=== PATIENT | female | born 1950 | race Caucasian/White ===

== ENCOUNTER → 2017-10-26 08:43 | Outpatient (CLI) | payer MEDICARE, SELFPAY ==
--- NOTE | 2017-10-26 08:55 | XR_ITS ---
XR DEXA axial skeleton HISTORY: ITS.REASON: OSTEOPOROSIS ORDERING PHYSICIAN: Greyson Plata PATIENT AGE: 67 years COMPARISON: None FINDINGS: The BMD measured at the AP Spine L1-L4 is 0.746 g/cm squared with a T score of -3.6 . This is considered Osteoporotic according to the World Health Organization criteria. Fracture risk is high. The density lumbar spine has increased by 8% compared to 10/16/2016. The T score of the hips is -2.5 consistent with osteoporosis. This density of the hips is increased by 9% compared to the previous exam.. IMPRESSION: Osteoporosis with high fracture risk. Consider follow-up exam October 2018
== END ==
PROVIDERS: Family Provider Family Medicine; PCP Family Medicine; Visit Provider Internal Medicine Endocrinology, Diabetes & Metabolism
DX: M81.0 Age-related osteoporosis without current pathological fracture (principal)
CPT/HCPCS: 77080

== ENCOUNTER → 2017-11-22 09:08 | Outpatient (CLI) | payer MEDICARE, SELFPAY ==
[2017-11-22 09:34] LABS: Albumin Level 3.6 gm/dL (3.4-5.0); Anion Gap 2.7 mEq/L (5-15); Blood Urea Nitrogen 7 mg/dL (7-18); Calcium 9.2 mg/dL (8.5-10.1); Carbon Dioxide 31 mmol/L (21.0-32.0); Chloride 96 mmol/L (98-107); Estimated Glomerular Filt Rate 100 ml/min (>60); GFR (African American) 121 ML/MIN (>60); Glucose 71 mg/dL (74-106); Phosphorous 4.7 mg/dL (2.4-4.9); Potassium 3.7 mmoL/L (3.5-5.1); Sodium 126 mmol/L (136-145)
[2017-11-26 19:13] LABS: Tandem-R Ostase 10.3 ug/L (.); Vitamin D 25 Hydroxy 55.3 ng/mL (30.0-100.0)
== END ==
PROVIDERS: Visit Provider Internal Medicine Endocrinology, Diabetes & Metabolism
DX: M81.0 Age-related osteoporosis without current pathological fracture (principal)
CPT/HCPCS: 36415; 80069; 82652; 83937; 84080

== ENCOUNTER → 2017-12-20 08:53 | Outpatient (CLI) | payer MEDICARE, SELFPAY ==
[2017-12-20 11:28] LABS: Albumin Level 3.9 gm/dL (3.4-5.0); Anion Gap 11.5 mEq/L (5-15); Blood Urea Nitrogen 7 mg/dL (7-18); Calcium 9.4 mg/dL (8.5-10.1); Carbon Dioxide 28 mmol/L (21.0-32.0); Chloride 97 mmol/L (98-107); Creatinine,Serum 0.46 mg/dL (0.55-1.02); Estimated Glomerular Filt Rate 136 ml/min (>60); GFR (African American) 164 ML/MIN (>60); Glucose 72 mg/dL (74-106); Phosphorous 4.7 mg/dL (2.4-4.9); Potassium 4.5 mmoL/L (3.5-5.1); Sodium 132 mmol/L (136-145)
== END ==
PROVIDERS: Visit Provider Internal Medicine Endocrinology, Diabetes & Metabolism
DX: M81.0 Age-related osteoporosis without current pathological fracture (principal); E78.5 Hyperlipidemia, unspecified; D50.9 Iron deficiency anemia, unspecified
CPT/HCPCS: 36415; 80069; 85025

== ENCOUNTER → 2018-04-26 07:09 | Outpatient (CLI) | payer MEDICARE, SELFPAY ==
[2018-04-26 07:48] LABS: Basophils % 0.9 % (0.1-2.0); Eosinophils # 0.1 K/mm3 (0.0-0.4); Eosinophils % 2.5 % (0.1-12.0); Hematocrit 36.9 % (37.0-47.0); Hemoglobin 12.3 g/dL (12.2-16.2); Lymphocytes # 2.3 K/mm3 (0.7-4.5); Lymphocytes % 53.5 K/mm3 (10-50); Mean Corpuscular HGB Conc 33.4 g/dL (31.8-35.4); Mean Corpuscular Hemoglobin 30.4 pg (27.0-31.2); Mean Corpuscular Volume 90.9 fl (81-99); Mean Platelet Volume 6.9 fl (7.4-10.4); Monocytes # 0.2 K/mm3 (0.1-1.0); Monocytes % 5.2 % (1.7-9.3); Neutrophils # 1.6 K/mm3 (1.8-7.8); Neutrophils % 37.9 % (37.0-80.0); Platelet Count 388 K/mm3 (142-424); Red Blood Count 4.06 M/mm3 (4.20-5.40); Red Cell Distribution Width 13.1 % (11.5-17.5); White Blood Count 4.2 K/mm3 (4.8-10.8)
[2018-04-26 07:50] LABS: MANUAL DIFFERENTIAL MANUAL DIFFERENTIAL (MANUAL DIFF)
[2018-04-26 08:54] LABS: Alanine Aminotransferase 23 U/L (12-78); Albumin Level 3.6 gm/dL (3.4-5.0); Albumin/Globulin Ratio 1.2 (1.1-1.8); Alkaline Phosphatase 58 U/L (46-116); Anion Gap 8.2 mEq/L (5-15); Aspartate Amino Transferase 18 U/L (15-37); Bilirubin,Total 0.4 mg/dL (0.2-1.0); Blood Urea Nitrogen 5 mg/dL (7-18); Calcium 8.4 mg/dL (8.5-10.1); Carbon Dioxide 28 mmol/L (21.0-32.0); Chloride 105 mmol/L (98-107); Chol/HDL Ratio 2.5 (1-3.5); Cholesterol 221 mg/dL (140-200); Creatinine,Serum 0.54 mg/dL (0.55-1.02); Estimated Glomerular Filt Rate 113 ml/min (>60); GFR (African American) 137 ML/MIN (>60); Globulin 2.9 gm/dl (1.3-3.2); Glucose 86 mg/dL (74-106); HDL Cholesterol 89 mg/dL (29-89); Iron 75 ug/dl (28-170); LDL Cholesterol 122 mg/dL (0-130); Potassium 4.2 mmoL/L (3.5-5.1); Sodium 137 mmol/L (136-145); Total Protein,Serum 6.5 gm/dL (6.4-8.2); Triglycerides 48 mg/dL (30-200); VLDL Cholesterol 10 mg/dL (0-40)
[2018-04-26 11:13] LABS: Eosinophils % 2 % (0-3); Lymphocytes % 55 % (10-50); Monocytes % 5 % (2-9); Neutrophils % 37 % (42-76); Platelet Estimate Normal; RBC Morphology Normal; Total Cells Counted 100
[2018-04-28 06:50] LABS: Folate 10.8 ng/mL (>3.0); Vitamin B12 829 pg/mL (232-1245); Vitamin D 25 Hydroxy 64.5 ng/mL (30.0-100.0)
== END ==
PROVIDERS: Visit Provider Family Medicine
DX: R53.83 Other fatigue (principal); E78.5 Hyperlipidemia, unspecified; E55.9 Vitamin D deficiency, unspecified; E53.8 Deficiency of other specified B group vitamins; R79.89 Other specified abnormal findings of blood chemistry
CPT/HCPCS: 36415; 80053; 80061; 82607; 82652; 82746; 83540; 85007; 85025

== ENCOUNTER → 2018-05-26 09:31 | Outpatient (CLI) | payer MEDICARE, SELFPAY ==
[2018-05-27 19:05] LABS: Vitamin D 25 Hydroxy 70.3 ng/mL (30.0-100.0)
[2018-05-31 08:28] LABS: Tandem-R Ostase 5.5 ug/L (.)
[2018-06-01 12:49] LABS: N-Telopeptide Cross-linked 5.3 nmol BCE/L (6.2-19.0)
== END ==
PROVIDERS: PCP Family Medicine; Visit Provider Internal Medicine Endocrinology, Diabetes & Metabolism
DX: M81.0 Age-related osteoporosis without current pathological fracture (principal)
CPT/HCPCS: 36415; 82523; 82652; 84080

== ENCOUNTER → 2018-11-11 08:19 | Outpatient (CLI) | payer MEDICARE, SELFPAY ==
--- NOTE | 2018-11-11 08:24 | XR_ITS ---
XR DEXA axial skeleton HISTORY: ITS.REASON: OSTEOPOROSIS ORDERING PHYSICIAN: Greyson Plata PATIENT AGE: 68 years COMPARISON: 10/26/2017 FINDINGS: The BMD measured at the AP Spine L1-L4 is 0.728 g/cm squared with a T score of -3.8. This is considered Osteoporotic according to the World Health Organization criteria. Fracture risk is High. The mean density of the hips has a T score of -2.2 with the lowest density in the right total hip at -2.5. The hip density has increased by 2.6%. The L-spine density has decreased by 2.4%. IMPRESSION: Osteoporosis with high fracture risk. Treatment is advised. Suggest follow-up exam October 2019
== END ==
PROVIDERS: PCP Family Medicine; Visit Provider Internal Medicine Endocrinology, Diabetes & Metabolism
DX: M81.0 Age-related osteoporosis without current pathological fracture (principal)
CPT/HCPCS: 77080

== ENCOUNTER → 2019-01-05 14:01 | Outpatient (CLI) | payer MEDICARE, SELFPAY ==
[2019-01-05 16:29] LABS: Albumin Level 3.9 gm/dL (3.4-5.0); Anion Gap 11.5 mEq/L (5-15); Blood Urea Nitrogen 7 mg/dL (7-18); Calcium 9.2 mg/dL (8.5-10.1); Carbon Dioxide 27 mmol/L (21.0-32.0); Chloride 95 mmol/L (98-107); Creatinine,Serum 0.58 mg/dL (0.55-1.02); Estimated Glomerular Filt Rate 104 ml/min (>60); GFR (African American) 125 ML/MIN (>60); Glucose 64 mg/dL (74-106); Phosphorous 4.4 mg/dL (2.4-4.9); Potassium 4.5 mmoL/L (3.5-5.1); Sodium 129 mmol/L (136-145)
[2019-01-07 19:08] LABS: Vitamin D 25 Hydroxy 66.3 ng/mL (30.0-100.0)
[2019-01-10 07:07] LABS: Tandem-R Ostase 12.9 ug/L (.)
[2019-01-11 08:11] LABS: N-Telopeptide Cross-linked 11.7 nmol BCE/L (6.2-19.0)
== END ==
PROVIDERS: Visit Provider Internal Medicine Endocrinology, Diabetes & Metabolism
DX: M81.0 Age-related osteoporosis without current pathological fracture (principal)
CPT/HCPCS: 36415; 80069; 82523; 82652; 84080

== ENCOUNTER → 2019-02-07 14:40 | Outpatient (CLI) | payer MEDICARE, SELFPAY ==
--- NOTE | 2019-02-07 14:52 | XR_ITS ---
XR foot RT min 3V HISTORY: ITS.REASON: RT FOOT PAIN 3-4 METATARSAL ORDERING PHYSICIAN: Felix Le MD PATIENT AGE: 68 years COMPARISON: None FINDINGS: No fracture or dislocation. No lytic or blastic change. There is normal mineralization.. The joint spaces are well-preserved. No significant degenerative/arthritic changes. No erosive changes evident. IMPRESSION: Negative, no acute finding
== END ==
PROVIDERS: PCP Family Medicine; Visit Provider Family Medicine
DX: M79.671 Pain in right foot (principal)
CPT/HCPCS: 73630

== ENCOUNTER → 2019-02-23 08:28 | Outpatient (CLI) | payer MEDICARE, SELFPAY ==
[2019-02-23 10:52] LABS: Albumin Level 3.7 gm/dL (3.4-5.0); Anion Gap 11.2 mEq/L (5-15); Blood Urea Nitrogen 9 mg/dL (7-18); Calcium 9.1 mg/dL (8.5-10.1); Carbon Dioxide 28 mmol/L (21.0-32.0); Chloride 95 mmol/L (98-107); Creatinine,Serum 0.51 mg/dL (0.55-1.02); Estimated Glomerular Filt Rate 120 ml/min (>60); GFR (African American) 146 ML/MIN (>60); Glucose 67 mg/dL (74-106); Phosphorous 4.3 mg/dL (2.4-4.9); Potassium 4.2 mmoL/L (3.5-5.1); Sodium 130 mmol/L (136-145)
== END ==
PROVIDERS: Visit Provider Internal Medicine Endocrinology, Diabetes & Metabolism
DX: M81.0 Age-related osteoporosis without current pathological fracture (principal)
CPT/HCPCS: 36415; 80069

== ENCOUNTER → 2019-04-18 14:01 | Outpatient (POV) | payer MEDICARE, SELFPAY | PROVIDERS: Visit Provider Dermatology | DX: Z00.00 Encounter for general adult medical examination without abnormal findings (principal) ==

== ENCOUNTER → 2019-07-11 07:18 | Outpatient (CLI) | payer MEDICARE, SELFPAY ==
[2019-07-11 07:56] LABS: Basophils # 0.1 K/mm3 (0-0.2); Basophils % 1.5 % (0.1-2.0); Eosinophils # 0.1 K/mm3 (0.0-0.4); Eosinophils % 2.1 % (0.1-12.0); Hematocrit 37.9 % (37.0-47.0); Hemoglobin 12.9 g/dL (12.2-16.2); Lymphocytes # 1.5 K/mm3 (0.7-4.5); Lymphocytes % 37.3 % (10-50); Mean Corpuscular HGB Conc 33.9 g/dL (31.8-35.4); Mean Corpuscular Hemoglobin 31.3 pg (27.0-31.2); Mean Corpuscular Volume 92.4 fl (81-99); Mean Platelet Volume 7.8 fl (7.4-10.4); Monocytes # 0.2 K/mm3 (0.1-1.0); Neutrophils # 2.1 K/mm3 (1.8-7.8); Neutrophils % 53.1 % (37.0-80.0); Platelet Count 392 K/mm3 (142-424); Red Cell Distribution Width 13.1 % (11.5-17.5)
[2019-07-11 10:30] LABS: Alanine Aminotransferase 18 U/L (12-78); Albumin Level 3.9 gm/dL (3.4-5.0); Albumin/Globulin Ratio 1.3 (1.1-1.8); Alkaline Phosphatase 62 U/L (46-116); Aspartate Amino Transferase 15 U/L (15-37); Bilirubin,Total 0.4 mg/dL (0.2-1.0); Blood Urea Nitrogen 5 mg/dL (7-18); Calcium 8.7 mg/dL (8.5-10.1); Chloride 101 mmol/L (98-107); Chol/HDL Ratio 2.2 (1-3.5); Cholesterol 215 mg/dL (140-200); Creatinine,Serum 0.57 mg/dL (0.55-1.02); Estimated Glomerular Filt Rate 106 ml/min (>60); GFR (African American) 128 ML/MIN (>60); Globulin 2.9 gm/dl (1.3-3.2); Glucose 77 mg/dL (74-106); HDL Cholesterol 97 mg/dL (29-89); Iron 67 ug/dl (28-170); LDL Cholesterol 110 mg/dL (0-130); Potassium 4.4 mmoL/L (3.5-5.1); Sodium 138 mmol/L (136-145); Total Protein,Serum 6.8 gm/dL (6.4-8.2); Triglycerides 38 mg/dL (30-200); VLDL Cholesterol 8 mg/dL (0-40)
[2019-07-11 10:34] LABS: Anion Gap 16.4 mEq/L (5-15); Carbon Dioxide 25 mmol/L (21.0-32.0)
[2019-07-12 08:25] LABS: Folate 13.1 ng/mL (>3.0); Vitamin B12 757 pg/mL (232-1245); Vitamin D 25 Hydroxy 62.8 ng/mL (30.0-100.0)
== END ==
PROVIDERS: Visit Provider Family Medicine
DX: D72.819 Decreased white blood cell count, unspecified (principal); D64.9 Anemia, unspecified; R53.83 Other fatigue; E78.5 Hyperlipidemia, unspecified; E55.9 Vitamin D deficiency, unspecified
CPT/HCPCS: 36415; 80053; 80061; 82607; 82652; 82746; 83540; 85025

== ENCOUNTER → 2019-07-27 14:34 | Outpatient (CLI) | payer MEDICARE, SELFPAY ==
[2019-07-27 18:15] LABS: Albumin Level 3.9 gm/dL (3.4-5.0); Anion Gap 11.1 mEq/L (5-15); Blood Urea Nitrogen 7 mg/dL (7-18); Calcium 8.6 mg/dL (8.5-10.1); Carbon Dioxide 27 mmol/L (21.0-32.0); Chloride 96 mmol/L (98-107); Creatinine,Serum 0.67 mg/dL (0.55-1.02); Estimated Glomerular Filt Rate 88 ml/min (>60); GFR (African American) 106 ML/MIN (>60); Glucose 70 mg/dL (74-106); Phosphorous 3.4 mg/dL (2.4-4.9); Potassium 4.1 mmoL/L (3.5-5.1); Sodium 130 mmol/L (136-145)
[2019-07-29 18:15] LABS: Vitamin D 25 Hydroxy 58.3 ng/mL (30.0-100.0)
[2019-08-01 19:10] LABS: N-Telopeptide Cross-linked <3.2 nmol BCE/L (6.2-19.0)
[2019-08-02 12:19] LABS: Tandem-R Ostase 5.8 ug/L (.)
== END ==
PROVIDERS: Visit Provider Internal Medicine Endocrinology, Diabetes & Metabolism
DX: M81.0 Age-related osteoporosis without current pathological fracture (principal)
CPT/HCPCS: 36415; 80069; 82523; 82652; 84080

== ENCOUNTER → 2020-01-19 10:08 | Outpatient (CLI) | payer MEDICARE, SELFPAY ==
--- NOTE | 2020-01-19 10:12 | XR_ITS ---
PROCEDURE: XR DEXA AXIAL SKELETON CLINICAL HISTORY: OSTEOPOROSIS COMPARISON: No exams were available for comparison FINDINGS: Right proximal femur density is 0.635 grams/centimeters sq with a T-score -2.5 consistent with osteoporosis. Left proximal femur density is 0.621 grams/centimeters sq with a T-score of -2.6 consistent with osteoporosis. L1-L4 density is 0.674 grams/centimeters sq with T-score of -3.4 consistent with osteoporosis. IMPRESSION: Osteoporosis with high fracture risk. Treatment advised. Suggest follow-up exam in 1 year Dictated by: Nicko Motley MD 01/19/2020 11:36 Electronically signed by Nicko Motley MD in [place] 01/19/2020 11:36
== END ==
PROVIDERS: PCP Family Medicine; Visit Provider Internal Medicine Endocrinology, Diabetes & Metabolism
DX: M81.0 Age-related osteoporosis without current pathological fracture (principal)
CPT/HCPCS: 77080

== ENCOUNTER → 2020-01-26 09:59 | Outpatient (CLI) | payer MEDICARE, SELFPAY ==
[2020-01-26 12:28] LABS: Albumin Level 4.1 g/dl (3.5-5.0); Anion Gap 8.6 mEq/L (5-15); Blood Urea Nitrogen 7 mg/dl (7-17); Calcium 9.8 mg/dl (8.4-10.2); Carbon Dioxide 26 mmol/L (22.0-30.0); Chloride 97 mmol/L (98-107); Estimated Glomerular Filt Rate 159 ml/min (>60); GFR (African American) 192 ML/MIN (>60); Glucose 84 mg/dl (74-100); Phosphorous 4.3 mg/dl (2.5-4.5); Potassium 4.6 mmoL/L (3.5-5.1); Sodium 127 mmol/L (136-145)
[2020-01-27 08:15] LABS: Vitamin D 25 Hydroxy 74.8 ng/mL (30.0-100.0)
[2020-01-30 21:04] LABS: N-Telopeptide Cross-linked 11.1 nmol BCE/L (6.2-19.0)
== END ==
PROVIDERS: Visit Provider Internal Medicine Endocrinology, Diabetes & Metabolism
DX: M81.0 Age-related osteoporosis without current pathological fracture (principal)
CPT/HCPCS: 36415; 80069; 82523; 82652

== ENCOUNTER → 2020-06-20 09:25 | Outpatient (CLI) | payer MEDICARE, SELFPAY ==
[2020-06-20 11:08] LABS: Chloride 94 mmol/L (98-107); Sodium 129 mmol/L (136-145)
[2020-06-20 11:09] LABS: Albumin Level 3.9 g/dl (3.5-5.0); Potassium 4.8 mmoL/L (3.5-5.1)
[2020-06-20 11:11] LABS: Blood Urea Nitrogen 8 mg/dl (7-17); Estimated Glomerular Filt Rate 123 ml/min (>60); GFR (African American) 148 ML/MIN (>60)
[2020-06-20 11:12] LABS: Anion Gap 10.8 mEq/L (5-15); Calcium 9.5 mg/dl (8.4-10.2); Carbon Dioxide 29 mmol/L (22.0-30.0); Glucose 70 mg/dl (74-100); Phosphorous 4.6 mg/dl (2.5-4.5)
== END ==
PROVIDERS: Visit Provider Internal Medicine Endocrinology, Diabetes & Metabolism
DX: M81.0 Age-related osteoporosis without current pathological fracture (principal)
CPT/HCPCS: 36415; 80069

== ENCOUNTER 2020-07-05 13:48 | Outpatient (CLI) | payer MEDICARE, SELFPAY ==
[2020-07-05 14:05] VITALS: BP 117/72; PULSE 70; RESP 18; O2SAT 94
== END 2020-07-05 14:05 | disposition home or self-care (01) ==
LOC: INF 13:50
PROVIDERS: Visit Provider Internal Medicine Endocrinology, Diabetes & Metabolism
DX: M81.0 Age-related osteoporosis without current pathological fracture (principal)
CPT/HCPCS: 96372; J0897

== ENCOUNTER → 2020-07-11 07:13 | Outpatient (CLI) | payer MEDICARE, SELFPAY ==
[2020-07-11 07:49] LABS: Basophils # 0.1 K/mm3 (0-0.2); Basophils % 1.5 % (0.1-2.0); Eosinophils # 0.1 K/mm3 (0.0-0.4); Eosinophils % 3.2 % (0.1-12.0); Hematocrit 39.9 % (37.0-47.0); Hemoglobin 13.2 g/dL (12.2-16.2); Lymphocytes # 1.5 K/mm3 (0.7-4.5); Lymphocytes % 42.5 % (10-50); Mean Corpuscular Hemoglobin 30.4 pg (27.0-31.2); Mean Corpuscular Volume 92.3 fl (81-99); Mean Platelet Volume 7.4 fl (7.4-10.4); Monocytes # 0.3 K/mm3 (0.1-1.0); Monocytes % 7.3 % (1.7-9.3); Neutrophils # 1.6 K/mm3 (1.8-7.8); Neutrophils % 45.6 % (37.0-80.0); Platelet Count 328 K/mm3 (142-424); Red Blood Count 4.32 M/mm3 (4.20-5.40); Red Cell Distribution Width 13.8 % (11.5-17.5); White Blood Count 3.6 K/mm3 (4.8-10.8)
[2020-07-11 09:40] LABS: Alanine Aminotransferase 12 U/L (12-78); Albumin Level 4.2 g/dl (3.5-5.0); Albumin/Globulin Ratio 1.6 (1.1-1.8); Alkaline Phosphatase 118 U/L (38-126); Anion Gap 12.9 mEq/L (5-15); Aspartate Amino Transferase 30 U/L (14-36); Bilirubin,Total 0.5 mg/dl (0.2-1.3); Blood Urea Nitrogen 6 mg/dl (7-17); Calcium 8.8 mg/dl (8.4-10.2); Carbon Dioxide 25 mmol/L (22.0-30.0); Chloride 101 mmol/L (98-107); Chol/HDL Ratio 2.4 (1-3.5); Cholesterol 201 mg/dl (140-200); Estimated Glomerular Filt Rate 123 ml/min (>60); GFR (African American) 148 ML/MIN (>60); Globulin 2.7 g/dL (1.3-3.2); Glucose 84 mg/dl (74-100); HDL Cholesterol 83 mg/dl (40-60); Potassium 4.9 mmoL/L (3.5-5.1); Sodium 134 mmol/L (136-145); Total Protein,Serum 6.9 g/dl (6.3-8.2); Triglycerides 83 mg/dl (30-150); VLDL Cholesterol 17 mg/dL (0-40)
[2020-07-11 09:51] LABS: Direct LDL Cholesterol 98.75 mg/dL (100-129)
[2020-07-11 10:31] LABS: 25-OH Vitamin D, Total 87.5 ng/mL (30-100)
[2020-07-11 10:46] LABS: Vitamin B12 898 pg/mL (239-931)
[2020-07-11 16:21] LABS: Iron 71 ug/dL (37-170)
== END ==
PROVIDERS: Visit Provider Family Medicine
DX: D64.89 Other specified anemias (principal); E53.8 Deficiency of other specified B group vitamins; E78.5 Hyperlipidemia, unspecified; E55.9 Vitamin D deficiency, unspecified; D72.819 Decreased white blood cell count, unspecified
CPT/HCPCS: 36415; 80053; 80061; 82306; 82607; 82746; 83540; 85025

== ENCOUNTER → 2020-07-19 14:33 | Outpatient (CLI) | payer MEDICARE, SELFPAY ==
[2020-07-19 15:29] LABS: Albumin Level 4.7 g/dl (3.5-5.0); Anion Gap 11.6 mEq/L (5-15); Blood Urea Nitrogen 9 mg/dl (7-17); Calcium 10.2 mg/dl (8.4-10.2); Carbon Dioxide 27 mmol/L (22.0-30.0); Chloride 96 mmol/L (98-107); Estimated Glomerular Filt Rate 123 ml/min (>60); GFR (African American) 148 ML/MIN (>60); Glucose 83 mg/dl (74-100); Phosphorous 4.3 mg/dl (2.5-4.5); Potassium 4.6 mmoL/L (3.5-5.1); Sodium 130 mmol/L (136-145)
== END ==
PROVIDERS: Visit Provider Internal Medicine Endocrinology, Diabetes & Metabolism
DX: M81.0 Age-related osteoporosis without current pathological fracture (principal)
CPT/HCPCS: 36415; 80069

== ENCOUNTER → 2020-08-21 10:38 | Outpatient (CLI) | payer MEDICARE, SELFPAY ==
[2020-08-21 12:08] LABS: Albumin Level 4.8 g/dl (3.5-5.0); Chloride 94 mmol/L (98-107); Potassium 4.7 mmoL/L (3.5-5.1); Sodium 129 mmol/L (136-145)
[2020-08-21 12:11] LABS: Anion Gap 10.7 mEq/L (5-15); Blood Urea Nitrogen 7 mg/dl (7-17); Carbon Dioxide 29 mmol/L (22.0-30.0); Estimated Glomerular Filt Rate 123 ml/min (>60); GFR (African American) 148 ML/MIN (>60)
[2020-08-21 12:12] LABS: Calcium 10.6 mg/dl (8.4-10.2); Glucose 85 mg/dl (74-100); Phosphorous 4.3 mg/dl (2.5-4.5)
[2020-08-24 07:35] LABS: Tandem-R Ostase 20.8 ug/L (.)
[2020-08-27 17:59] LABS: N-Telopeptide Cross-linked 4.1 nmol BCE/L (6.2-19.0)
[2020-08-31 00:58] LABS: 1,25 Dihydroxy Vitamin D 84 pg/mL (.); 1,25-Dihydroxy, Vitamin D-2 <10 pg/mL (.); 1,25-Dihydroxy, Vitamin D-3 84 pg/mL (.)
[2020-08-31 06:16] LABS: Serial Monitoring PDF SEE LABCORP REPORT
== END ==
PROVIDERS: Visit Provider Internal Medicine Endocrinology, Diabetes & Metabolism
DX: M81.0 Age-related osteoporosis without current pathological fracture (principal)
CPT/HCPCS: 36415; 80069; 82523; 82652; 84080

== ENCOUNTER → 2020-09-23 09:42 | Outpatient (CLI) | payer MEDICARE, SELFPAY ==
[2020-09-23 11:39] LABS: Albumin Level 4.7 g/dl (3.5-5.0); Anion Gap 11.9 mEq/L (5-15); Blood Urea Nitrogen 4 mg/dl (7-17); Calcium 10.4 mg/dl (8.4-10.2); Carbon Dioxide 30 mmol/L (22.0-30.0); Chloride 91 mmol/L (98-107); Estimated Glomerular Filt Rate 122 ml/min (>60); GFR (African American) 148 ML/MIN (>60); Glucose 80 mg/dl (74-100); Phosphorous 4.1 mg/dl (2.5-4.5); Potassium 4.9 mmoL/L (3.5-5.1); Sodium 128 mmol/L (136-145)
== END ==
PROVIDERS: Visit Provider Internal Medicine Endocrinology, Diabetes & Metabolism
DX: M81.0 Age-related osteoporosis without current pathological fracture (principal)
CPT/HCPCS: 36415; 80069

== ENCOUNTER → 2020-10-28 09:07 | Outpatient (CLI) | payer MEDICARE, SELFPAY ==
[2020-10-28 09:56] LABS: Albumin Level 4.4 g/dl (3.5-5.0); Anion Gap 9.3 mEq/L (5-15); Blood Urea Nitrogen 5 mg/dl (7-17); Calcium 9.6 mg/dl (8.4-10.2); Carbon Dioxide 28 mmol/L (22.0-30.0); Chloride 96 mmol/L (98-107); Estimated Glomerular Filt Rate 99 ml/min (>60); GFR (African American) 120 ML/MIN (>60); Glucose 77 mg/dl (74-100); Phosphorous 4.7 mg/dl (2.5-4.5); Potassium 4.3 mmoL/L (3.5-5.1); Sodium 129 mmol/L (136-145)
[2020-10-28 10:10] LABS: 25-OH Vitamin D, Total 72.2 ng/mL (30-100)
== END ==
PROVIDERS: Visit Provider Internal Medicine Endocrinology, Diabetes & Metabolism
DX: M81.0 Age-related osteoporosis without current pathological fracture (principal)
CPT/HCPCS: 36415; 80069; 82306; 83970

== ENCOUNTER → 2021-02-19 09:15 | Outpatient (CLI) | payer MEDICARE, SELFPAY ==
[2021-02-19 11:21] LABS: Albumin Level 4.1 g/dl (3.5-5.0); Anion Gap 10.4 mEq/L (5-15); Blood Urea Nitrogen 7 mg/dl (7-17); Carbon Dioxide 26 mmol/L (22.0-30.0); Chloride 97 mmol/L (98-107); Estimated Glomerular Filt Rate 122 ml/min (>60); GFR (African American) 148 ML/MIN (>60); Phosphorous 3.9 mg/dl (2.5-4.5); Potassium 4.4 mmoL/L (3.5-5.1); Sodium 129 mmol/L (136-145)
[2021-02-19 11:39] LABS: Intact Parathyroid Hormone 16.2 pg/mL (7.5-53.5)
[2021-02-19 11:42] LABS: 25-OH Vitamin D, Total 59.4 ng/mL (30-100)
[2021-02-19 11:44] LABS: Glucose 46 mg/dl (74-100)
[2021-02-22 01:12] LABS: Tandem-R Ostase 6.8 ug/L (.)
[2021-02-25 17:56] LABS: N-Telopeptide Cross-linked 3.6 nmol BCE/L (6.2-19.0)
== END ==
PROVIDERS: Visit Provider Internal Medicine Endocrinology, Diabetes & Metabolism
DX: M81.0 Age-related osteoporosis without current pathological fracture (principal)
CPT/HCPCS: 36415; 80069; 82306; 82523; 83970; 84080

== ENCOUNTER → 2021-06-25 08:46 | Outpatient (CLI) | payer MEDICARE, SELFPAY ==
--- NOTE | 2021-06-25 08:50 | XR_ITS ---
PROCEDURE: XR DEXA AXIAL SKELETON CLINICAL HISTORY: OSTEOPOROSIS Postmenopausal COMPARISON: CR DEXAAX XR DEXA axial skeleton from 11/11/2018 FINDINGS: The right hip BMD is 0.644 with a T-score of -2.4. The left hip BMD is 0.639 with a T-score of -2.5. The lumbar spine BMD is 0.644 g per cm squared with a T-score of -3.7. IMPRESSION: Osteopenia right hip Osteoporosis left hip Osteoporosis lumbar spine Based on these results a follow-up exam is recommended in 1-2 years year. Dictated by: Dr. Arjun Lala MD 06/26/2021 15:57 Dr. Arjun Lala MD in [place] 06/26/2021 15:57
[2021-06-25 11:04] LABS: Anion Gap 9.5 mEq/L (5-15); Blood Urea Nitrogen 6 mg/dl (7-17); Calcium 9.2 mg/dl (8.4-10.2); Carbon Dioxide 27 mmol/L (22.0-30.0); Chloride 98 mmol/L (98-107); Estimated Glomerular Filt Rate 158 ml/min (>60); GFR (African American) 191 ML/MIN (>60); Glucose 64 mg/dl (74-100); Potassium 4.5 mmoL/L (3.5-5.1); Sodium 130 mmol/L (136-145)
[2021-06-25 11:18] LABS: 25-OH Vitamin D, Total 63.2 ng/mL (30-100)
[2021-06-28 02:08] LABS: Tandem-R Ostase 8.9 ug/L (.)
[2021-07-01 15:38] LABS: N-Telopeptide Cross-linked 6.9 nmol BCE/L (6.2-19.0)
== END ==
PROVIDERS: PCP Family Medicine; Visit Provider Internal Medicine Endocrinology, Diabetes & Metabolism
DX: M81.0 Age-related osteoporosis without current pathological fracture (principal); M81.8 Other osteoporosis without current pathological fracture
CPT/HCPCS: 36415; 77080; 80069; 82306; 82523; 84080

== ENCOUNTER 2021-07-23 15:02 | Outpatient (CLI) | payer MEDICARE, SELFPAY ==
[2021-07-23 15:15] VITALS: BP 105/77; PULSE 64; RESP 18; O2SAT 99
== END 2021-07-23 15:15 | disposition home or self-care (01) ==
LOC: INF 15:04
PROVIDERS: PCP Family Medicine; Visit Provider Internal Medicine Endocrinology, Diabetes & Metabolism
DX: M81.0 Age-related osteoporosis without current pathological fracture (principal)
CPT/HCPCS: 96372

== ENCOUNTER → 2021-08-07 09:16 | Outpatient (CLI) | payer MEDICARE, SELFPAY ==
[2021-08-07 10:31] LABS: Anion Gap 10.2 mEq/L (5-15); Blood Urea Nitrogen 8 mg/dl (7-17); Calcium 9.2 mg/dl (8.4-10.2); Carbon Dioxide 28 mmol/L (22.0-30.0); Chloride 97 mmol/L (98-107); Estimated Glomerular Filt Rate 122 ml/min (>60); GFR (African American) 148 ML/MIN (>60); Glucose 75 mg/dl (74-100); Potassium 5.2 mmoL/L (3.5-5.1); Sodium 130 mmol/L (136-145)
== END ==
PROVIDERS: Visit Provider Internal Medicine Endocrinology, Diabetes & Metabolism
DX: M81.0 Age-related osteoporosis without current pathological fracture (principal)
CPT/HCPCS: 36415; 80048

== ENCOUNTER 2021-09-15 09:01 | Emergency (ER) | payer MEDICARE, SELFPAY ==
[2021-09-15 09:20] VITALS: BP 133/79; PULSE 76; RESP 19; TEMP 37.8; O2SAT 97; BMI 18.1
[2021-09-15 09:36] LABS: UTC Influenza A Antigen Positive (Negative); UTC Influenza B Antigen Negative (Negative)
--- NOTE | 2021-09-15 10:07 | HMH.EDUTC ---
[facility] [place] Disposition Clinical Impression: Influenza Disposition: Home, Self-Care Condition on Discharge: Good Instructions: How to Avoid a Cold or Flu, Influenza, DI for Influenza -- Adult Additional Instructions: ? Start Tamiflu today if you are going to take it. Discussed risk and possible benefits. ? Lots of rest ? Increase Fluids water, Gatorade, powerade, pedialyte,if infant/toddler/child ? Alternate Tylenol and / or ibuprofen as discussed for fever, aches, chills Follow up IMMEDIATELY with your family doctor for new or worsening Symptoms OR no noticeable improvement over the next 48-72 hours, 911 for difficulty or breathing ? You or your child area contagious until no fever, aches, chills for 24 hours with medication for symptoms ? Help Prevent the spread of influenza: ? Wash your hands often. Use soap and water. Wash your hands after you use the bathroom, change a child's diapers, or sneeze. Wash your hands before you prepare or eat food. Use gel hand cleanser that has 60% alcohol, when soap and water are not available. Do not touch your eyes, nose, or mouth unless you have washed your hands first. ? Cover your mouth when you sneeze or cough. Cough into a tissue or the bend of your arm. If you use a tissue, throw it away immediately and wash your hands. ? Clean shared items with a germ-killing overhead cleaner. Clean table surfaces, doorknobs, and light switches. Do not share towels, silverware, and dishes with people who are sick. Wash bed sheets, towels, silverware, and dishes with soap and water. ? Wear a mask over your mouth and nose if you are sick. The face mask may help protect others from becoming infected with the flu. Wear the mask when in common areas of your home or if you seek care with a healthcare provider. ? Stay away from others if you are sick. Stay at home until 24 hours after your fever and symptoms are gone. Prescriptions: Oseltamivir Phosphate [Tamiflu 75mg Capsule] 75 mg PO DAILY #10 cap Prescription Printed Referrals: Felix Le MD [Primary Care Provider] - Time of Disposition: 10:09 Medical Decision Making - Sivakumar Inquiry Pt receiving controlled substance: No Sivakumar was queried for this patient: No Vital Signs: 09/15/21 09:20 09/15/21 10:09 Temperature 100.0 F H 100.0 F H Temperature Source Oral Pulse Rate 76 Pulse Rate [Right Brachial] 76 Respiratory Rate 19 19 Blood Pressure 133/79 Blood Pressure [Right Arm] 133/79 Blood Pressure Mean [Right Arm] 97 Blood Pressure Source [Right Arm] Automatic Cuff Blood Pressure Position [Right Arm] Sitting 02 Sat by Pulse Oximetry 97 Oxygen Delivery Method Room Air - Lab Data Lab results reviewed: Yes: I reviewed the patient's lab results. Lab Results 09/15/21 09:16: Influenza Type A Ag Positive A, Influenza Type B Ag Negative Medical Decision Narrative: Patient declined Tamiflu will print prescription and give to patient to start denita if she changes mind [facility] [place] HPI - General Stated complaint: fever/chills, cough, sore throat, h/a, congestion Time Seen by Provider: 09/15/21 09:35 Mode of Arrival: Ambulatory Source of Information: Patient Limitations: No Limitations Description of Symptoms (Recalled from Triage Doc. by RN): PATIENT C/O COUGH, BODY ACHES, AND SCRATCHY THROAT THAT STARTED THIS MORNING HEENT Symptoms (Recalled from RN notes): Yes Resp Symptoms (Recalled from RN notes): Yes Skin Symptoms (Recalled from RN notes): No MS Symptoms (Recalled from RN notes): Yes Functional Status (Recalled from RN notes): WNL - History of Present Illness Provider Complaint: Patient states that she feels like she may have the flu States that she has been having body aches, chills and scratchy throat that started earlier this morning States that she took some cough medication and it helped a little but she was worried that she may have flu - Related Data Previous Rx's Medication Instructions Recorded Oseltamivir Phosphate [T
[2021-09-15 10:09] VITALS: BP 133/79; PULSE 76; RESP 19; TEMP 37.8; O2SAT 97
== END 2021-09-15 10:17 | disposition home or self-care (01) ==
PROVIDERS: Emergency Provider Nurse Practitioner; PCP Family Medicine
DX: J10.1 Influenza due to other identified influenza virus with other respiratory manifestations (principal); Z88.1 Allergy status to other antibiotic agents
CPT/HCPCS: G0463; 87804; 99202; C9803; U0003; U0005

== ENCOUNTER 2021-09-24 15:45 | Emergency (ER) | payer MEDICARE, SELFPAY ==
[2021-09-24 15:48] VITALS: BP 157/97; PULSE 67; RESP 18; TEMP 36.8; O2SAT 99; BMI 18.8
--- NOTE | 2021-09-24 15:58 | XR_ITS ---
FINAL REPORT CLINICAL HISTORY: cough for a week and a half, non-smoker, no chest surgeries. FINDINGS: The heart size is normal. The mediastinum is normal. There is right infrahilar and left lung base scarring. There are no pleural effusions. There is no pneumothorax. There is no osseous abnormality. IMPRESSION: No acute cardiopulmonary process Reviewed, Interpreted and Dictated by Ba Veras MD Transcribed by Elias Ramirez Authenticated by Ba Veras MD on 09/24/2021 04:51:[address] [facility]
--- NOTE | 2021-09-24 16:09 | PC.NURSE ---
rad notified of xray order
[2021-09-24 16:53] LABS: Basophils # 0.1 K/mm3 (0-0.2); Eosinophils % 0.3 % (0.1-12.0); Hematocrit 37.2 % (37.0-47.0); Hemoglobin 12.4 g/dL (12.2-16.2); Lymphocytes # 1.9 K/mm3 (0.7-4.5); Lymphocytes % 20.2 % (10-50); Mean Corpuscular HGB Conc 33.4 g/dL (31.8-35.4); Mean Corpuscular Hemoglobin 30.9 pg (27.0-31.2); Mean Corpuscular Volume 92.6 fl (81-99); Mean Platelet Volume 7.9 fl (7.4-10.4); Monocytes # 0.5 K/mm3 (0.1-1.0); Neutrophils # 6.8 K/mm3 (1.8-7.8); Neutrophils % 73.4 % (37.0-80.0); Platelet Count 501 K/mm3 (142-424); Red Blood Count 4.01 M/mm3 (4.20-5.40); Red Cell Distribution Width 13.3 % (11.5-17.5); White Blood Count 9.2 K/mm3 (4.8-10.8)
[2021-09-24 16:56] LABS: Chloride 91 mmol/L (98-107); Potassium 3.9 mmoL/L (3.5-5.1); Sodium 123 mmol/L (136-145)
[2021-09-24 16:59] LABS: Alanine Aminotransferase 25 U/L (12-78); Albumin Level 4.3 g/dl (3.5-5.0); Albumin/Globulin Ratio 1.4 (1.1-1.8); Alkaline Phosphatase 88 U/L (38-126); Anion Gap 12.9 mEq/L (5-15); Aspartate Amino Transferase 41 U/L (14-36); Bilirubin,Total 0.4 mg/dl (0.2-1.3); Blood Urea Nitrogen 5 mg/dl (7-17); Carbon Dioxide 23 mmol/L (22.0-30.0); Creatinine Clearance Estimated 45 mL/min (50-200); Estimated Glomerular Filt Rate 122 ml/min (>60); GFR (African American) 148 ML/MIN (>60); Globulin 3.1 g/dL (1.3-3.2); Glucose 99 mg/dl (74-100); Total Protein,Serum 7.4 g/dl (6.3-8.2)
[2021-09-24 17:13] LABS: Troponin I < 0.01 ng/ml (0.00-0.034)
--- NOTE | 2021-09-24 17:33 | HMH.EDGENADL ---
ED Disposition Clinical Impression: Influenza Acute bronchitis Qualifiers: Bronchitis organism: other organism Qualified Code(s): J20.8 - Acute bronchitis due to other specified organisms Disposition: Home, Self-Care Condition on Discharge: Good Instructions: DI for Acute Bronchitis Prescriptions: Codeine Phosphate/Guaifenesin [Guaifen-Codeine 100-10 mg/5 ml] 5 ml PO BID #100 ml Transmission Status: Sent to [facility] Hydrocodone/Chlorphen P-Stirex [Tussionex Pennkinetic Susp] 5 ml PO BID #100 ml Referrals: Felix Le MD [Primary Care Provider] - - Critical Care Critical Care Time: No Attestation: On 09/24/21, the high probability of a clinically significant, sudden or life threatening deterioration of the following system(s) required my full and direct attention, intervention and personal management. The time I documented below is in addition to time spent performing reported procedures but includes the following listed in this critical care notation. Medical Decision Making - Medical Records Medical records reviewed: Yes: I reviewed the patient's medical records. - Sivakumar Inquiry Pt receiving controlled substance: No Vital Signs: 09/24/21 15:48 Temperature 98.3 F Temperature Source Oral Pulse Rate [Right Radial] 67 Respiratory Rate 18 Blood Pressure [Right Arm] 157/97 H Blood Pressure Mean [Right Arm] 117 Blood Pressure Source [Right Arm] Automatic Cuff Blood Pressure Position [Right Arm] Sitting 02 Sat by Pulse Oximetry 99 Oxygen Delivery Method Room Air - Lab Data Lab Results 09/24/21 16:17: WBC 9.2, RBC 4.01 L, Hgb 12.4, Hct 37.2, MCV 92.6, MCH 30.9, MCHC 33.4, RDW 13.3, Plt Count 501 H, MPV 7.9, Neut % (Auto) 73.4, Lymph % (Auto) 20.2, [place] % (Auto) 5.0, Eos % (Auto) 0.3, Baso % (Auto) 1.0, Neut # (Auto) 6.8, Lymph # (Auto) 1.9, [place] # (Auto) 0.5, Eos # (Auto) 0.0, Baso # (Auto) 0.1 09/24/21 16:17: Sodium 123 L, Potassium 3.9, Chloride 91 L, Carbon Dioxide 23, Anion Gap 12.9, BUN 5 L, Creatinine 0.50 L, Estimated Creat Clear 45, Estimated GFR 122, Est GFR ( Amer) 148, Glucose 99, Calcium 9.0, Total Bilirubin 0.4, AST 41 H, ALT 25, Alkaline Phosphatase 88, Troponin I < 0.01, Total Protein 7.4, Albumin 4.3, Globulin 3.1, Albumin/Globulin Ratio 1.4 Result diagrams: 09/24/21 16:17 09/24/21 16:17 Orders (Tests/Meds): ED MEDICATIONS Discontinued Medications Generic Name Dose Route Start Last Admin Trade Name Freq PRN Reason Stop Dose Admin Dexamethasone Sodium Phosphate 10 mg 09/24/21 15:58 09/24/21 16:23 Dexamethasone 4mg/Ml 5ml Mdv IV 09/24/21 15:59 10 mg ONCE ONE Administration Diphenhydramine HCl 25 mg 09/24/21 15:58 09/24/21 16:23 Diphenhydramine 50mg/Ml Vial IV 09/24/21 15:59 25 mg ONCE ONE Administration Sodium Chloride 1,000 mls @ 999 mls/hr 09/24/21 16:00 09/24/21 16:22 Sod Chlor 0.9% 1000ml Bag IV 09/24/21 17:00 999 mls/hr .Q1H1M DEANDRA Administration ORDERS Category Date Time Status Troponin I Q3H Lab 09/24/21 19:00 Ordered Troponin I Q3H Lab 09/24/21 22:00 Ordered - Radiology Data #1 Image(s): Chest Image Reviewed: Yes I reviewed the patient's radiology results, Yes I reviewed the patient's radiology image, Yes I have reviewed radiologist's interpretation Preliminary Findings: Normal/NAD - Reevaluation(s) Time: 17:36 Reevaluation #1: On reevaluation, patient is feeling better. She is tolerating oral intake. No respiratory distress. No desaturations. Patient will continue her antibiotics while steroid therapy. I will place her on a short course of cough syrup. She does have an allergy to codeine, however she states that she has taken it before. She does get a little nauseous when she takes it so she will take it with food. Patient is to follow-up with PCP in 48 hours. Given strict return precautions. Verbalized understanding. Medical Decision Narrative: Is a 71-year-old
[2021-09-24 18:20] VITALS: BP 136/89; PULSE 74; RESP 16; TEMP 36.7; O2SAT 96
== END 2021-09-24 18:23 | disposition home or self-care (01) ==
PROVIDERS: Emergency Provider Emergency Medicine; PCP Family Medicine
DX: J10.1 Influenza due to other identified influenza virus with other respiratory manifestations (principal); J20.8 Acute bronchitis due to other specified organisms
CPT/HCPCS: 71045; 80053; 84484; 85025; 96365; 96375; 99283

== ENCOUNTER → 2021-12-29 09:27 | Outpatient (CLI) | payer MEDICARE, SELFPAY ==
[2021-12-29 10:22] LABS: Albumin Level 3.9 g/dl (3.5-5.0); Anion Gap 7.2 mEq/L (5-15); Blood Urea Nitrogen 9 mg/dl (7-17); Calcium 8.9 mg/dl (8.4-10.2); Carbon Dioxide 27 mmol/L (22.0-30.0); Chloride 101 mmol/L (98-107); Estimated Glomerular Filt Rate 122 ml/min (>60); GFR (African American) 148 ML/MIN (>60); Glucose 71 mg/dl (74-100); Phosphorous 4.1 mg/dl (2.5-4.5); Potassium 4.2 mmoL/L (3.5-5.1); Sodium 131 mmol/L (136-145)
[2022-01-01 02:08] LABS: Tandem-R Ostase 6.8 ug/L (.)
[2022-01-01 13:20] LABS: N-Telopeptide Cross-linked 4.8 nmol BCE/L (6.2-19.0)
== END ==
PROVIDERS: Visit Provider Internal Medicine Endocrinology, Diabetes & Metabolism
DX: M81.0 Age-related osteoporosis without current pathological fracture (principal)
CPT/HCPCS: 36415; 80048; 82040; 82306; 82523; 84080; 84100

== ENCOUNTER → 2022-06-22 07:14 | Outpatient (CLI) | payer MEDICARE, SELFPAY ==
[2022-06-22 08:18] LABS: Basophils # 0.1 K/mm3 (0-0.2); Basophils % 1.7 % (0.1-2.0); Eosinophils # 0.1 K/mm3 (0.0-0.4); Eosinophils % 2.8 % (0.1-12.0); Hematocrit 38.9 % (37.0-47.0); Hemoglobin 13.1 g/dL (12.2-16.2); Lymphocytes # 1.5 K/mm3 (0.7-4.5); Lymphocytes % 41.4 % (10-50); Mean Corpuscular HGB Conc 33.5 g/dL (31.8-35.4); Mean Corpuscular Hemoglobin 31.8 pg (27.0-31.2); Mean Corpuscular Volume 94.8 fl (81-99); Mean Platelet Volume 8.2 fl (7.4-10.4); Monocytes # 0.3 K/mm3 (0.1-1.0); Monocytes % 7.3 % (1.7-9.3); Neutrophils # 1.7 K/mm3 (1.8-7.8); Neutrophils % 46.8 % (37.0-80.0); Platelet Count 357 K/mm3 (142-424); Red Blood Count 4.11 M/mm3 (4.20-5.40); Red Cell Distribution Width 13.3 % (11.5-17.5); White Blood Count 3.6 K/mm3 (4.8-10.8)
[2022-06-22 08:48] LABS: Chloride 97 mmol/L (98-107)
[2022-06-22 08:49] LABS: Potassium 4.9 mmoL/L (3.5-5.1); Sodium 134 mmol/L (136-145)
[2022-06-22 08:51] LABS: Alanine Aminotransferase 17 U/L (12-78); Albumin Level 4.4 g/dl (3.5-5.0); Albumin/Globulin Ratio 1.7 (1.1-1.8); Alkaline Phosphatase 80 U/L (38-126); Anion Gap 13.9 mEq/L (5-15); Aspartate Amino Transferase 39 U/L (14-36); Bilirubin,Total 0.4 mg/dl (0.2-1.3); Blood Urea Nitrogen 8 mg/dl (7-17); Carbon Dioxide 28 mmol/L (22.0-30.0); Estimated Glomerular Filt Rate 122 ml/min (>60); GFR (African American) 148 ML/MIN (>60); Globulin 2.6 g/dL (1.3-3.2)
[2022-06-22 08:52] LABS: Chol/HDL Ratio 2.7 (1-3.5); Cholesterol 217 mg/dl (140-200); Glucose 78 mg/dl (74-100); HDL Cholesterol 81 mg/dl (40-60); Triglycerides 59 mg/dl (30-150); VLDL Cholesterol 12 mg/dL (0-40)
[2022-06-22 09:03] LABS: Direct LDL Cholesterol 106.95 mg/dL (100-129)
== END ==
PROVIDERS: PCP Family Medicine; Visit Provider Family Medicine
DX: Z00.00 Encounter for general adult medical examination without abnormal findings (principal); E78.5 Hyperlipidemia, unspecified; E53.8 Deficiency of other specified B group vitamins; E55.9 Vitamin D deficiency, unspecified; M81.0 Age-related osteoporosis without current pathological fracture
CPT/HCPCS: 36415; 80053; 80061; 85025

== ENCOUNTER → 2022-06-25 11:13 | Outpatient (CLI) | payer MEDICARE, SELFPAY ==
[2022-06-25 12:13] LABS: Albumin Level 4.5 g/dl (3.5-5.0); Chloride 92 mmol/L (98-107); Potassium 4.9 mmoL/L (3.5-5.1); Sodium 128 mmol/L (136-145)
[2022-06-25 12:15] LABS: Blood Urea Nitrogen 9 mg/dl (7-17); Estimated Glomerular Filt Rate 122 ml/min (>60); GFR (African American) 148 ML/MIN (>60)
[2022-06-25 12:16] LABS: Anion Gap 12.9 mEq/L (5-15); Calcium 9.3 mg/dl (8.4-10.2); Carbon Dioxide 28 mmol/L (22.0-30.0); Glucose 86 mg/dl (74-100); Phosphorous 4.5 mg/dl (2.5-4.5)
[2022-06-25 12:35] LABS: 25-OH Vitamin D, Total 51.6 ng/mL (30-100)
[2022-06-30 06:10] LABS: Tandem-R Ostase 10.3 ug/L (.)
[2022-06-30 14:32] LABS: N-Telopeptide Cross-linked 8.4 nmol BCE/L (6.2-19.0)
== END ==
PROVIDERS: PCP Family Medicine; Visit Provider Internal Medicine Endocrinology, Diabetes & Metabolism
DX: M81.8 Other osteoporosis without current pathological fracture (principal)
CPT/HCPCS: 36415; 80069; 82306; 82523; 84080

== ENCOUNTER → 2022-07-01 09:20 | Outpatient (CLI) | payer MEDICARE, SELFPAY ==
--- NOTE | 2022-07-01 09:25 | XR_ITS ---
FINAL REPORT CLINICAL HISTORY: osteoporosis COMPARISON: June 25, 2021 FINDINGS: DEXA BONE DENSITY AXIAL SKELETON Using L1-4, the bone mineral density of the spine is 0.644 g/cm2, corresponding to T-score of -3.5. Previously measured 0.644 g/cm2, corresponding to T-score of -3.7. Using the left hip, the bone mineral density of the femoral neck is 0.606 g/cm2, corresponding to a T-score of -2.8. Previously measured -0.639 the g/cm2, corresponding to T-score of -2.5. NOTE: T-score: Standard deviation compared with peak bone mass of young adult mean. *Following the recommendations of the International Society of Bone densitometry, classification of hip BMD is based on the lower of two T-scores; total hip or femoral neck. IMPRESSION: Osteoporosis: Lowest T-score is at or below -2.5. This patient's T-score meets the World Health Organization criteria for osteoporosis. Reviewed, Interpreted and Dictated by Davon Mckeon III, MD Transcribed by Jaci Paulino Authenticated and [facility]
== END ==
PROVIDERS: PCP Family Medicine; Visit Provider Internal Medicine Endocrinology, Diabetes & Metabolism
DX: M81.8 Other osteoporosis without current pathological fracture (principal)
CPT/HCPCS: 77080

== ENCOUNTER 2022-07-29 07:59 | Emergency (ER) | payer MEDICARE, SELFPAY ==
--- NOTE | 2022-07-29 08:28 | EXP.UTC ---
Discharge Plan Disposition Patient Disposition: Home, Self-Care Condition: Good Prescriptions Prescriptions: New benzonatate [benzonatate] 100 mg capsule 100 mg PO TIDP PRN (Reason: Cough) Qty: 30 0RF ondansetron 4 mg Tablet,Disintegrating 4 mg PO Q8H PRN (Reason: Nausea) Qty: 12 0RF No Action doxycycline hyclate 100 MG capsule 100 mg PO Q12H methylprednisolone 4 MG tablet 4 mg PO DIRECTED diazepam 5 MG tablet 5 mg PO DAILY hydrocodone-chlorpheniramine 115 ML suspension,extended rel 12 hr 5 ml PO BID Qty: 100 0RF codeine-guaifenesin 5 ML liquid 5 ml PO BID Qty: 100 0RF Referrals Follow up/Referrals: Felix Le MD [Primary Care Provider] - See instructions Activity Restrictions/Add. Instructions Additional Instructions/Restrictions: Drink plenty of fluids. Take tylenol or ibuprofen for pain or fever. Take the medications as directed. Follow up with your regular doctor. GO TO THE ER FOR ANY WORSENING SYMPTOMS Clinical Impressions Clinical Impression: COVID-19, Acute viral syndrome Instructions Patient Instructions: Coronavirus Disease 2019, Preventing the Spread of Coronavirus Discharge Instructions Discharge ED Provider: Orestes Koenig [facility] General Stated complaint: Covid/Flu test, Covid+ 07/28 Time Seen by Provider: 07/29/22 08:25 History of Present Illness Provider Complaint: She states that she has had a fever, nonproductive cough and she has felt bad for the past 2 days. She took home covid-19 test yesterday that was positive. She came in to have the covid-19 confirmed and to make sure she doesn't have influenza too. She denies any shortness of breath. Related Data Home Medications Medication Instructions Recorded Confirmed diazepam 5 mg tablet 5 mg PO DAILY . 09/24/21 09/24/21 doxycycline hyclate 100 mg capsule 100 mg PO Q12H Infection 09/24/21 09/24/21 methylprednisolone 4 mg tablet 4 mg PO DIRECTED . 09/24/21 09/24/21 Previous Rx's Medication Instructions Recorded codeine 10 mg-guaifenesin 100 mg/5 5 ml PO BID #100 mL 09/24/21 mL oral liquid hydrocodone 10 mg-chlorpheniramine 5 ml PO BID #100 mL 09/24/21 8 mg/5 mL oral susp extend.rel 12hr benzonatate 100 mg capsule 100 mg PO TIDP PRN Cough #30 caps 07/29/22 ondansetron 4 mg disintegrating 4 mg PO Q8H PRN Nausea #12 tabs 07/29/22 tablet Allergies Allergy/AdvReac Type Severity Reaction Status Date / Time cefuroxime [From CEFTIN] Allergy Intermediate NA-DIARRHEA Verified 07/29/22 08:44 erythromycin base Allergy Intermediate NA-NAUSEA Verified 07/29/22 08:44 [ERYTHROMYCIN BASE] AND DIARRHEA codeine [CODEINE] Allergy Unknown Verified 07/29/22 08:44 PFSH PFSH Social History Smoking Status: Never smoker alcohol intake: never current occupational status: retired Travel in the last 8 weeks: None household members: spouse housing: house ROS Obtained: Yes All systems reviewed & no additional complaints except as documented Constitutional Constitutional: Reports chills and Reports fever(s) Eyes Eyes: Denies eye discharge ENT Ears, Nose, Mouth, and Throat: Reports as per HPI Cardiovascular Cardiovascular: Denies chest pain Respiratory Respiratory: Denies chest congestion and Reports cough Gastrointestinal Gastrointestingal: Reports nausea; Denies abdominal pain, constipation, cramping, diarrhea or vomiting Musculoskeletal Musculoskeletal: Denies arthralgias Integumentary/Breasts Skin/Breast: Denies rash Neurologic Neurologic: Denies paresthesias Physical Exam General General appearance: alert and in no apparent distress Head Head exam: atraumatic, normocephalic and normal inspection Eye Eye exam: Present normal appearance, PERRL and EOMI ENT ENT exam: Present mucous membranes moist and normal external ear exam Expanded ENT Exam TM/Canal exam: Bilateral TM: erythema an
[2022-07-29 08:38] LABS: UTC Influenza A Antigen Negative (Negative)
[2022-07-29 08:39] LABS: UTC Influenza B Antigen Negative (Negative)
[2022-07-29 08:41] VITALS: BP 125/75; PULSE 71; RESP 18; TEMP 37; O2SAT 100; BMI 18.7
[2022-07-29 09:12] VITALS: BP 125/75; PULSE 71; RESP 18; TEMP 37
== END 2022-07-29 09:14 | disposition home or self-care (01) ==
PROVIDERS: Emergency Provider Nurse Practitioner Family; PCP Family Medicine
DX: U07.1 COVID-19 (principal)
CPT/HCPCS: 87804; 99212; C9803; G0463; U0003; U0005

== ENCOUNTER 2022-09-15 13:51 | Outpatient (CLI) | payer MEDICARE, SELFPAY ==
[2022-09-15 14:00] VITALS: BP 136/71; PULSE 68; RESP 18; O2SAT 99
== END 2022-09-15 14:12 | disposition home or self-care (01) ==
LOC: INF 13:53
PROVIDERS: PCP Family Medicine; Visit Provider Internal Medicine Endocrinology, Diabetes & Metabolism
DX: M81.0 Age-related osteoporosis without current pathological fracture (principal)
CPT/HCPCS: 96372; J0897

== ENCOUNTER → 2022-09-29 14:12 | Outpatient (CLI) | payer MEDICARE, SELFPAY ==
[2022-09-29 16:25] LABS: Chloride 94 mmol/L (98-107); Sodium 127 mmol/L (136-145)
[2022-09-29 16:26] LABS: Potassium 4.4 mmoL/L (3.5-5.1)
[2022-09-29 16:28] LABS: Blood Urea Nitrogen 6 mg/dl (7-17); Estimated Glomerular Filt Rate 122 ml/min (>60); GFR (African American) 147 ML/MIN (>60)
[2022-09-29 16:29] LABS: Anion Gap 11.4 mEq/L (5-15); Calcium 8.5 mg/dl (8.4-10.2); Carbon Dioxide 26 mmol/L (22.0-30.0); Glucose 77 mg/dl (74-100)
== END ==
PROVIDERS: PCP Family Medicine; Visit Provider Internal Medicine Endocrinology, Diabetes & Metabolism
DX: M81.0 Age-related osteoporosis without current pathological fracture (principal)
CPT/HCPCS: 36415; 80048

== ENCOUNTER → 2023-01-07 14:09 | Outpatient (CLI) | payer MEDICARE, SELFPAY ==
[2023-01-07 16:01] LABS: Albumin Level 3.9 g/dl (3.5-5.0); Anion Gap 9.2 mEq/L (5-15); Blood Urea Nitrogen 7 mg/dl (7-17); Calcium 8.5 mg/dl (8.4-10.2); Carbon Dioxide 28 mmol/L (22.0-30.0); Chloride 95 mmol/L (98-107); Estimated Glomerular Filt Rate 122 ml/min (>60); GFR (African American) 147 ML/MIN (>60); Glucose 60 mg/dl (74-100); Phosphorous 4.3 mg/dl (2.5-4.5); Potassium 4.2 mmoL/L (3.5-5.1); Sodium 128 mmol/L (136-145)
[2023-01-07 16:17] LABS: 25-OH Vitamin D, Total 52.3 ng/mL (30-100)
[2023-01-12 21:11] LABS: C-Telopeptide Serum 56 pg/mL (.)
== END ==
PROVIDERS: Internal Medicine Nephrology; PCP Family Medicine; Visit Provider Internal Medicine Endocrinology, Diabetes & Metabolism
DX: M81.0 Age-related osteoporosis without current pathological fracture (principal); E55.9 Vitamin D deficiency, unspecified
CPT/HCPCS: 36415; 80069; 82306; 82523; 84080

== ENCOUNTER → 2023-07-19 10:25 | Outpatient (CLI) | payer MEDICARE, SELFPAY ==
[2023-07-19 11:30] LABS: Albumin Level 4.2 g/dl (3.5-5.0); Anion Gap 11.9 mEq/L (5-15); Blood Urea Nitrogen 8 mg/dl (7-17); Calcium 9.5 mg/dl (8.4-10.2); Carbon Dioxide 26 mmol/L (22.0-30.0); Chloride 95 mmol/L (98-107); Estimated Glomerular Filt Rate 122 ml/min (>60); GFR (African American) 147 ML/MIN (>60); Glucose 92 mg/dl (74-100); Phosphorous 4.7 mg/dl (2.5-4.5); Potassium 4.9 mmoL/L (3.5-5.1); Sodium 128 mmol/L (136-145)
[2023-07-19 11:49] LABS: 25-OH Vitamin D, Total 64.9 ng/mL (30-100)
[2023-07-22 20:09] LABS: C-Telopeptide Serum 103 pg/mL (.)
[2023-07-23 03:27] LABS: Tandem-R Ostase 7.6 ug/L (.)
== END ==
PROVIDERS: PCP Family Medicine; Visit Provider Internal Medicine Nephrology
DX: M81.0 Age-related osteoporosis without current pathological fracture (principal)
CPT/HCPCS: 36415; 80069; 82306; 82523; 84080

== ENCOUNTER → 2023-07-26 09:21 | Outpatient (CLI) | payer MEDICARE, SELFPAY ==
--- NOTE | 2023-07-26 09:26 | XR_ITS ---
FINAL REPORT TECHNIQUE: Bone densitometry calculations of the lumbar spine and left hip were obtained. CLINICAL HISTORY: Osteoporosis screening COMPARISON: 07/01/2022 FINDINGS: Using L1-4, the bone mineral density of the spine is 0.701 g/cm2, corresponding to T-score of -3.1 and a Z score of -0.9. This is within the range of osteoporosis. Previously was 0.664 g/cm? with T score of -3.5 and Z score of -1.3. Using the left hip, the bone mineral density of the femoral neck is 0.611 g/cm2, corresponding to a T-score of -2.7 and a Z-score of -1.1. This is within the range of osteoporosis. Previously was 0.606 g/cm? with T score of -2.8 and Z score of -1.2. FRAX not reported because patient being treated for osteoporosis. NOTE: T-score: Standard deviation compared with peak bone mass of young adult mean. *Following the recommendations of the International Society of Bone densitometry, classification of hip BMD is based on the lower of two T-scores; total hip or femoral neck. IMPRESSION: 1. Bone mineral density of the lumbar spine within the range of osteoporosis. 2. Bone mineral density of the left femoral neck within the range of osteoporosis. Reviewed, Interpreted and Dictated by Tangela Wilkinson MD Transcribed by Lorena Murphy Authenticated and [facility]
== END ==
PROVIDERS: PCP Family Medicine; Visit Provider Internal Medicine Nephrology
DX: M81.0 Age-related osteoporosis without current pathological fracture (principal)
CPT/HCPCS: 77080

== ENCOUNTER 2023-09-17 13:55 | Outpatient (CLI) | payer MEDICARE, SELFPAY ==
[2023-09-17 14:10] VITALS: BP 113/73; PULSE 63; RESP 16; O2SAT 99
[2023-09-17] MEDS: DENOSUMAB 60 MG/ML SYRINGE SQ (14:10)
== END 2023-09-17 14:30 | disposition home or self-care (01) ==
LOC: INF 13:57
PROVIDERS: PCP Family Medicine; Visit Provider Internal Medicine Nephrology
DX: M81.0 Age-related osteoporosis without current pathological fracture (principal)
CPT/HCPCS: 96372; J0897

== ENCOUNTER 2023-10-04 09:20 | Outpatient (CLI) | payer MEDICARE, SELFPAY ==
[2023-10-04 10:21] LABS: Anion Gap 9.5 mEq/L (5-15); Blood Urea Nitrogen 6 mg/dl (7-17); Calcium 8.6 mg/dl (8.4-10.2); Carbon Dioxide 27 mmol/L (22.0-30.0); Chloride 97 mmol/L (98-107); Estimated Glomerular Filt Rate 121 ml/min (>60); GFR (African American) 147 ML/MIN (>60); Glucose 81 mg/dl (74-100); Potassium 4.5 mmoL/L (3.5-5.1); Sodium 129 mmol/L (136-145)
== END 2023-10-04 23:59 ==
LOC: LAB 09:22
PROVIDERS: PCP Family Medicine; Visit Provider Internal Medicine Nephrology
DX: M81.0 Age-related osteoporosis without current pathological fracture (principal)
CPT/HCPCS: 36415; 80048

== ENCOUNTER 2024-06-05 06:17 | Outpatient (CLI) | payer MEDICARE, SELFPAY ==
[2024-06-05 08:09] LABS: Basophils % 0.4 % (0.1-2.0); Eosinophils % 0.3 % (0.1-12.0); Hematocrit 42.6 % (37.0-47.0); Hemoglobin 13.4 g/dL (12.2-16.2); Lymphocytes # 1.4 K/mm3 (0.7-4.5); Lymphocytes % 28.1 % (10-50); Mean Corpuscular HGB Conc 31.4 g/dL (31.8-35.4); Mean Corpuscular Hemoglobin 30.9 pg (27.0-31.2); Mean Corpuscular Volume 98.7 fl (81-99); Mean Platelet Volume 8.5 fl (7.4-10.4); Monocytes # 0.4 K/mm3 (0.1-1.0); Monocytes % 7.3 % (1.7-9.3); Neutrophils # 3.2 K/mm3 (1.8-7.8); Neutrophils % 63.9 % (37.0-80.0); Platelet Count 364 K/mm3 (142-424); Red Blood Count 4.32 M/mm3 (4.20-5.40); Red Cell Distribution Width 13.9 % (11.5-17.5)
[2024-06-05 08:29] LABS: Alanine Aminotransferase 20 U/L (12-78); Albumin Level 4.5 g/dl (3.5-5.0); Albumin/Globulin Ratio 1.6 (1.1-1.8); Alkaline Phosphatase 61 U/L (38-126); Anion Gap 7.8 mEq/L (5-15); Aspartate Amino Transferase 38 U/L (14-36); Bilirubin,Total 0.6 mg/dl (0.2-1.3); Blood Urea Nitrogen 8 mg/dl (7-17); Calcium 10.1 mg/dl (8.4-10.2); Carbon Dioxide 28 mmol/L (22.0-30.0); Chloride 103 mmol/L (98-107); Chol/HDL Ratio 2.7 (1-3.5); Cholesterol 248 mg/dl (140-200); Estimated Glomerular Filt Rate 98 ml/min (>60); GFR (African American) 119 ML/MIN (>60); Globulin 2.9 g/dL (1.3-3.2); Glucose 101 mg/dl (74-100); HDL Cholesterol 93 mg/dl (40-60); Potassium 4.8 mmoL/L (3.5-5.1); Sodium 134 mmol/L (136-145); Total Protein,Serum 7.4 g/dl (6.3-8.2); Triglycerides 85 mg/dl (30-150); VLDL Cholesterol 17 mg/dL (0-40)
[2024-06-05 08:40] LABS: Direct LDL Cholesterol 116.87 mg/dL (100-129)
[2024-06-05 08:46] LABS: 25-OH Vitamin D, Total 54.5 ng/mL (30-100)
[2024-06-05 09:19] LABS: Vitamin B12 571 pg/mL (239-931)
== END 2024-06-05 23:59 | disposition home or self-care (01) ==
LOC: LAB 06:18
PROVIDERS: PCP Family Medicine; Visit Provider Family Medicine
DX: E78.5 Hyperlipidemia, unspecified (principal); E55.9 Vitamin D deficiency, unspecified; G62.9 Polyneuropathy, unspecified; E53.8 Deficiency of other specified B group vitamins
CPT/HCPCS: 36415; 80053; 80061; 82306; 82607; 85025

== ENCOUNTER 2024-08-09 08:46 | Outpatient (CLI) | payer MEDICARE, SELFPAY ==
--- OUTSIDE RECORDS SUMMARY | 2024-08-09 08:49 | XMS_ITS | Clinical Summary ---
Author Organization [facility] , [facility] Address [address] [place] [address] Phone Care Team Providers Care Pressure Tester Name Role Phone TUNG MCALLISTER TARAS Montez Unavailable [phone] RL STEWART, EL Unavailable [phone] Reason for Visit and Chief Complaint The Chief Complaint is: lumbar pain Problems Includes: Problems addressed during this encounter and other active Problems Current Visit Onset Date Resolved Date Provider Conditio n Status Lower Back Pain 01/03/2015 Rafa Saez MD A ctive Last Documented On 5 10:43AM ; [facility] Past Visits Onset Date Resolved Date Provider Condition Status Bone Pain in the Right Foot 02/10/2019 Fausto Martinez MD Active Last Documented On 9 9:03AM ; [facility] Plan of Treatment - Patient screened for future fall risk: documentation of any fall with injury in past year - Last Documented On 05/23/2024 4:59PM ; [facility] Fall Risk Assessment: This patient has been identified as a fall risk. Balance/gait along with postural blood pressure, vision and home fall hazards have been assessed. Medications have been reviewed, and recommendations made with regard to contributing factors for future falls. Plan of care: Consideration of vitamin D supplementation along with balance and strength training with consideration for formal physical therapy has been discussed with the patient. - Last Documented On 05/23/2024 4:59PM ; [facility] I will set her up for repeat SI joint injections. As long as this is affective we will just continue this. She will continue with her exercise program. Hopefully she will get a similar response to the last injections that she had several years ago. - Last Documented On 05/23/2024 4:59PM ; [facility], [facility] Future Appointments Date Time Location Provi jerel Physician Specified 08/22/2024 1:45PM [facility] Joel Montez DPM Last Documented On 4 2:30PM ; [facility] Follow Up 09/04/2024 1:30PM [facility] RYAN RUBY PA-C Last Documented On 4 2:43PM ; [facility], [facility] Instructions to patient Instructions for patient to see pcp for bp Last Documented On 4 1:51PM ; [facility], [facility] Assessments Includes: Assessments from this encounter Findings Patient appears to have developed recurrent sacroiliitis. She would like to repeat some injections as her exercises are not providing the relief it had in the past. - Last Documented On 05/23/2024 4:59PM ; [facility], [facility] Instructions Includes: Instructions from this encounter Instructions to patient Instructions for patient to see pcp for bp Last Documented On 4 1:51PM ; [facility], [facility] Medical Equipment - Implanted Devices Includes: Current Devices No Medical Equipment Recorded Medications Includes: Medications discussed during this encounter and other current Medications Current Medications (continue as prescribed) [facility] Magnesium 250 MG Oral Tablet 06/19/2019 Provider : Diagnosis: Last Documented On 9 2:04PM By Ирина Payne ; [facility], [facility] B Complex-B12 Oral Tablet 06/19/2019 Provider: Diagnosis: Last Documented On 9 2:00PM By Ирина Payne ; [facility] MiraLax Oral Packet 06/19/2019 Provider: Diagnosis: Last Documented On 9 2:00PM By Ирина Payne ; [facility] Calcium Citrate 333 MG Oral Tablet 06/19/2019 Provid er: Diagnosis: Last Documented On 9 2:01PM By Ирина Payne ; [facility] Lactaid 3000 UNIT Oral Tablet 06/19/2019 Provider: Diagnosis: Last Documented On 9 2:03PM By Ирина Payne ; [facility] Advil 200 MG Oral Capsule 06/19/2019 Provider: Diagnosis: Last Documented On 9 2:03PM By Ирина Payne ; [facility] Pregabalin 50 MG Oral Capsule 06/08/2019 Provider: EL SHINE MD Diagnosis: Last Documented On 9 1:59PM By Ирина Payne ; [facility] Zelnorm 6 MG Oral Tablet 05/29/2019 Provider: LEE SHINE MD Diagnosis: Last Documented On 9 1:59PM By Ирина Payne ; [facility] diazePAM 5 MG Oral Tablet 05/16/2019 Provider: BROCK ESQUIVEL Diagnosis: Last Documented On 9 1:59PM By Ирина Payne ; [facility] Dexamethasone 0.5 MG Oral Tablet 04/27/2019 Provider : Diagnosis: Last Documented On 9 1:59PM By Ирина Payne ; [facility] Lyrica 50MG Oral Capsule 02/08/2019 Provider: LEE SHINE MD Diagnosis: Last Documented On 9 10:19AM By Danyell Kennedy ; [facility] Prolia 60MG/ML Subcutaneous Solution Prefilled Syringe 02/06/2019 Provider: Diagnosis: Last Documented On 9 10:19AM By Dnayell Kennedy ; [facility] Medications Administered Includes: Administered Medications from this encounter No Administered Medications Recorded Vital Signs Includes: Vital Signs from this encounter Vital Name 05/23/2024 01:51P Height (in) 56 Weight (lb) 120 Body Mass Index 26.9 Body Surface Area 1.4 Note: PW Last Documented: On 05/23/2024 1:51PM ; [facility], [facility] Results Includes: Results discussed during this encounter No Results Recorded For Specified Dates History of Present Illness Includes: History of Present Illness from this encounter NAT Barry is a 73 year old female. - Symptoms catching popping locking better with stretching swimming massage therapy sometimes heat or ice and advil worse with lots of standing/long periods of sitting/ lots of bending. - Allergy list reviewed - Problem list reviewed - Medication reconciliation performed - Medication list reviewed - Medication list reviewed with patient - Previous history of new onset pain Injury is not work related or an automotive accident - Patient pain level from 1-10: 7 - History of Physical Therapy in touch - History of Home Exercise 03/13/2022 - History of Injections 01/10/2020 MAYUR SI 95% FOR 3 YRS - - Review of medications documented Medications used for this condition: naveed Patient returns having increasing pain across the lower back again. It has been several years since we have seen her. She had been dealing with some lower back pain. In she had some injections including epidural and SI joint injections which really control her symptoms. In fact she had 90% pain relief since the last injection was which was 3 or 4 years ago. She has just now started having increasing symptoms again. She had been very dedicated to her health. She had been doing a lot of exercises. She does home exercises. She goes to the gym she does water aerobics. She does massage therapy. Despite all these activities she started having increasing pain and symptoms in the lumbosacral area. Patient has returned hopeful to reestablish some injections as they worked extremely well for several years ago. Social History Description Last Updated No recent change in diet 05/19/2024 Last Documented On 4 1:51PM ; [facility] Not a current smoker. 05/19/2024 Last Documented On 4 1:51PM ; [facility], [facility] Caffeine use 01/03/2015 Last Documented On 4 1:51PM ; [facility], [facility] Exercising regularly 01/03/2015 Last Documented On 4 1:51PM ; [facility], [facility] No recent change in diet 01/03/2015 Last Documented On 4 1:51PM ; [facility], [facility] Not a current smoker 01/03/2015 Last Documented On 4 1:51PM ; [facility] Not using alcohol 01/03/2015 Last Documented On 4 1:51PM ; [facility] Not using drugs 01/03/2015 Last Documented On 4 1:51PM ; [facility] No tobacco use 01/03/2015 Last Documented On 4 1:51PM ; [facility], [facility] Smoking status : Never smoker 01/03/2015 Last Documented On 4 1:51PM ; [facility] Procedures and Surgical History Includes: Procedures from this encounter Procedures Code Diagnosis Performing Provider Service Location Service Date X-RAY EXAM OF LOWER SPINE 4-5 VIEWS 81394 Other intervertebral disc degeneration, lumbar region, Sacroiliitis, not elsewhere classified TARAS RUBY PA-C [facility] 05/23/2024 Last Documented On 4 4:29PM ; [facility] history of orthopedic options: physical therapy Last Documented On 4 1:51PM ; [facility] Clinical summary provided to patient Last Documented On 4 1:51PM ; [facility] an X-ray was performed 05/23/2024 [id number] Last Documented On 4 1:51PM ; [facility] an MRI was performed [id number] Last Documented On 4 1:51PM ; [facility] Medical History Includes: Medical History addressed during this encounter Description Last Updated A recent injection Dr.Philli gaby Medrano ~inj in 2016 ~[facility] SI joint inj. 06/28/19 07/10/2019 Last Documented On 4 1:51PM ; [facility] Arthritic joint problems 02/21/2019 Last Documented On 4 1:51PM ; [facility] hemorroidectomy ~IBS 01/03/2015 Last Documented On 4 1:51PM ; [facility] History of osteoporosis 01/03/2015 Last Documented On 4 1:51PM ; [facility] Family History Includes: Family History addressed during this encounter Description Last Updated Family history of cancer mother 01/04/20 15 Last Documented On 4 1:51PM ; [facility] Family history of osteoporosis mother Last Documented On 4 1:51PM ; [facility] Review of Systems Includes: Review of Systems from this encounter Systemic: Not feeling tired, no recent weight loss, and no recent weight gain. No edema. Head: No headache and no sinus pain. Eyes: No vision problems and no glaucomatous visual field defect. Cataracts. No Glasses/Contacts and no Glaucoma. Otolaryngeal: No hearing loss and no tinnitus. No nasal symptoms. Cardiovascular: No chest pain or discomfort, no palpitations, no Hypertension, and no High Cholesterol. Pulmonary: No daytime asthma symptoms, no cough, and no chronic cough. No wheezing. Gastrointestinal: No heartburn and no abdominal pain. No Indigestion, no Peptic Ulcer, no GI Stomach Bleed, no Ulcers, and no Acid Reflux. Endocrine: No hot flashes, no muscle weakness, no Diabetes, no Hypothyroid, and no Hyperthyroid. Hematologic: No easy bleeding. A tendency for easy bruising. No Anemia. Musculoskeletal: Arthritis and lower back pain. No soft tissue swelling. Pain localized to one or more joints. Neurological: No dizziness and no convulsions. Numbness. Psychological: No anxiety, no emotional lability, no depression, and no insomnia. Not crying for no reason. Skin: No dry skin. No Ulcers, no Scars, no rash, and no ulcers. Allergic and Immunologic: Complaint of seasonal allergic reaction. reviewed 05/23/2024 Mental Status Includes: Mental Status from this encounter Description No anxiety Functional Status Includes: Functional Status from this encounter No Functional Status Recorded Physical Exam Includes: Physical Exam from this encounter Allergies Includes: Active Allergies Substance Type Reaction Onset Date Resolved Date Statu s Erythromycin Allergy 01/03/2015 Active Last Documented On 4 2:29PM ; [facility], [facility] Codeine and Related Allergy 01/03/2015 Active Last Documented On 4 2:29PM ; [facility] Ceftin Allergy 01/03/2015 Active Last Documented On 4 2:29PM ; [facility], [facility] Encounters Encounter Provider Location Date Check-In Time Check-Out Time Diagnosis Physician Specified TARAS RUBY PA-C [facility] 05/23/20 24 1:50PM 2:45PM Insurance Includes: Active Insurance Policies Plan Name Member ID Group # Subscriber Relationship Effect marquez Dates 1 - Medicare Part B [facility] [id number] Kristie Monique 08/20/2016 - Unknown 2 - [facility] [place] [employer] [id number] PLAN N Kristie Monique 09/20/2015 - Unknown Clinical Notes Includes: Clinical Notes from this encounter * Progress note Date Encounter Last Documented by 05/23/2024 Physician Specified Last travis paz on 05/23/2024; 4:59 PM, TARAS RUBY PA-C; [facility], [facility] Active Problems & Conditions - Bone Pain in the Right Foot - Lower Back Pain Chief Complaint The Chief Complaint is: Lumbar pain. Referred Here Referred by pcp. History of Present Illness Kristie Barry is a 73 year old female. - Symptoms catching popping locking better with stretching swimming massage therapy sometimes heat or ice and advil worse with lots of standing/long periods of sitting/ lots of bending. - Allergy list reviewed - Problem list reviewed - Medication reconciliation performed - Medication list reviewed - Medication list reviewed with patient - Previous history of new onset pain Injury is not work related or an automotive accident - Patient pain level from 1-10: 7 - History of Physical Therapy in touch - History of Home Exercise 03/13/2022 - History of Injections 01/10/2020 [facility] SI 95% FOR 3 YRS - - Review of medications documented Medications used for this condition: advil Patient returns having increasing pain across the lower back again. It has been several years since we have seen her. She had been dealing with some lower back pain. In she had some injections including epidural and SI joint injections which really control her symptoms. In fact she had 90% pain relief since the last injection was which was 3 or 4 years ago. She has just now started having increasing symptoms again. She had been very dedicated to her health. She had been doing a lot of exercises. She does home exercises. She goes to the gym she does water aerobics. She does massage therapy. Despite all these activities she started having increasing pain and symptoms in the lumbosacral area. Patient has returned hopeful to reestablish some injections as they worked extremely well for several years ago. Current Medication - Advil 200 MG Oral Capsule use as directed 0 days, 0 refills - B Complex-B12 Oral Tablet use as directed 0 days, 0 refills - Calcium Citrate 333 MG Oral Tablet use as directed 0 days, 0 refills - [facility] Magnesium 250 MG Oral Tablet take as directed 0 days, 0 refills - Dexamethasone 0.5 MG Oral Tablet 10 days, 0 refills - diazePAM 5 MG Oral Tablet 30 days, 0 refills - Lactaid 3000 UNIT Oral Tablet use as directed 0 days, 0 refills - Lyrica 50MG Oral Capsule 50 MG use as directed 30 days, 0 refills - MiraLax Oral Packet 17 GM use as directed 0 days, 0 refills - Pregabalin 50 MG Oral Capsule 30 days, 0 refills - Prolia 60MG/ML Subcutaneous Solution Prefilled Syringe 60 MG/ML use as directed 30 days, 0 refills - Zelnorm 6 MG Oral Tablet 30 days, 0 refills Past Medical/Surgical History Reported: Medical: Arthritic joint problems. Medications: A recent injection Dr.Phillip Medrano inj in 2016 MAYUR SI joint inj. 06/28/19. Diagnoses: Osteoporosis Hemorroidectomy IBS. Previous Therapy - History of orthopedic options: physical therapy Social History Not a current smoker. Current diet: No recent change in diet. No recent change in diet. Caffeine use: Caffeine use. Tobacco use: No tobacco use, not a current smoker, and smoking status: Never smoker. Alcohol: Not using alcohol. Drug Use: Not using drugs. Habits: Exercising regularly. Allergies - Ceftin - Codeine and Related - Erythromycin Family History Cancer mother Osteoporosis mother Review Of Systems Systemic: Not feeling tired, no recent weight loss, and no recent weight gain. No edema. Head: No headache and no sinus pain. Eyes: No vision problems and no glaucomatous visual field defect. Cataracts. No Glasses/Contacts and no Glaucoma. Otolaryngeal: No hearing loss and no tinnitus. No nasal symptoms. Cardiovascular: No chest pain or discomfort, no palpitations, no Hypertension, and no High Cholesterol. Pulmonary: No daytime asthma symptoms, no cough, and no chronic cough. No wheezing. Gastrointestinal: No heartburn and no abdominal pain. No Indigestion, no Peptic Ulcer, no GI Stomach Bleed, no Ulcers, and no Acid Reflux. Endocrine: No hot flashes, no muscle weakness, no Diabetes, no Hypothyroid, and no Hyperthyroid. Hematologic: No easy bleeding. A tendency for easy bruising. No Anemia. Musculoskeletal: Arthritis and lower back pain. No soft tissue swelling. Pain localized to one or more joints. Neurological: No dizziness and no convulsions. Numbness. Psychological: No anxiety, no emotional lability, no depression, and no insomnia. Not crying for no reason. Skin: No dry skin. No Ulcers, no Scars, no rash, and no ulcers. Allergic and Immunologic: Complaint of seasonal allergic reaction. reviewed 05/23/2024 Physical Findings - Vitals taken 05/23/2024 01:51 pm PW Height 56 in 59 - 78 Weight 120 lbs 95 - 175 Body Mass Index 26.9 kg/m2 Body Surface Area 1.4 m2 Patient has pain directly over Jag's point on the right side. He has a discomfort with range of motion especially with flexion. His knee and ankle motion are normal.straight leg raising does not reproduce symptoms. He has a normal gait. Favors thigh thrust and Gaenslen's testing will reproduce pain on the right side. Normal neurovascular findings otherwise. Patient has pain over [place] point. Discomfort with forward flexion of the lumbar spine reproducing pain in the left SI region.. Fabers, thigh thrust and Gaenslen's testing will reproduce pain in the left lower back and buttock area.hip knee and ankle motion do not reproduce pain in these areas. Straight leg raising is negative for nerve root compression. He has normal neurovascular findings. Tests Four views lumbar spine demonstrating advanced disc degeneration at the L4-5 level. With degenerative changes surround this. There is arthritic changes of the sacroiliac joints. There was no evidence of fracture or instability. Assessment Patient appears to have developed recurrent sacroiliitis. She would like to repeat some injections as her exercises are not providing the relief it had in the past. Previous Tests Imaging: X-Ray: An X-ray was performed 05/23/2024. MRI Scan: An MRI was performed. Therapy - Clinical summary provided to patient. Counseling/Education - Tobacco non-user - Use of tobacco assessment performed - Instructions for patient to see pcp for bp Plan - Patient screened for future fall risk: documentation of any fall with injury in past year Fall Risk Assessment: This patient has been identified as a fall risk. Balance/gait along with postural blood pressure, vision and home fall hazards have been assessed. Medications have been reviewed, and recommendations made with regard to contributing factors for future falls. Plan of care: Consideration of vitamin D supplementation along with balance and strength training with consideration for formal physical therapy has been discussed with the patient. I will set her up for repeat SI joint injections. As long as this is affective we will just continue this. She will continue with her exercise program. Hopefully she will get a similar response to the last injections that she had several years ago. Notes This dictation was done with voice recognition software and may contain errors and omissions. Care Team - EL SHINE MD Health Reminders - Assess BMI satisfied 05/23/2024. - Assess Tobacco Use satisfied 01/03/2015.
--- OUTSIDE RECORDS SUMMARY | 2024-08-09 08:49 | XMS_ITS | Clinical Summary ---
Author Organization [facility] , [facility] Address [address] [place] [address] Phone Care Team Providers Care Nike Athlete Name Role Phone TUNG MCALLISTER TARAS Montez Unavailable [phone] RL STEWART, EL Unavailable [phone] Reason for Visit and Chief Complaint SI joint injection Problems Includes: Problems addressed during this encounter and other active Problems All Visits Onset Date Resolved Date Provider Condition S tatus Bone Pain in the Right Foot 02/10/2019 Fausto Martinez MD Active Last Documented On 9 9:03AM ; [facility] Lower Back Pain 01/03/2015 Rafa Saez MD A ctive Last Documented On 5 10:43AM ; [facility] Plan of Treatment Procedure: Patient presents today for bilateral SI joint injections under fluoroscopy DX: SACROILIITIS Procedure note: Skin was prepped with ChloraPrep and skin anesthetize with 1 cc of lidocaine into the skin on each side. Under fluoroscopic guidance a 22-gauge needle was guided into the sacroiliac joint on the right and left sides. Once in appropriate position, 1cc OMNIPAQUE contrast was injected to confirm placement. Once confirmed an injection of 2cc of bupivacaine and 1cc of 40 mg of kenalog was injected into each joint. The needle was then withdrawn and sterile bandage applied. Patient left the office in stable condition with instructions to document pain response over the next couple of days. Patient was reevaluated 10 minutes post procedure. Patient reports 80% improvement in terms of bilateral hip pain. - Last Documented On 06/02/2024 11:09AM ; [facility] Future Appointments Date Time Location Provi jerel Physician Specified 08/22/2024 1:45PM [facility] Joel Montez DPM Last Documented On 4 2:30PM ; [facility], [facility] Follow Up 09/04/2024 1:30PM [facility] RYAN RUBY PA-C Last Documented On 4 2:43PM ; [facility], [facility] Assessments Includes: Assessments from this encounter No Assessments Recorded Medical Equipment - Implanted Devices Includes: Current Devices No Medical Equipment Recorded Medications Includes: Medications discussed during this encounter and other current Medications Current Medications (continue as prescribed) [facility] Magnesium 250 MG Oral Tablet 06/19/2019 Provider : Diagnosis: Last Documented On 9 2:04PM By Ирина Payne ; [facility], [facility] B Complex-B12 Oral Tablet 06/19/2019 Provider: Diagnosis: Last Documented On 9 2:00PM By Ирина Payne ; [facility], [facility] MiraLax Oral Packet 06/19/2019 Provider: Diagnosis: Last Documented On 9 2:00PM By Ирина Payne ; [facility], [facility] Calcium Citrate 333 MG Oral Tablet 06/19/2019 Provid er: Diagnosis: Last Documented On 9 2:01PM By Ирина Payne ; [facility], [facility] Lactaid 3000 UNIT Oral Tablet 06/19/2019 Provider: Diagnosis: Last Documented On 9 2:03PM By Ирина Payne ; [facility], [facility] Advil 200 MG Oral Capsule 06/19/2019 Provider: Diagnosis: Last Documented On 9 2:03PM By Ирина Payne ; [facility], [facility] Pregabalin 50 MG Oral Capsule 06/08/2019 Provider: EL SHINE MD Diagnosis: Last Documented On 9 1:59PM By Ирина Payne ; [facility], [facility] Zelnorm 6 MG Oral Tablet 05/29/2019 Provider: LEE SHINE MD Diagnosis: Last Documented On 9 1:59PM By Ирина Payne ; [facility], [facility] diazePAM 5 MG Oral Tablet 05/16/2019 Provider: BR VALERIE MULBERRY Diagnosis: Last Documented On 9 1:59PM By Ирина Payne ; [facility] Dexamethasone 0.5 MG Oral Tablet 04/27/2019 Provider : Diagnosis: Last Documented On 9 1:59PM By Ирина Payne ; [facility], [facility] Lyrica 50MG Oral Capsule 02/08/2019 Provider: LEE SHINE MD Diagnosis: Last Documented On 9 10:19AM By Danyell Kennedy ; [facility] Prolia 60MG/ML Subcutaneous Solution Prefilled Syringe 02/06/2019 Provider: Diagnosis: Last Documented On 9 10:19AM By Danyell Kennedy ; [facility] Medications Administered Includes: Administered Medications from this encounter No Administered Medications Recorded Results Includes: Results discussed during this encounter No Results Recorded For Specified Dates History of Present Illness Includes: History of Present Illness from this encounter No History of Present Illness Recorded Social History No Social History Recorded - Smoking Status Unknown Procedures and Surgical History Includes: Procedures from this encounter Procedures Code Diagnosis Performing Provider Service Location Service Date INJECT SACROILIAC JOINT (Bilateral Procedure) 24708 Sacroiliitis, not elsewhere classified Karel Guzman MD [facility] 06/02/2024 Last Documented On 4 9:28AM ; [facility] Triamcinolone/Kenalog, 10mg per cc [id number] Sacroiliitis, not elsewhere classified Karel Guzman MD [facility] 06/02/2024 Last Documented On 4 9:28AM ; [facility] Medical History Includes: Medical History addressed during this encounter No Medical History Recorded Family History Includes: Family History addressed during this encounter No Family History Recorded Review of Systems Includes: Review of Systems from this encounter No Review of Systems Recorded Mental Status Includes: Mental Status from this encounter No Mental Status Recorded Functional Status Includes: Functional Status from this encounter No Functional Status Recorded Physical Exam Includes: Physical Exam from this encounter No Physical Exam Recorded Allergies Includes: Active Allergies Substance Type Reaction Onset Date Resolved Date Statu s Erythromycin Allergy 01/03/2015 Active Last Documented On 4 2:29PM ; [facility] Codeine and Related Allergy 01/03/2015 Active Last Documented On 4 2:29PM ; [facility] Ceftin Allergy 01/03/2015 Active Last Documented On 4 2:29PM ; [facility], [facility] Encounters Encounter Provider Location Date Check-In Time Check-Out Time Diagnosis SI joint injection TARAS RUYB PA-C [facility] 06/02/20 24 10:59AM 11:07AM Insurance Includes: Active Insurance Policies Plan Name Member ID Group # Subscriber Relationship Effect marquez Dates 1 - Medicare Part B [facility] [id number] Kristie Barry Self 08/20/2016 - Unknown 2 - [facility] [employer] [id number] PLAN N Kristie Barry Self 09/20/2015 - Unknown Clinical Notes Includes: Clinical Notes from this encounter * Progress note Date Encounter Last Documented by 06/02/2024 SI joint injection Last document ed on 06/02/2024; 11:09 AM, TARAS RUBY PA-C; [facility] Plan Procedure: Patient presents today for bilateral SI joint injections under fluoroscopy DX: SACROILIITIS Procedure note: Skin was prepped with ChloraPrep and skin anesthetize with 1 cc of lidocaine into the skin on each side. Under fluoroscopic guidance a 22-gauge needle was guided into the sacroiliac joint on the right and left sides. Once in appropriate position, 1cc OMNIPAQUE contrast was injected to confirm placement. Once confirmed an injection of 2cc of bupivacaine and 1cc of 40 mg of kenalog was injected into each joint. The needle was then withdrawn and sterile bandage applied. Patient left the office in stable condition with instructions to document pain response over the next couple of days. Patient was reevaluated 10 minutes post procedure. Patient reports 80% improvement in terms of bilateral hip pain. Notes This dictation was done with voice recognition software and may contain errors and omissions.
--- OUTSIDE RECORDS SUMMARY | 2024-08-09 08:49 | XMS_ITS ---
Care Plan - [facility], [facility] Created on: August 09, 2024 Kristie Barry : 1950 Sex: Female Author Organization [facility] , [facility] Address [address] [place] [address] Phone Care Team Providers Care Chief Engineer Name Role Phone TUNG MCALLISTER, TARAS Herrmann Unavailable [phone] RL STEWART, EL Unavailable [phone]
--- OUTSIDE RECORDS SUMMARY | 2024-08-09 08:49 | XMS_ITS | Clinical Summary ---
Author Organization [facility] , [facility] Address [address] [place] [address] Phone Care Team Providers Care Sign Fabricator Name Role Phone TUNG MCALLISTER TARAS Montez Unavailable [phone] RL STEWART, EL Unavailable [phone] Reason for Visit and Chief Complaint The Chief Complaint is: lumbar pain Problems Includes: Problems addressed during this encounter and other active Problems Current Visit Onset Date Resolved Date Provider Conditio n Status Lower Back Pain 01/03/2015 Rafa Saez MD A ctive Last Documented On 5 10:43AM ; [facility], [facility] Past Visits Onset Date Resolved Date Provider Condition Status Bone Pain in the Right Foot 02/10/2019 Fausto Martinez MD Active Last Documented On 9 9:03AM ; [facility], [facility] Plan of Treatment - Patient screened for future fall risk: documentation of any fall with injury in past year - Last Documented On 05/19/2024 2:36PM ; [facility], [facility] Fall Risk Assessment: This patient has been [...] with the patient. - Last Documented On 05/19/2024 2:36PM ; [facility], [facility] Future Appointments Date Time Location Provi jerel Physician Specified 08/22/2024 1:45PM [facility] Joel Montez DPNiles Last Documented On 4 2:30PM ; [facility], [facility] Follow Up 09/04/2024 1:30PM [facility] RYAN RUBY PA-C Last Documented On 4 2:43PM ; [facility], [facility] Instructions to patient Instructions for patient to see pcp for bp Last Documented On 4 2:30PM ; [facility], [facility] Assessments Includes: Assessments from this encounter No Assessments Recorded Instructions Includes: Instructions from this encounter Instructions to patient Instructions for patient to see pcp for bp Last Documented On 4 2:30PM ; [facility], [facility] Medical Equipment - Implanted Devices Includes: Current Devices No Medical Equipment Recorded Medications Includes: Medications discussed during this encounter and other current Medications Current Medications (continue as prescribed) [facility] Magnesium 250 MG Oral Tablet 06/19/2019 Provider : Diagnosis: Last Documented On 9 2:04PM By Ирина Payne ; [facility], [facility] B Complex-B12 Oral Tablet 06/19/2019 Provider: Diagnosis: Last Documented On 9 2:00PM By Ирина Payne ; [facility], [facility] MiraLax Oral Packet 06/19/2019 Provider: Diagnosis: Last Documented On 9 2:00PM By Ирина Payne ; [facility], [facility] Calcium Citrate 333 MG Oral Tablet 06/19/2019 Provid er: Diagnosis: Last Documented On 9 2:01PM By Ирина Payne ; [facility], [facility] Lactaid 3000 UNIT Oral Tablet 06/19/2019 Provider: Diagnosis: Last Documented On 9 2:03PM By Ирина Payne ; [facility], [facility] Advil 200 MG Oral Capsule 06/19/2019 Provider: Diagnosis: Last Documented On 9 2:03PM By Ирина Payne ; [facility], [facility] Pregabalin 50 MG Oral Capsule 06/08/2019 Provider: EL SHINE MD Diagnosis: Last Documented On 9 1:59PM By Ирина Payne ; [facility], [facility] Zelnorm 6 MG Oral Tablet 05/29/2019 Provider: LEE SHINE MD Diagnosis: Last Documented On 9 1:59PM By Ирина Payne ; [facility], [facility] diazePAM 5 MG Oral Tablet 05/16/2019 Provider: BROCK ESQUIVEL Diagnosis: Last Documented On 9 1:59PM By Ирина Payne ; [facility] Dexamethasone 0.5 MG Oral Tablet 04/27/2019 Provider : Diagnosis: Last Documented On 9 1:59PM By Ирина Payne ; [facility] Lyrica 50MG Oral Capsule 02/08/2019 Provider: LEE SHINE MD Diagnosis: Last Documented On 9 10:19AM By Danyell Kennedy ; [facility] Prolia 60MG/ML Subcutaneous Solution Prefilled Syringe 02/06/2019 Provider: Diagnosis: Last Documented On 9 10:19AM By Danyell Kennedy ; [facility] Medications Administered Includes: Administered Medications from this encounter No Administered Medications Recorded Vital Signs Includes: Vital Signs from this encounter Vital Name 05/19/2024 02:30P Height (in) 56 Weight (lb) 120 Body Mass Index 26.9 Body Surface Area 1.4 Pain Level 7 Note: pw Last Documented: On 05/19/2024 2:31PM ; [facility] Results Includes: Results discussed during this encounter No Results Recorded For Specified Dates History of Present Illness Includes: History of Present Illness from this encounter NAT aBrry is a 73 year old female. - [...] in touch - History of Home Exercise - History of Injections - - Review of medications documented Medications used for this condition: advil Social History Description Last Updated No recent change in diet 05/19/2024 Last Documented On 4 2:36PM ; [facility] Not a current smoker. 05/19/2024 Last Documented On 4 2:36PM ; [facility] Caffeine use 01/03/2015 Last Documented On 4 2:30PM ; [facility] Exercising regularly 01/03/2015 Last Documented On 4 2:30PM ; [facility] No recent change in diet 01/03/2015 Last Documented On 4 2:30PM ; [facility], [facility] Not a current smoker 01/03/2015 Last Documented On 4 2:30PM ; [facility], [facility] Not using alcohol 01/03/2015 Last Documented On 4 2:30PM ; [facility], [facility] Not using drugs 01/03/2015 Last Documented On 4 2:30PM ; [facility] Smoking Status Unknown Procedures and Surgical History Includes: Procedures from this encounter Procedures Code Diagnosis Performing Provider Service L ocation Service Date history of orthopedic options: physical therapy Last Documented On 4 2:30PM ; [facility] Clinical summary provided to patient Last Documented On 4 2:30PM ; [facility] an X-ray was performed [id number] Last Documented On 4 2:33PM ; [facility] an MRI was performed [id number] Last Documented On 4 2:33PM ; [facility] Medical History Includes: Medical History addressed during this encounter Description Last Updated A recent injection Dr.Philli gaby Medrano ~inj in 2016 ~[facility] SI joint inj. 06/28/19 07/10/2019 Last Documented On 4 2:30PM ; [facility] Arthritic joint problems 02/21/2019 Last Documented On 4 2:30PM ; [facility] hemorroidectomy ~IBS 01/03/2015 Last Documented On 4 2:30PM ; [facility] History of osteoporosis 01/03/2015 Last Documented On 4 2:30PM ; [facility] Family History Includes: Family History addressed during this encounter Description Last Updated Family history of cancer mother 01/04/20 Last Documented On 4 2:30PM ; [facility] Family history of osteoporosis mother Last Documented On 4 2:30PM ; [facility] Review of Systems Includes: Review of [...] Active Last Documented On 4 2:29PM ; [facility] Codeine and Related Allergy 01/03/2015 Active Last Documented On 4 2:29PM ; [facility] Ceftin Allergy 01/03/2015 Active Last Documented On 4 2:29PM ; [facility], [facility] Encounters Encounter Provider Location Date Check-In Time Check- Out Time Diagnosis Intake TARAS RUBY PA-C [facility] 4 2:29PM 11:59PM Insurance Includes: Active Insurance Policies Plan Name Member ID Group # Subscriber Relationship Effect marquez Dates 1 - Medicare Part B [facility] [id number] Kristie Barry Self 08/20/2016 - Unknown 2 - [facility] [employer]S [employer] [id number] PLAN N Kristie Barry Self 09/20/2015 - Unknown Clinical Notes Includes: Clinical Notes from this encounter * Progress note Date Encounter Last Documented by 05/19/2024 Intake Last documented on 05/19/2024; 2:36 PM, TARAS RUBY PA-C; [facility], [facility] Active Problems & Conditions - Bone Pain [...] in touch - History of Home Exercise - History of Injections - - Review of medications documented Medications used for this condition: advil Current Medication - Advil 200 MG Oral [...] diet. Caffeine use: Caffeine use. Tobacco use: Not a current smoker. Alcohol: Not using alcohol. Drug Use: [...] reviewed 05/23/2024 Physical Findings - Vitals taken 05/19/2024 02:30 pm pw Height 56 in 59 - 78 Weight 120 lbs 95 - 175 Body Mass Index 26.9 kg/m2 Body Surface Area 1.4 m2 Pain Level 7 Previous Tests Imaging: X-Ray: An X-ray was performed. MRI Scan: An MRI was performed. Therapy [...] therapy has been discussed with the patient. Notes This dictation was done with voice recognition software and may contain errors and omissions. Care Team - EL SHINE MD Health Reminders - Assess BMI satisfied 05/19/2024. - Assess Tobacco Use satisfied 01/03/2015.
--- OUTSIDE RECORDS SUMMARY | 2024-08-09 08:49 | XMS_ITS ---
Author Organization [facility] Address [address] [place] [address] Phone Care Team Providers Care Voip Network Engineer Name Role Phone TARAS RUBY PA-C Unavailable [phone] RL STEWART, EL Unavailable [phone] Problems Includes: Active, inactive, and resolved Problems All Visits Onset Date Resolved Date Provider Condition S tatus Bone Pain in the Right Foot 02/10/2019 Fausto Martinez MD Active Last Documented On 9 9:03AM ; [facility], [facility] Lower Back Pain 01/03/2015 Rafa Saez MD A ctive Last Documented On 5 10:43AM ; [facility] Plan of Treatment Findings Encounter Date Patient screened for future fall risk: documentation of any fall with injury in past year Physician Specified with TARAS RUBY PA-C 05/23/2024 Last Documented On 4 4:59PM ; [facility], [facility] Patient screened for future fall risk: documentation of any fall with injury in past year Intake with TARAS RUBY PA-C 05/19/2024 Last Documented On 4 2:36PM ; [facility], [facility] Future Appointments Date Time Location Provi jerel Physician Specified 08/22/2024 1:45PM [facility] Joel Montez DPNiles Last Documented On 4 2:30PM ; [facility] Follow Up 09/04/2024 1:30PM [facility] RYAN RUBY PA-C Last Documented On 4 2:43PM ; [facility] Instructions to patient Instructions for patient to see pcp for bp Last Documented On 4 1:51PM ; [facility] Instructions for patient to see pcp for bp Last Documented On 4 2:30PM ; [facility] Instructions for patient to see pcp for bp Last Documented On 0 1:55PM ; [facility] Instructions for patient to see pcp for bp Last Documented On 9 10:47AM ; [facility] Instructions for patient to see pcp for bp Last Documented On 9 2:10PM ; [facility] Instructions for patient see pcp for BP Last Documented On 6 1:54PM ; [facility] Instructions for patient see pcp for BP Last Documented On 6 1:48PM ; [facility] Instructions for patient see pcp for BP Last Documented On 6 10:19AM ; [facility] Instructions for patient see pcp for BP Last Documented On 5 3:50PM ; [facility] Assessments Includes: Assessments for all patient encounters No Assessments Recorded Instructions Includes: Instructions for all patient encounters Instructions to patient Instructions for patient to see pcp for bp Last Documented On 4 1:51PM ; [facility] Instructions for patient to see pcp for bp Last Documented On 4 2:30PM ; [facility] Instructions for patient to see pcp for bp Last Documented On 0 1:55PM ; [facility] Instructions for patient to see pcp for bp Last Documented On 9 10:47AM ; [facility] Instructions for patient to see pcp for bp Last Documented On 9 2:10PM ; [facility] Instructions for patient see pcp for BP Last Documented On 6 1:54PM ; [facility] Instructions for patient see pcp for BP Last Documented On 6 1:48PM ; [facility] Instructions for patient see pcp for BP Last Documented On 6 10:19AM ; [facility] Instructions for patient see pcp for BP Last Documented On 5 3:50PM ; [facility] Medical Equipment - Implanted Devices Includes: Current and historical Devices No Medical Equipment Recorded Medications Includes: Current and historical Medications Current Medications (continue as prescribed) [facility] Magnesium 250 MG Oral Tablet 06/19/2019 Provider : Diagnosis: Last Documented On 9 2:04PM By Ирина Payne ; [facility], [facility] B Complex-B12 Oral Tablet 06/19/2019 Provider: Diagnosis: Last Documented On 9 2:00PM By Ирина Payne ; [facility] MiraLax Oral Packet 06/19/2019 Provider: Diagnosis: Last Documented On 9 2:00PM By Ирина Payne ; [facility] Calcium Citrate 333 MG Oral Tablet 06/19/2019 Provid er: Diagnosis: Last Documented On 9 2:01PM By Ирина Payne ; [facility] Lactaid 3000 UNIT Oral Tablet 06/19/2019 Provider: Diagnosis: Last Documented On 9 2:03PM By Ирина Payne ; [facility] Advil 200 MG Oral Capsule 06/19/2019 Provider: Diagnosis: Last Documented On 9 2:03PM By Ирина Payne ; [facility] Pregabalin 50 MG Oral Capsule 06/08/2019 Provider: EL SHINE MD Diagnosis: Last Documented On 9 1:59PM By Ирина Payne ; [facility] Zelnorm 6 MG Oral Tablet 05/29/2019 Provider: LEE SHINE MD Diagnosis: Last Documented On 9 1:59PM By Ирина Payne ; [facility] diazePAM 5 MG Oral Tablet 05/16/2019 Provider: BROCK ESQUIVEL Diagnosis: Last Documented On 9 1:59PM By Ирина Payne ; [facility] Dexamethasone 0.5 MG Oral Tablet 04/27/2019 Provider : Diagnosis: Last Documented On 9 1:59PM By Ирина Payne ; [facility] Lyrica 50MG Oral Capsule 02/08/2019 Provider: LEE SHINE MD Diagnosis: Last Documented On 9 10:19AM By Danyell Kennedy ; [facility] Prolia 60MG/ML Subcutaneous Solution Prefilled Syringe 02/06/2019 Provider: Diagnosis: Last Documented On 9 10:19AM By Danyell Kennedy ; [facility] Past Medications on file Dexamethasone 0.5MG/5ML Oral Elixir 01/19/2019 - 06/19 Provider: Diagnosis: Last Documented On 9 1:59PM By Ирина Payne ; [facility] diazePAM 5MG Oral Tablet 01/16/2019 - 06/19/2019 Provi jerel: EL SHINE MD Diagnosis: Last Documented On 9 1:59PM By Ирина Payne ; [facility] Lyrica 50 MG Capsule, conventional 01/03/2015 - 2018 Provider: Diagnosis: Last Documented On 9 10:18AM By Danyell Kennedy ; [facility] Prolia 60 MG/ML Solution 01/03/2015 - 02/10/2019 Provi jerel: Diagnosis: Last Documented On 9 10:18AM By Danyell Kennedy ; [facility] Diazepam 5 MG Tablet 01/03/2015 - 02/10/2019 Provider: Diagnosis: Last Documented On 9 10:18AM By Danyell Kennedy ; [facility] Medications Administered Includes: Administered Medications in patient's chart No Administered Medications Recorded Vital Signs Includes: Vital Signs from 08/09/2023 through 08/09/2024 Vital Name 05/23/2024 01:51P 05/19/2024 02: 30P Height (in) 56 56 Weight (lb) 120 120 Body Mass Index 26.9 26.9 Body Surface Area 1.4 1.4 Pain Level 7 Note: PW pw Last Documented: On 05/23/2024 1:51PM ; [facility] On 05/19/2024 2:31PM ; [facility] Results Includes: Results from 08/09/2023 through 08/09/2024 No Results Recorded For Specified Dates History of Present Illness History of Present Illness not supported for this document type No History of Present Illness Recorded Social History Description Last Updated No recent change in diet 05/19/2024 Last Documented On 4 2:36PM ; [facility] Not a current smoker. 05/19/2024 Last Documented On 4 2:36PM ; [facility] Caffeine use 01/03/2015 Last Documented On 5 12:07PM ; [facility] Exercising regularly 01/03/2015 Last Documented On 5 12:07PM ; [facility] No recent change in diet 01/03/2015 Last Documented On 5 12:07PM ; [facility] Not a current smoker 01/03/2015 Last Documented On 5 12:07PM ; [facility] Not using alcohol 01/03/2015 Last Documented On 5 12:07PM ; [facility] Not using drugs 01/03/2015 Last Documented On 5 12:07PM ; [facility] No tobacco use 01/03/2015 Last Documented On 5 12:07PM ; [facility] Smoking status : Never smoker 01/03/2015 Last Documented On 5 12:07PM ; [facility] Procedures and Surgical History Includes: Procedures from 08/09/2023 through 08/09/2024 Procedures Code Diagnosis Performing Provider Service Location Service Date Triamcinolone/Ke nalog, 10mg per cc J3301 Sacroiliitis, not elsewhere classified Karel Guzman MD [facility] 06/02/2024 Last Documented On 4 9:28AM ; [facility] INJECT SACROILIAC JOINT (Bilateral Procedure) 56135 Sacroiliitis, not elsewhere classified Karel Guzman MD [facility] 06/02/2024 Last Documented On 4 9:28AM ; [facility] X-RAY EXAM OF LOWER SPINE 4-5 VIEWS 08261 Other intervertebral disc degeneration, lumbar region, Sacroiliitis, not elsewhere classified TARAS RUBY PA-C [facility] 05/23/2024 Last Documented On 4 4:29PM ; [facility] Medical History Includes: Medical History in patient's chart Description Last Updated A recent injection Dr.Philli gaby Medrano ~inj in 2016 ~MAYUR SI joint inj. 06/28/19 07/10/2019 Last Documented On 9 11:24AM ; [facility] Arthritic joint problems 02/21/2019 Last Documented On 0 8:59AM ; [facility] hemorroidectomy ~IBS 01/03/2015 Last Documented On 5 12:07PM ; [facility] History of osteoporosis 01/03/2015 Last Documented On 5 12:07PM ; [facility] Family History Includes: Family History in patient's chart Description Last Updated Family history of cancer mother 01/04/20 15 Last Documented On 5 12:07PM ; [facility] Family history of osteoporosis mother Last Documented On 5 12:07PM ; [facility] Review of Systems Review of Systems not supported for this document type No Review of Systems Recorded Mental Status No Mental Status Recorded Functional Status No Functional Status Recorded Physical Exam Physical Exam not supported for this document type No Physical Exam Recorded Allergies Includes: Active, inactive, and resolved Allergies Substance Type Reaction Onset Date Resolved Date Statu s Erythromycin Allergy 01/03/2015 Active Last Documented On 4 2:29PM ; [facility] Codeine and Related Allergy 01/03/2015 Active Last Documented On 4 2:29PM ; [facility] Ceftin Allergy 01/03/2015 Active Last Documented On 4 2:29PM ; [facility] Encounters Includes: Encounters from 08/09/2023 through 08/09/2024 Encounter Provider Location Date Check-In Time Check-Out Time Diagnosis SI joint injection TARAS RUBY PA-C [facility] 06/02/20 24 10:59AM 11:07AM Physician Specified TARAS RUBY PA-C [facility] 05/23/20 24 1:50PM 2:45PM Intake TARAS RUBY PA-C [facility] 0801/10/2020 2:29PM 01/10/2020 11:59PM Insurance Includes: Active Insurance Policies Plan Name Member ID Group # Subscriber Relationship Effect marquez Dates 1 - Medicare Part B [facility] [id number] Kristie Barry Self 08/20/2016 - Unknown 2 - [facility] [employer] [id number] PLAN N Kristie Barry Self 09/20/2015 - Unknown Clinical Notes Includes: Signed Clinical Notes starting from 09/03/2022 * Progress note Date Encounter Last Documented by 06/02/2024 SI joint injection Last document ed on 06/02/2024; 11:09 AM, TARAS RUBY PA-C; [facility] Plan Procedure: Patient presents today [...] software and may contain errors and omissions. * Progress note Date Encounter Last Documented by 05/23/2024 Physician Specified Ellis paz on 05/23/2024; 4:59 PM, TARAS RUBY PA-C; [facility] Active Problems & Conditions - [...] 05/23/2024. - Assess Tobacco Use satisfied 01/03/2015. * Progress note Date Encounter Last Documented by 05/19/2024 Intake Last documented on 05/19/2024; 2:36 PM, TARAS RUBY PA-C; [facility] Active Problems & Conditions - [...]
--- OUTSIDE RECORDS SUMMARY | 2024-08-09 08:50 | XMS_ITS | Encounter Summary ---
Author Organization [facility] Address [address] [place] [address] Care Team Providers Care Canal Boat Operator Name Role Phone Felix Le MD Primary Care Provider Encounter Details Date Type Department Care Team (Late st Contact Info) Description 04/12/2008 Historical Mammograp hy Encounter [facility] [address] [place] [address] Interface, See Report Social History Tobacco Use Types Packs/Day Years Used Date Smoking Tobacco: Never Assessed Comments Unknown Sex and Gender Information Value Date Recorded Sex Assigned at Not on file Legal Sex Female 12:07 PM EDT Gender Identity Not on file Sexual Orientation Not on file documented as of this encounter Plan of Treatment Not on file documented as of this encounter Procedures Procedure Name Priority Date/Time Associated Diagnosis Comments MAMMO HISTORICAL RESULT Routine 04/12/2008 2:34 PM EDT documented in this encounter Results * MAMMO HISTORICAL RESULT (04/12/2008 2:34 PM EDT) Anatomical Region Laterality Modality Breast Mammography 04/12/2008 2:34 PM EDT Narrative 04/12/2008 5:59 PM EDT ?[facility] ? [address] ??[place], [place] [address] ? NAME: YOU HAAS ? : ??[birth year] ??MR#: [id number] ? LOC: ?? CO ? AGE: 57Y ?? Pt type: CO ?Exam Date: 04/12/08 1436 ? SEX: F ?? AN#:[id number] ?Ck-in#: [id number] ? KATHYA,ALEX D ? [address] ? [address] ? [place] ?[place] ?[address] ? Chk-in # ?? Order ?Exam ?[id number] ?? 0001 ? [id number] ??AB MAMM SCREEN BILAT DIG PNL ? Ord Diag: REPEAT MMG ? HISTORY: ??The patient is a 57-year-old female with no personal or family history of breast cancer. routine screening exam. ?? BILATERAL DIGITAL SCREENING MAMMOGRAM: ?? FILM COMPARISON: ??The exam is compared to prior exams, most recently dated 01/24. ?? FINDINGS: The breast parenchymal pattern is heterogeneously dense. Intramammary lymph node is again noted on the left. ??Numerous calcifications are seen throughout both breasts, stable. ??There is no dominant mass, cluster of micro-calcifications or architectural distortion to suggest malignancy. ?? IMPRESSION: ??Stable mammogram. ??No findings suspicious for malignancy. ?? Bi-Rads II, benign. ?? RECOMMENDATION: ??Yearly mammography, yearly physical examination and monthly self breast exam. ?? The density and complexity of the parenchymal pattern in this patient may decrease the sensitivity of mammography. ??The standard false negative rate of mammography is between 10% and 25%. ??Complex patterns or increased breast density will markedly elevate the false negative rate of mammography. Physical exam is of utmost importance for cancer detection in this patient. ?? iCAD was utilized. ? FINAL ?CONTINUED ?Page ??1 ? RADIOLOGY REPORT ?[facility] ? [address] ??[place], [place] [address] ? [facility] ? : ??[birth year] ??MR#: [id number] ? LOC: ?? CO ? AGE: 57Y ?? Pt type: CO ?Exam Date: 04/12/08 1436 ? SEX: F ?? AN#:[id number] ?Ck-in#: [id number] ? KATHYA,ALEX D ? [address] ? [address] ? [place] ?[place] ?[address] ? Checkin-Exam Code Summary ? [id number] ?? A copy of this report in lay terminology has been sent to the patient. ?/READ BY/ LOIDA RIVERS ?/Released By/ LOIDA RIVERS ?Released By Date/Time: ??07/24/08 1732 ?Senior Bi Developer: ??LS ? FINAL ? Page ??2 ? RADIOLOGY REPORT us See Report Interface IMG MAMMOGRAPHY ORDERABLES Final Result documented in this encounter Visit Diagnoses Not on filedocumented in this encounter Care Teams Canal Boat Operator Relationship Specialty Start Date End Date Felix Le MD [facility] [address] [facility] [address] [place] [address] PCP - General 06/04/15 documented as of this encounter
--- OUTSIDE RECORDS SUMMARY | 2024-08-09 08:50 | XMS_ITS | Encounter Summary ---
Author Organization [facility] Address [address] [place] [address] Care Team Providers Care Avionics Systems Technician Name Role Phone Felix Le MD Primary Care Provider Encounter Details Date Type Department Care Team (Late st Contact Info) Description 04/12/2012 Historical Mammograp hy Encounter [facility] HISTORICAL CONV [address] [place] [address] Interface, See Report Social History [...] Associated Diagnosis Comments MAMMO HISTORICAL RESULT Routine 04/12/2012 11:03 AM EDT documented in this encounter Results * MAMMO HISTORICAL RESULT (04/12/2012 11:03 AM EDT) Anatomical Region Laterality Modality Breast Mammography 04/12/2012 11:0 3 AM EDT Narrative 04/14/2012 9:38 AM EDT ?[facility] ? [address] ??[place], [place] [address] ? NAME: YOU HAAS ? : ??[birth year] ??MR#: [id number] ? LOC: ?? DIS ? AGE: 61Y ?? Pt type: CO ?Exam Date: 04/12/12 1107 ? SEX: F ?? AN#:[id number] ?Ck-in#: [id number] ? KATHYA,ALEX D ? [address] ? [address] ? [place] ?[place] ?[address] ? Chk-in # ?? Order ?Exam ?[id number] ?? 0001 ? [id number] ??GB MAMM SCREEN BILAT DIG PNL ? Ord Diag: RTN SCREENING MMG ? BILATERAL SCREENING DIGITAL MAMMOGRAM: ? HISTORY: Routine screening. ? IMAGE COMPARISON: ??04/09/2011, 04/07/2010 and 04/04/2009. ? TECHNIQUE: Routine bilateral CC and MLO digital mammographic images were obtained and supplemented with bilateral laterally exaggerated CC views. ? FINDINGS: ??The breast tissue is heterogeneously dense. ??This may lower the sensitivity of mammography. The fibroglandular pattern is stable in appearance bilaterally including a stable left upper-outer quadrant intramammary lymph node. Scattered calcifications in the medial right breast are stable in appearance. There is no mass, worrisome microcalcifications, or architectural distortion to suggest development of malignancy. ?? IMPRESSION: No findings suspicious for malignancy. ? BI-RADS CATEGORY: ??II, BENIGN ?? RECOMMENDATION: Yearly mammogram, yearly physical exam, and monthly self breast exam. ?? iCAD was used. ?? The standard false negative rate of mammography is between 10 and 25%. ? FINAL ?CONTINUED ?Page ??1 ? RADIOLOGY REPORT ?[facility] ? [address] ??[place], [place] [address] ? NAME: YOU HAAS ? : ??52 ??MR#: [id number] ? LOC: ?? DIS ? AGE: 61Y ?? Pt type: CO ?Exam Date: 04/12/121106 ? SEX: F ?? AN#:[id number] ?Ck-in#: [id number] ? KATHYA,ALEX D ? [address] ? [address] ? [place] ?[place] ?[address] ? Checkin-Exam Code Summary ? [id number] Complex patterns or increased breast density will markedly elevate the false negative rate of mammography. ?? A letter, in lay terminology, with the results of this exam will be mailed to the patient. ? If there is a palpable area of concern, biopsy should be considered regardless of imaging findings. ?/READ BY/ SANDIE MASTERS ?/Released By/ SANDIE MASTERS ?Released By Date/Time: ??04/14/12835 ?Media Production Support Manager: ??DME ? FINAL ? Page ??2 ? RADIOLOGY REPORT us See Report Interface IMG MAMMOGRAPHY ORDERABLES Final Result documented in this encounter Visit Diagnoses Not on filedocumented in this encounter Care Teams Avionics Systems Technician Relationship Specialty Start Date End Date Felix Le MD [address] [facility] [address] [place] [address] PCP - General 06/04/15 documented as of this encounter
--- OUTSIDE RECORDS SUMMARY | 2024-08-09 08:50 | XMS_ITS | Encounter Summary ---
Author Organization [facility] Address [address] [place] [id number] Care Team Providers Care Cisco Unified Communications Engineer Name Role Phone Felix Le MD Primary Care Provider Encounter Details Date Type Department Care Team (Latest Contact Info) Description 06/04/2015 10:53 AM EDT - 06/04/2015 11:59 PM EDT Hospital Encounter [facility] DEPARTMENT [address] [place] [address] Shameka Soni MD [address] [address] Discharge Disposition: Home or Self Care Social History Tobacco Use Types Packs/Day Years [...] Name Priority Date/Time Associated Diagnosis Comments MAMMO SCREENING BILATERAL W CAD Routine 06/04/2015 10:53 AM EDT documented in this encounter Results * MAMMOGRAPHY SCREENING BILATERAL (06/04/2015 10:53 AM EDT) Anatomical Region Laterality Modality Breast Bilateral Mammography 06/04/2015 10:5 3 AM EDT Narrative 06/04/2015 12:56 PM EDT Exam Room: [facility] RM 1 Exam Start: Exam Stop: [id number] HISTORY- Screening Mammography. Low Dose full field Digital Breast Tomosynthesis examination was performed with 2D and 3D acquisitions. ??Examination is compared to prior examination dating back to 04/04/2009. Examination is read in conjunction with computer aided detection. FINDINGS- ?? The breasts are extremely dense, which lowers the sensitivity of mammography. No suspicious masses, microcalcifications or areas of architectural distortion are present. IMPRESSION- ??Negative bilateral mammogram. RECOMMENDATION- ??Continue annual screening mammography. BI-RADS CATEGORY I, NEGATIVE. CAD was utilized. The standard false-negative rate of mammography is between 10% and 25%. Complex patterns or increased breast density will markedly elevate the false-negative rate of mammography. ?? A letter, in lay terminology, with the results of this exam will be mailed to the patient. ? Reading Radiologist- ALEJANDRINA SINGH ? Releasing RadiologistJayjay SINGH ? Released Date Time- 06/04/15 1300 ? Child Care Development Specialist- S.S. Read By: ALEJANDRINA SINGH Released By: ALEJANDRINA SINGH Procedure Note Alejandrina Bryan MD - 07/14/2015 Exam Room: [place] [address] Exam Start: [id number] Exam Stop: [id number] HISTORY- Screening Mammography. Low Dose full field Digital Breast Tomosynthesis examination was performed with 2D and 3D acquisitions. Examination is compared to prior examination dating back to 04/04/2009. Examination is read in conjunction with computer aided detection. FINDINGS- The breasts are extremely dense, which lowers the sensitivity of mammography. No suspicious masses, microcalcifications or areas of architectural distortion are present. IMPRESSION- Negative bilateral mammogram. RECOMMENDATION- Continue annual screening mammography. BI-RADS CATEGORY I, NEGATIVE. CAD was utilized. The standard false-negative rate of mammography is between 10% and 25%. Complex patterns or increased breast density will markedly elevate the false-negative rate of mammography. A letter, in lay terminology, with the results of this exam will be mailed to the patient. Reading Radiologist- ALEJANDRINA SINGH Releasing Radiologist- ALEJANDRINA SINGH Released Date Time- 06/04/15 1300 Child Care Development Specialist- S.S. Read By: ALEJANDRINA SINGH Released By: ALEJANDRINA SINGH us Shameka Monse Soni MD IMG MAMMOGRAPHY ORDERABLES Final Result documented in this encounter Visit Diagnoses Not on filedocumented in this encounter Care Teams Cisco Unified Communications Engineer Relationship Specialty Start Date End Date Felix Le MD [address] [facility] [address] [facility] [address] [place] [address] PCP - General 06/04/15 documented as of this encounter
--- OUTSIDE RECORDS SUMMARY | 2024-08-09 08:50 | XMS_ITS | Encounter Summary ---
Author Organization [facility] ystem Address [address] [place] [address] Care Team Providers Care Electroplating Laborer Name Role Phone Felix Le MD Primary Care Provider Encounter Details Date Type Department Care Team (Late st Contact Info) Description 04/04/2009 Historical Mammograp hy Encounter [facility] [address] [place] [address] Interface, See Report Social History [...] Associated Diagnosis Comments MAMMO HISTORICAL RESULT Routine 04/04/2009 10:17 AM EDT documented in this encounter Results * MAMMO HISTORICAL RESULT (04/04/2009 10:17 AM EDT) Anatomical Region Laterality Modality Breast Mammography 04/04/2009 10:1 7 AM EDT Narrative 04/04/2009 3:13 PM EDT ?[facility] ? [address] ??[place], [place] [address] ? NAME: YOU HAAS ? : ??51 ??MR#: [id number] ? LOC: ?? CO ? AGE: 58Y ?? Pt type: CO ?Exam Date: 04/04/09 1016 ? SEX: F ?? AN#:[id number] ?Ck-in#: [id number] ? KATHYA,ALEX D ? [address] ? [address] ? [place] ?[place] ?[address] ? Chk-in # ?? Order ?Exam ?[id number] ?? 0001 ? [id number] ??AB MAMM SCREEN BILAT DIG PNL ? Ord Diag: RTN MMG ? HISTORY: ?? 58-year-old female for screening mammography. ??The patient reports no current breast complaints. ??She has had a previous stereotactic biopsy by report. ?? BILATERAL SCREENING DIGITAL MAMMOGRAM: ?? COMPARISON USED: 04/12/08, 02/03/07. ?? TECHNIQUE: ??CC and MLO views of both breasts as well as exaggerated lateral CC views were performed. ??(Total of 6 films.) ?? FINDINGS: The breasts are heterogeneously dense. ??There are calcifications seen bilaterally. ??They vary in size but are predominantly round in shape. ??No linear or branching forms are identified. ?? IMPRESSION: Bi-Rads Category II, Benign. ??The parenchymal pattern is stable from the previous exams. ??There are no new areas of density or masses, nor any developing changes suspicious for malignancy. ?? RECOMMENDATIONS: Yearly mammography, yearly physical exam and monthly self-breast exam. ?? The standard false-negative rate of mammography is between 10 and 25%. Complex patterns or increased breast density will markedly elevate the false-negative rate of mammography. ?? ICAD was utilized. ? FINAL ?CONTINUED ?Page ??1 ? RADIOLOGY REPORT ?[facility] ? [address] ??[place], [place] [address] ? NAME: [place], [place] ? : ??51 ??MR#: [id number] ? LOC: ?? CO ? AGE: 58Y ?? Pt type: CO ?Exam Date: 04/04/09 1016 ? SEX: F ?? AN#:[id number] ?Ck-in#: [id number] ? KATHYA,ALEX D ? [address] ? [address] ? [place] ?[place] ?[address] ? Checkin-Exam Code Summary ? [id number] A letter, in lay terminology, with the results of this exam will be mailed to the patient. ?/READ BY/ NADIA WARD ?/Released By/ NADIA WARD ?Released By Date/Time: ??07/16/09 1504 ?It Infrastructure Project Manager: ??DME ? FINAL ? Page ??2 ? RADIOLOGY REPORT us See Report Interface IMG MAMMOGRAPHY ORDERABLES Final Result documented in this encounter Visit Diagnoses Not on filedocumented in this encounter Care Teams Electroplating Laborer Relationship Specialty Start Date End Date Felix Le MD [address] [facility] [address] [place] [address] PCP - General 06/04/15 documented as of this encounter
--- OUTSIDE RECORDS SUMMARY | 2024-08-09 08:50 | XMS_ITS | Clinical Summary ---
Author Organization [facility] Address [address] [place] [address] Phone Care Team Providers Care Trimmer Tailer Name Role Phone TUNG MCALLISTER TARAS Montez Unavailable [phone] RL STEWART, EL Unavailable [phone] Reason for Visit and Chief Complaint SI joint injection Problems Includes: Problems addressed during this encounter and other active Problems All Visits Onset Date Resolved Date Provider Condition S tatus Bone Pain in the Right Foot 02/10/2019 Fausto Martinez MD Active Last Documented On 9 9:03AM ; [facility] Lower Back Pain 01/03/2015 Rafa Saez MD A ctive Last Documented On 5 10:43AM ; [facility] Plan of Treatment Patient presents today for bilateral SI joint injections under fluoroscopy Procedure note: Skin was prepped with ChloraPrep and skin anesthetize with 1 cc of lidocaine into the skin on each side. Under fluoroscopic guidance a 22-gauge needle was guided into the sacroiliac joint on the right and left sides. Once in appropriate position and a small amount of contrast was injected to confirm placement. Once confirmed an injection of 1 cc of bupivacaine and 1 cc of 40 mg of Depo-Medrol was injected into each joint. The needle was then withdrawn and sterile bandage applied. Patient left the office in stable condition with instructions to document pain response over the next couple of days. Patient was reevaluated 10 minutes postprocedure. Patient reports 90% improvement in terms of bilateral hip pain. - Last Documented On 01/11/2020 8:00AM ; [facility] Future Appointments Date Time Location Provi jerel Physician Specified 08/22/2024 1:45PM [facility] Joel Montez DPM Last Documented On 4 2:30PM ; [facility] Follow Up 09/04/2024 1:30PM [facility] RYAN RUBY PA-C Last Documented On 4 2:43PM ; [facility] Assessments Includes: Assessments from this encounter No Assessments Recorded Medical Equipment - Implanted Devices Includes: Current Devices No Medical Equipment Recorded Medications Includes: Medications discussed during this encounter and other current Medications Current Medications (continue as prescribed) [facility] Magnesium 250 MG Oral Tablet 06/19/2019 Provider : Diagnosis: Last Documented On 9 2:04PM By Ирина Payne ; [facility] B Complex-B12 Oral Tablet 06/19/2019 Provider: Diagnosis: Last Documented On 9 2:00PM By Ирина Payne ; [facility] MiraLax Oral Packet 06/19/2019 Provider: Diagnosis: Last Documented On 9 2:00PM By Ирина Payne ; [facility] Calcium Citrate 333 MG Oral Tablet 06/19/2019 Provid er: Diagnosis: Last Documented On 9 2:01PM By Ирина Payne ; [facility] Lactaid 3000 UNIT Oral Tablet 06/19/2019 Provider: Diagnosis: Last Documented On 9 2:03PM By Ирина Payne ; [facility] Advil 200 MG Oral Capsule 06/19/2019 Provider: Diagnosis: Last Documented On 9 2:03PM By Ирина Payne ; [facility] Pregabalin 50 MG Oral Capsule 06/08/2019 Provider: EL SHINE MD Diagnosis: Last Documented On 9 1:59PM By Ирина Payne ; [facility] Zelnorm 6 MG Oral Tablet 05/29/2019 Provider: LEE SHINE MD Diagnosis: Last Documented On 9 1:59PM By Ирина Payne ; [facility] diazePAM 5 MG Oral Tablet 05/16/2019 Provider: BROCK ESQUIVEL Diagnosis: Last Documented On 9 1:59PM By Ирина Payne ; [facility] Dexamethasone 0.5 MG Oral Tablet 04/27/2019 Provider : Diagnosis: Last Documented On 9 1:59PM By Ирина Payne ; [facility] Lyrica 50MG Oral Capsule 02/08/2019 Provider: LEE SHINE MD Diagnosis: Last Documented On 9 10:19AM By Danyell Kennedy ; [facility] Prolia 60MG/ML Subcutaneous Solution Prefilled Syringe 02/06/2019 Provider: Diagnosis: Last Documented On 9 10:19AM By Danyell Kennedy ; [facility] Medications Administered Includes: Administered Medications from this encounter No Administered Medications Recorded Results Includes: Results discussed during this encounter No Results Recorded For Specified Dates History of Present Illness Includes: History of Present Illness from this encounter No History of Present Illness Recorded Social History No Social History Recorded - Smoking Status Unknown Medical History Includes: Medical History addressed during [...] Active Last Documented On 4 2:29PM ; [facility] Codeine and Related Allergy 01/03/2015 Active Last Documented On 4 2:29PM ; [facility] Ceftin Allergy 01/03/2015 Active Last Documented On 4 2:29PM ; [facility] Encounters Encounter Provider Location Date Check-In Time Check-Out Time Diagnosis SI joint injection Rafa Saez MD [facility] 01/10/20 20 10:09AM 10:39AM Insurance Includes: Active Insurance Policies Plan Name Member ID Group # Subscriber Relationship Effect marquez Dates 1 - Medicare Part B [facility] [id number] Kristie Monique 08/20/2016 - Unknown 2 - [facility] [employer] [id number] PLAN N Kristie Monique 09/20/2015 - Unknown Clinical Notes Includes: Clinical Notes from this encounter No Clinical Notes Recorded
--- OUTSIDE RECORDS SUMMARY | 2024-08-09 08:50 | XMS_ITS | Encounter Summary ---
Author Organization [facility] ystem Address [address] [place] [address] Care Team Providers Care Sight Mounter Name Role Phone Felix Le MD Primary Care Provider Encounter Details Date Type Department Care Team (Late st Contact Info) Description 04/07/2010 Historical Mammograp hy Encounter [facility] [address] [place] [address] Interface, See Report Social History [...] Associated Diagnosis Comments MAMMO HISTORICAL RESULT Routine 04/07/2010 2:24 PM EDT documented in this encounter Results * MAMMO HISTORICAL RESULT (04/07/2010 2:24 PM EDT) Anatomical Region Laterality Modality Breast Mammography 04/07/2010 2:24 PM EDT Narrative 04/07/2010 4:21 PM EDT ?[facility] ? [address] ??[place], [place] [address] ? NAME: YOU HAAS ? : ??52 ??MR#: [id number] ? LOC: ?? CO ? AGE: 59Y ?? Pt type: CO ?Exam Date: 04/07/101422 ? SEX: F ?? AN#:[id number] ?Ck-in#: [id number] ? KATHYA,ALEX D ? [address] ? [address] ? [place] ?[place] ?[address] ? Chk-in # ?? Order ?Exam ?[id number] ?? 0001 ? [id number] ??AB MAMM SCREEN BILAT DIG PNL ? Ord Diag: RTN MMG ? BILATERAL SCREENING DIGITAL MAMMOGRAM: ? HISTORY: Routine screening. ??The patient has no reported breast complaints. ??She has no personal or family history of breast cancer. ?? IMAGE COMPARISON: ??04/04/2009 and 04/12/2008. ?? TECHNIQUE: Routine bilateral CC and MLO digital mammographic images were obtained and supplemented with bilateral laterally exaggerated CC views. ?? FINDINGS: ??The breast tissue is heterogeneously dense. ??This may lower the sensitivity of mammography. The fibroglandular pattern is stable bilaterally. There are stable bilateral scattered punctate calcifications, right greater than left. There is no mass, worrisome microcalcifications, or architectural distortion to suggest development of malignancy. ?? IMPRESSION: No findings suspicious for malignancy. ?? Stable bilateral benign appearing calcifications. ?? ACR BI-RADS CATEGORY: ??II, BENIGN ?? RECOMMENDATION: Yearly mammogram, yearly physical exam, and monthly self breast exam. ?? iCAD was used. ?? The standard false negative rate of mammography is between 10 and 25%. ? FINAL ?CONTINUED ?Page ??1 ? RADIOLOGY REPORT ?[facility] ? [address] ??[place], [place] [address] ? NAME: YOU HAAS ? : ??51 ??MR#: [id number] ? LOC: ?? CO ? AGE: 59Y ?? Pt type: CO ?Exam Date: 04/07/10 1423 ? SEX: F ?? AN#:[id number] ?Ck-in#: [id number] ? KATHYA,ALEX D ? [address] ? [address] ? [place] ?[place] ?[address] ? Checkin-Exam Code Summary ? [id number] Complex patterns or increased breast density will markedly elevate the false negative rate of mammography. ?? A letter, in lay terminology, with the results of this exam will be mailed to the patient. ? If there is a palpable area of concern, biopsy should be considered regardless of imaging findings. ?/READ BY/ ERICA HOPKINS ?/Released By/ ERICA HOPKINS ?Released By Date/Time: ??04/07/101 ?Occupational Health Rn: ??DME ? FINAL ? Page ??2 ? RADIOLOGY REPORT us See Report Interface IMG MAMMOGRAPHY ORDERABLES Final Result documented in this encounter Visit Diagnoses Not on filedocumented in this encounter Care Teams Sight Mounter Relationship Specialty Start Date End Date Felix Le MD [address] [place] [facility] [address] [place] [address] PCP - General 06/04/15 documented as of this encounter
--- OUTSIDE RECORDS SUMMARY | 2024-08-09 08:50 | XMS_ITS | Clinical Summary ---
Author Organization [facility] Address [address] [place] [address] Care Team Providers Care Byproducts Operator Name Role Phone Felix Le MD Primary Care Provider Family History Medical History Relation Name Comments Breast cancer Neg Hx Ovarian cancer Neg Hx Social History Tobacco Use Types Packs/Day Years Used Date Smoking Tobacco: Never Assessed Abuse Screen Answer Date Recorded Unsafe at Home or Work/School Not on file Feels Threatened by Someone? Not on file 05/2023 Does Anyone Keep You from Co ntacting Others or Doint Things Outside the Home? Not on file 06/28/2023 Physical Sign of Abuse Present Not on file 1 Housing Stability Answer Date Recorded Current Living Arrangements Not on file 05/2023 Potentially Unsafe Housing Conditions Not on griselda e 06/28/2023 Family and Community Support Answer Vinicio e Recorded Help with Day-to-Day Activities Not on file 06/28/2023 Lonely or Isolated Not on file 06/28/2023 Employment Answer Date Recorded Do you want help finding or keeping work or a vidhi b? Not on file 06/28/2023 Disabilities Answer Date Recorded Concentrating, Remembering, or Making Decisions Difficulty Not on file 06/28/2023 Doing Errands Independently Difficulty Not on fi le 06/28/2023 Education Answer Date Recorded Help with school or training? Not on file Preferred Language Not on file 06/28/2023 Comments No Sex and Gender Information Value Date Recorded Sex Assigned at Not on file Legal Sex Female 12:07 PM EDT Gender Identity Not on file Sexual Orientation Not on file Plan of Treatment Health Maintenance Due Date Last Done Comments ANNUAL WELLNESS VISIT 1950 COLOGUARD 1950 COLON CANCER SCREENING 5 YEA R SIGMOIDOSCOPY 1950 COLONOSCOPY [address] CANCER SCREENING 1951 CT COLONOGRAPHY 1951 DXA SCAN 1950 FECAL OCCULT BLOOD TEST 1950 FIT Testing (1 year) 1951 HEPATITIS C SCREENING 1950 ZOSTER VACCINE (1 of 2) 2001 Pneumococcal Vaccine 65+ (1 of 1 - PCV) 2016 INFLUENZA VACCINE 04/20/2024 06/12/2021, , 06/22/2019, Additional history exists COVID-19 Vaccine (5 - 2023-2 5 season) 2024 06/03/2022, 05/30/2021, 10/28/2020, Additional history exists MAMMOGRAM 02/10/2026 02/11/2024, 05/0 04/2023, 01/25/2023, Additional history exists TDAP/TD VACCINES (3 - Td or Tdap) 01/05/2028 018, 02/24/1996 Procedures Procedure Name Priority Date/Time Associated Diagnosis Comments MAMMO SCREENING DIGITAL TOMOSYNTHESIS BILATERAL W CAD Routine 02/11/2024 1:50 PM EDT Screening mammogram for breast cancer from Last 3 Months or Most Recently Relevant to Health Maintenance Results * Mammo Screening Digital Tomosynthesis Bilateral With CAD (02/11/2024 1:50 PM EDT) Anatomical Region Laterality Modality Breast N/A Mammography 02/15/2024 1:15 PM EDT Impressions 02/15/2024 1:17 PM EDT No suspicious abnormality identified. OVERALL ASSESSMENT: ACR BI-RADS CATEGORY: 1, NEGATIVE: ??Recommend continued routine annual screening mammogram. The standard false-negative rate of mammography is between 10% and 25%. Complex patterns or increased breast density will markedly elevate the false-negative rate of mammography. ?? A letter, in lay terminology, with the results of this exam will be mailed to the patient. ?? This report was finalized on 02/15/2024 1:17 PM by Angélica Wilkins MD.0 Narrative 02/15/2024 1:17 PM EDT BILATERAL DIGITAL SCREENING MAMMOGRAM WITH TOMOSYNTHESIS CLINICAL INDICATION: Screening mammogram. TECHNIQUE: Bilateral low dose full field digital breast tomosynthesis imaging was performed. CAD was utilized. COMPARISON: Prior studies dating back to 05/23/2014. FINDINGS: The breast tissue is heterogeneously dense. RIGHT BREAST: No suspicious masses, calcifications, or areas of distortion are seen. LEFT BREAST: No suspicious masses, calcifications, or areas of distortion are seen. Shameka Soni MD IMG MAMMOGRAPHY ORDERABLES Final Result from Last 3 Months or Most Recently Relevant to Health Maintenance Insurance MEDICARE A & B Member Subscriber Plan / Payer (Ef fective 2016-Present) Name:Kristie Barry Member ID:[id number] Relation to Subscriber:Self Name:Kristie Barry Subscriber ID:[id number] Payer ID:[id number] Group ID:Not on file Type:Not on file Address: [address] [place] [id number] [facility] [employer] Care Teams Byproducts Operator Relationship Specialty Start Date End Date Felix Le MD [address] [place] [facility] [address] [place] [address] PCP - General 06/04/15
--- OUTSIDE RECORDS SUMMARY | 2024-08-09 08:50 | XMS_ITS | Encounter Summary ---
Author Organization [facility] Address [address] [place] [address] Care Team Providers Care System Dispatcher Name Role Phone Felix Le MD Primary Care Provider Reason for Referral * Diagnostic Imaging (Routine) - Closed Specialty Diagnoses / Procedures Referred By Zuleyma padilla Referred To Contact Radiology Diagnoses Visit for screening mammogram Procedures Mammo Screening Digital Tomosynthesis Bilateral With CAD Shameka Soni MD [address] [place] [address] Phone: tel: fax: Referral ID Status Reason Start Date Expiration Date Visits Re quested Visits Authorized [id number] Closed 07/15/2020 07/15/2021 1 1 Reason for Visit * Diagnostic Imaging (Routine) - Closed Specialty Diagnoses / Procedures Referred By Zuleyma padilla Referred To Contact Radiology Diagnoses Visit for screening mammogram Procedures Mammo Screening Digital Tomosynthesis Bilateral With CAD Shameka Soni MD [address] [place] [address] Phone: tel: fax: Referral ID Status Reason Start Date Expiration Date Visits Re quested Visits Authorized [id number] Closed 07/15/2020 07/15/2021 1 1 Encounter Details Date Type Department Care Team (Latest Contact Info) Description 10/01/2020 9:10 AM EST - 10/01/2020 11:59 PM EST Hospital Encounter [facility] [address] [facility] [address] Shameka Soni MD [address] [facility] [address] [place] [address] Visit for screening mammogram Discharge Disposition: Home or Self Care Social History Tobacco Use Types Packs/Day Years Used Date Smoking Tobacco: Never Assessed Comments No Sex and Gender Information Value Date Recorded Sex Assigned at Not on file Legal Sex Female 12:07 PM EDT Gender Identity Not on file Sexual Orientation Not on file documented as of this encounter Plan of Treatment Not on file documented as of this encounter Procedures Procedure Name Priority Date/Time Associated Diagnosis Comments MAMMO SCREENING DIGITAL TOMOSYNTHESIS BILATERAL W CAD Routine 10/01/2020 9:36 AM EST Visit for screening mammogram documented in this encounter Results * Mammo Screening Digital Tomosynthesis Bilateral With CAD (10/01/2020 9:36 AM EST) Anatomical Region Laterality Modality Breast N/A Mammography 10/08/2020 3:38 PM EST Impressions 10/08/2020 3:41 PM EST No findings suspicious for malignancy. ACR BI-RADS CATEGORY: ??1, NEGATIVE RECOMMENDATION: Yearly mammogram, yearly clinical breast exam, and encourage self breast awareness. CAD was used. The standard false negative rate of mammography is between 10% and 25%. Complex patterns or increased breast density will markedly elevate the false negative rate of mammography. A letter, in lay terminology, with the results of this exam will be mailed to the patient. ?? If there is a palpable area of concern, biopsy should be considered regardless of imaging findings. This report was finalized on 10/08/2020 3:41 PM by Arabella Pacheco MD. Narrative 10/08/2020 3:41 PM EST ROUTINE DIGITAL SCREENING MAMMOGRAM WITH TOMOSYNTHESIS HISTORY: Routine screening. IMAGE COMPARISON: ??Extending to 2017. TECHNIQUE: ??Low dose full field digital breast tomosynthesis imaging was performed with 2D and 3D acquisitions consisting of bilateral CC and MLO views. FINDINGS: There are heterogeneously dense fibroglandular tissues. The fibroglandular pattern appears stable. ??There is no mass, worrisome microcalcifications, or architectural distortion to suggest development of malignancy. us Shameka Soni MD IMG MAMMOGRAPHY ORDERABLES Final Result documented in this encounter Visit Diagnoses Diagnosis Visit for screening mammogram documented in this encounter Care Teams System Dispatcher Relationship Specialty Start Date End Date Felix Le MD [facility] [address] [facility] [address] [place] [address] PCP - General 06/04/15 documented as of this encounter
--- OUTSIDE RECORDS SUMMARY | 2024-08-09 08:50 | XMS_ITS | Clinical Summary ---
Author Organization [facility] , [facility] Address [address] [place] [address] Phone Care Team Providers Care Travel Service Consultant Name Role Phone TUNG MCALLISTER TARAS Montez Unavailable [phone] RL STEWART, EL Unavailable [phone] Reason for Visit and Chief Complaint SI joint injection Problems Includes: Problems addressed during this encounter and other active Problems All Visits Onset Date Resolved Date Provider Condition S tatus Bone Pain in the Right Foot 02/10/2019 Fausto Martinez MD Active Last Documented On 9 9:03AM ; [facility] Lower Back Pain 01/03/2015 Rafa Saez MD A ctive Last Documented On 5 10:43AM ; [facility] Plan of Treatment Brief history 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 Patient has palpable tenderness over the sacroiliac joints. Provocative testing is positive for SI joint symptoms and patient presents for injection into the SI joint for both diagnostic and therapeutic purposes. Verbal consent was obtained to proceed with injection. Patient was placed on the fluoroscopy table in a prone position. The skin was exposed to proceed with the injection. The skin was prepped with ChloraPrep and skin anesthetized using 1% lidocaine. A 22-gauge needle was placed into the leftsacroiliac joint under fluoroscopy. Once in the joint a small amount of contrast was injected to confirm placement. Once confirmed an injection of 1.5 cc of bupivacaine and 0.5 ccof 40 mg of depomedrol was injected. Sterile dressing applied after the injection. With patient tolerated the procedure without complications. Patient is instructed to pay attention to the amount of pain relief and will report this back to us upon her follow-up visit. Patient left the x-ray room in stable condition. Patient was reevaluated 10 minutes postprocedure. She reports 80-90% improvement in terms of left hip pain. [place] [address] - Last Documented On 11/27/2019 4:44PM ; [facility], [facility] Future Appointments Date Time Location Provi jerel Physician Specified 08/22/2024 1:45PM [facility] Joel Montez DPM Last Documented On 4 2:30PM ; [facility], [facility] Follow Up 09/04/2024 1:30PM [facility] RYAN RUBY PA-C Last Documented On 4 2:43PM ; [facility], [facility] Assessments Includes: Assessments from this encounter No Assessments Recorded Medical Equipment - Implanted Devices Includes: Current Devices No Medical Equipment Recorded Medications Includes: Medications discussed during this encounter and other current Medications Current Medications (continue as prescribed) [facility] Magnesium 250 MG Oral Tablet 06/19/2019 Provider : Diagnosis: Last Documented On 9 2:04PM By Ирина Payne ; [facility] B Complex-B12 Oral Tablet 06/19/2019 Provider: Diagnosis: Last Documented On 9 2:00PM By Ирина Payne ; [facility] MiraLax Oral Packet 06/19/2019 Provider: Diagnosis: Last Documented On 9 2:00PM By Ирина Payne ; [facility] Calcium Citrate 333 MG Oral Tablet 06/19/2019 Provid er: Diagnosis: Last Documented On 9 2:01PM By Ирина Payne ; [facility] Lactaid 3000 UNIT Oral Tablet 06/19/2019 Provider: Diagnosis: Last Documented On 9 2:03PM By Ирина Payne ; [facility] Advil 200 MG Oral Capsule 06/19/2019 Provider: Diagnosis: Last Documented On 9 2:03PM By Ирина Payne ; [facility], [facility] Pregabalin 50 MG Oral Capsule 06/08/2019 Provider: EL SHINE MD Diagnosis: Last Documented On 9 1:59PM By Ирина Payne ; [facility], [facility] Zelnorm 6 MG Oral Tablet 05/29/2019 Provider: LEE SHINE MD Diagnosis: Last Documented On 9 1:59PM By Ирина Payne ; [facility], [facility] diazePAM 5 MG Oral Tablet 05/16/2019 Provider: BROCK ESQUIVEL Diagnosis: Last Documented On 9 1:59PM By Ирина Payne ; [facility], [facility] Dexamethasone 0.5 MG Oral Tablet 04/27/2019 Provider : Diagnosis: Last Documented On 9 1:59PM By Ирина Payne ; [facility], [facility] Lyrica 50MG Oral Capsule 02/08/2019 Provider: LEE SHINE MD Diagnosis: Last Documented On 9 10:19AM By Danyell Kennedy ; [facility], [facility] Prolia 60MG/ML Subcutaneous Solution Prefilled Syringe 02/06/2019 Provider: Diagnosis: Last Documented On 9 10:19AM By Danyell Kennedy ; [facility], [facility] Medications Administered Includes: Administered Medications from this [...] Active Last Documented On 4 2:29PM ; [facility] Codeine and Related Allergy 01/03/2015 Active Last Documented On 4 2:29PM ; [facility] Ceftin Allergy 01/03/2015 Active Last Documented On 4 2:29PM ; [facility] Encounters Encounter Provider Location Date Check-In Time Check-Out Time Diagnosis SI joint injection Rafa Saez MD [facility] 10/27/19 20 10:08AM 10:35AM Insurance Includes: Active Insurance Policies Plan Name Member ID Group # Subscriber Relationship Effect marquez Dates 1 - Medicare Part B [facility] [id number] Kristie Barry Self 08/20/2016 - Unknown 2 - [facility] [employer] [id number] PLAN N Kristie Barry Self 09/20/2015 - Unknown Clinical Notes Includes: Clinical Notes from this encounter No Clinical Notes Recorded
--- OUTSIDE RECORDS SUMMARY | 2024-08-09 08:50 | XMS_ITS | Encounter Summary ---
Author Organization [facility] Address [address] [place] [address] Care Team Providers Care Negative Turner Apprentice Name Role Phone Felix Le MD Primary Care Provider Encounter Details Date Type Department Care Team (Late st Contact Info) Description 04/20/2013 Historical Mammograp hy Encounter [facility] HISTORICAL CONV [address] [place] [address] Interface, See Report Social History [...] Associated Diagnosis Comments MAMMO HISTORICAL RESULT Routine 04/20/2013 10:29 AM EDT documented in this encounter Results * MAMMO HISTORICAL RESULT (04/20/2013 10:29 AM EDT) Anatomical Region Laterality Modality Breast Mammography 04/20/2013 10:2 9 AM EDT Narrative 04/21/2013 4:40 PM EDT ?[facility] ? [address] ??[place], [place] [address] ? NAME: YOU HAAS ? : ??52 ??MR#: [id number] ? LOC: ?? DIS ? AGE: 62Y ?? Pt type: CO ?Exam Date: 04/20/13 1032 ? SEX: F ?? AN#:[id number] ?Ck-in#: [id number] ? KATHYA,ALEX D ? [address] ? [address] ? [place] ?[place] ?[address] ? Chk-in # ?? Order ?Exam ?[id number] ?? 0001 ? [id number] ??GB MAMM SCREEN BILAT DIG PNL ? Ord Diag: SCREENING MMG ? BILATERAL SCREENING MAMMOGRAM ?? HISTORY: 62-year-old female with no personal or family history of breast cancer. ?? IMAGE COMPARISON: Prior exams the most recent dated 04/12/12. ?? FINDINGS: The breast tissue is composed of scattered fibroglandular densities ??An intramammary lymph node is again noted on the left. There are scattered benign calcifications in both breasts. ?? There is no dominant mass, cluster of microcalcifications or architectural distortion to suggest malignancy. ?? IMPRESSION: No findings suspicious for malignancy. ?? BI-RADS CATEGORY II, BENIGN. ?? RECOMMENDATION: Yearly mammogram, yearly physical exam and monthly self-breast exam. ?? iCAD was utilized. ?? The standard false-negative rate of mammography is between 10-25%. Complex patterns or increased breast density will markedly elevate the false-negative rate of mammography. ?? A letter in lay terminology with the results of this exam will be mailed ? FINAL ?CONTINUED ?Page ??1 ? RADIOLOGY REPORT ?[facility] ? [address] ??[place], [place] [address] ? NAME: NARRAGANSETT, [place]IR[place] ? : ??[birth year] ??MR#: [id number] ? LOC: ?? DIS ? AGE: 62Y ?? Pt type: CO ?Exam Date: 04/20/13 1032 ? SEX: F ?? AN#:[id number] ?Ck-in#: [id number] ? KATHYA,ALEX D ? [address] ? [address] ? [place] ?[place] ?[address] ? Checkin-Exam Code Summary ? [id number] to the patient. ?/READ BY/ LOIDA PATSEY-MD ?/Released By/ LOIDA PATSEY-MD ?Released By Date/Time: ??04/21/13 1638 ?Tray Drier: ??LS ? FINAL ? Page ??2 ? RADIOLOGY REPORT us See Report Interface IMG MAMMOGRAPHY ORDERABLES Final Result documented in this encounter Visit Diagnoses Not on filedocumented in this encounter Care Teams Negative Turner Apprentice Relationship Specialty Start Date End Date Felix Le MD [address] [facility] [address] [facility] [[email or web address] 2 [place] [address] PCP - General 06/04/15 documented as of this encounter
--- OUTSIDE RECORDS SUMMARY | 2024-08-09 08:50 | XMS_ITS | Encounter Summary ---
Author Organization [facility] Address [address] [place] [address] Care Team Providers Care Consulting Project Director Name Role Phone Felix Le MD Primary Care Provider Reason for Referral * Diagnostic Imaging (Routine) - Closed Specialty Diagnoses / Procedures Referred By Zuleyma padilla Referred To Contact Radiology Diagnoses Screening mammogram for breast cancer Procedures Mammo Screening Digital Tomosynthesis Bilateral With CAD Shameka Soni MD [address] [place] [address] Phone: tel: fax: Referral ID Status Reason Start Date Expiration Date Visits Re quested Visits Authorized [id number] Closed 12/28/2022 12/28/2023 1 1 Reason for Visit * Diagnostic Imaging (Routine) - Closed Specialty Diagnoses / Procedures Referred By Zuleyma padilla Referred To Contact Radiology Diagnoses Screening mammogram for breast cancer Procedures Mammo Screening Digital Tomosynthesis Bilateral With CAD Shameka Soni MD [address] [employer] [place] [address] Phone: tel: fax: Referral ID Status Reason Start Date Expiration Date Visits Re quested Visits Authorized [id number] Closed 12/28/2022 12/28/2023 1 1 Encounter Details Date Type Department Care Team (Latest Contact Info) Description 01/25/2023 9:51 AM EDT - 01/25/2023 11:59 PM EDT Hospital Encounter [facility] [address] [place] [address] Shameka Soni MD [address] [place], [place] [address] [address] Screening mammogram for breast cancer Discharge Disposition: Home or Self Care Social [...] SCREENING DIGITAL TOMOSYNTHESIS BILATERAL W CAD Routine 01/25/2023 10:15 AM EDT Screening mammogram for breast cancer documented in this encounter Results * Mammo Screening Digital Tomosynthesis Bilateral With CAD (01/25/2023 10:15 AM EDT) Anatomical Region Laterality Modality Breast N/A Mammography 01/26/2023 1:33 PM EDT Impressions 01/26/2023 1:38 PM EDT No mammographic findings suspicious for malignancy. RECOMMENDATION: ??Continue annual screening mammography. BI-RADS CATEGORY 1, NEGATIVE. CAD was utilized. The standard false-negative rate of mammography is between 10% and 25%. Complex patterns or increased breast density will markedly elevate the false-negative rate of mammography. ?? A letter, in lay terminology, with the results of this exam will be mailed to the patient. ?? This report was finalized on 01/26/2023 1:[address] Stephenie Mcdowell MD. Narrative 01/26/2023 1:38 PM EDT BILATERAL SCREENING MAMMOGRAM WITH TOMOSYNTHESIS: HISTORY: The patient has no personal history or significant family history of breast cancer and no focal breast complaints at the time of screening mammography. TECHNIQUE: Bilateral CC and MLO low dose, full field digital mammographic images were obtained with 2-D acquisitions and tomosynthesis. COMPARISON: ??01/21/2022, 10/01/2020, 08/21/2019, 07/13/2018, 06/30/2017, and 06/09/2016 FINDINGS: ??The breast tissue is heterogeneously dense, which may obscure small masses. ?? The fibroglandular pattern is stable. ??There are no suspicious masses, worrisome calcifications, nonsurgical areas of architectural distortion, or other secondary signs of malignancy. us Shameka Soni MD IMG MAMMOGRAPHY ORDERABLES Final Result documented in this encounter Visit Diagnoses Diagnosis Screening mammogram for breast cancer documented in this encounter Care Teams Consulting Project Director Relationship Specialty Start Date End Date Felix Le MD [address] [facility] [address] [facility] 2 [place] [address] PCP - General 06/04/15 documented as of this encounter
--- OUTSIDE RECORDS SUMMARY | 2024-08-09 08:50 | XMS_ITS | Encounter Summary ---
Author Organization [facility] Address [address] [place] [address] Care Team Providers Care Pipe Out Worker Name Role Phone Unavailable Primary Care Provider Unavailabl e Encounter Details Date Type Department Care Team (Late st Contact Info) Description 05/28/2014 9:02 AM EDT - 05/28/2014 11:59 PM EDT Hospital Encounter [facility] [address] [facility] [address] [place] [phone] Shameka Soni MD [address] [facility] [address] [place], [place] [id number] Social History Tobacco Use Types Packs/Day Years [...] Name Priority Date/Time Associated Diagnosis Comments MAMMO DIAGNOSTIC UNILATERAL Routine 05/28/2014 9:04 AM EDT documented in this encounter Results * MAMMOGRAPHY DIAGNOSTIC UNILATERAL (05/28/2014 9:04 AM EDT) Anatomical Region Laterality Modality Breast N/A Mammography 05/28/2014 9:04 AM EDT Narrative 05/28/2014 10:35 AM EDT RIGHT DIAGNOSTIC DIGITAL MAMMOGRAM: HISTORY: Recall from screening examination for possible area of architectural distortion in the upper inner quadrant of the right breast. TECHNIQUE: ?? Right MLO and CC focal compression views and right MLO view using both 2D and 3D imaging. Routine right rolled CC views. COMPARISON: ??Comparison is made to prior right mammograms dating back to 04/09/2011. ?? FINDINGS: ?? Additional views were performed for ??findings on screening mammography. ??Focused compresssion effaced the area of concern. The area of concern on screening mammography reflected summation of fibroglandular tissue. BI-RADS CATEGORY I, NEGATIVE ? RECOMMENDATION: Annual screening mammography in one year. CAD was utilized. The standard false-negative rate of mammography is between 10% and 25%. Complex patterns or increased breast density will markedly elevate the false-negative rate of mammography. ?? A results letter, in lay terminology, will be given to the patient at the conclusion of the exam. ? Reading Moustapha CARLOS ? Releasing Moustapha CARLOS ? Released Date Time- 05/28/14 1049 ? Junior Underwriter- Leena us Shameka Soni MD [facility] MAMMOGRAPHY ORDERABLES Final Result documented in this encounter Visit Diagnoses Not on filedocumented in this encounter
--- OUTSIDE RECORDS SUMMARY | 2024-08-09 08:50 | XMS_ITS | Encounter Summary ---
Author Organization [facility] Address [address] [place] [address] Care Team Providers Care Dynamics Ax Consultant Name Role Phone Felix Le MD Primary Care Provider Reason for Referral * (Routine) - Closed Specialty Diagnoses / Procedures Referred By Zuleyma padilla Referred To Contact Radiology Diagnoses Visit for screening mammogram Procedures Mammo screening [place] [address] [place] [address] Phone: tel: fax: Referral ID Status Reason Start Date Expiration Date Visits Re quested Visits Authorized [id number] Closed 04/27/2016 10/24/2016 1 1 Reason for Visit * (Routine) - Closed Specialty Diagnoses / Procedures Referred By Zuleyma padilla Referred To Contact Radiology Diagnoses Visit for screening mammogram Procedures Mammo screening digital tomosynthesis bilateral w Shameka Diggs MD [address] [place] [address] Phone: tel: fax: Referral ID Status Reason Start Date Expiration Date Visits Re quested Visits Authorized [id number] Closed 04/27/2016 10/24/2016 1 1 Encounter Details Date Type Department Care Team (Latest Contact Info) Description 06/09/2016 2:01 PM EDT - 06/09/2016 11:59 PM EDT Hospital Encounter [place] [address] [place] [id number] Shameka Soni MD [address] [facility] [address] [place] [phone] Visit for screening mammogram Discharge Disposition: Home [...] SCREENING DIGITAL TOMOSYNTHESIS BILATERAL W CAD Routine 06/09/2016 2:31 PM EDT Visit for screening mammogram documented in this encounter Results * Mammo screening digital tomosynthesis bilateral w cad (06/09/2016 2:31 PM EDT) Anatomical Region Laterality Modality Breast N/A Mammography 06/10/2016 12:1 7 PM EDT Impressions 06/10/2016 12:17 PM EDT Negative bilateral mammogram. RECOMMENDATION: ??Continue annual screening mammography. BI-RADS CATEGORY I, NEGATIVE. CAD was utilized. The standard false-negative rate of mammography is between 10% and 25%. Complex patterns or increased breast density will markedly elevate the false-negative rate of mammography. ?? A letter, in lay terminology, with the results of this exam will be mailed to the patient. ?? This report was finalized on 06/10/2016 12:[address] Alejandrina Del Castillo MD. Narrative 06/10/2016 12:17 PM EDT HISTORY: Screening Mammography. Low Dose full field Digital Breast Tomosynthesis examination was performed with 2D and 3D acquisitions. ??Examination is compared to prior examination dating back to 04/20/2013. Examination is read in conjunction with computer aided detection. FINDINGS: ?? There are scattered areas of fibroglandular density. No suspicious masses, microcalcifications or ??areas of architectural distortion are present. Shameka Soni MD IMG MAMMOGRAPHY ORDERABLES Final Result documented in this encounter Visit Diagnoses Diagnosis Visit for screening mammogram documented in this encounter Care Teams Dynamics Ax Consultant Relationship Specialty Start Date End Date Felix Le MD [address] [facility] [address] [facility] 2 [place] [address] PCP - General 06/04/15 documented as of this encounter
--- OUTSIDE RECORDS SUMMARY | 2024-08-09 08:50 | XMS_ITS | Encounter Summary ---
Author [facility] Address [address] [place] [id number] Care Team Providers Care Artists' Booking Representative Name Role Phone Felix Le MD Primary Care Provider Reason for Referral * Diagnostic Imaging (Routine) - Closed Specialty Diagnoses / Procedures Referred By Contac t Referred To Contact Radiology Diagnoses Screening mammogram for breast cancer Procedures Mammo Screening Digital Tomosynthesis Bilateral With CAD Shameka Soni MD [facility] [place] [id number] Phone: tel: fax: [facility] [address] [place] [address] Phone: tel: Referral ID Status Reason Start Date Expiration Date Visits Re quested Visits Authorized [id number] Closed 01/13/2024 01/12/2025 1 1 Reason for Visit * Diagnostic Imaging (Routine) - Closed Specialty Diagnoses / Procedures Referred By Contac t Referred To Contact Radiology Diagnoses Screening mammogram for breast cancer Procedures Mammo Screening Digital Tomosynthesis Bilateral With Shameka Chow [facility] [address] [address] Phone: tel: fax: [facility] [address] [place] [address] Phone: tel: Referral ID Status Reason Start Date Expiration Date Visits Re quested Visits Authorized [id number] Closed 01/13/2024 01/12/2025 1 1 Encounter Details Date Type Department Care Team (Latest Contact Info) Description 02/11/2024 1:15 PM EDT - 02/11/2024 11:59 PM EDT Hospital Encounter [facility] [address] [place] [address] Shameka Soni MD [address] [address] Screening mammogram for breast cancer Discharge Disposition: [...] PM EDT Screening mammogram for breast cancer documented [...] calcifications, or areas of distortion are seen. us Shameka Soni MD IMG MAMMOGRAPHY ORDERABLES Final Result documented in this encounter Visit Diagnoses Diagnosis Screening mammogram for breast cancer documented in this encounter Care Teams Artists' Booking Representative Relationship Specialty Start Date End Date Felix Le MD [address] [facility] [address] [place] [address] PCP - General 06/04/15 documented as of this encounter
--- OUTSIDE RECORDS SUMMARY | 2024-08-09 08:50 | XMS_ITS | Encounter Summary ---
Author Organization [facility] Address [address] [place] [id number] Care Team Providers Care Dentist Attendant Name Role Phone Felix Le MD Primary Care Provider Reason for Referral * Diagnostic Imaging (Routine) - Closed Specialty Diagnoses / Procedures Referred By Contpraful t Referred To Contact Radiology Diagnoses Visit for screening mammogram Procedures Mammo Screening Digital Tomosynthesis Bilateral With CAD Shameka Soni MD [address] [place] [address] Phone: tel: fax: [address] [address] Phone: tel: fax: Referral ID Status Reason Start Date Expiration Date Visits Re quested Visits Authorized [id number] Closed 06/17/2017 06/17/2018 1 1 Reason for Visit * Diagnostic Imaging (Routine) - Closed Specialty Diagnoses / Procedures Referred By Contac t Referred To Contact Radiology Diagnoses Visit for screening mammogram Procedures Mammo Screening Digital Tomosynthesis Bilateral With CAD Shameka Soni MD [address] [place] [address] Phone: tel: fax: [address] [address] Phone: tel: fax: Referral ID Status Reason Start Date Expiration Date Visits Re quested Visits Authorized [id number] Closed 06/17/2017 06/17/2018 1 1 Encounter Details Date Type Department Care Team (Latest Contact Info) Description 06/30/2017 1:43 PM EDT - 06/30/2017 11:59 PM EDT Hospital Encounter [facility] [address] [place] [address] Shameka Soni MD [address] [facility] [address] [place] [address] Visit for screening mammogram Discharge Disposition: Home [...] SCREENING DIGITAL TOMOSYNTHESIS BILATERAL W CAD Routine 06/30/2017 2:10 PM EDT Visit for screening mammogram documented in this encounter Results * Mammo Screening Digital Tomosynthesis Bilateral With CAD (06/30/2017 2:10 PM EDT) Anatomical Region Laterality Modality Breast N/A Mammography 07/01/2017 2:12 PM EDT Impressions 07/01/2017 2:13 PM EDT Negative bilateral mammogram. RECOMMENDATION: ??Continue [...] patient. ?? This report was finalized on 07/01/2017 2:[address] Alejandrina Del Castillo MD. Narrative 07/01/2017 2:13 PM EDT HISTORY: Screening Mammography. Low Dose full field Digital Breast Tomosynthesis examination was performed with 2D and 3D acquisitions. ??Examination is compared to prior examination dating back to 05/23/2014. Examination is read in conjunction with computer aided detection. FINDINGS: ?? The breasts are heterogeneously dense, which may obscure small masses. No suspicious masses, microcalcifications or ??areas of architectural distortion are present. us Shameka Monse Soni MD IMG MAMMOGRAPHY ORDERABLES Final Result documented in this encounter Visit Diagnoses Diagnosis Visit for screening mammogram documented in this encounter Care Teams Dentist Attendant Relationship Specialty Start Date End Date Felix Le MD [address] [facility] [address] [facility] [address] [facility] [place] [address] PCP - General 06/04/15 documented as of this encounter
--- OUTSIDE RECORDS SUMMARY | 2024-08-09 08:50 | XMS_ITS | Encounter Summary ---
[facility] Address [address] [place] [address] Care Team Providers Care Funeral Attendant Name Role Phone Felix Le MD Primary Care Provider Reason for Referral * Diagnostic Imaging (Routine) - Closed Specialty Diagnoses / Procedures Referred By Contac t Referred To Contact Radiology Diagnoses Visit for screening mammogram Procedures Mammo Screening Digital Tomosynthesis Bilateral With CAD Shameka Soni MD [address] [employer] [place] [address] Phone: tel: fax: [facility] [address] [place] [address] Phone: tel: Referral ID Status Reason Start Date Expiration Date Visits Re quested Visits Authorized [id number] Closed 07/03/2019 07/02/2020 1 1 Reason for Visit * Diagnostic Imaging (Routine) - Closed Specialty Diagnoses / Procedures Referred By Contac t Referred To Contact Radiology Diagnoses Visit for screening mammogram Procedures Mammo Screening Digital Tomosynthesis Bilateral With CAD Shameka Soni MD [address] [employer] [address] [address] Phone: tel: fax: [facility] [address] [place] [address] Phone: tel: Referral ID Status Reason Start Date Expiration Date Visits Re quested Visits Authorized [id number] Closed 07/03/2019 07/02/2020 1 1 Encounter Details Date Type Department Care Team (Latest Contact Info) Description 08/21/2019 1:30 PM EST - 08/21/2019 11:59 PM EST Hospital Encounter [facility] [address] [address] Shameka Soni MD [address] [facility] [address] [place] [address] Visit for screening mammogram Discharge [...] SCREENING DIGITAL TOMOSYNTHESIS BILATERAL W CAD Routine 08/21/2019 1:54 PM EST Visit for screening mammogram documented in this encounter Results * Mammo Screening Digital Tomosynthesis Bilateral With CAD (08/21/2019 1:54 PM EST) Anatomical Region Laterality Modality Breast N/A Mammography 08/22/2019 2:02 PM EST Impressions 08/22/2019 2:04 PM EST Negative screening mammogram. RECOMMENDATION: ??Continue annual screening mammography. BI-RADS CATEGORY 1, NEGATIVE. CAD was utilized. The standard false-negative rate of mammography is between 10% and 25%. Complex patterns or increased breast density will markedly elevate the false-negative rate of mammography. ?? A letter, in lay terminology, with the results of this exam will be mailed to the patient. ?? This report was finalized on 08/22/2019 2:[address] Stephenie Mcdowell MD. Narrative 08/22/2019 2:04 PM EST BILATERAL SCREENING MAMMOGRAM WITH TOMOSYNTHESIS: HISTORY: The patient has no personal or significant family history of breast cancer and no new breast complaints at the time of screening mammography. TECHNIQUE: Bilateral CC and MLO low dose full field digital breast tomosynthesis imaging was performed with 2D and 3D acquisitions. COMPARISON: ??07/13/2018, 06/30/2017, and 06/09/2016 FINDINGS: ??The breast tissue is heterogeneously dense, which may obscure small masses. ?? The fibroglandular pattern is stable. ??There are no suspicious masses, worrisome calcifications, nonsurgical areas of architectural distortion, or other secondary signs of malignancy. Shameka Soni MD IMG MAMMOGRAPHY ORDERABLES Final Result documented in this encounter Visit Diagnoses Diagnosis Visit for screening mammogram documented in this encounter Care Teams Funeral Attendant Relationship Specialty Start Date End Date Felix Le MD [facility] [address] [facility] [address] [place] [id number] PCP - General 06/04/15 documented as of this encounter
--- OUTSIDE RECORDS SUMMARY | 2024-08-09 08:50 | XMS_ITS | Encounter Summary ---
[facility] Address [address] [place] [address] Care Team Providers Care Channel Process Supervisor Name Role Phone Felix Le MD Primary Care Provider Reason for Referral * Diagnostic Imaging (Routine) - Closed Specialty Diagnoses / Procedures Referred By Contac t Referred To Contact Radiology Diagnoses Visit for screening mammogram Procedures Mammo Screening Digital Tomosynthesis Bilateral With CAD Shameka Soni MD [address] [place] [address] Phone: tel: fax: [facility] [address] [place] [address] Phone: tel: Referral ID Status Reason Start Date Expiration Date Visits Re quested Visits Authorized [id number] Closed 08/20/2021 08/20/2022 1 1 Reason for Visit * Diagnostic Imaging (Routine) - Closed Specialty Diagnoses / Procedures Referred By Contac t Referred To Contact Radiology Diagnoses Visit for screening mammogram Procedures Mammo Screening Digital Tomosynthesis Bilateral With CAD Shameka Soni MD [address] [employer] [address] [address] Phone: tel: fax: [facility] [address] [place] [address] Phone: tel: Referral ID Status Reason Start Date Expiration Date Visits Re quested Visits Authorized [id number] Closed 08/20/2021 08/20/2022 1 1 Encounter Details Date Type Department Care Team (Latest Contact Info) Description 01/21/2022 9:00 AM EDT - 01/21/2022 11:59 PM EDT Hospital Encounter [facility] [address] [place] [address] Shameka Soni MD [address] [address] Visit for screening mammogram Discharge Disposition: Home [...] SCREENING DIGITAL TOMOSYNTHESIS BILATERAL W CAD Routine 01/21/2022 9:22 AM EDT Visit for screening mammogram documented in this encounter Results * Mammo Screening Digital Tomosynthesis Bilateral With CAD (01/21/2022 9:22 AM EDT) Anatomical Region Laterality Modality Breast N/A Mammography 01/26/2022 2:51 PM EDT Impressions 01/26/2022 2:56 PM EDT No findings suspicious for malignancy. ACR BI-RADS [...] imaging findings. This report was finalized on 01/26/2022 2:56 PM by Arabella Pacheco MD. Narrative 01/26/2022 2:56 PM EDT ROUTINE DIGITAL SCREENING MAMMOGRAM WITH TOMOSYNTHESIS HISTORY: Routine screening. IMAGE COMPARISON: ??Extending to 2018. TECHNIQUE: ??Low dose full field digital breast tomosynthesis imaging was performed with 2D and 3D acquisitions consisting of bilateral CC and MLO views. FINDINGS: There are scattered fibroglandular tissues. The fibroglandular pattern appears stable. ??There is no mass, worrisome microcalcifications, or architectural distortion to suggest development of malignancy. Shameka Soni MD IMG MAMMOGRAPHY ORDERABLES Final Result documented in this encounter Visit Diagnoses Diagnosis Visit for screening mammogram documented in this encounter Care Teams Channel Process Supervisor Relationship Specialty Start Date End Date Felix Le MD [address] [facility] [address] [facility] 2 [place] [address] PCP - General 06/04/15 documented as of this encounter
--- OUTSIDE RECORDS SUMMARY | 2024-08-09 08:50 | XMS_ITS | Encounter Summary ---
Author Organization [facility] Address [address] [place] [address] Care Team Providers Care Library Circulation Department Chief Name Role Phone Felix Le MD Primary Care Provider Encounter Details Date Type Department Care Team (Late st Contact Info) Description 04/09/2011 Historical Mammograp hy Encounter [facility] [address] [place] [address] Interface, See Report Social History [...] Associated Diagnosis Comments MAMMO HISTORICAL RESULT Routine 04/09/2011 1:17 PM EDT documented in this encounter Results * MAMMO HISTORICAL RESULT (04/09/2011 1:17 PM EDT) Anatomical Region Laterality Modality Breast Mammography 04/09/2011 1:17 PM EDT Narrative 04/10/2011 8:30 AM EDT ?[facility] ? [address] ??[place], [place] [address] ? NAME: YOU HAAS ? : ??52 ??MR#: [id number] ? LOC: ?? DIS ? AGE: 60Y ?? Pt type: CO ?Exam Date: 04/09/11 1317 ? SEX: F ?? AN#:[id number] ?Ck-in#: [id number] ? KATHYA,ALEX D ? [address] ? [address] ? [place] ?[place] ?[address] ? Chk-in # ?? Order ?Exam ?[id number] ?? 0001 ? [id number] ??AB MAMM SCREEN BILAT DIG PNL ? Ord Diag: RTN MMG ? BILATERAL SCREENING DIGITAL MAMMOGRAM: ? HISTORY: 60-year-old female with no personal or family history of breast cancer for routine screening mammogram. ? FILM COMPARISON: Prior exams most recently dated 04/07/2010. ?? FINDINGS: ??The breast parenchymal pattern is heterogeneously dense. Scattered calcifications are present within the breast parenchymal tissue. There is no worrisome mass, cluster of calcifications or distortion to suggest interval development of malignancy. ?? IMPRESSION: ??No findings suspicious for malignancy. ?? RECOMMENDATION: ?? Yearly mammogram, yearly physical exam and monthly self breast exam. ?? BIRADS CATEGORY II, BENIGN. ? iCAD was utilized. ?? The standard false-negative rate of mammography is between 10 and 25%. Complex patterns or increased breast density will markedly elevate the false-negative rate of mammography. ? A letter, in lay terminology, with the results of this exam will be mailed to the patient. ?/READ BY/ LOIDA SERRATO ?/Released By/ LOIDA SERRATO ?Released By Date/Time: ??04/10/11806 ?Linux Systems Analyst: ??DME ? FINAL ? Page ??1 ? RADIOLOGY REPORT us See Report Interface IMG MAMMOGRAPHY ORDERABLES Final Result documented in this encounter Visit Diagnoses Not on filedocumented in this encounter Care Teams Library Circulation Department Chief Relationship Specialty Start Date End Date Felix Le MD [address] [facility] [address] [place] [address] PCP - General 06/04/15 documented as of this encounter
--- OUTSIDE RECORDS SUMMARY | 2024-08-09 08:50 | XMS_ITS | Encounter Summary ---
[facility] Address [address] [place] [address] Care Team Providers Care Thread Grinder Name Role Phone Felix Le MD Primary Care Provider Reason for Referral * Diagnostic Imaging (Routine) - Closed Specialty Diagnoses / Procedures Referred By Codeyac t Referred To Contact Radiology Diagnoses Visit for screening mammogram Procedures Mammo screening digital tomosynthesis bilateral w Shameka Chow MD [address] [place] [address] Phone: tel: fax: [facility] [address] [place] [address] Phone: tel: Referral ID Status Reason Start Date Expiration Date Visits Re quested Visits Authorized [id number] Closed 05/26/2018 05/26/2019 1 1 Reason for Visit * Diagnostic Imaging (Routine) - Closed Specialty Diagnoses / Procedures Referred By Contac t Referred To Contact Radiology Diagnoses Visit for screening mammogram Procedures Mammo screening digital tomosynthesis bilateral w Shameka Chow MD [address] [employer] [address] [address] Phone: tel: fax: [facility] [address] [place] [address] Phone: tel: Referral ID Status Reason Start Date Expiration Date Visits Re quested Visits Authorized [id number] Closed 05/26/2018 05/26/2019 1 1 Encounter Details Date Type Department Care Team (Latest Contact Info) Description 07/13/2018 1:28 PM EDT - 07/13/2018 11:59 PM EDT Hospital Encounter [facility] [address] [place] [address] Shameka Soni MD [address] [facility] [address] [place] [address] Visit for screening mammogram Discharge Disposition: Home [...] SCREENING DIGITAL TOMOSYNTHESIS BILATERAL W CAD Routine 07/13/2018 1:57 PM EDT Visit for screening mammogram documented in this encounter Results * Mammo screening digital tomosynthesis bilateral w CAD (07/13/2018 1:57 PM EDT) Anatomical Region Laterality Modality Breast N/A Mammography 07/14/2018 11:4 3 AM EDT Impressions 07/14/2018 11:43 AM EDT No findings suspicious for malignancy. ACR [...] should be considered regardless of imaging findings. ? This report was finalized on 07/14/2018 11:[address] Rosa Maria Ruelas MD. Narrative 07/14/2018 11:43 AM EDT ROUTINE DIGITAL SCREENING MAMMOGRAM WITH TOMOSYNTHESIS HISTORY: Routine screening. ? IMAGE COMPARISON: ??06/30/2017, 06/09/2016, 06/04/2015. TECHNIQUE: ??Low dose full field digital breast tomosynthesis imaging was performed with 2D and 3D acquisitions consisting of bilateral CC and MLO views. ? FINDINGS: The breasts are heterogeneously dense, which may obscure small masses. The fibroglandular pattern appears stable. ??There is no mass, worrisome microcalcifications, or architectural distortion to suggest development of malignancy. ? us Shameka Monse Soni MD IMG MAMMOGRAPHY ORDERABLES Final Result documented in this encounter Visit Diagnoses Diagnosis Visit for screening mammogram documented in this encounter Care Teams Thread Grinder Relationship Specialty Start Date End Date Felix Le MD [address] [facility] [address] [email or web address] [address] [place] [address] PCP - General 06/04/15 documented as of this encounter
--- OUTSIDE RECORDS SUMMARY | 2024-08-09 08:50 | XMS_ITS | Encounter Summary ---
[facility] [address] [place] [address] Care Team Providers Care Training Coordinator Name Role Phone Unavailable Primary Care Provider Unavailabl e Encounter Details Date Type Department Care Team (Late st Contact Info) Description 05/23/2014 10:47 AM EDT - 05/23/2014 11:59 PM EDT Hospital Encounter [facility] [address] [place] [address] [place] [address] [place] [id number] Social History Tobacco Use Types Packs/Day Years [...] Comments MAMMO SCREENING BILATERAL W CAD Routine 05/23/2014 10:56 AM EDT documented in this encounter Results * MAMMOGRAPHY SCREENING BILATERAL (05/23/2014 10:56 AM EDT) Anatomical Region Laterality Modality Breast Bilateral Mammography 05/23/2014 10:5 6 AM EDT Narrative 05/23/2014 4:17 PM EDT BILATERAL DIGITAL SCREENING MAMMOGRAM WITH TOMOSYNTHESIS - 05/23/2014: CLINICAL INDICATION: ??63-year-old patient with no current breast complaints and no personal or family history of breast cancer. TECHNIQUE: Low dose full field digital breast tomosynthesis imaging was performed with 2D and 3D acquisitions. COMPARISON: 04/20/2013, 04/12/2012, 04/09/2011, 04/07/2010, 04/04/2009, 04/12/2008. FINDINGS: ??The breasts are heterogeneously dense, which may obscure small masses. There is a questionable area of architectural distortion in the right upper inner quadrant. The remaining bilateral fibroglandular pattern is stable in appearance. No suspicious calcifications are seen. IMPRESSION- ?? 1. ??Stable mammographic appearance of the left breast with no findings suspicious for malignancy. 2. ??Questionable area of distortion in the right breast. Recommend additional imaging. BI-RADS CATEGORY: ??0, INCOMPLETE. ??NEEDS ADDITIONAL IMAGING EVALUATION. RECOMMENDATION: ??Right MLO and CC focal compression views and right MLO view all utilizing both 2D and 3D imaging. Routine rolled right CC views. CAD was utilized. The standard false-negative rate of mammography is between 10% and 25%. Complex patterns or increased breast density will markedly elevate the false-negative rate of mammography. ?? A letter, in lay terminology, with the results of this exam will be mailed to the patient. ?? The patient will be contacted by our office to schedule for the additional imaging evaluation. ??Please accept this as sufficient order for the additional imaging evaluation. Physician Order Diagnostic Mammogram with Breast Ultrasound if needed. Diagnosis: Abnormal Screening Mammogram ? Reading RadiologistJayjay [employer] ? Releasing Moustapha [employer] ? Released Date Time- 05/24/14 1236 ? Circle Beveler- Edmar us Shamekashahzad Soni MD IMG MAMMOGRAPHY ORDERABLES Final Result documented in this encounter Visit Diagnoses Not on filedocumented in this encounter
--- OUTSIDE RECORDS SUMMARY | 2024-08-09 08:51 | XMS_ITS | Encounter Summary ---
Author Organization [facility] ystem Address [address] [place] [address] Care Team Providers Care Nanoscience Technician Name Role Phone Felix Le MD Primary Care Provider Encounter Details Date Type Department Care Team (Late st Contact Info) Description 02/03/2007 Historical Mammograp hy Encounter [facility] [address] [place] [address] Interface, See Report Social [...] Associated Diagnosis Comments MAMMO HISTORICAL RESULT Routine 02/03/2007 9:23 AM EDT documented in this encounter Results * MAMMO HISTORICAL RESULT (02/03/2007 9:23 AM EDT) Anatomical Region Laterality Modality Breast Mammography 02/03/2007 9:23 AM EDT Narrative 02/07/2007 4:51 PM EDT ?[facility] ? [address] ??[place], [place] [address] ? NAME: AYAZ HAAS ? : ??52 ??MR#: [id number] ? LOC: ?? DIS ? AGE: 56Y ?? Pt type: CO ?Exam Date: 02/03/[address] ? SEX: F ?? AN#:[id number] ?Ck-in#: [id number] ? KATHYA,ALEX D ? [address] ? [address] ? [place] ?[place] ?[address] ? Chk-in # ?? Order ?Exam ?[id number] ?? 0001 ? [id number] ??AB MAMMO SCREEN BILAT DIGITAL PNL ? Ord Diag: RTN MMG ?[id number] ?? 0002 ? [id number] ??AB MAMM OUTSIDE FILM DIGITIZED ? Ord Diag: PT BROUGHT OUTSIDE FILMS HISTORY: The patient is a 56-year-old female for annual screening digital mammography with no report of breast complaints. ??No personal or family history of breast cancer is given. ?? BILATERAL DIGITAL SCREENING MAMMOGRAM ?? COMPARISON USED: 08/26/04 from [facility] in [place], [place]. ?? TECHNIQUE: Bilateral CC, MLO, and Vera digital images were obtained (six images). ?? FINDINGS: ??The breast tissue is heterogeneously dense bilaterally. No spiculated mass or suspicious cluster of micro-calcifications is seen. Small nodule is again noted superiorly on the left MLO view. ??There are multiple micro-calcifications bilaterally, predominantly upper outer quadrant of the left breast and towards the 3 o'clock position of the right breast. ??Most of these are punctate calcifications. ??Some are benign macro-calcifications. ??No new calcifications are identified. ??No new cluster of calcifications is seen. ??No spiculated mass is identified. ?? IMPRESSION: ??No mammographic evidence of malignancy or significant change from compared to previous left mammogram dated 03/05/06 and bilateral exam from 2003. ??Recommend yearly mammographic follow-up unless clinically indicated sooner. ? FINAL ?CONTINUED ?Page ??1 ? RADIOLOGY REPORT ?[facility] ? [address] ??[place], [place] [address] ? NAME: AYAZ HAAS ? : ??52 ??MR#: [id number] ? LOC: ?? DIS ? AGE: 56Y ?? Pt type: CO ?Exam Date: 02/03/[address] ? SEX: F ?? AN#:[id number] ?Ck-in#: [id number] ? KATHYA,ALEX D ? [address] ? [address] ? [place] ?[place] ?[address] ? Checkin-Exam Code Summary ? [id number] Bi-Rads II, benign. ?? RECOMMENDATION: ??Yearly mammography, yearly physical examination, and monthly self breast exam. ?? The standard false negative rate of mammography is between 10% and 25%. Complex patterns or increased breast density will markedly elevate the false negative rate of mammography. ?? ICAD was utilized. ?? A copy of this report in lay terminology has been sent to the patient. ?/READ BY/ YENY CHAUDHRY ?/Released By/ YENY CHAUDHRY ?Released By Date/Time: ??02/07/07 1641 ?Brush Clearing Laborer: ??LS ? FINAL ? Page ??2 ? RADIOLOGY REPORT us See Report Interface IMG MAMMOGRAPHY ORDERABLES Final Result documented in this encounter Visit Diagnoses Not on filedocumented in this encounter Care Teams Nanoscience Technician Relationship Specialty Start Date End Date Felix Le MD [address] [place] [facility] [address] [place] [address] PCP - General 06/04/15 documented as of this encounter
--- OUTSIDE RECORDS SUMMARY | 2024-08-09 08:51 | XMS_ITS | Encounter Summary ---
[facility] [address] [place] [address] Care Team Providers Care Pan Devulcanizer Name Role Phone Felix Le MD Primary Care Provider Encounter Details Date Type Department Care Team (Late st Contact Info) Description 03/05/2006 Historical Mammograp hy Encounter [facility] HIST[facility]V [address] [place] [address] Interface, See Report Social History [...] Associated Diagnosis Comments MAMMO HISTORICAL RESULT Routine 03/05/2006 9:31 AM EDT documented in this encounter Results * MAMMO HISTORICAL RESULT (03/05/2006 9:31 AM EDT) Anatomical Region Laterality Modality Breast Mammography 03/05/2006 9:31 AM EDT Narrative 03/08/2006 4:38 PM EDT ? [address] ??[place], [place] [address] ? NAME: AYAZ HAAS ? : ??51 ??MR#: [id number] ? LOC: ?? DIS ? AGE: 55Y ?? Pt type: CO ?Exam Date: 03/05/06933 ? SEX: F ?? AN#:[id number] ?Ck-in#: [id number] ? KATHYA,ALEX D ? [address] ? [address] ? [place] ?[place] ?[address] ? Chk-in # ?? Order ?Exam ?[id number] ?? 0001 ? [id number] ??AB MAMM DIAG UNILAT DIGITAL*L ? Ord Dia MONTH F/U ? LEFT DIAGNOSTIC DIGITAL MAMMOGRAM: ?? The patient is a 55-year-old female with no personal or family history of breast cancer. ??The exam is a left diagnostic digital mammogram ordered as a six month follow up after stereotactic biopsy attempt failed to target calcifications successfully. ??Circled on films from [facility] is a particular group of calcifications of concern in August 2005 at the 12 o'clock position. ??The exam is to follow up the recommendation for biopsy that was unable to be performed stereotactically at that time. ?? FINDINGS: ??The breast parenchymal pattern is heterogeneously dense. There is an intramammary lymph node on the left which is stable. ?? The calcifications are scattered diffusely throughout the left breast. They are consistent with fibrocystic changes. ??I do not see a focal worrisome group. ??In particular I do not think there has been a substantial change in the group of concern on the previous exam from [facility]. ??I would personally continue to follow the calcifications rather than opt for excisional biopsy. ??The patient will be due for yearly bilateral mammography in August 2006. ??At that time follow up magnification views can again be performed. ?? Bi-Rads Category II, benign. ?? RECOMMENDATION: ??Yearly mammography due in August 2006, yearly physical exam, and monthly self breast exam. ?? The standard false-negative rate of mammography is between 10 and 25%. ? FINAL ?CONTINUED ?Page ??1 ? RADIOLOGY REPORT ?[facility] ? [address] ??[place], [place] [address] ? NAME: AYAZ HAAS ? : ??51 ??MR#: [id number] ? LOC: ?? DIS ? AGE: 55Y ?? Pt type: CO ?Exam Date: 03/05/06933 ? SEX: F ?? AN#:[id number] ?Ck-in#: [id number] ? KATHYA,ALEX D ? [address] ? [address] ? [place] ?[place] ?[address] ? Checkin-Exam Code Summary ? [id number] Complex patterns or increased breast density will markedly elevate the false-negative rate of mammography. ?? The images were overread by iCAD. ?? A copy of this report in lay terminology has been sent to the patient. ?/READ BY/ LOIDA RIVERS ?/Released By/ NADIA WARD ?Released By Date/Time: ??03/08/06 1620 ?Agronomist: ??CHARLES ? FINAL ? Page ??2 ? RADIOLOGY REPORT us See Report Interface IMG MAMMOGRAPHY ORDERABLES Final Result documented in this encounter Visit Diagnoses Not on filedocumented in this encounter Care Teams Pan Devulcanizer Relationship Specialty Start Date End Date Felix Le MD [address] [place] [facility] [address] [place] [address] PCP - General 06/04/15 documented as of this encounter
--- NOTE | 2024-08-09 09:03 | XR_ITS ---
FINAL REPORT TECHNIQUE: Bone densitometry calculations of the lumbar spine and left hip were obtained. CLINICAL HISTORY: SCREENING FINDINGS: Using L1-4, the bone mineral density of the spine is 0.644 g/cm2, corresponding to T-score of -3.7. Using the left hip, the bone mineral density of the femoral neck is 0.655 g/cm2, corresponding to a T-score of -2.4. Using the right hip, the bone mineral density of the femoral neck is 0.609 g/cm2, corresponding to a T-score of -2.7. NOTE: T-score: Standard deviation compared with peak bone mass of young adult mean. *Following the recommendations of the International Society of Bone densitometry, classification of hip BMD is based on the lower of two T-scores; total hip or femoral neck. IMPRESSION: Diminished bone mineral density of the lumbar spine and left hip consistent with osteoporosis. FRAX was not reported because some of the T-scores are at or below -2.5. Reviewed, Interpreted and Dictated by Ba Veras MD Transcribed by Caitlin Carr Authenticated and [facility]
[2024-08-09 10:06] LABS: Albumin Level 3.8 g/dl (3.5-5.0); Anion Gap 9.7 mEq/L (5-15); Blood Urea Nitrogen 7 mg/dl (7-17); Calcium 8.9 mg/dl (8.4-10.2); Carbon Dioxide 26 mmol/L (22.0-30.0); Chloride 99 mmol/L (98-107); Estimated Glomerular Filt Rate 121 ml/min (>60); GFR (African American) 147 ML/MIN (>60); Glucose 77 mg/dl (74-100); Phosphorous 4.2 mg/dl (2.5-4.5); Potassium 4.7 mmoL/L (3.5-5.1); Sodium 130 mmol/L (136-145)
[2024-08-09 10:22] LABS: 25-OH Vitamin D, Total 52.3 ng/mL (30-100)
[2024-08-12 04:17] LABS: Tandem-R Ostase 7.1 ug/L (.)
[2024-08-16 10:08] LABS: Serial Monitoring PDF SCANNED IMAGE
[2024-08-18 17:12] LABS: C-Telopeptide Serum 110 pg/mL (.)
== END 2024-08-09 23:59 | disposition home or self-care (01) ==
PROVIDERS: Internal Medicine Nephrology; PCP Family Medicine; Visit Provider Physician Assistant Medical
DX: M81.0 Age-related osteoporosis without current pathological fracture (principal)
CPT/HCPCS: 36415; 77080; 80069; 82306; 82523; 84080

== ENCOUNTER 2024-09-29 13:39 | Outpatient (CLI) | payer MEDICARE, SELFPAY ==
--- NOTE | 2024-09-29 13:42 | MR_ITS ---
FINAL REPORT CLINICAL HISTORY: RT FOOT PAIN pain on lateral aspect of foot and plantar pain FINDINGS: Multiplanar MR imaging of the right foot was performed without contrast. There is a small amount of fluid in the retrocalcaneal bursa consistent with bursitis. There is a transverse, nondisplaced fracture through the base of the fifth metatarsal with associated marrow edema. There are hypertrophic changes of osteoarthritis with associated marrow edema at the first, second, and third tarsometatarsal joints. There is marrow edema at the base of the second tarsometatarsal joint. The flexor and extensor tendons are intact. The musculature is intact. The plantar aponeurosis is intact. No soft tissue mass or cyst is identified. IMPRESSION: Nondisplaced fracture through the base of the fifth metatarsal. Retrocalcaneal bursitis. Hypertrophic changes of osteoarthritis as detailed above. Reviewed, Interpreted and Dictated by Ba Veras MD Transcribed by Caitlin Carr Authenticated and . [facility]
== END 2024-09-29 23:59 | disposition home or self-care (01) ==
LOC: RAD 13:39
PROVIDERS: PCP Family Medicine; Visit Provider Family Medicine
DX: M79.671 Pain in right foot (principal)
CPT/HCPCS: 73718

== ENCOUNTER 2024-10-04 15:17 | Outpatient (CLI) | payer MEDICARE, SELFPAY ==
--- NOTE | 2024-10-04 15:21 | XR_ITS ---
FINAL REPORT CLINICAL HISTORY: foot pain/5th met fracture COMPARISON: None FINDINGS: RIGHT FOOT: 3 views of the right foot were obtained. Diffuse osteopenia is present. There is a transverse fracture of the proximal fifth metatarsal without displacement. There is evidence of a fracture healing suggesting a late subacute fracture. Moderate degenerative changes of the midfoot are present. IMPRESSION: Transverse fracture of the proximal fifth metatarsal, with evidence of fracture healing suggesting late subacute fracture. Reviewed, Interpreted and Dictated by Tania Lamb MD Transcribed by Joy Mackey Authenticated and [facility]
== END 2024-10-04 23:59 | disposition home or self-care (01) ==
LOC: RAD 15:18
PROVIDERS: PCP Family Medicine; Visit Provider Podiatrist
DX: M79.671 Pain in right foot (principal)
CPT/HCPCS: 73630

== ENCOUNTER 2024-10-30 14:29 | Outpatient (CLI) | payer MEDICARE, SELFPAY ==
--- NOTE | 2024-10-30 14:33 | XR_ITS ---
FINAL REPORT CLINICAL HISTORY: Foot Pain f/u COMPARISON: 10/04/2024 FINDINGS: RIGHT FOOT 3 views of the right foot were obtained. There is been further healing of the transverse fracture of the proximal fifth metatarsal. There is no displacement. There is diffuse osteopenia. No acute bony abnormality is identified. There is moderate calcaneal spurring noted. IMPRESSION: Partial healing of fifth metatarsal fracture, mildly improved. Reviewed, Interpreted and Dictated by Tania Lamb MD Transcribed by Abby Gomez Authenticated and . [facility]
== END 2024-10-30 23:59 | disposition home or self-care (01) ==
LOC: RAD 14:31
PROVIDERS: PCP Family Medicine; Visit Provider Podiatrist
DX: M79.671 Pain in right foot (principal)
CPT/HCPCS: 73630

== ENCOUNTER 2024-11-28 13:23 | Outpatient (CLI) | payer MEDICARE, SELFPAY ==
--- NOTE | 2024-11-28 13:27 | XR_ITS ---
FINAL REPORT CLINICAL HISTORY: Right 5th met FX COMPARISON: 10/30/2024 FINDINGS: RIGHT FOOT 3 views of the right foot were obtained. There is a transverse fracture of the proximal fifth metatarsal diaphysis, similar to prior exam. Fracture line remains visible. There is a moderate-sized plantar spur. Visualized joint spaces are normally aligned. Soft tissues are unremarkable. IMPRESSION: No acute bony abnormality. Reviewed, Interpreted and Dictated by Ba Veras MD Transcribed by Abby Gomez Authenticated and [facility]
== END 2024-11-28 23:59 | disposition home or self-care (01) ==
LOC: RAD 13:25
PROVIDERS: PCP Family Medicine; Visit Provider Podiatrist
DX: M79.671 Pain in right foot (principal)
CPT/HCPCS: 73630

== ENCOUNTER 2025-01-22 13:00 | Outpatient (CLI) | payer MEDICARE, SELFPAY ==
--- NOTE | 2025-01-22 13:15 | XR_ITS ---
FINAL REPORT CLINICAL HISTORY: Right 5th met FX COMPARISON: 11/28/2024 FINDINGS: AP, oblique and lateral views of the right foot were obtained. There has been no significant change in fracture at the base of the fifth metatarsal. No further callus formation is seen. There is no new abnormality. Degenerative joint disease is stable. The joint spaces are preserved. Soft tissues are unremarkable. IMPRESSION: No significant change in fracture at the base of the fifth metatarsal. Reviewed, Interpreted and Dictated by Tangela Wilkinson MD Transcribed by Abby Gomez Authenticated and [facility]
== END 2025-01-22 23:59 | disposition home or self-care (01) ==
LOC: RAD 13:01
PROVIDERS: PCP Family Medicine; Visit Provider Podiatrist
DX: M79.671 Pain in right foot (principal); M79.672 Pain in left foot
CPT/HCPCS: 73630

== ENCOUNTER 2025-02-01 11:37 | Outpatient (CLI) | payer MEDICARE, SELFPAY ==
--- OUTSIDE RECORDS SUMMARY | 2025-02-01 11:40 | XMS_ITS ---
Author Organization Unknown TREATMENT PLAN [facility] Start Date Provider Encounter for Check-up [phone] [facility]
[2025-02-01 12:41] LABS: Albumin Level 4.5 g/dl (3.5-5.0); Anion Gap 9.6 mEq/L (5-15); Blood Urea Nitrogen 8 mg/dl (7-17); Calcium 9.5 mg/dl (8.4-10.2); Carbon Dioxide 25 mmol/L (22.0-30.0); Chloride 92 mmol/L (98-107); Estimated Glomerular Filt Rate 121 ml/min (>60); GFR (African American) 146 ML/MIN (>60); Glucose 93 mg/dl (74-100); Phosphorous 3.5 mg/dl (2.5-4.5); Potassium 4.6 mmoL/L (3.5-5.1); Sodium 122 mmol/L (136-145)
== END 2025-02-01 23:59 | disposition home or self-care (01) ==
LOC: LAB 11:39
PROVIDERS: PCP Family Medicine; Visit Provider Internal Medicine Nephrology
DX: M81.0 Age-related osteoporosis without current pathological fracture (principal)
CPT/HCPCS: 36415; 80069

== ENCOUNTER 2025-02-05 15:00 | Outpatient (RCR) | payer MEDICARE, SELFPAY ==
--- NOTE | 2025-01-22 15:59 | HMH.PTOPEV ---
PT Outpatient Evaluation Rehab PT Outpatient Evaluation Start: 01/22/25 15:43 Freq: Status: Active Protocol: Document 01/22/25 15:43 ANGI (Rec: 01/22/25 15:59 ANGI [id number]) E-signed By Sravan Stanley, PT Outpatient Therapy Subjective History Subjective History Pt is a 74 yof who is referred to [facility] outpatient PT with complaints of L hip pain that has been ongoing for 2-3 months. The pt reports that she suffered a Paulino Fx of her R foot, which is now completely healed according to Dr. Hayden. She reports that she has been more sedentary and has spent more time sitting than she ever has since fracturing her foot. She reports that her pain began as a cramping sensation in her L buttock but now will occasionally shoot down her posterior thigh. She also reports that in the past, she would walk multiple miles/day, swim multiple miles/week and do water aerobics. She reports that she has recently began these activities again and they seem to help in the moment but then seem to make her more sore later on. PMH: SI dysfunction, IBS, Vitamin B12 deficiency, Leukopenia, Osteoporosis Occupation: Retired New diagnosis of cancer in past 12 No months? Chief Complaint Pain Symptom Type Sharp,Shooting Symptoms Relieved By Prescription Meds Symptoms Aggravated By Sitting,Standing,Bending/ Stooping,Walking,Lifting Prior Functional Limitations None Current Functional Limitations Lifting,Housework,Driving, Standing,Sitting,Squatting, Recreation Activity,Walking, Stairs Symptom Description Intermittent,Activity Dependent Level of pain today (0-10) 4 Pain scale - at its best (0-10) 0 Pain scale - at its worst (0-10) 8 Lumbopelvic Eval Accessory Movement S1 left Range of Motion Lumbar Spine Active Flexion Range of 75% Motion (degrees) Lumbar Spine Active Extension Range of 50% Motion (degrees) Left Lumbar Spine Lateral Flexion Active 75% Range of Motion (degrees) Right Lumbar Spine Lateral Flexion 75% Active Range of Motion (degrees) Hip/Knee Eval Palpation Tenderness left Knee Palpation Overall Comment TTP and TrP 4/4 to Left gluteals, piriformis and TFL Hip Palpation Findings Tenderness,Muscle Guarding MMT Hip Flexion Strength Grade 4 Good Hip Abduction Strength Grade 2 Poor Hip Adduction Strength Grade 2 Poor Hip Extension Strength Grade 3+ Fair+ Knee Extension Strength Grade 4 Good Knee Flexion Strength Grade 4 Good Sensation Comment Intact to LT globally Special Tests Hip Bowstring (Cram) Test Negative Left Hip Jarek's Test Negative Left Hip Raya's Test Negative Left Hip Sterling Test Negative Left Hip Piriformis Test Positive Left Sciatic Nerve Tension Test Positive Left Hip Sitting Root Test Negative Left Hip Scouring (Quadrant) Test Negative Left Wes Test Negative Hip Trendelenburg Test Negative Left Lower Extremity Functional Index Activities Today, do you or would you have any difficulty at all with: a.Any of your usual work, housework or Quite a bit of difficulty school activities b. Your usual hobbies, recreational or Quite a bit of difficulty sporting activities c. Getting into or out of the bath Moderate difficulty d. Walking between rooms A little bit of difficulty e. Putting on your shoes or socks Moderate difficulty f. Squatting Quite a bit of difficulty g. Lifting an object, like a bag of Quite a bit of difficulty groceries from the floor h. Performing light activities around Moderate difficulty your home i. Performing heavy activities around Quite a bit of difficulty your home j. Getting into or out of a car Moderate difficulty k. Walking 2 blocks Quite a bit of difficulty l. Walking a mile Quite a bit of difficulty m. Going up or down 10 stairs (about 1 Moderate difficulty flight of stairs) n. Standing for 1 hour Quite a bit of difficulty o. Sitting for 1 hour Quite a bit of difficulty p. Running on even ground Extreme difficulty or unable to perform activity q. Running on uneven ground Extreme difficulty or unable to perform activity r. Making sharp turns while running fast Extreme difficulty or unable to perform activity s. Hopping Extreme difficulty or unable to perform activity t. Rolling over in bed A little bit of difficulty LEFI Score Lower Extremity Functional Index Score 25 Outpatient Therapy Assessment Impairments Problems/Impairmments Palpation Tenderness,Impaired Range of Motion,Impaired Strength,Impaired Walking, Impaired Standing,Impaired Sitting,Impaired Household Care,Impaired Stair Climbing, Impaired Recreational Activities,Subjective C/O Pain Prognosis Rehab Potential Good Comment w HEP compliance Clinical Impression Consistent with Diagnosis Yes Consistent with Piriformis Syndrome Short Term Goals Number of Weeks 3 Decreased Palpation Tenderness Yes: 2-3/4 to TTP assessment above Increase Range of Motion Yes: WNL Lumbar ROM Increase Strength Yes: 3+/5 to L hip/knee grossly Increase Ability to Stand Yes: 30 minutes without increasing pain Increase Ability to Sit Yes: 30 minutes without increasing pain Improve Ability For Household Care Yes: Light household cleaning without increasing pain Improve LEFI Score Yes: >35 Decrease Subjective C/O Pain Yes: 10 with above assessment Patient to be Ind w/ HEP Yes Shelter Goals Number of Weeks 6 Decreased Palpation Tenderness Yes: 0-1/4 to TTP Assessment Above Increase Strength Yes: 4+/5 to L hip/knee Increase Ability to Walk Yes: 1 mile without increasing pain Increase Ability to Stand Yes: 1 hour without increasing pain Increase Ability to Sit Yes: 1 hour without increasing pain Improve Ability For Household Care Yes: Heavier household care such as vacuuming without increasing pain Improve LEFI Score Yes: >45 Decrease Subjective C/O Pain Yes: 2-11/27 with above assessment Patient to be Ind w/ Advanced HEP Yes Outpatient Therapy Plan of Care Treatment Plan May Include Therapeutic Exercise Including Home Yes Exercise Program Manual Therapy Techniques Yes Neuromuscular Re-education Yes Therapeutic Activities to Return to Yes Previous Functional/Work Level Gait Training Yes Dry Needling Yes Thermal Modalities Yes Electrical Stimulation Yes Manual Lymphatic Drainage Yes Eval/Re-Eval Yes Frequency Times per week 2 Duration Number of Weeks 6 Addendums This patient is a candidate for social No or vocational rehab? Patient/Guardian verbally acknowledges Yes understanding of treatment program and consents to further treatment? Patient/Guardian verbally acknowledges Yes understanding of diagnosis, prognosis and goals for treatment? Eval Complexity PT Charges 20572 - Moderate Complexity Shoulder/Elbow Eval Shoulder Objective Measurements Elbow Objective Measurements PHYSICIAN CERTIFICATION: I certify the specified therapy services for Kristie Barry are required, authorized, and reviewed every 30 days.
== END 2025-02-05 23:59 | disposition home or self-care (01) ==
LOC: PT 15:00
PROVIDERS: PCP Family Medicine; Visit Provider Family Medicine
DX: M76.02 Gluteal tendinitis, left hip (principal)
CPT/HCPCS: 97110; 97140; 97163; 97530

== ENCOUNTER 2025-02-07 06:45 | Outpatient (CLI) | payer MEDICARE, SELFPAY ==
[2025-02-07 07:26] LABS: Basophils % 0.4 % (0.1-2.0); Eosinophils # 0.1 Kmm3 (0.0-0.4); Eosinophils % 1.2 % (0.1-12.0); Hematocrit 36.2 % (37.0-47.0); Hemoglobin 12.1 g/dL (12.2-16.2); Immature Granulocytes # 0.02 10^3uL; Immature Granulocytes % 0.3 %; Lymphocytes # 1.6 K/mm3 (0.7-4.5); Lymphocytes % 20.8 % (10-50); Mean Corpuscular HGB Conc 33.4 g/dL (31.8-35.4); Mean Corpuscular Hemoglobin 30.9 pg (27.0-31.2); Mean Corpuscular Volume 92.3 fl (81-99); Mean Platelet Volume 9.6 fl (7.4-10.4); Monocytes # 0.7 K/mm3 (0.1-1.0); Neutrophils # 5.2 K/mm3 (1.8-7.8); Neutrophils % 68.3 % (37.0-80.0); Nucleated Red Blood Cells # 0 10^3/uL; Nucleated Red Blood Cells % 0 %; Platelet Count 341 K/mm3 (142-424); Red Blood Count 3.92 M/mm3 (4.20-5.40); Red Cell Distribution Width 12.8 % (11.5-17.5); White Blood Count 7.6 K/mm3 (4.8-10.8)
[2025-02-07 08:01] LABS: Alanine Aminotransferase 14 U/L (12-78); Albumin Level 4.5 g/dl (3.5-5.0); Alkaline Phosphatase 123 U/L (38-126); Anion Gap 9.8 mEq/L (5-15); Aspartate Amino Transferase 27 U/L (14-36); Bilirubin,Total 0.5 mg/dl (0.2-1.3); Blood Urea Nitrogen 7 mg/dl (7-17); Calcium 9.6 mg/dl (8.4-10.2); Carbon Dioxide 27 mmol/L (22.0-30.0); Chloride 99 mmol/L (98-107); Chol/HDL Ratio 2.2 (1-3.5); Cholesterol 183 mg/dl (140-200); Estimated Glomerular Filt Rate 121 ml/min (>60); GFR (African American) 146 ML/MIN (>60); Globulin 2.2 g/dL (1.3-3.2); Glucose 97 mg/dl (74-100); HDL Cholesterol 85 mg/dl (40-60); Potassium 4.8 mmoL/L (3.5-5.1); Sodium 131 mmol/L (136-145); Total Protein,Serum 6.7 g/dl (6.3-8.2); Triglycerides 69 mg/dl (30-150); VLDL Cholesterol 14 mg/dL (0-40)
[2025-02-07 08:12] LABS: Direct LDL Cholesterol 76.08 mg/dL (100-129)
[2025-02-07 08:14] LABS: 25-OH Vitamin D, Total 54.7 ng/mL (30-100)
[2025-02-07 08:47] LABS: Vitamin B12 568 pg/mL (239-931)
== END 2025-02-07 23:59 | disposition home or self-care (01) ==
LOC: LAB 06:46
PROVIDERS: PCP Family Medicine; Visit Provider Family Medicine
DX: E78.5 Hyperlipidemia, unspecified (principal); E55.9 Vitamin D deficiency, unspecified; J30.2 Other seasonal allergic rhinitis
CPT/HCPCS: 36415; 80053; 80061; 82306; 82607; 85025

== ENCOUNTER 2025-02-27 13:55 | Outpatient (CLI) | payer MEDICARE, SELFPAY ==
--- OUTSIDE RECORDS SUMMARY | 2025-01-23 10:15 | XMS_ITS ---
[facility] Address [address] [facility] [address] [place] [phone] Care Team Providers Care Search Director Name Role Phone Meenakshi Le Primary Care Provider [phone] Allergies Allergen (clinical drug ingredient) Drug/Non Drug [...] 1 tab(s) orally Th ree times a day for 10 day(s) 01/28/2023 Not-Taking diazePAM 5 MG 1 tab(s) orally once a day as needed 01/12/2025 Active Pregabalin 50 MG 1 cap(s) orally Four times a day for 30 day(s) 11/10/2024 Active Meclizine HCl 25 MG 1 tab(s) orally 3 times a day prn for 30 day(s) 10/11/2020 Active Ondansetron 4 MG 1 tab(s) orally 3 times a day, prn for 30 day(s) Active Cyanocobalamin 1000 MCG/ML 1000 mcg intramuscularly once a month 07/09/2014 Active Calcium 600 + Minerals 600-200 MG-UNIT 10 tab(s) orally once daily Active Prolia 60 MG/ML 60 mg subcutaneously every 6 months Active Magnesium Carbonate 54 (Mag Equiv) MG/5ML 5 mL orally once a day Active Vital Signs Blood pressure systolic 112 mm Hg 01/24/20 25 Blood pressure diastolic 80 mm Hg 025 Heart Rate 50 /min 01/23/2025 Height 65 in 01/23/2025 Weight 117.6 lbs 01/23/2025 BMI 19.57 kg/m2 01/23/2025 Encounters Encounter Location Date Provider Diagnosis [facility] [address] [place] [address] [address] [facility] [address] [place], [place] [phone] 01/23/2025 Meenakshi Le Gluteal tendinitis, left hip M76.02 ; [...] Next Appt Details Follow Up: prn, Reason: Provider Name:Meenakshi Valdez, 03/01/2025 03:15:00 PM, [address] [facility] 36 [facility], [address], [place], [phone], Medications Administered Medication Instructions Date of Administration Dosage Notes B-12 01/23/2025 1 mL Progress Notes * YOU HAAS KDOB:[birth year] (74 yo F)Acc No.[id number]:01/23/2025 Progress Notes Patient: YOU URBANO Provider: Meenakshi Le M.D. :1950 A ge:74 Y S ex:Female Date:01/23/2025 Address:[address] [place], [id number] Subjective: * Chief Complaints: * 1 . 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 * Surgical History: H emorrhoidectomy , [place] Teeth Extractions , Bone Biopsy 06/03/2012, C-Scope 2010, Normal C-Scope 2016. * Hospitalization/Major Diagno stic Procedure: D iarrhea- [facility] 11/21/2012, Constipation- [facility] ER 12/07/2012. * Family History: F ather: . M other: , colon cancer. 1 sister(s) . 1 daughter(s) . .? * Social History: C URRENT TOBACCO USE S moking Status: Patient does NOT smoke. C affeine: no, frequency:. Exercise: yes. Home smoke detector use: yes. Marital Status: . New since last visit: none. 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 Past smoking status: no, Smoking status: Does [...] Examination: General Appearance: N AD at rest. Extremities: S he ambulates with a slight limp. [...] Complex e/m visit add on, J3420 B-12, 54922 ADMINISTRATION OF INJECTION, 3074F SYST BP LT 130 MM HG, 3079F DIAST BP 80-89 MM HG * Follow Up: p rn * Billing Information: * Visit Code: 27834 Office Visit, Est Pt., Level 3. Modifiers: 25 * Procedure Codes: G2211 Complex e/m visit add on. J3420 B-12. 59187 ADMINISTRATION OF INJECTION. 3074F SYST BP LT 130 MM HG. 3079F DIAST BP 80-89 MM HG. * Electronic signature of Meenakshi Le MD on 02/27/2025 at 02:03 PM EDT Sign off status: Pending * Provider: Meenakshi Le M.D. Date: 0 01/23/2025 Generated for Yohan rodriguez/James/Michaelitting on: 0 02/27/2025 02:03 PM EDT History and Physical Notes * HPI (History [...]
--- OUTSIDE RECORDS SUMMARY | 2025-02-06 04:31 | XMS_ITS ---
Author Organization [facility] Address [address] [facility] [address] [place] [phone] Care Team Providers Care Syrup Mixer Assistant Name Role Phone Meenakshi Le Primary Care Provider Results Component Value Reference Range Notes H-CBC Reviewed date:02/15/2025 09:12:56 PM Interpretation: Performing Lab: Notes/Report: WBC 7.6 4.8-10.8 K/mm3 RBC 3.92 4.20-5.40 M/mm3 HGB 12.1 12.2-16.2 g/dL HCT 36.2 37.0-47.0 % MCV 92.3 81-99 fl MCH 30.9 27.0-31.2 pg MCHC 33.4 31.8-35.4 g/dL RDW-SD 43.0 RDW 12.8 11.5-17.5 % PLT 341 142-424 K/mm3 MPV 9.6 7.4-10.4 fl NE% 68.3 37.0-80.0 % LY% 20.8 10-50 % MO% 9.0 1.7-9.3 % EO% 1.2 0.1-12.0 % BA% 0.4 0.1-2.0 % NRBC% 0 IG% 0.3 NE# 5.2 1.8-7.8 K/mm3 LY# 1.6 0.7-4.5 K/mm3 MO# 0.7 0.1-1.0 K/mm3 EO# 0.1 0.0-0.4 Kmm3 BA# 0.0 0-0.2 K/mm3 NRBC# 0 IG# 0.02 H-VITAMIN D Reviewed date:02/15/2025 09:12:56 PM Interpretation: Performing Lab: Notes/Report: TVITD 54.7 30-100 ng/mL Deficient <20 ng/mL Insufficient 20-30 ng/mL Sufficient 30-100 ng/mL Potential Toxicity >100 ng/mL H-Lipid Panel Reviewed date:02/15/2025 09:12:56 PM Interpretation: Performing Lab: Notes/Report: Patient Fasting? Y TRIG 69 30-150 mg/dl CHOL 183 140-200 mg/dl DLDL 76.08 100-129 mg/dL VLDL 14 0-40 mg/dL HDL 85 40-60 mg/dl CHLHDL 2.2 1-3.5 H-CMP Reviewed date:02/15/2025 09:12:56 PM Interpretation: Performing Lab: Notes/Report: NA 131 136-145 mmol/L K 4.8 3.5-5.1 mmoL/L CL 99 98-107 mmol/L CO2 27 22.0-30.0 mmol/L GAP 9.8 5-15 mEq/L BUN 7 7-17 mg/dl CREATT 0.50 0.52-1.04 mg/dl GFRAA 146 >60 ML/MIN EGFR 121 >60 ml/min GLU 97 74-100 mg/dl CA 9.6 8.4-10.2 mg/dl BILIT 0.5 0.2-1.3 mg/dl AST 27 14-36 U/L ALT 14 12-78 U/L TP 6.7 6.3-8.2 g/dl ALB 4.5 3.5-5.0 g/dl GLOB 2.2 1.3-3.2 g/dL AGRATIO 2.0 1.1-1.8 ALP 123 38-126 U/L H-VITAMIN B12 Reviewed date:02/15/2025 09:12:56 PM Interpretation: Performing Lab: Notes/Report: VITB12 568 239-931 pg/mL REASON FOR VISIT Message Encounters Encounter Location Date Provider Diagnosis [facility] [address] [facility] [address] [place], [place] [phone] 02/06/2025 Meenakshi Le Vitamin D deficiency E55.9 ; Vitamin B12 deficiency E53.8 ; Seasonal allergies J30.2 and Dyslipidemia E78.5 Assessments Encounter Date Diagnosis (ICD Code) Assessment Notes Treatment Notes Treatment Clinical Notes Section Notes 02/06/2025 Vitamin D deficiency (ICD-10 - E55.9) 02/06/2025 Vitamin B12 deficiency (ICD-10 - E53.8) 02/06/2025 Seasonal allergies (ICD-10 - J30.2) 02/06/2025 Dyslipidemia (ICD-10 - E78.5) Plan Of Treatment Next Appt Details Provider Name:Meenakshi Macklynda rula, 03/01/2025 03:15:00 PM, [address], [address], [place], [phone], Progress Notes * YOU HAAS KDOB:[birth year] (74 yo F)Acc No.[id number]:02/06/2025 Patient: YOU URBANO :1950 A ge:74 Y S ex:Female Address:[address] [place] [address], [place] [address] Subjective: * Chief Complaints: * M essage * Medical History: * Surgical History: * Hospitalization/Major Diagno stic Procedure: * Medications: Objective: Assessment: * Assessment: 1. V itamin D deficiency - E55.9 (Primary) 2 . V itamin B12 deficiency - E53.8 3 .?Seasonal allergies - J30.2 4 . D yslipidemia - E78.5 Plan: * Treatment: 2. V itamin B12 deficiency L AB: H-VITAMIN B12 3. S easonal allergies L AB: H-CBC 4. D yslipidemia L AB: H-Lipid Panel L AB: H-CMP * Procedure Codes: * true * Date: Generated for Tianai jennifer/James/eTransmitting on: 0 02/27/2025 02:02 PM EDT
--- OUTSIDE RECORDS SUMMARY | 2025-02-08 09:30 | XMS_ITS ---
[facility] Address [address] [place] [phone] Care Team Providers Care Intensive Care Specialist Name Role Phone Meenakshi Le Primary [...] day prn for 30 day(s) 10/11/2020 Active diazePAM 5 MG 1 tab(s) orally once a day as needed 01/12/2025 Active valACYclovir HCl 1 GM 1 tab(s) orally Th ree times a day for 10 day(s) 01/28/2023 Not-Taking Ondansetron 4 MG 1 tab(s) orally 3 times a day, prn for 30 day(s) Active Magnesium Carbonate 54 (Mag [...] 6 hrs prn 02/08/2025 Active Vital Signs Blood pressure systolic 110 mm Hg 02/09/20 25 Blood pressure diastolic 76 mm Hg 025 Heart Rate 64 /min 02/08/2025 Height 65 in 02/08/2025 Weight 114.2 lbs 02/08/2025 BMI 19 kg/m2 02/08/2025 Encounters Encounter Location Date Provider Diagnosis [facility] [address] [place] [phone] 02/08/2025 R Param Le Adult general medica [...] Appt Details Follow Up: 4 Weeks, prn, [place] son: Provider Name:Meenakshi Prather et, 03/01/2025 03:15:00 PM, [address], [address], [place], [place], [phone], Progress Notes * SULAIMANROSALIA YOU KDOB:[birth year] (74 yo F)Acc No.[id number]:02/08/2025 Annual Wellness Visit Patient: YOU URBANO Provider: Meenakshi Le M.D. :1950 A ge:74 Y S ex:Female Date:02/08/2025 Address:[address] [place], [place] [address], [place], [id number] Subjective: * Chief Complaints: * 1 . [...] B12 Deficiency, Leukopenia, Osteoporosis, Lumbar Radiculopathy, Dr. [place], Annual Mammogram, per Dr. Soni, Lichen planus, Valium Rx intiated by Dr. 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 * Surgical History: H emorrhoidectomy , [place] Teeth Extractions , Bone Biopsy 06/03/2012, C-Scope 2010, Normal C-Scope 2016. * Hospitalization/Major Diagno stic Procedure: D iarrhea- [facility] 11/21/2012, Constipation- [facility] ER 12/07/2012. * Family History: F ather: . M other: , colon cancer. 1 sister(s) . 1 daughter(s) . .? * Social History: C URRENT TOBACCO USE S moking Status: Patient does NOT smoke. C affeine: no, frequency:. Exercise: yes. Home smoke detector use: yes. Marital Status: . New since last visit: none. 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 Past smoking status: no, Smoking [...] S eems more anxious. Tearful at times.. Extremities: S he ambulates with a slight limp. Range of motion of the hip is nearly full. There is tenderness to palpation over the gluteus and ischium.. * Physical Examination: G ENERAL: Pain Assessment: [...] past 12 months. D epression Screening: D enies depressed mood or anxiety. Describes emotional health as: positive. B ladder Control Screening: D enies problems. Assessment: * Assessment: 1. A dult [...] * Follow Up: 4 Weeks, prn * Billing Information: * Visit Code: 48895 Office Visit, Est Pt., Level 3. Modifiers: [...] of Meenakshi Le MD on 02/27/2025 at 02:02 PM EDT Sign off status: Pending * Provider: Meenakshi Le M.D. Date: 0 02/08/2025 Generated for Printi ng/Faminnag/eTransmitting on: 0 02/27/2025 02:02 PM EDT History and Physical Notes * Physical Examination [...]
--- OUTSIDE RECORDS SUMMARY | 2025-02-27 14:03 | XMS_ITS | Patient Health Record ---
Author Organization [facility] Address [address] [place] [id number] Care Team Providers Care Rn Case Manager Name Role Phone Meenakshi Le Primary Care Provider [phone] Akash Varela Unavailable [phone] Allergies Allergen (clinical drug ingredient) Drug/Non Drug Allergy documented on EMR Reaction Allergy Type Onset Date Status codeine Codeine Sulfate stomach upset but doesn't know for sure if she is Drug Allergy Active erythromycin Erythromycin stomach pain and diarrhea Drug Allergy Active Mold Unknown Allergy Active Results Component Value Reference Range Notes H-CBC [...] Performing Lab: Notes/Report: VITB12 568 239-931 pg/mL MRI : Foot, right, without c ontrast Reviewed date:10/02/2024 09:11:52 AM Interpretation:non-displaced fracture Performing Lab: Notes/Report: non-displaced fracture H-VITAMIN B12 Reviewed date:06/06/2024 02:11:50 PM Interpretation:Normal Performing Lab: Notes/Report: VITB12 571 239-931 pg/mL H-CMP Reviewed date:06/06/2024 02:11:50 PM Interpretation:Na 134, gluc 101, ast 38 Performing Lab: Notes/Report: NA 134 136-145 mmol/L K 4.8 3.5-5.1 mmoL/L CL 103 98-107 mmol/L CO2 28 22.0-30.0 mmol/L GAP 7.8 5-15 mEq/L BUN 8 7-17 mg/dl CREATT 0.60 0.52-1.04 mg/dl GFRAA 119 >60 ML/MIN EGFR 98 >60 ml/min GLU 101 74-100 mg/dl CA 10.1 8.4-10.2 mg/dl BILIT 0.6 0.2-1.3 mg/dl AST 38 14-36 U/L ALT 20 12-78 U/L TP 7.4 6.3-8.2 g/dl ALB 4.5 3.5-5.0 g/dl GLOB 2.9 1.3-3.2 g/dL AGRATIO 1.6 1.1-1.8 ALP 61 38-126 U/L H-Lipid Panel Reviewed date:06/06/2024 02:11:50 PM Interpretation:chol 248, hdl 93 Performing Lab: Notes/Report: Patient Fasting? Y TRIG 85 30-150 mg/dl CHOL 248 140-200 mg/dl DLDL 116.87 100-129 mg/dL VLDL 17 0-40 mg/dL HDL 93 40-60 mg/dl CHLHDL 2.7 1-3.5 H-VITAMIN D Reviewed date:06/06/2024 02:11:49 PM Interpretation:Normal Performing Lab: Notes/Report: TVITD 54.5 30-100 ng/mL Deficient <20 ng/mL Insufficient 20-30 ng/mL Sufficient 30-100 ng/mL Potential Toxicity >100 ng/mL H-CBC Reviewed date:06/06/2024 02:11:49 PM Interpretation:nchc 31.4 Performing Lab: Notes/Report: WBC 5.0 4.8-10.8 K/mm3 RBC 4.32 4.20-5.40 M/mm3 HGB 13.4 12.2-16.2 g/dL HCT 42.6 37.0-47.0 % MCV 98.7 81-99 fl MCH 30.9 27.0-31.2 pg MCHC 31.4 31.8-35.4 g/dL RDW 13.9 11.5-17.5 % PLT 364 142-424 K/mm3 MPV 8.5 7.4-10.4 fl NE% 63.9 37.0-80.0 % LY% 28.1 10-50 % MO% 7.3 1.7-9.3 % EO% 0.3 0.1-12.0 % BA% 0.4 0.1-2.0 % NE# 3.2 1.8-7.8 K/mm3 LY# 1.4 0.7-4.5 K/mm3 MO# 0.4 0.1-1.0 K/mm3 EO# 0.0 0.0-0.4 K/mm3 BA# 0.0 0-0.2 K/mm3 H-CBC Reviewed date:06/05/2024 09:26:02 AM Interpretation: Performing Lab: Notes/Report: H-Lipid Panel Reviewed date:06/05/2024 09:26:53 AM Interpretation: Performing Lab: Notes/Report: H-CMP Reviewed date:05/10/2024 11:56:14 AM Interpretation:no record testing completed Performing Lab: Notes/Report: no record testing completed H-VITAMIN B12 Reviewed date:06/05/2024 09:27:04 AM Interpretation: Performing Lab: Notes/Report: H-Vitamin D 1,25 Reviewed date:06/05/2024 09:27:16 AM Interpretation: Performing Lab: Notes/Report: Medications Medication SIG (Take, Route, Frequency, Duration) Notes Start Date End Date Status methylPREDNISolone 4 MG as directed Orally Active Ondansetron 4 MG 1 tab(s) orally 3 times a day, prn for 30 day(s) Active Methocarbamol 750 MG 1 tablet Orally Fou r times a day for 30 days Active HYDROcodone-Acetaminophen 5-325 MG 1/2 to 1 tablet Orally every 6 hrs prn 02/19/2025 Active Meclizine HCl 25 MG 1 tab(s) orally 3 times a day prn for 30 day(s) 10/11/2020 Active Pregabalin 50 MG 1 cap(s) orally Four times a day for 30 days 02/13/2025 Active diazePAM 5 MG 1 tab(s) orally once a day as needed 01/12/2025 Active MiraLax 17 GM/SCOOP as directed Orally Active Lactaid 3000 UNIT 1/2 tablet Orally On ce a day Active Magnesium Carbonate 54 (Mag Equiv) MG/5ML 5 mL orally once a day Active Cyanocobalamin 1000 MCG/ML 1000 mcg intramuscularly once a month 07/09/2014 Active valACYclovir HCl 1 GM 1 tab(s) orally Th ree times a day for 10 day(s) 01/28/2023 Not-Taking Calcium 600 + Minerals 600-200 MG-UNIT 10 tab(s) orally once daily Active Prolia 60 MG/ML 60 mg subcutaneously every 6 months Active Immunizations Vaccine Route Administration Date Status Comme nts COVID 19 Moderna IM Intramuscular 09/27/2020 Administered COVID 19 Moderna IM Intramuscular 10/28/2020 Administered COVID 19 Moderna Unknown 05/30/2021 Administered Fluzone High Dose (65yr and older) IM Intramuscular 06/08/2017 Administered Fluzone High Dose (65yr and older) IM Intramuscular 05/26/2018 Administered Fluzone High Dose (65yr and older) IM Intramuscular 06/22/2019 Administered Fluzone High Dose (65yr and older) IM Intramuscular 06/27/2020 Administered Fluzone High Dose (65yr and older) IM Intramuscular 06/12/2021 Administered Fluzone High Dose (65yr and older) IM Intramuscular 06/15/2022 Administered Fluzone High Dose (65yr and older) IM Intramuscular 06/06/2024 Administered given by chris granados Fluzone Intradermal Quad private(18-64yrs) ID Intradermal 07/09/2015 Administered Fluzone Intradermal Quad private(18-64yrs) ID Intradermal 06/11/2016 Administered PNEUMOVAX 23 VACCINE IM Intramuscular 06/13/2012 Administered PNEUMOVAX 23 VACCINE IM Intramuscular 07/18/2019 Administered ppd TD Transdermal 12/17/2009 Administered Prevnar (PCV13) IM Intramuscular 04/16/2017 Administered Tetanus Tdap-Adacel (over 7yrs) IM Intramuscular 01/14/2011 Administered Tetanus Tdap-Adacel (over 7yrs) IM Intramuscular 01/04/2018 Administered xFlu shot-36 months and older IM Intramuscular 08/15/2005 Administered xFlu shot-36 months and older IM Intramuscular 07/30/2006 Administered xFlu shot-36 months and older IM Intramuscular 07/05/2007 Administered xFlu shot-36 months and older IM Intramuscular 07/14/2008 Administered xFlu shot-36 months and older IM Intramuscular 06/03/2009 Administered xFlu shot-36 months and older IM Intramuscular 07/14/2011 Administered xFluzone (6mos and older)-trivalent IM Intramuscular 06/26/2010 Administered xFluzone (6mos and older)-trivalent IM Intramuscular 06/14/2014 Administered xFluzone Intradermal (18-64yrs)-trivalen t ID Intradermal 06/13/2012 Administered xFluzone Intradermal (18-64yrs)-trivalen t ID Intradermal 06/06/2013 Administered xFluzone Intradermal (18-64yrs)-trivalen t ID Intradermal 07/04/2013 Administered Problems Problem Type SNOMED Code ICD Code Onset Dates Problem Status W/U Status Risk Notes Problem Besnier's prurigo (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) Allergic dermatitis (L20.0) Active confirmed Problem 17558523 Vitamin D deficiency (E55.9) Active confirmed Problem 267706789 Vitamin B12 deficiency (E53.8) Active confirmed Problem 893942397 Seasonal allergies (J30.2) Active confirmed Problem Osteoarthritis (134207278) Osteoarthritis (M19.90) Active confirmed Problem 235857098 Lumbar disc disease (M51.9) Active confirmed Problem Peripheral neuropathy (614424071) Peripheral neuropathy (G62.9) Active confirmed Problem 28074295 Osteoporosis (M81.0) Active confirmed Problem 91701713 Sacroiliitis (M46.1) Active confirmed Problem 1585952 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) Active confirmed Problem Dyslipidemia (142597660) Dyslipidemia (E78.5) Active confirmed Problem 120211074 Irritable bowel syndrome with constipation (K58.1) Active confirmed Vital Signs Heart Rate 64 /min 02/08/2025 Blood pressure diastolic 76 mm Hg 02/08/2025 Height 65 in 02/08/2025 Blood pressure systolic 110 mm Hg 02/08/2025 Weight 114.2 lbs 02/08/2025 BMI 19 kg/m2 02/08/2025 Encounters Encounter Location Date Provider Diagnosis [facility] [address] [place] [id number] 05/02/2024 R Param Le Peripheral neuropath y G62.9 ; Vitamin B12 deficiency E53.8 ; Vitamin D deficiency E55.9 and Dyslipidemia E78.5 [facility] [address] [place] [id number] 06/06/2024 R Param Le Encounter for immunization Z23 ; Peripheral neuropathy G62.9 ; Vitamin B12 deficiency E53.8 ; Vitamin D deficiency E55.9 ; Dyslipidemia E78.5 and Osteoporosis M81.0 [facility] [address] [place] [id number] 09/07/2024 R Param Le Foot pain M79.673 an d Vitamin B12 deficiency E53.8 [facility] [address] [place] [id number] 01/09/2025 R Param Le Sacroiliitis M46.1 ; Gluteal tendinitis, left hip M76.02 ; Dyslipidemia E78.5 and Body mass index (BMI) of 19.0 to 19.9 in adult Z68.1 [facility] [address] [place] [id number] 01/23/2025 R Praam Le Gluteal tendinitis, left hip M76.02 ; Sacroiliitis M46.1 ; Vitamin B12 deficiency E53.8 and Body mass index (BMI) of 19.0 to 19.9 in adult Z68.1 [facility] [address] [place] [id number] 02/08/2025 R Param Le Adult general medica l examination Z00.00 ; Gluteal tendinitis, left hip M76.02 ; Sacroiliitis M46.1 ; Vitamin D deficiency E55.9 ; Osteoporosis M81.0 ; Vitamin B12 deficiency E53.8 ; Dyslipidemia E78.5 and Body mass index (BMI) of 19.0 to 19.9 in adult Z68.1 [facility] [address] [place], [place] [id number] 03/09/2024 R Param Rey [facility] [address] [place], [place] [id number] 03/27/2024 R Param Rey [facility] [address] [place], [place] [id number] 05/15/2024 R Param Rey [facility] [address] [place], [place] [id number] 07/14/2024 R Param Rey [facility] [address] [place], [place] [id number] 08/11/2024 R Param Rey Vertigo R42 [facility] [address] [place], [place] [id number] 10/02/2024 R Param Rey Closed nondisplaced fracture of fifth metatarsal bone of right foot, initial encounter S92.354A [facility] [address] [place], [place] [id number] 10/12/2024 R Param Rey [facility] [address] [place], [place] [id number] 11/10/2024 R Param Rey Peripheral neuropath y G62.9 [facility] [address] [place], [place] [id number] 01/10/2025 R Param Rey [facility] [address] [place], [place] [id number] 01/12/2025 R Param Rey [facility] [address] [place], [place] [id number] 01/15/2025 R Param Rey Sacroiliitis M46.1 [facility] [address] [facility] [address] [place], [place] [id number] 01/15/2025 R Param Seet [facility] [address] [facility] [address] [place], [place] [id number] 02/06/2025 R Param Seet Vitamin D deficiency E55.9 ; Vitamin B12 deficiency E53.8 ; Seasonal allergies J30.2 and Dyslipidemia E78.5 [facility] [address] [facility] [address] [place], [place] [id number] 02/13/2025 Akash Maroa Peripheral neuropath y G62.9 [facility] [address] [facility] [address] [facility] [address] [place], [place] [id number] 02/13/2025 R Param Seet [facility] [address] [facility] 36 [facility] [address] [place], [place] [id number] 02/13/2025 R Param Le Gluteal tendinitis, left hip M76.02 [facility] [address] [facility] [address] [place], [place] [id number] 02/19/2025 Akash Maroa Sacroiliitis M46.1 Assessments Encounter Date Diagnosis (ICD Code) Assessment Notes Treatment Notes Treatment Clinical Notes Section Notes 05/02/2024 Vitamin B12 deficiency (ICD-10 - E53.8) 05/02/2024 Peripheral neuropathy (ICD-10 - G62.9) 08/11/2024 Vertigo (ICD-10 - R42) 09/07/2024 Vitamin B12 deficiency (ICD-10 - E53.8) 09/07/2024 Foot pain (ICD-10 - M79.673) -- r/o stress fracture 10/02/2024 Closed nondisplaced fracture of fifth metatarsal bone of right foot, initial encounter (ICD-10 - S92.354A) 01/09/2025 Gluteal tendinitis, left hip (ICD-10 - M76.02) 01/09/2025 Sacroiliitis (ICD-10 - M46.1) 06/06/2024 Peripheral neuropathy (ICD-10 - G62.9) 06/06/2024 Encounter for immunization (ICD-10 - Z23) 01/15/2025 Sacroiliitis (ICD-10 - M46.1) 01/23/2025 Gluteal tendinitis, left hip (ICD-10 - M76.02) Continue physical therapy 01/23/2025 Sacroiliitis (ICD-10 - M46.1) 02/06/2025 Vitamin D deficiency (ICD-10 - E55.9) 02/06/2025 Vitamin B12 deficiency (ICD-10 - E53.8) 02/08/2025 Gluteal tendinitis, left hip (ICD-10 - M76.02) Continue physical therapy 02/13/2025 Peripheral neuropathy (ICD-10 - G62.9) 02/13/2025 Gluteal tendinitis, left hip (ICD-10 - M76.02) 02/19/2025 Sacroiliitis (ICD-10 - M46.1) 02/08/2025 Adult general medical examination (ICD-10 - Z00.00) Patient instructed to return to office Annually for Annual Wellness Visits to include annual screenings of Pain assessment, Functional Ability assessment, Cognitive Ability assessment, Fall Risk assessment, Depression screening and Bladder control screening. 11/10/2024 Peripheral neuropathy (ICD-10 - G62.9) 02/08/2025 Sacroiliitis (ICD-10 - M46.1) 02/06/2025 Seasonal allergies (ICD-10 - J30.2) 01/23/2025 Vitamin B12 deficiency (ICD-10 - E53.8) 06/06/2024 Vitamin B12 deficiency (ICD-10 - E53.8) 01/09/2025 Dyslipidemia (ICD-10 - E78.5) 05/02/2024 Vitamin D deficiency (ICD-10 - E55.9) 05/02/2024 Dyslipidemia (ICD-10 - E78.5) 06/06/2024 Vitamin D deficiency (ICD-10 - E55.9) 01/09/2025 Body mass index (BMI) of 19.0 to 19.9 in adult (ICD-10 - Z68.1) 01/23/2025 Body mass index (BMI) of 19.0 to 19.9 in adult (ICD-10 - Z68.1) 02/06/2025 Dyslipidemia (ICD-10 - E78.5) 02/08/2025 Vitamin D deficiency (ICD-10 - E55.9) 06/06/2024 Dyslipidemia (ICD-10 - E78.5) 02/08/2025 Osteoporosis (ICD-10 - M81.0) 06/06/2024 Osteoporosis (ICD-10 - M81.0) 02/08/2025 Vitamin B12 deficiency (ICD-10 - E53.8) 02/08/2025 Dyslipidemia (ICD-10 - E78.5) 02/08/2025 Body mass index (BMI) of 19.0 to 19.9 in adult (ICD-10 - Z68.1) Plan Of Treatment Pending Test Test Name Order Date H-VITAMIN B12 06/15/2022 Next Appt Details Provider Name:Meenakshi Valdez, 03/01/2025 03:15:00 PM, [address], [place], [place], [id number], Insurance Providers Payer Name Payer Address Payer Phone Subscriber Number Group Number Insured Name Patient Relationship to Insured Coverage Start Date Coverage End Date MEDICARE PART B [address] [address] [place] [address] [phone] [id number] YOU HAAS Self - patient is the insured [facility] [facility] [address] [place] [id number] YOU HAAS Self - patient is the insured Medications Administered Medication Instructions Date of Administration Dosage Notes B-12 10/11/2010 1 mL B-12 10/18/2010 1 mL B-12 10/25/2010 1mL B-12 11/01/2010 1 mL B-12 11/22/2010 1 mL B-12 12/20/2010 1 mL B-12 01/19/2011 1 mL B-12 02/24/2011 1 mL B-12 03/28/2011 1 mL B-12 04/25/2011 1 mL B-12 06/12/2011 B-12 07/11/2011 1 mL B-12 08/08/2011 0.5 B-12 09/05/2011 1 mL B-12 10/13/2011 B-12 11/18/2011 0.5 mL B-12 12/16/2011 1 mL B-12 01/16/2012 B-12 02/11/2012 B-12 03/12/2012 1 mL B-12 04/12/2012 1 mL B-12 05/24/2012 1 mL B-12 07/12/2012 0.5 mL B-12 08/19/2012 B-12 09/22/2012 B-12 10/21/2012 B-12 12/01/2012 B-12 01/13/2013 B-12 02/22/2013 0.5 B-12 03/24/2013 B-12 05/11/2013 B-12 06/06/2013 B-12 07/04/2013 B-12 12/07/2013 B-12 01/05/2014 B-12 02/08/2014 B-12 03/15/2014 1 mL B-12 05/08/2014 1 mL B-12 06/14/2014 1 mL B-12 07/17/2014 1 mL B-12 08/17/2014 1 mL B-12 09/25/2014 1 mL B-12 10/25/2014 1 mL B-12 12/04/2014 1 mL B-12 01/08/2015 1 mL B-12 02/09/2015 1 mL B-12 03/13/2015 1 mL B-12 04/18/2015 1 mL B-12 05/24/2015 1 mL B-12 07/09/2015 1 mL B-12 08/06/2015 1 mL B-12 09/05/2015 1 mL B-12 10/17/2015 1 mL B-12 11/27/2015 1 mL B-12 01/01/2016 1 mL B-12 02/18/2016 1 mL B-12 03/24/2016 1 mL B-12 05/05/2016 1 mL B-12 06/11/2016 1 mL B-12 07/11/2016 1 mL B-12 08/11/2016 1 mL B-12 09/22/2016 1 mL B-12 10/27/2016 1 mL B-12 12/07/2016 1 mL B-12 01/13/2017 1 mL B-12 02/09/2017 1 mL B-12 03/25/2017 1 mL B-12 06/08/2017 1 mL B-12 07/06/2017 1 mL B-12 08/02/2017 1 mL B-12 09/08/2017 1 mL B-12 10/12/2017 1 mL B-12 11/16/2017 1 mL B-12 12/17/2017 1 mL B-12 01/13/2018 1 mL B-12 02/15/2018 1 mL B-12 03/09/2018 1 mL B-12 04/19/2018 1 mL B-12 05/26/2018 1 mL B-12 06/21/2018 1 mL B-12 08/16/2018 1 mL B-12 09/27/2018 1 mL B-12 11/01/2018 1 mL B-12 12/12/2018 1 mL B-12 01/18/2019 1 mL B-12 02/23/2019 1 mL B-12 03/25/2019 1 mL B-12 04/27/2019 1 mL B-12 05/25/2019 1 mL B-12 06/22/2019 1 mL B-12 07/25/2019 1 mL B-12 08/29/2019 1 mL B-12 09/26/2019 1 mL B-12 11/25/2019 1 mL B-12 01/05/2020 1 mL B-12 02/09/2020 1 mL B-12 03/21/2020 1 mL B-12 05/21/2020 1 mL B-12 06/27/2020 1 mL B-12 08/23/2020 1 mL B-12 10/02/2020 1 mL B-12 11/22/2020 1 mL B-12 01/06/2021 1 mL B-12 02/24/2021 1 mL Given by Kiesha stafford B-12 04/01/2021 1 mL B-12 05/08/2021 1 mL B-12 06/12/2021 1 mL B-12 08/05/2021 1 mL B-12 09/02/2021 1 mL B-12 11/04/2021 1 mL B-12 12/04/2021 1 mL B-12 02/03/2022 1 mL B-12 03/12/2022 1 mL B-12 04/09/2022 1 mL B-12 06/15/2022 1 mL B-12 08/18/2022 1 mL B-12 10/07/2022 1 mL B-12 11/27/2022 1 mL B-12 01/12/2023 1 mL B-12 03/25/2023 1 mL B-12 07/13/2023 1 mL B-12 11/24/2023 1 mL B-12 01/12/2024 1 mL B-12 05/02/2024 1 mL B-12 09/07/2024 1 mL B-12 01/23/2025 1 mL Depo- Medrol 40 mg/ml 04/12/2012 Medical (General) History Medical History History ICD Code Irritable Bowel Syndrome Vitamin B12 Deficiency Leukopenia Osteoporosis Lumbar Radiculopathy, Dr. Medrano Annual Mammogram, per Dr. Soni Lichen planus L43.9 Valium Rx intiated by Dr. Boyd for IB / [address] 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
--- OUTSIDE RECORDS SUMMARY | 2025-02-27 14:03 | XMS_ITS | Clinical Summary ---
Author Organization [facility] Address [address] [place] [address] Care Team Providers Care Founder & Ceo Name Role Phone Felix Le MD Primary Care Provider [phone] Allergies Active Allergy Reactions Criticality Noted Date Comments Cefdinir Unknown - Patient st ates they do not know rxn details Low 04/19/2013 Cefuroxime Unknown - Patient st ates they do not know rxn details Low 04/17/2014 Codeine Unknown - Patient st ates they do not know rxn details Low 04/19/2013 Erythromycin Unknown - Patient st ates they do not know rxn details Low 04/19/2013 Medications calcium citrate-vitamin D2 (Citracal+D) 315-200 MG-UNIT tablet Take 1 tablet by mouth 1 (one) time each day. 05/10/2017 Active cholecalciferol (Vitamin D-3) 50 MCG (2000 UT) capsule Take 1,000 Units by mouth. 02/16/2020 Active cyanocobalamin (Vitamin B-12) 1000 MCG/ML injection Inject 1 mL (1,000 mcg) into the muscle every 30 (thirty) days. 01/04/2014 Active dexamethasone 0.5 MG/5ML elixir Take 5 mL (0.5 mg) by mouth if needed. 04/27/2019 Active denosumab (Prolia) 60 MG/ML injection Inject 1 mL (60 mg) under the skin 1 (one) time. 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 Malabsorption 07/19/2014 Low back pain with sciatica 04/14/2013 Osteoporosis 10/14/2012 Family History Medical History Relation Name Comments Arthritis Father Anemia Mother Lorraine Mat[place] Cancer Mother Lorraine Matute Colon cancer Mother Lorraine [place]ute Osteoporosis Mother Lorarine Matute Arthritis Sister 1 Colon cancer Sister 2 Osteopenia Sister 3 Relation Name Status Comments Father Mother Lorraine Matute Sister 1 Sister 2 Sister 3 Social History Tobacco Use Types Packs/Day Years Used Date Smoking Tobacco: Never Smokeless Tobacco: Never Alcohol Use Standard Drinks/Week Comments Never 0 (1 standard drink = 0.6 oz pur e alcohol) PHQ-2 Answer Date Recorded Patient Health Questionnaire-2 Score 0 09/07/2024 PHQ-9 Answer Date Recorded Patient Health Questionnaire-9 Score 0 09/07/2024 PHQ-2A Answer Date Recorded Patient Health Questionnaire-2 Score 2 01/21/2023 Comments Unknown Sex and Gender Information Value Date Recorded Sex Assigned at Not on file Legal Sex Female 8:32 PM EDT Gender Identity Not on file Sexual Orientation Not on file Last Filed Vital Signs Vital Sign Reading Time Taken Comments Blood Pressure 133/85 08/05/2023 11:09 AM EST Pulse 55 08/05/2023 11:09 AM EST Temperature 36.3 C (97.4 F) 01/21/2023 11:18 AM EDT Respiratory Rate 18 08/05/2023 11:09 AM EST Oxygen Saturation 98% 08/05/2023 11:09 AM EST Inhaled Oxygen Concentration - - Weight 52.8 kg (116 lb 6.4 oz) 09/07/2024 9:20 A M EST Height 167.6 cm (5' 6 ) 09/07/2024 9:20 AM EST Body Mass Index 18.79 09/07/2024 9:20 AM EST Plan of Treatment Upcoming Encounters Date Type Department Care Team (Late st Contact Info) Description 09/06/2025 9:00 AM EST Office Visit [facility] [address] , [address] [place] [address] Chele Gutiérrez MD [address] [place] [address] Health Maintenance Due Date Last Done Comments [facility]-Bone Density Scan 1950 [facility]-Hepatitis C Screening 1950 [facility]-Medicare Annual Wellness (AWV) 1950 [facility]-Infant/Child/Adol SDOH Screenings 1950 [facility]- SDOH Screenings 1969 [facility]-Adult SDOH Screenings 1969 CT Colonography 1996 Colonoscopy 1996 FIT-DNA 1996 FIT 1996 FOBT 1996 Sigmoidoscopy 1996 [facility]-Colorectal Cancer Screening 1996 [facility]-Zoster Vaccines (1 of 2) 2001 [facility]-RSV Vaccine: 60+ Years or (1 - Risk 60-74 years 1-dose series) 2011 [facility]-Pneumococcal Vaccine: 50+ Years (2 of 2 - PCV) 07/18/2020 07/18/2019 [id number] Vaccine (7 - Moderna risk 2023- season) 2025 08/08/2024, 07/02/2023, 06/03/2022, Additional history exists [facility]-Influenza Vaccine (Season Ended) 2025 06/05/2023, 06/12/2021, 06/27/2020, Additional history exists [facility]-Depression Screening 09/07/2025 09/07/2024, 08/20 [facility]-Breast Cancer Screening 02/10/202601/19, 02/11/2024, 01/25/2023, Additional history exists [facility]-DTaP,Tdap,and Td Vaccines (2 - Td or Tdap) 01/05/2028 01/04/2018, 02/24/1996 [facility]-Hepatitis A Vaccines Aged Out 02/24/1996 No longer eligible based on patient's age to complete this topic HPV Vaccines Aged Out No longer eligi ble based on patient's age to complete this topic [facility]-HIB Vaccines Aged Out No longer e ligible based on patient's age to complete this topic [facility]-IPV Vaccines Aged Out No longer e ligible based on patient's age to complete this topic [facility]-Rotavirus Vaccines Aged Out No lo nger eligible based on patient's age to complete this topic Insurance [place] [id number] MEDICARE [facility] Care Teams Founder & Ceo Relationship Specialty Start Date End Date Felix Le MD [address] [place] [address] PCP - General 01/31/21
--- OUTSIDE RECORDS SUMMARY | 2025-02-27 14:03 | XMS_ITS | Patient Health Record ---
Author Organization [facility] Address [address] [facility] [address] [place] [address] Care Team Providers Care Franchise Sales Representative Name Role Phone Shameka Soni Unavailable [phone] Allergies Allergen (clinical drug ingredient) Drug/Non Drug Allergy documented on EMR Reaction Allergy Type Onset Date Status CODEINE PHOSPHATE (CODEINE PHOSPHATE SOLN) nausea and vomiting Drug Allergy 08/09/2013 Active ERYTHROMYCIN STEARATE (ERYTHROMYCIN STEARATE TABS) diarrhea Drug Allergy 08/09/2013 Active Medicinal cephalosporin and acting as antibacterial agent (FN) Cephalosporins diarrhea Drug Allergy Active Reason For Referral No Information Medications Medication SIG (Take, Route, Frequency, Duration) Notes Start Date End Date Status diazePAM 5 MG Tablet Oral; Duration: 30 Days Active B12 Active FLUoxetine HCl 10 MG Capsule Oral; Duration: 30 Days Acti ve Prolia Active Pregabalin 50 MG Capsule Oral; Duration: 30 Days Active Problems Problem Type SNOMED Code ICD Code Onset Dates Problem Status W/U Status Risk Notes Problem Cervical smear, as part of routine gynecological examination (Z01.419) Active confirmed Annual without abnormal findings Plan Of Treatment Next Appt Details Provider Name:Shameka Soni, 06/11/2025 10:15:00 AM, [address] [facility] [address], [place], [address], Insurance Providers Payer Name Payer Address Payer Phone Subscriber Number Group Number Insured Name Patient Relationship to Insured Coverage Start Date Coverage End Date [place] [address] [place] [address] [id number] Kristie Barry Self - patient is the insured [facility] [address] [place], [place] [id number] Kristie Barry Self - patient is the insured Medical (General) History Medical History History ICD Code osteoporosis arthritis Surgical History Surgery Date(Month/Year) hemorrhoidectomy Hospitalization History Reason Date(Month/Year) childbirth
--- OUTSIDE RECORDS SUMMARY | 2025-02-27 14:03 | XMS_ITS | Encounter Summary ---
Author Organization Healthcare Address [address] [place] [address] Care Team Providers Care Customer Greeter Name Role Phone Felix Le MD Primary Care Provider [phone] Reason for Visit * Reason Onset Date Comments HCN - Patient Message 10/02/2024 Encounter Details Date Type Department Care Team ([facility] st Contact Info) Description 10/02/2024 Telephone [facility] [address] [facility], [address] [place] [address] Chele Gutiérrez MD [address] [place] [address] HCN - Patient Message Social History Tobacco Use Types Packs/Day Years [...] on file documented as of this encounter Miscellaneous Notes * Clinician Note - George Coats, PharmD - 02/07/2025 2:22 PM EDT External Labs: 02/01/25 Cr 0.5 Ca 9.5 Alb 4.5 Pre-Prolia labs return and are appropriate to proceed with dose as planned. Called and relayed results to patient. Will notify [facility] as well that she is appropriate to proceed with dose. George Coats PharmD, DORENE Clinical Pharmacist [facility] [address] [place] [address] * Addendum Note - George Coats PharmD - 01/26/2025 9:18 AM EDTAddended by: GEORGE COATS on: 01/26/2025 09:18 AM Modules accepted: Orders * Clinician Note - George Coats PharmD - 01/26/2025 9:11 AM EDT Spoke with patient today. She states she was released from podiatry this week after foot demonstrated sufficient healing. She is okay to proceed with Prolia at this time. She does report some muscle cramps around buttock and leg. She is following with PCP and ortho for management. She is currently taking oral steroid and maintaining physical activity as able. She stretches every night as well. Advised patient we can repeat RFP now in preparation for Prolia injection. Should be okay to proceed as long as patient does not need to restart oral steroid after finishing current course of therapy. Patient expressed understanding of plan outlined above, encouraged to call clinic with any questions or concerns. George Coats PharmD, DORENE Clinical Pharmacist [facility] [address] [place] [address] * Telephone Encounter - Diane Bob RN - 10/04/2024 11:24 AM EST Called patient and informed of recommendation of provider to hold the Prolia dose and that the clinic would reach out in November to see how healing was progressing. Patient agreeable with plan and willhave consult with Special Agent In Charge when scheduled. No other questions or concerns at this time. * Telephone Encounter - Philip Zhao - 10/02/2024 2:24 PM EST Patient Phone Message Reason for Call: Pt has a prolia injection scheduled, but is asking if she should/shouldn't hold off until she findsout what is going on with her fractured ankle. Best contact number and optimal time of day to reach caller: [phone] Note: Please do not reply to this message. Follow-up communication and further actions as a result of this message need to be communicated with the patient directly, if the patient is not active onMyChart. If the patient is active on MyChart, they will receive notification of the communication/outcome via MyChart. documented in this encounter Plan of Treatment Upcoming Encounters Date Type Department Care Team (Late st Contact Info) Description 09/06/2025 9:00 AM EST Office Visit [facility] [address] [facility], [address] [place] [address] Chele Gutiérrez MD [address] [facility] [address] [place] [address] Scheduled Orders Name Type Priority Associated Diagnoses Orde r Schedule Renal function panel Lab Routine Age-related osteoporosis without current pathological fracture Expected: 01/26/2025 (Approximate), Expires: 07/29/2026 documented as of this encounter Visit Diagnoses Diagnosis Age-related osteoporosis without current pathological fracture- Primary documented in this encounter Additional Health Concerns Assessment Noted Time PHQ-9 Depression Total Score: 0 09/07/20 9:22 AM EST A fall risk assessment has been complete d for the patient 09/07/2024 9:23 AM EST A Body Mass Index follow-up plan has been documented for the patient 09/10/2024 2:37 PM EST documented as of this encounter Care Teams Customer Greeter Relationship Specialty Start Date End Date Felix Le MD [address] [place] [address] PCP - General 01/31/21 documented as of this encounter
[2025-02-27 14:20] VITALS: BP 110/65; PULSE 60; RESP 17; O2SAT 95
[2025-02-27] MEDS: DENOSUMAB 60 MG/ML SYRINGE SUBCUT (14:27)
== END 2025-02-27 14:30 | disposition home or self-care (01) ==
LOC: INF 13:59
PROVIDERS: PCP Family Medicine; Visit Provider Internal Medicine Nephrology
DX: M81.0 Age-related osteoporosis without current pathological fracture (principal)
CPT/HCPCS: 96372; J0897

== ENCOUNTER 2025-03-15 14:14 | Outpatient (CLI) | payer MEDICARE, SELFPAY ==
--- OUTSIDE RECORDS SUMMARY | 2025-02-06 04:31 | XMS_ITS ---
Author Organization [facility] Address [address] [facility] [address] [place] [phone] Care Team Providers Care Dent Remover Name Role Phone Meenakshi eL Primary Care Provider Results Component Value Reference [...] Message Encounters Encounter Location Date Provider Diagnosis [facility] [address] [facility] [address] [place], [place] [phone] 02/06/2025 Meenakshi Le Vitamin D deficiency E55.9 ; Vitamin B12 deficiency E53.8 ; Seasonal allergies J30.2 and Dyslipidemia E78.5 Assessments Encounter Date Diagnosis (ICD Code) Assessment Notes Treatment Notes Treatment Clinical Notes Section Notes 02/06/2025 Vitamin D deficiency (ICD-10 - E55.9) 02/06/2025 Vitamin B12 deficiency (ICD-10 - E53.8) 02/06/2025 Seasonal allergies (ICD-10 - J30.2) 02/06/2025 Dyslipidemia (ICD-10 - E78.5) Plan Of Treatment No Information Progress Notes * YOU HAAS KDOB:[birth year] (74 yo F)Acc No.[id number]:02/06/2025 Patient: YOU URBANO :1950 A ge:74 Y S ex:Female Address:[address] [place], [place] [address], [place] [address] Subjective: * Chief Complaints: * M essage [...] Codes: * true * Date: Generated for Yohan rodriguez/James/eTransmitting on: 0 03/15/2025 02:19 PM EDT
--- OUTSIDE RECORDS SUMMARY | 2025-02-08 09:30 | XMS_ITS ---
Author Organization [facility] Address [address] [place] [phone] Care Team Providers Care Surgical Supplies Sterilizer Name Role Phone Meenakshi Le Primary Care [...] 02/08/2025 Encounters Encounter Location Date Provider Diagnosis [facility] [address] [facility] [address] [place] [phone] 02/08/2025 R Param Le Adult general medica [...] Appt Details Follow Up: 4 Weeks, prn, [place] son: Progress Notes * YOU HAAS KDOB:[birth year] (74 yo F)Acc No.[id number]:02/08/2025 Annual Wellness Visit Patient: YOU URBANO Provider: Meenakshi Le M.D. :1950 A ge:74 Y S ex:Female Date:02/08/2025 Address:[address] , [place], [id number] Subjective: * Chief Complaints: * 1 . 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 * Surgical History: H emorrhoidectomy , [place] Teeth Extractions , Bone Biopsy 06/03/2012, C-Scope 2010, Normal C-Scope 2016. * Hospitalization/Major Diagno stic Procedure: D iarrhea- [facility] 11/21/2012, Constipation- [facility] ER 12/07/2012. * Family History: F ather: . M other: , colon cancer. 1 sister(s) . 1 daughter(s) . .? * Social History: C URRENT TOBACCO USE S moking Status: Patient does NOT smoke. C affeine: no, frequency:. Exercise: yes. Home smoke detector use: yes. Marital Status: . New since last visit: none. 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 Past smoking status: no, Smoking status: [...] * Images: Billing Information: * Visit Code: 75611 Office Visit, Est Pt., Level 3. Modifiers: [...] Electronic signature of Meenakshi Le MD on 03/15/2025 at 02:18 PM EDT Sign off status: Pending * Provider: Meenakshi Le M.D. Date: 0 02/08/2025 Generated for Tianai jennifer/James/eTransmitting on: 0 03/15/2025 02:18 PM EDT History and Physical Notes * [...]
--- OUTSIDE RECORDS SUMMARY | 2025-03-01 11:15 | XMS_ITS ---
[facility] Address [address] [facility] [address] [place] [phone] Care Team Providers Care Reporting Developer Name Role Phone Meenakshi Le Primary Care Provider [phone] Allergies Allergen (clinical drug ingredient) Drug/Non Drug [...] Provider Diagnosis [facility] [address] [facility] [address] [place] [phone] 03/01/2025 Meenakshi Le Gluteal tendinitis, left hip [...] Follow Up: prn, Reason: Progress Notes * YOU HAAS KDOB:[birth year] (74 yo F)Acc No.[id number]:03/01/2025 Progress Notes Patient: YOU URBANO Provider: Meenakshi Le M.D. :1950 A ge:74 Y S ex:Female Date:03/01/2025 Address:[address], [id number] Subjective: * Chief Complaints: * 1 . [...] IBS/ 2012, Follows with Dr. Soni for DIRECTOR FEDERAL. * Surgical History: H emorrhoidectomy , [place] Teeth Extractions , Bone Biopsy 06/03/2012, C-Scope 2010, Normal C-Scope 2016. * Hospitalization/Major Diagno stic Procedure: D iarrhea- [facility] 11/21/2012, Constipation- [facility] 12/07/2012. * Family History: F ather: . M other: , colon cancer. 1 sister(s) . 1 daughter(s) . .? * Social History: C URRENT TOBACCO USE S moking Status: Patient does NOT smoke. C affeine: no, frequency:. Exercise: yes. Home smoke detector use: yes. Marital Status: . New since last visit: none. 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 Past smoking status: no, Smoking status: Does [...] * Images: Billing Information: * Visit Code: 02750 Office Visit, Est Pt., Level 3. * [...] Pending * Provider: Meenakshi Le M.D. Date: 03/01/2025 Generated for Yohan rodriguez/James/Michaelitting on: 03/15/2025 02:18 PM EDT History and Physical [...]
--- OUTSIDE RECORDS SUMMARY | 2025-03-15 14:19 | XMS_ITS | Clinical Summary ---
Author Organization [facility] Address [address] [place] [address] Care Team Providers Care Pre School Teacher Name Role Phone Felix Le MD Primary Care Provider +1- [phone] Allergies Active Allergy Reactions Criticality Noted Date [...] back pain with sciatica 04/14/2013 Osteoporosis 10/14/2012 Encounters Date Type Department Care Team Description 03/07/2025 Telephone [facility] [address] [place] [address] Diane Bob LPN from Last 3 Months Family History Medical History Relation Name Comments Arthritis Father Anemia Mother Lorraine [place] Cancer Mother Lorraine Matute Colon cancer Mother Lorraine [place]ute Osteoporosis Mother Lorraine [place] Arthritis Sister 1 Colon cancer Sister [...] Description 09/06/2025 9:00 AM EST Office Visit [facility] [address] [place] [address] Chele Gutiérrez MD [address] [facility] [address] [place] [address] Health Maintenance Due Date Last Done Comments [facility]-Bone Density Scan 1950 [facility]-Hepatitis C Screening 1950 [facility]-Medicare Annual Wellness (AWV) 1950 [facility]-/Child/Adol SDOH Screenings 1950 [facility]- SDOH Screenings 1969 [facility]-Adult SDOH Screenings 1969 CT Colonography 1996 Colonoscopy 1996 FIT-DNA 1996 FIT 1996 FOBT 1996 Sigmoidoscopy 1996 [facility]-Colorectal Cancer Screening 1996 [facility]-Zoster Vaccines (1 of 2) 2001 [facility]-RSV Vaccine: 60+ Years or (1 - Risk 60-74 years 1-dose series) 2011 [facility]-Pneumococcal Vaccine: 50+ Years (2 of 2 - PCV) 07/18/2020 07/18/2019 [id number] Vaccine (7 - Moderna risk 2023- season) [...] patient's age to complete this topic Insurance MEDICARE [facility] Care Teams Pre School Teacher Relationship Specialty Start Date End Date Felix Le MD [address] [place] [address] PCP - General 01/31/21
--- OUTSIDE RECORDS SUMMARY | 2025-03-15 14:19 | XMS_ITS | Patient Health Record ---
Author Organization [facility] Address [address] [place] [id number] Care Team Providers Care Linderman Machine Operator Name Role Phone Meenakshi Le Primary Care Provider Avery Akash Unavailable [phone] Allergies Allergen (clinical drug ingredient) Drug/Non Drug Allergy documented on EMR Reaction Allergy Type Onset Date Status Codeine Sulfate stomach upset but doesn't know for sure if she is Drug Allergy Active Erythromycin stomach pain and diarrhea Drug Allergy [...] Performing Lab: Notes/Report: VITB12 568 239-931 pg/mL H-Vitamin D 1,25 Reviewed date:06/05/2024 09:27:16 AM Interpretation: Performing Lab: Notes/Report: H-VITAMIN B12 Reviewed date:06/05/2024 09:27:04 AM Interpretation: Performing Lab: Notes/Report: H-CMP Reviewed date:05/10/2024 11:56:14 AM Interpretation:no record testing completed Performing Lab: Notes/Report: no record testing completed H-Lipid Panel Reviewed date:06/05/2024 09:26:53 AM Interpretation: Performing Lab: Notes/Report: H-CBC Reviewed date:06/05/2024 09:26:02 AM Interpretation: Performing Lab: Notes/Report: H-VITAMIN B12 Reviewed date:06/06/2024 02:11:50 PM Interpretation:Normal [...] 0.0 0.0-0.4 K/mm3 BA# 0.0 0-0.2 K/mm3 MRI : Foot, right, without c ontrast Reviewed date:10/02/2024 09:11:52 AM Interpretation:non-displaced fracture Performing Lab: Notes/Report: non-displaced fracture Medications Medication SIG (Take, Route, Frequency, Duration) Notes Start Date End Date Status Pregabalin 50 MG 1 cap(s) orally Four times a day 03/15/2025 Active Cyanocobalamin 1000 MCG/ML 1000 mcg intramuscularly once a month 07/09/2014 Active Lactaid 3000 UNIT 1/2 tablet Orally On ce a day Active MiraLax 17 GM/SCOOP as directed Orally Active HYDROcodone-Acetaminophen 5-325 MG 1/2 tablet Orally every 6 hrs prn Active Calcium 600 + Minerals 600-200 MG-UNIT 10 tab(s) orally once daily Active Methocarbamol 750 MG 1 tablet Orally Fou r times a day Active Ondansetron 4 MG 1 tab(s) orally 3 times a day, prn; Duration: 30 day(s) Active Magnesium Carbonate 54 (Mag Equiv) MG/5ML 5 mL orally once a day Active Prolia 60 MG/ML 60 mg subcutaneously every 6 months Active methylPREDNISolone 4 MG as directed Orally Active Meclizine HCl 25 MG 1 tab(s) orally 3 times a day prn; Duration: 30 day(s) 10/11/2020 Active diazePAM 5 MG 1 tab(s) orally once a day as needed 01/12/2025 Active valACYclovir HCl 1 GM 1 tab(s) orally Th ree times a day; Duration: 10 day(s) 01/28/2023 Not-Taking Immunizations Vaccine Route Administration Date Status Comme nts PNEUMOVAX 23 VACCINE IM Intramuscular 06/13/2012 Administered PNEUMOVAX 23 VACCINE IM Intramuscular 07/18/2019 Administered xFluzone Intradermal (18-64yrs)-trivalen t ID Intradermal 06/13/2012 Administered xFluzone Intradermal (18-64yrs)-trivalen t ID Intradermal 06/06/2013 Administered xFluzone Intradermal (18-64yrs)-trivalen t ID Intradermal 07/04/2013 Administered xFluzone (6mos and older)-trivalent IM Intramuscular 06/26/2010 Administered xFluzone (6mos and older)-trivalent IM Intramuscular 06/14/2014 Administered xFlu shot-36 months and older IM Intramuscular 08/15/2005 Administered xFlu shot-36 months and older IM Intramuscular 07/30/2006 Administered xFlu shot-36 months and older IM Intramuscular 07/05/2007 Administered xFlu shot-36 months and older IM Intramuscular 07/14/2008 Administered xFlu shot-36 months and older IM Intramuscular 06/03/2009 Administered xFlu shot-36 months and older IM Intramuscular 07/14/2011 Administered Tetanus Tdap-Adacel (over 7yrs) IM Intramuscular 01/14/2011 Administered Tetanus Tdap-Adacel (over 7yrs) IM Intramuscular 01/04/2018 Administered Prevnar (PCV13) IM Intramuscular 04/16/2017 Administered ppd TD Transdermal 12/17/2009 Administered Fluzone Intradermal Quad private(18-64yrs) ID Intradermal 07/09/2015 Administered Fluzone Intradermal Quad private(18-64yrs) ID Intradermal 06/11/2016 Administered Fluzone High Dose (65yr and older) [...] Intramuscular 06/06/2024 Administered given by chris granados COVID 19 Moderna IM Intramuscular 09/27/2020 Administered COVID 19 Moderna IM Intramuscular 10/28/2020 Administered COVID 19 Moderna Unknown 05/30/2021 Administered Problems Problem Type SNOMED Code ICD Code Onset Dates Problem Status W/U Status Risk Notes Problem 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) Allergic dermatitis (L20.0) Active confirmed Problem Vitamin D deficiency (94257739) Vitamin D deficiency (E55.9) Active confirmed Problem Vitamin B12 deficiency (840554026) Vitamin B12 deficiency (E53.8) Active confirmed Problem Seasonal allergy (534382560) Seasonal allergies (J30.2) Active confirmed Problem Osteoarthritis (222956770) Osteoarthritis (M19.90) Active confirmed Problem Disorder of lumbar disc (347603149) Lumbar disc disease (M51.9) Active confirmed Problem Peripheral neuropathy (644532611) Peripheral neuropathy (G62.9) Active confirmed Problem Osteoporosis (46331357) Osteoporosis (M81.0) Active confirmed Problem Sacroiliitis (56711149) Sacroiliitis (M46.1) Active confirmed Problem Postherpetic neuralgia (0019047) 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) Active confirmed Problem Dyslipidemia (101732245) Dyslipidemia (E78.5) Active confirmed Problem Irritable bowel syndrome characterized by constipation (988482399) Irritable bowel syndrome with constipation (K58.1) Active confirmed Vital Signs Heart Rate 79 /min 03/01/2025 Blood pressure diastolic 70 mm Hg 03/01/2025 Height 65 in 03/01/2025 Blood pressure systolic 112 mm Hg 03/01/2025 Weight 110 lbs 03/01/2025 BMI 18.3 kg/m2 03/01/2025 Encounters Encounter [facility] Date [facility] [address] [place] [id number] 05/02/2024 R Param Le Peripheral neuropath y G62.9 ; Vitamin B12 deficiency E53.8 ; Vitamin D deficiency E55.9 and Dyslipidemia E78.5 [facility] [address] [place] [id number] 06/06/2024 R Param Le Encounter for immunization Z23 ; Peripheral neuropathy G62.9 ; Vitamin B12 deficiency E53.8 ; Vitamin D deficiency E55.9 ; Dyslipidemia E78.5 and Osteoporosis M81.0 [facility] [address] [place] [id number] 09/07/2024 R Param Le Foot pain M79.673 an d Vitamin B12 deficiency E53.8 [facility] [address] [place] [id number] 01/09/2025 R Param Le Sacroiliitis M46.1 ; Gluteal tendinitis, left hip M76.02 ; Dyslipidemia E78.5 and Body mass index (BMI) of 19.0 to 19.9 in adult Z68.1 [facility] [address] [place] [id number] 01/23/2025 R Param Le Gluteal tendinitis, left hip M76.02 ; Sacroiliitis M46.1 ; Vitamin B12 deficiency E53.8 and Body mass index (BMI) of 19.0 to 19.9 in adult Z68.1 [facility] [address] [place] [id number] 02/08/2025 R Param Rey Adult general medica l examination Z00.00 ; Gluteal tendinitis, left hip M76.02 ; Sacroiliitis M46.1 ; Vitamin D deficiency E55.9 ; Osteoporosis M81.0 ; Vitamin B12 deficiency E53.8 ; Dyslipidemia E78.5 and Body mass index (BMI) of 19.0 to 19.9 in adult Z68.1 [facility] [address] [facility] [address] [place], [place] [id number] 03/01/2025 R Param Rey Gluteal tendinitis, left hip M76.02 ; Sacroiliitis M46.1 and Body mass index (BMI) of 19.0 to 19.9 in adult Z68.1 [facility] [address] [facility] [address] [place], [place] [id number] 03/27/2024 R Param Rey [facility] [address] [facility] [address] [place] [id number] 05/15/2024 R Param Rey [facility] [address] [facility] [address] [place] [id number] 07/14/2024 R Param Rey [facility] [address] [facility] [address] [place], [place] [id number] 08/11/2024 R Param Rey Vertigo R42 [facility] [address] [place] [id number] 10/02/2024 R Param Rey Closed nondisplaced fracture of fifth metatarsal bone of right foot, initial encounter S92.354A [facility] [address] [facility] [address] [place] [id number] 10/12/2024 R Param Rey [facility] [address] [facility] [address] [place] [id number] 11/10/2024 R Param Rey Peripheral neuropath y G62.9 [facility] [address] [facility] [address] [place] [id number] 01/10/2025 R Param Rey [facility] [address] [place] [id number] 01/12/2025 R Param Rey [facility] [address] [place] [id number] 01/15/2025 R Param Rey Sacroiliitis M46.1 [facility] [address] [place] [id number] 01/15/2025 R Param Rey [facility] [address] [place] [id number] 02/06/2025 R Param Rey Vitamin D deficiency E55.9 ; Vitamin B12 deficiency E53.8 ; Seasonal allergies J30.2 and Dyslipidemia E78.5 [facility] [address] [place] [id number] 02/13/2025 Akash [place] Peripheral neuropath y G62.9 [facility] [address] [place] [id number] 02/13/2025 R Param Rey [facility] [address] [place], [place] [id number] 02/13/2025 R Param Rey Gluteal tendinitis, left hip M76.02 [facility] [address] [place] [id number] 02/19/2025 Akash [place] Sacroiliitis M46.1 [facility] [address] [place] [id number] 03/12/2025 R Param Rey Peripheral neuropath y G62.9 [facility] [address] [place], [place] [id number] 03/13/2025 R Param Rey Assessments Encounter Date Diagnosis (ICD Code) Assessment [...] right foot, initial encounter (ICD-10 - S92.354A) 11/10/2024 Peripheral neuropathy (ICD-10 - G62.9) 01/09/2025 Gluteal tendinitis, left hip (ICD-10 - [...] - M76.02) 02/19/2025 Sacroiliitis (ICD-10 - M46.1) 03/01/2025 Gluteal tendinitis, left hip (ICD-10 - M76.02) Continue physical therapy 03/01/2025 Sacroiliitis (ICD-10 - M46.1) Continue chiropractic treatments 02/08/2025 Adult general medical examination (ICD-10 - Z00.00) Patient instructed to return to office Annually for Annual Wellness Visits to include annual screenings of Pain assessment, Functional Ability assessment, Cognitive Ability assessment, Fall Risk assessment, Depression screening and Bladder control screening. 03/12/2025 Peripheral neuropathy (ICD-10 - G62.9) 03/01/2025 Body mass index (BMI) of 19.0 to 19.9 in adult (ICD-10 - Z68.1) 02/08/2025 Sacroiliitis (ICD-10 - M46.1) 02/06/2025 Seasonal [...] - E55.9) 02/08/2025 Osteoporosis (ICD-10 - M81.0) 06/06/2024 Dyslipidemia (ICD-10 - E78.5) 06/06/2024 Osteoporosis (ICD-10 - M81.0) 02/08/2025 Vitamin B12 deficiency (ICD-10 - E53.8) 02/08/2025 Dyslipidemia (ICD-10 - E78.5) 02/08/2025 Body mass index (BMI) of 19.0 to 19.9 in adult (ICD-10 - Z68.1) Plan Of Treatment Pending Test Test Name Order Date H-VITAMIN B12 06/15/2022 Insurance Providers Payer Name Payer Address Payer Phone Subscriber Number Group Number Insured Name Patient Relationship to Insured Coverage Start Date Coverage End Date MEDICARE PART B [address] [address] [place] [address] [id number] YOU HAAS Self - patient is the insured [facility] [address] [place] [id number] YOU HAAS Self - patient is the [...] / [address] 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
--- OUTSIDE RECORDS SUMMARY | 2025-03-15 14:19 | XMS_ITS | Encounter Summary ---
Author Organization [facility] Address [address] [place] [address] Care Team Providers Care Global Consumer Sector Vice President Name Role Phone Felix Le MD Primary Care Provider [phone]- [phone] Reason for Visit * Reason Onset Date Comments HCN - Patient Message 10/02/2024 Encounter Details Date Type Department Care Team ([facility] st Contact Info) Description 10/02/2024 Telephone [facility] [address] [facility], [address] [place] [address] Chele Gutiérrez MD [address] [place] [address] HCN - Patient Message Social [...] as of this encounter Miscellaneous Notes * Telephone Encounter - Diane Bob LPN - 02/28/2025 9:23 AM EDT Will fax lab orders to [facility] for patient to have labs collected on 03/13/25. [facility] P# F# [phone] * Addendum Note - George Coats PharmD - 02/28/2025 9:09 AM EDTAddended by: GEORGE COATS on: 02/28/2025 09:09 AM Modules accepted: Orders * Clinician Note - George Coats PharmD - 02/28/2025 9:07 AM EDT Patient confirms dose was administered 02/27/25. Will plan to collect post-Prolia labs ~03/13/25. * Clinician Note - George Coats PharmD - 02/07/2025 2:22 PM EDT External Labs: 02/01/25 Cr 0.5 Ca 9.5 Alb 4.5 Pre-Prolia labs return and are appropriate to proceed with dose as planned. Called and relayed results to patient. Will notify [facility] as well that she is appropriate to proceed with dose. George Coats PharmD, BCACP Clinical Pharmacist Nephrology, [facility] [place] [address] * Addendum Note - George Coats PharmD [...] clinic with any questions or concerns. George Coats, IvisD, BCACP Clinical Pharmacist [facility] [address] [place] [address] * Telephone Encounter - Diane Bob RN - 10/04/2024 11:24 AM EST Called patient and informed of recommendation of provider to hold the Prolia dose and that the clinic would reach out in November to see how healing was progressing. Patient agreeable with plan and willhave consult with Grappler when scheduled. No other questions or concerns at this time. * Telephone Encounter - Philip Zhao - 10/02/2024 2:24 PM EST Patient Phone Message Reason for Call: Pt has a prolia injection scheduled, but is asking if she should/shouldn't hold off until she findsout what is going on with her fractured ankle. Best contact number and optimal time of day to reach caller: [phone] Note: Please do not reply to this [...] 09/06/2025 9:00 AM EST Office Visit [facility] [address] [facility], [address] [place] [address] Chele Gutiérrez MD [address] [facility] [address] [place] [address] Scheduled Orders Name Type Priority Associated Diagnoses Orde r Schedule Renal function panel Lab Routine Age-related osteoporosis without current pathological fracture Expected: 01/26/2025 (Approximate), Expires: 07/29/2026 Renal function panel Lab Routine Age-related osteoporosis without current pathological fracture Expected: 03/14/2025 (Approximate), Expires: 09/01/2026 documented as of this encounter Visit Diagnoses [...] documented as of this encounter Care Teams Global Consumer Sector Vice President Relationship Specialty Start Date End Date Felix Le MD [address] [place] [address] PCP - General 01/31/21 documented as of this encounter
--- OUTSIDE RECORDS SUMMARY | 2025-03-15 14:19 | XMS_ITS | Encounter Summary ---
Author Organization Healthcare Address [address] [place] [address] Care Team Providers Care Worldwide Chief Creative Officer Name Role Phone Felix Le MD Primary Care Provider [phone]- [phone] Encounter Details Date Type Department Care Team (Late Contact Info) Description 03/07/2025 Telephone [facility] [address] [facility], [address] [place] [address] Diane Bob LPN [facility] Social History Tobacco Use Types Packs/Day Years [...] Telephone Encounter - Diane Bob LPN - 03/07/2025 9:18 AM EDT Faxed lab order to [facility] and fax confirmation received. P# [phone] F# [phone] documented in this encounter Plan of Treatment Upcoming Encounters Date Type Department Care Team ([facility] st Contact Info) Description 09/06/2025 9:00 AM EST Office Visit [facility] [address] [facility], [address] [place] [address] Chele Gutiérrez MD [address] [facility] [address] [place] [address] documented as of this encounter Visit Diagnoses Not on filedocumented in this encounter Additional Health Concerns Assessment Noted Time PHQ-9 Depression Total Score: 0 09/07/20 9:22 AM EST A fall risk assessment has been complete d for the patient 09/07/2024 9:23 AM EST A Body Mass Index follow-up plan has been documented for the patient 09/10/2024 2:37 PM EST documented as of this encounter Care Teams Worldwide Chief Creative Officer Relationship Specialty Start Date End Date Felix Le MD [address] [place] [address] PCP - General 01/31/21 documented as of this encounter
--- OUTSIDE RECORDS SUMMARY | 2025-03-15 14:19 | XMS_ITS | Patient Health Record ---
Author Organization [facility] Address [address] [facility] [address] [place] [address] Care Team Providers Care Family Health Nurse Practitioner Name Role Phone Shameka Soni Unavailable [phone] Allergies Allergen (clinical drug ingredient) Drug/Non Drug [...] Provider Name:Shameka Soni, 06/11/2025 10:15:00 AM, [address] [facility] [facility] [address], [place], [address], Insurance Providers Payer Name Payer Address Payer Phone Subscriber Number Group Number Insured Name Patient Relationship to Insured Coverage Start Date Coverage End Date [place] [address] [place] [address] [id number] Kristie Barry Self - patient is the insured [facility] [address] [place], [place] [id number] Kristie aBrry Self - patient is the insured Medical (General) History Medical History History ICD Code osteoporosis arthritis Surgical History Surgery Date(Month/Year) hemorrhoidectomy Hospitalization History Reason Date(Month/Year) childbirth
[2025-03-15 15:16] LABS: Albumin Level 4.2 g/dl (3.5-5.0); Chloride 88 mmol/L (98-107); Potassium 4.2 mmoL/L (3.5-5.1); Sodium 123 mmol/L (136-145)
[2025-03-15 15:19] LABS: Anion Gap 13.2 mEq/L (5-15); Blood Urea Nitrogen 6 mg/dl (7-17); Calcium 8.8 mg/dl (8.4-10.2); Carbon Dioxide 26 mmol/L (22.0-30.0); Estimated Glomerular Filt Rate 121 ml/min (>60); GFR (African American) 146 ML/MIN (>60); Glucose 59 mg/dl (74-100); Phosphorous 3.2 mg/dl (2.5-4.5)
== END 2025-03-15 23:59 | disposition home or self-care (01) ==
LOC: LAB 14:15
PROVIDERS: PCP Family Medicine; Visit Provider Internal Medicine Nephrology
DX: M81.0 Age-related osteoporosis without current pathological fracture (principal)
CPT/HCPCS: 36415; 80069

== ENCOUNTER 2025-08-28 14:54 | Outpatient (CLI) | payer MEDICARE, SELFPAY ==
--- NOTE | 2025-08-28 14:57 | XR_ITS ---
FINAL REPORT CLINICAL HISTORY: PAIN FINDINGS: RIGHT KNEE Three views were obtained. There is no fracture or dislocation. The joint spaces appear normal. No soft tissue abnormality is identified. IMPRESSION: No acute process. Reviewed, Interpreted and Dictated by Ba Veras MD Transcribed by Caitlin Carr Authenticated and . [facility]
== END 2025-08-28 23:59 | disposition home or self-care (01) ==
LOC: RAD 14:55
PROVIDERS: PCP Family Medicine; Visit Provider Family Medicine
DX: M25.561 Pain in right knee (principal)
CPT/HCPCS: 73562

== ENCOUNTER 2025-09-12 09:41 | Outpatient (CLI) | payer MEDICARE, SELFPAY ==
--- OUTSIDE RECORDS SUMMARY | 2024-09-07 10:00 | XMS_ITS ---
[facility] Address [address] [place] [phone] Care Team Providers Care Bleach Plant Operator Name Role Phone Meenakshi Le Primary Care Provider Allergies Allergen (clinical drug ingredient) Drug/Non Drug Allergy documented on EMR Reaction Allergy Type Onset Date Status codeine Codeine Sulfate stomach upset but doesn't know for sure if she is Drug Allergy Active erythromycin Erythromycin stomach pain and diarrhea Drug Allergy Active Mold Unknown Allergy Active Results Component Value Reference Range Notes MRI : Foot, right, without c ontrast Reviewed date:10/02/2024 09:11:52 AM Interpretation:non-displaced fracture Performing Lab: Notes/Report: non-displaced fracture REASON FOR VISIT right foot pain Medications Medication SIG (Take, Route, Frequency, Duration) Notes Start Date End Date Status Pregabalin 50 MG 1 cap(s) orally Four times a day Active valACYclovir HCl 1 GM 1 tab(s) orally Th ree times a day; Duration: 10 day(s) 01/28/2023 Not-Taking Lactaid 3000 UNIT 1/2 tablet Orally On ce a day Active MiraLax 17 GM/SCOOP as directed Orally Active Cyanocobalamin 1000 MCG/ML 1000 mcg intramuscularly once a month 07/09/2014 Active Ondansetron 4 MG 1 tab(s) orally 3 ti mes a day, prn; Duration: 30 day(s) Active diazePAM 5 MG 1 tab(s) orally once a day as needed 07/14/2024 Active Calcium 600 + Minerals 600-200 MG-UNIT 10 tab(s) orally once daily Active HYDROcodone-Acetaminophe n 5-325 MG 1/2 tablet Orally every 6 hrs prn 07/13/2023 Active Meclizine HCl 25 MG 1 tab(s) orally 3 ti mes a day prn; Duration: 30 day(s) 10/11/2020 Active Magnesium Carbonate 54 (Mag Equiv) MG/5ML 5 mL orally once a day Active Prolia 60 MG/ML 60 mg subcutaneously every 6 months Active Vital Signs Weight 120 lbs 09/07/2024 Blood pressure systolic 126 mm Hg 09/07/20 24 Blood pressure diastolic 78 mm Hg 024 Heart Rate 75 /min 09/07/2024 Height 65 in 09/07/2024 BMI 19.97 kg/m2 09/07/2024 Encounters Encounter Location Date Provider Diagnosis [facility] [address] [place] [id number] 09/07/2024 Meenakshi Le Foot pain M79.673 an d Vitamin B12 deficiency E53.8 Assessments Encounter Date Diagnosis (ICD Code) Assessment Notes Treatment Notes Treatment Clinical Notes Section Notes 09/07/2024 Foot pain (ICD-10 - M79.673) -- r/o stress fracture 09/07/2024 Vitamin B12 deficiency (ICD-10 - E53.8) Plan Of Treatment Next Appt Details Follow Up: via phone to repo rt test results, Reason: Medications Administered Medication Instructions Date of Administration Dosage Notes B-12 09/07/2024 1 mL Progress Notes * Kristie HAAS KDOB:[birth year] (75 yo F)Acc No.[id number]:09/07/2024 Extended Visit Patient: Kristie URBANO Provider: Meenakshi Le M.D. :1950 A ge:74 Y S ex:Female Date:09/07/2024 Address:[id number] Subjective: * Chief Complaints: * 1 . Right foot pain. * HPI: A nkle/Foot: She first noticed pain in her right foot over a month ago when she walked in some high-heeled shoes. The pain was in the area of the metatarsal arch. The pain persisted, she saw her cage/vault supervisor about 3 weeks ago and had plain x-rays that were apparently normal and she was diagnosed with a soft tissue strain. The pain was briefly better but has now become uncomfortable again to the point that she is limiting her activity. 74 year old female presents with c/o Pain. She is due for a Prolia injection from her mail opener but he advised her to rule out a stress fracture before taking the injection. H PI: Pt would like her B12 shot today as well. * ROS: D ERMATOLOGY: no R laura. n o H daniella. G ASTROENTEROLOGY: no N ausea. n o V omiting. n o D iarrhea.? U ROLOGY: no D ifficulty urinating. n o B lood in urine. * Medical History: I rritable Bowel Syndrome, Vitamin B12 Deficiency, Leukopenia, Osteoporosis, Lumbar Radiculopathy, Dr. Medrano, Annual Mammogram, per Dr. Soni, Lichen planus, Valium Rx intiated by Dr. 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 * Surgical History: H emorrhoidectomy , [place] Teeth Extractions , Bone Biopsy 06/03/2012, C-Scope 2010, Normal C-Scope 2016. * Hospitalization/Major Diagno stic Procedure: D iarrhea- [facility] 11/21/2012, Constipation- [facility] ER 12/07/2012. * Family History: F ather: . M other: , colon cancer. 1 sister(s) . 1 daughter(s) . .? * Social History: C URRENT TOBACCO USE S moking Status: Patient does NOT smoke. C affeine: no, frequency:. Exercise: yes. Home smoke detector use: yes. Marital Status: . New since last visit: none. 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 Past smoking status: no, Smoking status: Does not smoke. Occup. exposure: none. Recreational drug use: no. Alcohol: no. Sexually active: yes. Travel ouside [place]: yes. * Medications: T aking Pregabalin 50 MG Capsule 1 cap(s) orally Four times a day , Taking Lactaid 3000 UNIT Tablet 1/2 tablet Orally Once a day , Taking MiraLax 17 GM/SCOOP Powder as directed Orally , Taking Cyanocobalamin 1000 MCG/ML Solution 1000 mcg intramuscularly once a month , Taking Magnesium Carbonate 54 (Mag Equiv) MG/5ML Liquid 5 mL orally once a day , Taking Prolia 60 MG/ML Solution Prefilled Syringe 60 mg subcutaneously every 6 months , Taking Calcium 600 + Minerals 600-200 MG-UNIT Tablet 10 tab(s) orally once daily , Taking HYDROcodone-Acetaminophen 5-325 MG Tablet 1/2 tablet Orally every 6 hrs prn , Taking Ondansetron 4 MG Tablet Disintegrating 1 tab(s) orally 3 times a day, prn , Taking diazePAM 5 MG Tablet 1 tab(s) orally once a day as needed , Taking Meclizine HCl 25 MG Tablet 1 tab(s) orally 3 times a day prn , Not-Taking valACYclovir HCl 1 GM Tablet 1 tab(s) orally Three times a day , Medication List reviewed and reconciled with the patient * Allergies: C odeine Sulfate: stomach upset but doesn't know for sure if she is, Mold, Erythromycin: stomach pain and diarrhea. Objective: * Vitals: W t:120, Temp:*, BP:126/78, HR:75, Nurse:GUILLERMO, Ht: 65, BMI:19.97. * Examination: G eneral Examination: Extremities: R ight foot shows no obvious swelling, deformity, or discoloration. There is tenderness to palpation over the distal heads of the second and fifth metatarsals.. Assessment: * Assessment: 1. F oot pain - M79.673 (Primary) N otes :-- r/o stress fracture 2 . V itamin B12 deficiency - E53.8 Plan: * Treatment: * Therapeutic Injections: B-12 : 1 mL (Route: Intramuscular) given by GARRET Armas on right gluteus (Vitamin B12 deficiency) * Procedure Codes: G 2211 Complex e/m visit add on, J3420 B-12, 45954 ADMINISTRATION OF INJECTION * Follow Up: v ia phone to report test results * Images: Billing Information: * Visit Code: 04745 Office Visit, Est Pt., Level 3. * Procedure Codes: G2211 Complex e/m visit add on. J3420 B-12. 35768 ADMINISTRATION OF INJECTION. * Electronic signature of Meenakshi Le MD on 09/12/2025 at 09:45 AM EST Sign off status: Pending * Provider: Meenakshi Le M.D. Date: 11/08/2023 Generated for Yohan rodriguez/James/Alistair on: 11/13/2024 09:45 AM EST History and Physical Notes * HPI (History of Present Illness) Category Sub-Category Detail Notes Category Not es Ankle/Foot Pain She is due for a Prolia injection from her mail opener but he advised her to rule out a stress fracture before taking the injection. HPI Pt would like h er B12 shot today as well Examination Category Sub-Category Detail Notes Category Not es General Examination Extremities: Right foot s hows no obvious swelling, deformity, or discoloration. There is tenderness to palpation over the distal heads of the second and fifth metatarsals.
--- OUTSIDE RECORDS SUMMARY | 2025-01-09 08:30 | XMS_ITS ---
Author Organization [facility] Address [address] [place] [phone] Care Team Providers Care Manager Care Name Role Phone Meenakshi eL Primary Care Provider [phone] Allergies Allergen (clinical drug ingredient) Drug/Non Drug Allergy documented on EMR Reaction Allergy Type Onset Date Status codeine Codeine Sulfate stomach upset but doesn't know for sure if she is Drug Allergy Active erythromycin Erythromycin stomach pain and diarrhea Drug Allergy Active Mold Unknown Allergy Active Reason For Referral Reason [facility] PT to evaluate g luteal pain/ gluteal tendonitis Diagnosis 1 Gluteal tendinitis, left hip (M76.02) [facility] Referring Provider First Name Meenakshi Virgen Referring Provider Last Name Rey Referring Provider Speciality Family Pra ctice Referred Provider Physical Therapy, . Referred Provider Specialty Physical The rapist General Notes Rosa Hernández 2024 08:57:22 AM > faxed to [facility] PT Referral Priority Routine REASON FOR VISIT left hip muscle feels tight and painful Medications Medication SIG (Take, Route, Frequency, Duration) Notes Start Date End Date Status Pregabalin 50 MG 1 cap(s) orally Four times a day; Duration: 30 day(s) 11/10/2024 Active diazePAM 5 MG 1 tab(s) orally once a day as needed 10/12/2024 Active valACYclovir HCl 1 GM 1 tab(s) orally Th ree times a day; Duration: 10 day(s) 01/28/2023 Not-Taking HYDROcodone-Acetaminophe n 5-325 MG 1/2 tablet Orally every 6 hrs prn 01/09/2025 Active Methocarbamol 750 MG 1 tablet Orally Fou r times a day 01/09/2025 Active Meclizine HCl 25 MG 1 tab(s) orally 3 ti mes a day prn; Duration: 30 day(s) 10/11/2020 Active Ondansetron 4 MG 1 tab(s) orally 3 ti mes a day, prn; Duration: 30 day(s) Active Prolia 60 MG/ML 60 mg subcutaneously every 6 months Active Magnesium Carbonate 54 (Mag Equiv) MG/5ML 5 mL orally once a day Active Calcium 600 + Minerals 600-200 MG-UNIT 10 tab(s) orally once daily Active Cyanocobalamin 1000 MCG/ML 1000 mcg intramuscularly once a month 07/09/2014 Active MiraLax 17 GM/SCOOP as directed Orally Active Lactaid 3000 UNIT 1/2 tablet Orally On ce a day Active Vital Signs Weight 115.0 lbs 01/09/2025 Blood pressure systolic 120 mm Hg 01/10/20 25 Blood pressure diastolic 70 mm Hg 025 Heart Rate 57 /min 01/09/2025 Height 65 in 01/09/2025 BMI 19.13 kg/m2 01/09/2025 Encounters Encounter Location Date Provider Diagnosis [facility] [address] [phone] 01/09/2025 R Param Le Sacroiliitis M46.1 ; Gluteal tendinitis, left hip M76.02 ; Dyslipidemia E78.5 and Body mass index (BMI) of 19.0 to 19.9 in adult Z68.1 Assessments Encounter Date Diagnosis (ICD Code) Assessment Notes Treatment Notes Treatment Clinical Notes Section Notes 01/09/2025 Sacroiliitis (ICD-10 - M46.1) 01/09/2025 Gluteal tendinitis, left hip (ICD-10 - M76.02) 01/09/2025 Dyslipidemia (ICD-10 - E78.5) 01/09/2025 Body mass index (BMI) of 19.0 to 19.9 in adult (ICD-10 - Z68.1) Plan Of Treatment Medication Medication Name Sig Start Date Stop Date Notes HYDROcodone-Acetaminophen 5- 325 MG 1/2 tablet Orally every 6 hrs prn 01/09/2025 Methocarbamol 750 MG 1 tablet Orally Fou r times a day 01/09/2025 Referrals Referral Date Details 01/09/2025 01/09/2025, [facility] PT t o evaluate gluteal pain/ gluteal tendonitis , . Physical Therapy Next Appt Details Follow Up: prn, Reason: Progress Notes * Kristie HAAS KDOB:[birth year] (75 yo F)Acc No.[id number]:01/09/2025 Progress Notes Patient: Kristie URBANO Provider: Meenakshi Le M.D. :1950 A ge:74 Y S ex:Female Date:01/09/2025 Address:[place], [id number] Subjective: * Chief Complaints: * 1 . Left hip muscle feels tight and painful. * HPI: H ip/Thigh: She presents with complaints of pain and spasm in the left buttock for about a week. She recalls no specific injury. It is most painful with walking. She is able to do her usual aquatic activities with no pain. She has a past history of piriformis syndrome and states this pain is different and feels deeper in the gluteal area. She has tried stretching with no benefit. * ROS: D ERMATOLOGY: no R laura. [...] Rx intiated by Dr. 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 * Surgical History: H emorrhoidectomy , [place] Teeth Extractions , Bone Biopsy 06/03/2012, C-Scope 2010, Normal C-Scope 2016. * Hospitalization/Major Diagno stic Procedure: D iarrhea- [facility] 11/21/2012, Constipation- [facility] ER 12/07/2012. * Family History: F ather: . M other: , colon cancer. 1 sister(s) . 1 daughter(s) . .? * Social History: C URRENT TOBACCO USE S moking Status: Patient does NOT smoke. C affeine: no, frequency:. Exercise: yes. Home smoke detector use: yes. Marital Status: . New since last visit: none. 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 Past smoking status: no, Smoking status: Does not smoke. Occup. exposure: none. Recreational drug use: no. Alcohol: no. Sexually active: yes. Travel ouside [place]: yes. * Medications: T aking Lactaid 3000 UNIT Tablet 1/2 tablet Orally [...] 3 times a day, prn , Taking Meclizine HCl 25 MG Tablet 1 tab(s) orally 3 times a day prn , Taking diazePAM 5 MG Tablet 1 tab(s) orally once a day as needed , Taking Pregabalin 50 MG Capsule 1 cap(s) orally Four times a day , Not-Taking valACYclovir HCl 1 GM Tablet 1 tab(s) orally Three times a day , Medication List reviewed and reconciled with the patient * Allergies: C odeine Sulfate: stomach upset but doesn't know for sure if she is, Mold, Erythromycin: stomach pain and diarrhea. Objective: * Vitals: W t: 115.0, Temp: 98.2, BP: 120/70, HR: 57, Nurse: KIZZY, Ht: 65, BMI:19.13. * Examination: G eneral Examination: General Appearance: N AD at rest. E xtremities: S he ambulates with a slight limp. Range of motion of the hip is nearly full. There is tenderness to palpation over the ischium.. Assessment: * Assessment: 1. S acroiliitis - M46.1 (Primary) 2 . G luteal tendinitis, left hip - M76.02 3 . D yslipidemia - E78.5 4 . B vitaly mass index (BMI) of 19.0 to 19.9 in adult - Z68.1 Plan: * Treatment: 2. G luteal tendinitis, left hip Referral To:. Physical Therapy Physical Therapist Reason:[facility] PT to evaluate gluteal pain/ gluteal tendonitis * Procedure Codes: G 2211 Complex e/m visit add on, 3074F SYST BP LT 130 MM HG, 3078F DIAST BP < 80 MM HG * Follow Up: p rn * Images: Billing Information: * Visit Code: 88713 Office Visit, Est Pt., Level 3. * Procedure Codes: G2211 Complex e/m visit add on. 3074F SYST BP LT 130 MM HG. 3078F DIAST BP < 80 MM HG. * Electronic signature of Meenakshi Le MD on 09/12/2025 at 09:45 AM EST Sign off status: Pending * Provider: Meenakshi Le M.D. Date: 0 01/09/2025 Generated for Yohan rodriguez/James/Michaelitting on: 1 11/13/2024 09:45 AM EST History and Physical Notes * Examination Category Sub-Category Detail Notes Category Not es General Examination Extremities: She ambulate s with a slight limp. Range of motion of the hip is nearly full. There is tenderness to palpation over the ischium. General Appearance: NAD at rest Consultation Request Notes Referral Date Referring Provider Referred Provider Not es 01/09/2025 Meenakshi Le Physical Therapy, . [facility] PT to evaluate gluteal pain/ gluteal tendonitis
--- OUTSIDE RECORDS SUMMARY | 2025-01-23 09:15 | XMS_ITS ---
Author Organization [facility] Address [address] [facility] [address] [place] [phone] Care Team Providers Care Sales Floor Team Member Name Role Phone Meenakshi Le Primary Care [...] Provider Diagnosis [facility] [address] [place] [phone] 01/23/2025 R Param Le Gluteal tendinitis, left [...] * Kristie HAAS KDOB:[birth year] (75 yo F)Acc No.[id number]:01/23/2025 Progress Notes Patient: Kristie URBANO Provider: Meenakshi Le M.D. :1950 A ge:74 Y S ex:Female Date:01/23/2025 Address:[facility] [place], [id number] Subjective: * Chief Complaints: * 1 . 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 * Surgical History: H emorrhoidectomy , [place] Teeth Extractions , Bone Biopsy 06/03/2012, C-Scope [...] . New since last visit: none. 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 Past smoking status: no, Smoking status: Does [...] Complex e/m visit add on, J3420 B-12, 31984 ADMINISTRATION OF INJECTION, 3074F SYST BP LT 130 MM HG, 3079F DIAST BP 80-89 MM HG * Follow Up: p rn * Images: Billing Information: * Visit Code: 45693 Office Visit, Est Pt., Level 3. Modifiers: 25 * Procedure Codes: G2211 Complex e/m visit add on. J3420 B-12. 51437 ADMINISTRATION OF INJECTION. 3074F SYST BP LT 130 MM HG. 3079F DIAST BP 80-89 MM HG. * Electronic signature of Meenakshi Le MD on 09/12/2025 at 09:46 AM EST Sign off status: Pending * Provider: Meenakshi Le M.D. Date: 0 01/23/2025 Generated for Yohan rodriguez/James/Michaelitting on: 1 11/13/2024 09:46 AM EST History and Physical Notes * [...]
--- OUTSIDE RECORDS SUMMARY | 2025-02-08 08:30 | XMS_ITS ---
[facility] Organization [facility] Address [address] [place] [phone] Care Team Providers Care It Infrastructure Engineer Name Role Phone Meenakshi Le Primary Care Provider [phone] Allergies Allergen (clinical drug ingredient) Drug/Non Drug [...] Provider Diagnosis [facility] [address] [facility] [address] [place] [phone] 02/08/2025 R Param Le Adult general medica [...] * Kristie HAAS KDOB:[birth year] (75 yo F)Acc No.[id number]:02/08/2025 Annual Wellness Visit Patient: Kristie URBANO Provider: Meenakshi Le M.D. :1950 A ge:74 Y S ex:Female Date:02/08/2025 Address:[address] [place] , [place], [id number] Subjective: * Chief Complaints: * 1 . 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 * Surgical History: H emorrhoidectomy , [place] Teeth Extractions , Bone Biopsy 06/03/2012, C-Scope 2010, Normal C-Scope 2016. * Hospitalization/Major Diagno stic Procedure: D iarrhea- [facility] 11/21/2012, Constipation- [facility] ER 12/07/2012. * Family History: F ather: . M other: , colon cancer. 1 sister(s) . 1 daughter(s) . .? * Social History: C URRENT TOBACCO USE S moking Status: Patient does NOT smoke. C affeine: no, frequency:. Exercise: yes. Home smoke detector use: yes. Marital Status: . New since last visit: none. 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 Past smoking status: no, Smoking status: Does [...] * Images: Billing Information: * Visit Code: 79423 Office Visit, Est Pt., Level 3. Modifiers: [...] 02/08/2025 Generated for Tianai jennifer/James/eTransmitting on: 1 11/13/2024 09:45 AM EST History and Physical Notes * Physical [...]
--- OUTSIDE RECORDS SUMMARY | 2025-03-01 10:15 | XMS_ITS ---
[facility] Address [address] [facility] [address] [place] [phone] Care Team Providers Care Deputy Controller Name Role Phone Meenakshi Le Primary Care [...] Provider Diagnosis [facility] [address] [place] [phone] 03/01/2025 Meenakshi Le Gluteal tendinitis, left hip [...] * Kristie HAAS KDOB:[birth year] (75 yo F)Acc No.[id number]:03/01/2025 Progress Notes Patient: Kristie URBANO Provider: Meenakshi Le M.D. :1950 A ge:74 Y S ex:Female Date:03/01/2025 Address:[address], [id number] Subjective: * Chief Complaints: * 1 . [...] IBS/ 2012, Follows with Dr. Soni for MODELER. * Surgical History: H emorrhoidectomy , [place] Teeth Extractions , Bone Biopsy 06/03/2012, C-Scope 2010, Normal C-Scope 2016. * Hospitalization/Major Diagno stic Procedure: D iarrhea- [facility] 11/21/2012, Constipation- [facility] 12/07/2012. * Family History: F ather: . M other: , colon cancer. 1 sister(s) . 1 daughter(s) . .? * Social History: C URRENT TOBACCO USE S moking Status: Patient does NOT smoke. C affeine: no, frequency:. Exercise: yes. Home smoke detector use: yes. Marital Status: . New since last visit: none. 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 Past smoking status: no, Smoking status: Does [...] * Images: Billing Information: * Visit Code: 88228 Office Visit, Est Pt., Level 3. * Procedure Codes: G2211 Complex e/m visit add on. 1036F TOBACCO NON-USER. G8783 BP SCR PRFRM RCMDD DEFIND SCR INTVL. G8752 MOST RECENT SYSTOLIC BP < 140MM HG. G8754 MOST RECENT DIASTOLIC BP < 90MM HG. * Electronic signature of Meenakshi Le MD on 09/12/2025 at 09:43 AM EST Sign off status: Pending * Provider: Meenakshi Le M.D. Date: 0 03/01/2025 Generated for Yohan rodriguez/James/Michaelitting on: 1 11/13/2024 09:43 AM EST History and Physical Notes * [...]
--- OUTSIDE RECORDS SUMMARY | 2025-04-17 10:00 | XMS_ITS ---
Author Organization [facility] Address [address] [facility] [address] [place] [phone] Care Team Providers Care Extrusion Press Supervisor Name Role Phone Meenakshi Le Primary Care [address] [place] [phone] 04/17/2025 Meenakshi Le Peripheral neuropath y G62.9 [...] * WALDO Kristie KDOB:[birth year] (75 yo F)Acc No.[id number]:04/17/2025 Progress Notes Patient: Kristie URBANO Provider: Meenakshi [...] IBS/ 2013, Follows with Dr. 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 * Surgical History: H emorrhoidectomy , [place] Teeth Extractions , Bone Biopsy 06/03/2012, C-Scope 2010, Normal C-Scope 2016. * Hospitalization/Major Diagno stic Procedure: D iarrhea- [facility] 11/21/2012, Constipation- [facility] ER 12/07/2012. * Family History: F ather: . M other: , colon cancer. 1 sister(s) . 1 daughter(s) . .? * Social History: C URRENT TOBACCO USE S moking Status: Patient does NOT smoke. C affeine: no, frequency:. Exercise: yes. Home smoke detector use: yes. Marital Status: . New since last visit: none. 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 Past smoking status: no, Smoking status: Does [...] * Images: Billing Information: * Visit Code: 18395 Office Visit, Est Pt., Level 3. * Procedure Codes: G2211 Complex e/m visit add on. 1036F TOBACCO NON-USER. G8783 BP SCR PRFRM RCMDD DEFIND SCR INTVL. G8752 MOST RECENT SYSTOLIC BP < 140MM HG. G8754 MOST RECENT DIASTOLIC BP < 90MM HG. * Electronic signature of Meenakshi Le MD on 09/12/2025 at 09:44 AM EST Sign off status: Pending * Provider: Meenakshi Le M.D. Date: 0 04/17/2025 Generated for Yohan rodriguez/James/Alistair on: 1 11/13/2024 09:44 AM EST History and Physical Notes * [...]
--- OUTSIDE RECORDS SUMMARY | 2025-06-22 03:10 | XMS_ITS ---
Author Organization [facility] Address [address] [facility] [address] [place] [phone] Care Team Providers Care Wirer Passenger Car Name Role Phone Meenakshi Le Primary Care [address] [place] [phone] 06/22/2025 Meenakshi Le Encounter for immunization Z23 [...] * Kristie HAAS KDOB:[birth year] (75 yo F)Acc No.[id number]:06/22/2025 Patient: Kristie URBANO Provider: Meenakshi Le M.D. :1950 A ge:74 Y S ex:Female Date:06/22/2025 Address:[facility] [id number] Subjective: * Chief Complaints: [...] (Route: Intramuscular) given by REBEKAH Brown , Artificial Flowers Dyer on Left Deltoid (Encounter for immunization) * Therapeutic Injections: B-12 : 1 mL (Route: Intramuscular) given by REBEKAH Brown on right deltoid (Vitamin B 12 deficiency) * Procedure Codes: J 3420 B-12, 84124 ADMINISTRATION OF INJECTION * Images: Billing Information: * Visit Code: * Procedure Codes: J3420 B-12. 34953 ADMINISTRATION OF INJECTION. * Electronic signature of Meenakshi Le MD on 09/12/2025 at 09:45 AM EST Sign off status: Pending * Provider: Meenakshi Le M.D. Date: Generated for Yohan rodriguez/James/Alistair on: 11/13/2024 09:45 AM EST
--- OUTSIDE RECORDS SUMMARY | 2025-08-28 09:15 | XMS_ITS ---
Author Organization [facility] Address [address] [facility] [address] [place] [phone] Care Team Providers Care Performance Improvement Analyst Name Role Phone Meenakshi Le Primary Care Provider Allergies Allergen (clinical drug ingredient) Drug/Non Drug Allergy documented on EMR Reaction Allergy Type Onset Date Status codeine Codeine Sulfate stomach upset but doesn't know for sure if she is Drug Allergy Active erythromycin Erythromycin stomach pain and diarrhea Drug Allergy Active Mold Unknown Allergy Active Results Component Value Reference Range Notes X ray : Knee, right Reviewed date:08/30/2025 12:14:01 PM Interpretation:normal Performing Lab: Notes/Report: normal REASON FOR VISIT pain in knees & B12 injection Medications Medication SIG (Take, Route, Frequency, Duration) Notes Start Date End Date Status HYDROcodone-Acetaminophe n 5-325 MG 1/2 tablet Orally every 6 hrs prn Active Methocarbamol 750 MG 1 tablet Orally Fou r times a day Active diazePAM 5 MG 1 tablet as needed Orally Once a day; Duration: 30 days 05/14/2025 Active Pregabalin 50 MG 1 cap AM, 2 caps noo n, 1 cap evening, 1 cap hs orally; Duration: 30 days 05/08/2025 Active valACYclovir HCl 1 GM 1 tab(s) orally Th ree times a day; Duration: 10 day(s) 01/28/2023 Not-Taking Meclizine HCl 25 MG 1 tab(s) orally 3 ti mes a day prn; Duration: 30 day(s) 10/11/2020 Active Medrol 4 MG as directed Orally 08/28/2025 Active Ondansetron 4 MG 1 tab(s) orally 3 ti mes a day, prn; Duration: 30 day(s) Active Calcium 600 + Minerals 600-200 MG-UNIT 10 tab(s) orally once daily Active Prolia 60 MG/ML 60 mg subcutaneously every 6 months Active Lactaid 3000 UNIT 1/2 tablet Orally On ce a day Active Cyanocobalamin 1000 MCG/ML 1000 mcg intramuscularly once a month 07/09/2014 Active MiraLax 17 GM/SCOOP as directed Orally Active Magnesium Carbonate 54 (Mag Equiv) MG/5ML 5 mL orally once a day Active Vital Signs Weight 112 lbs 08/28/2025 Blood pressure systolic 120 mm Hg 08/28/20 25 Blood pressure diastolic 70 mm Hg 025 Heart Rate 87 /min 08/28/2025 Height 65 in 08/28/2025 BMI 18.64 kg/m2 08/28/2025 Encounters Encounter Location Date Provider Diagnosis [facility] [address] [place] [phone] 08/28/2025 Meenakshi Le Right knee pain M25.561 and B12 deficiency E53.8 Assessments Encounter Date Diagnosis (ICD Code) Assessment Notes Treatment Notes Treatment Clinical Notes Section Notes 08/28/2025 Right knee pain (ICD-10 - M25.561) 08/28/2025 B12 deficiency (ICD-10 - E53.8) Plan Of Treatment Medication Medication Name Sig Start Date Stop Date Notes Medrol 4 MG as directed Orally 08/28/2025 Next Appt Details Follow Up: via phone to repo rt test results, Reason: Medications Administered Medication Instructions Date of Administration Dosage Notes B-12 08/28/2025 1 mL Progress Notes * Kristie HAAS KDOB:[birth year] (75 yo F)Acc No.[id number]:08/28/2025 Progress Notes Patient: Kristie URBANO Provider: Meenakshi Le M.D. :1950 A ge:75 Y S ex:Female Date:08/28/2025 Address:[address] [place] [address] [id number] Subjective: * Chief Complaints: * 1 . pain in knees & B12 injection. * HPI: K nee/Macario: She presents with complaints of progressively worsening pain around her right knee for the past 4 to 5 weeks. She recalls no recent or remote injury. She has not noticed any swelling. No locking or catching. It has kept her awake at night at times. H PI: Patient is here today for P t states she wants B12 shot?. * ROS: D ERMATOLOGY: no R laura. 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 Soni for COURTROOM DEPUTY. * Surgical History: H emorrhoidectomy , [place] Teeth Extractions , Bone Biopsy 06/03/2012, C-Scope 2010, Normal C-Scope 2016. * Hospitalization/Major Diagno stic Procedure: D iarrhea- [facility] 11/21/2012, Constipation- [facility] ER 12/07/2012. * Family History: F ather: . M other: , colon cancer. 1 sister(s) . 1 daughter(s) . .? * Social History: C URRENT TOBACCO USE S moking Status: Patient does NOT smoke. C affeine: no, frequency:. Exercise: yes. Home smoke detector use: yes. Marital Status: . New since last visit: none. 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 Past smoking status: no, Smoking status: Does [...] and diarrhea. Objective: * Vitals: W t: 112, Temp: 97.6, BP: 120/70, HR: 87, Nurse: pe, Ht: 65, BMI:18.64. * Examination: G eneral Examination: Extremities: E xamination of the right knee shows no acute joint swelling, redness, or warmth. Range of motion of the knee is nearly full with only slight limitation at terminal flexion. There is mild bilateral joint line tenderness. No instability of the knee. No popliteal tenderness.. Assessment: * Assessment: 1. R ight knee pain - M25.561 (Primary) 2 . B 12 deficiency - E53.8 ? Plan: * Treatment: * Therapeutic Injections: B-12 : 1 mL (Route: Intramuscular) given by REBEKAH Brown on right gluteus (B12 deficiency) * Imaging: * Fabiola cruz: X ray : Knee, right (Performed Date - 08/28/2025) n ormal * Procedure Codes: G 2211 Complex e/m visit add on, J3420 B-12, 86624 ADMINISTRATION OF INJECTION, G8720 BP SCR PRFRM RCMDD DEFIND SCR INTVL, G8752 MOST RECENT SYSTOLIC BP < 140MM HG, G8754 MOST RECENT DIASTOLIC BP < 90MM HG, 3074F SYST BP LT 130 MM HG, 3078F DIAST BP < 80 MM HG * Follow Up: v ia phone to report test results * Images: Billing Information: * Visit Code: 19753 Office Visit, Est Pt., Level 3. Modifiers: 25 * Procedure Codes: G2211 Complex e/m visit add on. J3420 B-12. 69035 ADMINISTRATION OF INJECTION. G8783 BP SCR PRFRM RCMDD DEFIND SCR INTVL. G8752 MOST RECENT SYSTOLIC BP < 140MM HG. G8754 MOST RECENT DIASTOLIC BP < 90MM HG. 3074F SYST BP LT 130 MM HG. 3078F DIAST BP < 80 MM HG. * Electronic signature of Meenakshi Le MD on 09/12/2025 at 09:44 AM EST Sign off status: Pending * Provider: Meenakshi Le M.D. Date: 10/29/2024 Generated for Yohan rodriguez/James/Juanchosmitting on: 11/13/2024 09:44 AM EST History and Physical Notes * HPI (History of Present Illness) Category Sub-Category Detail Notes Category Not es HPI Patient is here today for Pt states she w ants B12 shot Examination Category Sub-Category Detail Notes Category Not es General Examination Extremities: Examination of the right knee shows no acute joint swelling, redness, or warmth. Range of motion of the knee is nearly full with only slight limitation at terminal flexion. There is mild bilateral joint line tenderness. No instability of the knee. No popliteal tenderness.
--- OUTSIDE RECORDS SUMMARY | 2025-08-30 13:42 | XMS_ITS | Encounter Summary ---
[facility] Address [address] [place] [address] Care Team Providers Care Medical Imaging Technologist Name Role Phone Felix Le MD Primary Care Provider Reason for Referral * Diagnostic Imaging (Routine) - Closed Specialty Diagnoses / Procedures Referred By Zuleyma padilla Referred To Contact Radiology Diagnoses Visit for screening mammogram Procedures Mammo Screening Digital Tomosynthesis Bilateral With CAD Shameka Soni MD [address] [place] [address] Phone: tel: fax: Referral ID Status Reason Start Date Expiration Date Visits Re quested Visits Authorized [id number] Closed 01/17/2025 04/18/2026 1 1 Reason for Visit * Diagnostic Imaging (Routine) - Closed Specialty Diagnoses / Procedures Referred By Zuleyma padilla Referred To Contact Radiology Diagnoses Visit for screening mammogram Procedures Mammo Screening Digital Tomosynthesis Bilateral With CAD Shameka Soni MD [address] [place] [address] Phone: tel: fax: Referral ID Status Reason Start Date Expiration Date Visits Re quested Visits Authorized [id number] Closed 01/17/2025 04/18/2026 1 1 Encounter Details Date Type Department Care Team (Latest Contact Info) Description 08/30/2025 1:42 PM EST - 08/30/2025 11:59 PM EST Hospital Encounter [facility] [address] [address] Shameka Soni MD [address] [facility] [address] [place] [address] Visit for screening mammogram Discharge Disposition: Home [...] SCREENING DIGITAL TOMOSYNTHESIS BILATERAL W CAD Routine 08/30/2025 2:23 PM EST Visit for screening mammogram documented in this encounter Results * Mammo Screening Digital Tomosynthesis Bilateral With CAD (08/30/2025 2:23 PM EST) Anatomical Region Laterality Modality Breast N/A Mammography 09/03/2025 4:41 PM EST Impressions 09/03/2025 4:43 PM EST No suspicious abnormality identified. OVERALL ASSESSMENT: ACR BI-RADS CATEGORY: 1, NEGATIVE: Recommend continued routine annual screening mammogram. The standard false-negative rate of mammography is between 10% and 25%. Complex patterns or increased breast density will markedly elevate the false-negative rate of mammography. A letter, in lay terminology, with the results of this exam will be mailed to the patient. 09/03/2025 4:43 PM by Angélica Wilkins MD on Narrative 09/03/2025 4:43 PM EST BILATERAL DIGITAL SCREENING MAMMOGRAM WITH TOMOSYNTHESIS CLINICAL INDICATION: Screening mammogram. TECHNIQUE: Bilateral low dose full field digital breast tomosynthesis imaging was performed. CAD was utilized. COMPARISON: Prior studies dating back to 06/09/2016 FINDINGS: The breasts are heterogeneously dense, which may obscure small masses. RIGHT BREAST: No suspicious masses, calcifications, or areas of distortion are seen. LEFT BREAST: No suspicious masses, calcifications, or areas of distortion are seen. Shameka Soni MD IMG MAMMOGRAPHY ORDERABLES Final Result documented in this encounter Visit Diagnoses Diagnosis Visit for screening mammogram documented in this encounter Care Teams Medical Imaging Technologist Relationship Specialty Start Date End Date Felix Le MD [address] [facility] [address] [facility] [address] [place] [address] PCP - General 06/04/15 documented as of this encounter
--- OUTSIDE RECORDS SUMMARY | 2025-09-12 09:44 | XMS_ITS ---
Author Organization Unknown ENCOUNTERS Encounter Performer Location Date Diagnosis Diagnosis Status Emergency Orestes Koenig [address] [place] [address] [id number] [facility] Emergency Doug Rena [address] [place] [address] [id number] [facility] Emergency Lorraine Herndon [address] [place] [address] [id number] [facility] *Note: Encounters from your own facility or health system may be excluded. Allergies, Adverse Reactions, Alerts Allergen Type Severity Identification Date codeine drug allergy 0 [id number] erythromycin base drug allergy 3 [id number] cefuroxime drug allergy 3 [id number] Medications Name Date Quantity Days Supplied GPI Number
--- OUTSIDE RECORDS SUMMARY | 2025-09-12 09:45 | XMS_ITS | Encounter Summary ---
[facility] [address] [place] [address] Care Team Providers Care Sap Treasury Consultant Name Role Phone Felix Le MD Primary Care Provider Encounter Details Date Type Department Care Team (Latest Contact Info) Description 08/30/2025 Travel Social History Tobacco Use Types Packs/Day Years Used Date Smoking Tobacco: Never Assessed Comments No Sex and Gender Information Value Date Recorded Sex Assigned at Not on file Legal Sex Female 12:07 PM EDT Gender Identity Not on file Sexual Orientation Not on file documented as of this encounter Plan of Treatment Not on file documented as of this encounter Visit Diagnoses Not on filedocumented in this encounter Care Teams Sap Treasury Consultant Relationship Specialty Start Date End Date Felix Le MD [address] [place] [facility] [address] [place] [id number] PCP - General 06/04/15 documented as of this encounter
--- OUTSIDE RECORDS SUMMARY | 2025-09-12 09:45 | XMS_ITS | Clinical Summary ---
Author Organization [facility] Address [address] [place] [address] Care Team Providers Care Laundry Tech Name Role Phone Param Le MD Primary Care Provider [phone] Allergies Active Allergy Reactions Criticality Noted Date [...] Care Team (Late st Contact Info) Description 09/27/2025 9:40 AM EST Office Visit [facility] [address] [place] [address] Chele Gutiérrez MD [address] [place] [address] Health Maintenance Due Date Last Done Comments [facility]-Bone Density Scan 1950 [facility]-Hepatitis C Screening 1950 [facility]-Medicare Annual Wellness (AWV) 1950 [facility]-Infant/Child/Adol SDOH Screenings 1950 [facility]- SDOH Screenings 1969 [facility]-Adult SDOH Screenings 1969 CT Colonography 1996 Colonoscopy 1996 FIT-DNA 1996 FIT 1996 FOBT 1996 Sigmoidoscopy 1996 [facility]-Colorectal Cancer Screening 1996 [facility]-RSV Vaccine: 60+ Years or (1 - Risk 50-74 years 1-dose series) 2001 [facility]-Zoster Vaccines (1 of 2) 2001 [facility]-Pneumococcal Vaccine: 50+ Years (2 of 2 - PCV) 07/18/2020 07/18/2019 [id number] Vaccine ( season) 2025 08/08/2024, 07/02/2023, 06/03/2022, Additional history exists [facility]-Influenza Vaccine (#1) 05/21/202506/05, 06/12/2021, 06/27/2020, Additional history exists [facility]-Depression Screening 09/07/2025 09/07/2024, 08/20 [facility]-Breast Cancer Screening 02/10/202601/19, 02/11/2024, 01/25/2023, Additional history exists [facility]-DTaP,Tdap,and Td Vaccines (2 - Td or Tdap) 01/05/2028 01/04/2018, 02/24/1996 [facility]-Hepatitis A Vaccines Aged Out 02/24/1996 No longer eligible based on patient's age to complete this topic HPV Vaccines (No Doses Required) Completed [facility]-HIB Vaccines Aged Out No longer e ligible based on patient's age to complete this topic [facility]-IPV Vaccines Aged Out No longer e ligible based on patient's age to complete this topic [facility]-Rotavirus Vaccines Aged Out No lo nger eligible based on patient's age to complete this [place] [address] MEDICARE [facility] Care Teams Laundry Tech Relationship Specialty Start Date End Date Param Le MD [facility] [address] PCP - General 01/31/21
--- OUTSIDE RECORDS SUMMARY | 2025-09-12 09:45 | XMS_ITS | Patient Health Record ---
Author Organization [facility] Address [address] [facility] [address] [place] [address] Care Team Providers Care Sfdc Consultant Name Role Phone Shameka Soni Unavailable [phone] Allergies Allergen (clinical drug ingredient) Drug/Non Drug Allergy documented on EMR Reaction Allergy Type Onset Date Status CODEINE PHOSPHATE (CODEINE PHOSPHATE SOLN) nausea and vomiting Drug Allergy 08/09/2013 Active ERYTHROMYCIN STEARATE (ERYTHROMYCIN STEARATE TABS) diarrhea Drug Allergy 08/09/2013 Active Medicinal cephalosporin and acting as antibacterial agent (FN) Cephalosporins diarrhea Drug Allergy Active Results Component Value Reference Range Flag Notes Pap w/reflex HPV Reviewed date:07/05/2025 04:54:02 PM Interpretation: Performing Lab: Notes/Report: [facility] Testing performed at: [WB] [address], [address], , Cyber Security Instructor: Melissa Tierney MD Source.............Cervix No. of containers..01 ThinPrep Vial DIAGNOSIS: Comment N NEGATIVE FOR I NTRAEPITHELIAL LESION OR MALIGNANCY. Specimen adequacy: Comment N Satisfactory for evaluation. Endocervical and/or squamous metaplastic cells (endocervical component) are present. Clinician provided ICD10: Comment N Z01.419 Performed by: Comment N Michael crane, Entry Specialist (ASCP) . . N Note: Comment N The Pap smear is a screening test designed to aid in the detection of premalignant and malignant conditions of the uterine cervix. It is not a diagnostic procedure and should not be used as the sole means of detecting cervical cancer. Both false-positive and false-negative reports do occur. Test Methodology: Comment N This liquid based ThinPrep(R) pap test was interpreted using the [employer] BITEX(R) Genius(TM) Cervical Algorithm whole slide imaging system. . Comment N The HPV DNA reflex criteria were not met with this specimen result therefore, no HPV testing was performed. MAMMO SCREENING DIGITAL ADALGISA SYNTHESIS BILATERAL W CAD Reviewed date:09/03/2025 08:16:12 PM Interpretation: Performing Lab: Notes/Report: BILATERAL DIGITAL SCREENING MAMMOGRAM WITH TOMOSYNTHESIS CLINICAL [...] calcifications, or areas of distortion are seen. No suspicious abnormality identified. OVERALL ASSESSMENT: ACR [...] 4:43 PM by Angélica Wilkins MD on Signed by: Angélica Wilkins MD on 09/03/2025 4:43 PM No breast complaints Reason for Exam:->RT SCreening Reason For Referral No Information Medications Medication SIG (Take, Route, Frequency, Duration) Notes Start Date End Date Status Prolia Active Pregabalin 50 MG Capsule Oral; Duration: 30 Days Active diazePAM 5 MG Tablet Oral; Duration: 30 Days Active B12 Active Problems Problem Type SNOMED Code ICD Code Onset Dates Problem Status W/U Status Risk Notes Problem Gynecological examination normal ([id number] ) Cervical smear, as part of routine gynecological examination (Z01.419) 06/02/20 21 Active confirmed Annual without abnormal findings Vital Signs Blood pressure diastolic 70 mm Hg 07/02/2025 Height 66 in 07/02/2025 Blood pressure systolic 120 mm Hg 07/02/2025 Weight 111.0 lbs 07/02/2025 BMI 17.91 kg/m2 07/02/2025 Encounters Encounter Location Date Provider Diagnosis [id number] [address] [place] [address] 07/02/2025 Shameka Soni Pap smear, as part o f routine gynecological examination Z01.419 Assessments Encounter Date Diagnosis (ICD Code) Assessment Notes Treatment Notes Treatment Clinical Notes Section Notes 07/02/2025 Pap smear, as part of routine gynecological examination (ICD-10 - Z01.419) Plan Of Treatment Next Appt Details Provider Name:Shameka Soni, 07/04/2027 01:30:00 PM, [address], [place], [address], Insurance Providers Payer Name Payer Address Payer Phone Subscriber Number Group Number Insured Name Patient Relationship to Insured Coverage Start Date Coverage End Date Medicare [place] [address] [place] [address] [id number] Kristie Barry Self - patient is the insured [facility] [address] [place], [place] [id number] [phone] [id number] Kristie Barry Self - patient is the insured Medical (General) History Medical History History ICD Code osteoporosis arthritis Surgical History Surgery Date(Month/Year) hemorrhoidectomy Hospitalization History Reason Date(Month/Year) childbirth
--- OUTSIDE RECORDS SUMMARY | 2025-09-12 09:45 | XMS_ITS | Clinical Summary ---
Author Organization [facility] Address [address] [place] [id number] Care Team Providers Care Ticket Broker Name Role Phone Felix Le MD Primary Care Provider Encounters Date Type Department Care Team Description 08/30/2025 1:42 PM EST - 08/30/2025 11:59 PM [facility] Hospital Encounter [facility] [address] [place] [address] Shameka Soni MD Visit for screening mammogram Discharge Disposition: Home or Self Care 08/30/2025 Travel from Last 3 Months Family History Medical [...] Last Done Comments ANNUAL WELLNESS VISIT 1950 DXA SCAN 1950 HEPATITIS C SCREENING 1950 COLOGUARD 1996 COLON CANCER SCREENING 5 YEA R SIGMOIDOSCOPY 1996 COLONOSCOPY [address]ER SCREENING [address] COLONOGRAPHY 1996 FECAL OCCULT BLOOD TEST 1996 FIT Testing (1 year) 1996 ZOSTER VACCINE (1 of 2) 2001 Pneumococcal Vaccine 50+ (2 of 2 - PCV) 07/18/2020 07/18/2019 MAMMOGRAM 09/03/2027 09/03/2025, 08/20, 02/11/2024, Additional history exists TDAP/TD VACCINES (2 - Td or Tdap) 01/05/2028 018, 02/24/1996 INFLUENZA VACCINE Completed 06/22/2025, , 06/12/2021, Additional history exists COVID-19 Vaccine Completed 07/24/2025, , 07/02/2023, Additional history exists Procedures Procedure Name Priority Date/Time Associated Diagnosis Comments MAMMO SCREENING DIGITAL TOMOSYNTHESIS BILATERAL W CAD Routine 08/30/2025 2:23 PM EST Visit for screening mammogram from Last 3 Months Results * Mammo Screening Digital Tomosynthesis Bilateral [...] ORDERABLES Final Result from Last 3 Months Insurance MEDICARE A & B Member Subscriber Plan / Payer (Ef fective 2016-Present) Name:Kristie Barry Member ID:[id number] Relation to Subscriber:Self Name:Kristie Barry Subscriber ID:[id number] Payer ID:[id number] Group ID:Not on file Type:Not on file Address: [id number] [employer] Advance Directives Documents on File Type Date Recorded 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
--- OUTSIDE RECORDS SUMMARY | 2025-09-12 09:45 | XMS_ITS | Patient Health Record ---
Author Organization [facility] Address [address] [place] [id number] Care Team Providers Care Aerosol Supervisor Name Role Phone Meenakshi Le Primary Care Provider [phone] Avery Akash Unavailable [phone] Allergies Allergen (clinical drug ingredient) Drug/Non Drug [...] 12:14:01 PM Interpretation:normal Performing Lab: Notes/Report: normal H-CBC Reviewed date:02/15/2025 09:12:56 PM Interpretation: Performing [...] Performing Lab: Notes/Report: [id number] 568 239-931 pg/mL Medications Medication SIG (Take, Route, Frequency, Duration) Notes Start Date End Date Status Meclizine HCl 25 MG 1 tab(s) orally 3 ti mes a day prn; Duration: 30 day(s) 10/11/2020 Active Medrol 4 MG as directed Orally 08/28/2025 Active Ondansetron 4 MG 1 tab(s) orally 3 ti mes a day, prn; Duration: 30 day(s) Active HYDROcodone-Acetaminophe n 5-325 MG 1/2 tablet Orally every 6 hrs prn Active Methocarbamol 750 MG 1 tablet Orally Fou r times a day Active diazePAM 5 MG 1 tablet as needed Orally Once a day; Duration: 30 days 09/11/2025 Active Lactaid 3000 UNIT 1/2 tablet Orally On ce a day Active Pregabalin 50 MG 1 cap AM, 2 caps noo n, 1 cap evening, 1 cap hs orally; Duration: 30 days 05/08/2025 Active Cyanocobalamin 1000 MCG/ML 1000 mcg intramuscularly once a month 07/09/2014 Active MiraLax 17 GM/SCOOP as directed Orally Active valACYclovir HCl 1 GM 1 tab(s) orally Th ree times a day; Duration: 10 day(s) 01/28/2023 Not-Taking Magnesium Carbonate 54 (Mag Equiv) MG/5ML 5 [...] 06/06/2024 Administered given by chris granados Fluzone High Dose (65yr and older) IM Intramuscular 06/22/2025 Administered Fluzone Intradermal Quad private(18-64yrs) ID Intradermal [...] W/U Status Risk Notes Problem 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) Allergic dermatitis (L20.0) Active confirmed Problem Vitamin D deficiency (43234180) Vitamin D deficiency (E55.9) Active confirmed Problem Vitamin B12 deficiency (456034284) Vitamin B12 deficiency (E53.8) Active confirmed Problem Seasonal allergy (875641131) Seasonal allergies (J30.2) Active confirmed Problem Osteoarthritis (655559709) Osteoarthritis (M19.90) Active confirmed Problem Disorder of lumbar disc (326716120) Lumbar disc disease (M51.9) Active confirmed Problem Peripheral neuropathy (528877019) Peripheral neuropathy (G62.9) Active confirmed Problem Osteoporosis (24023821) Osteoporosis (M81.0) Active confirmed Problem Sacroiliitis (50813305) Sacroiliitis (M46.1) Active confirmed Problem Postherpetic neuralgia (1141176) 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) Active confirmed Problem Dyslipidemia (893541183) Dyslipidemia (E78.5) Active confirmed Problem Irritable bowel syndrome characterized by constipation (219437165) Irritable bowel syndrome with constipation (K58.1) Active confirmed Vital Signs Heart Rate 87 /min 08/28/2025 Blood pressure diastolic 70 mm Hg 08/28/2025 Height 65 in 08/28/2025 Blood pressure systolic 120 mm Hg 08/28/2025 Weight 112 lbs 08/28/2025 BMI 18.64 kg/m2 08/28/2025 Encounters Encounter Location Date Provider Diagnosis [facility] [address] [id number] 01/09/2025 Meenakshi Le Sacroiliitis M46.1 ; Gluteal tendinitis, left hip M76.02 ; Dyslipidemia E78.5 and Body mass index (BMI) of 19.0 to 19.9 in adult Z68.1 [facility] [address] [id number] 01/23/2025 R Param Le Gluteal tendinitis, left hip M76.02 ; Sacroiliitis M46.1 ; Vitamin B12 deficiency E53.8 and Body mass index (BMI) of 19.0 to 19.9 in adult Z68.1 [facility] [address] [id number] 02/08/2025 R Param Le Adult general medica l examination Z00.00 ; Gluteal tendinitis, left hip M76.02 ; Sacroiliitis M46.1 ; Vitamin D deficiency E55.9 ; Osteoporosis M81.0 ; Vitamin B12 deficiency E53.8 ; Dyslipidemia E78.5 and Body mass index (BMI) of 19.0 to 19.9 in adult Z68.1 [facility] [address] [place] [id number] 03/01/2025 R Param Rey Gluteal tendinitis, left hip M76.02 ; Sacroiliitis M46.1 and Body mass index (BMI) of 19.0 to 19.9 in adult Z68.1 [facility] [address] [place], [place] [id number] 04/17/2025 R Param Rey Peripheral neuropath y G62.9 [facility] [address] [place], [place] [id number] 06/22/2025 R Param [place] Encounter for immunization Z23 and Vitamin B 12 deficiency E53.8 [facility] [address] [place], [place] [id number] 08/28/2025 R Param Rey Right knee pain M25. 561 and B12 deficiency E53.8 [facility] [address] [place], [place] [id number] 10/02/2024 R Param Rey Closed nondisplaced fracture of fifth metatarsal bone of right foot, initial encounter S92.354A [facility] [address] [place] [id number] 10/12/2024 R Param Rey [facility] [address] [place], [place] [id number] 11/10/2024 R Param Rey Peripheral neuropath y G62.9 [facility] [address] [place], [place] [id number] 01/10/2025 R Param Rey [facility] [address] [place] [id number] 01/12/2025 R Param Rey [facility] [address] [place], [place] [id number] 01/15/2025 R Param Rey Sacroiliitis M46.1 [facility] [address] [place], [place] [id number] 01/15/2025 R Param Rey [facility] [address] [place] [id number] 02/06/2025 R Param Rey Vitamin D deficiency E55.9 ; Vitamin B12 deficiency E53.8 ; Seasonal allergies J30.2 and Dyslipidemia E78.5 [facility] [address] [place], [place] [id number] 02/13/2025 Akash Donalds Peripheral neuropath y G62.9 [facility] [address] [place], [place] [id number] 02/13/2025 R Param Rey [facility] [address] [place] [id number] 02/13/2025 R Param Rey Gluteal tendinitis, left hip M76.02 [facility] [address] [place], [place] [id number] 02/19/2025 Akash Donalds Sacroiliitis M46.1 [facility] [address] [place], [place] [id number] 03/12/2025 R Param Rey Peripheral neuropath y G62.9 [facility] [address] [place] [id number] 03/13/2025 R Param Rey [facility] [address] [place], [place] [id number] 04/11/2025 Akash Donalds [facility] [address] [place], [place] [id number] 04/24/2025 R Param Rey [facility] [address] [place] [id number] 05/04/2025 R Param Rey Peripheral neuropath y G62.9 [facility] [address] [facility] [address] [place], [place] [id number] 05/08/2025 R Param Seet [facility] [address] [facility] [address] [place], [place] [id number] 05/14/2025 R Param Mackeet [facility] [address] [facility] [address] [place] [id number] 08/30/2025 R Param Seet [facility] [address] [facility] [address] [place], [place] [id number] 09/06/2025 R Param Seet Assessments Encounter Date Diagnosis (ICD Code) Assessment Notes Treatment Notes Treatment Clinical Notes Section Notes 10/02/2024 Closed nondisplaced fracture of fifth metatarsal bone of right foot, initial encounter (ICD-10 - S92.354A) 11/10/2024 Peripheral neuropathy (ICD-10 - G62.9) 01/09/2025 Gluteal tendinitis, left hip (ICD-10 - M76.02) 01/09/2025 Sacroiliitis (ICD-10 - M46.1) 02/06/2025 Vitamin D deficiency (ICD-10 - E55.9) 02/06/2025 Vitamin B12 deficiency (ICD-10 - E53.8) 02/08/2025 Gluteal tendinitis, left hip (ICD-10 - M76.02) Continue physical therapy 02/13/2025 Peripheral neuropathy (ICD-10 - G62.9) 02/13/2025 Gluteal tendinitis, left hip (ICD-10 - M76.02) 03/01/2025 Gluteal tendinitis, left hip (ICD-10 - M76.02) Continue physical therapy 03/01/2025 Sacroiliitis (ICD-10 - M46.1) Continue chiropractic treatments 03/12/2025 Peripheral neuropathy (ICD-10 - G62.9) 04/17/2025 Peripheral neuropathy (ICD-10 - G62.9) She currently has medication at home and will try the new dosing schedule and let me know how her symptoms are doing. 05/04/2025 Peripheral neuropathy (ICD-10 - G62.9) 06/22/2025 Vitamin B 12 deficiency (ICD-10 - E53.8) 06/22/2025 Encounter for immunization (ICD-10 - Z23) 08/28/2025 B12 deficiency (ICD-10 - E53.8) 08/28/2025 Right knee pain (ICD-10 - M25.561) 02/08/2025 Adult general medical examination (ICD-10 - Z00.00) Patient instructed to return to office Annually for Annual Wellness Visits to include annual screenings of Pain assessment, Functional Ability assessment, Cognitive Ability assessment, Fall Risk assessment, Depression screening and Bladder control screening. 02/19/2025 Sacroiliitis (ICD-10 - M46.1) 01/23/2025 Gluteal tendinitis, left hip (ICD-10 - M76.02) Continue physical therapy 01/23/2025 Sacroiliitis (ICD-10 - M46.1) 01/15/2025 Sacroiliitis (ICD-10 - M46.1) 01/23/2025 Vitamin B12 deficiency (ICD-10 - E53.8) 03/01/2025 Body mass index (BMI) of 19.0 to 19.9 in adult (ICD-10 - Z68.1) 02/08/2025 Sacroiliitis (ICD-10 - M46.1) 02/06/2025 Seasonal allergies (ICD-10 - J30.2) 01/09/2025 Dyslipidemia (ICD-10 - E78.5) 01/09/2025 Body mass index (BMI) of 19.0 to 19.9 in adult (ICD-10 - Z68.1) 02/06/2025 Dyslipidemia (ICD-10 - E78.5) 02/08/2025 Vitamin D deficiency (ICD-10 - E55.9) 01/23/2025 Body mass index (BMI) of 19.0 to 19.9 in adult (ICD-10 - Z68.1) 02/08/2025 Osteoporosis (ICD-10 - M81.0) 02/08/2025 Vitamin [...] Date MEDICARE PART B [address] [address] [place] [address] [id number] Kristie Haas Self - patient is the insured [facility] [employer] C[employer] OPTIONS [address] [place] [address] [phone] [id number] Kristie Haas Self - patient is the insured Medications [...] 09/07/2024 1 mL B-12 01/23/2025 1 mL B-12 06/22/2025 1 mL B-12 08/28/2025 1 mL Depo- Medrol 40 mg/ml 04/12/2012 Medical (General) History Medical History History ICD Code Irritable Bowel Syndrome Vitamin B12 Deficiency Leukopenia Osteoporosis Lumbar Radiculopathy, Dr. Medrano Annual Mammogram, per Dr. Soni Lichen planus L43.9 Valium Rx intiated by Dr. Boyd for IB S/ [address] 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
[2025-09-12 10:44] LABS: Albumin Level 4.3 g/dl (3.5-5.0); Anion Gap 7.5 mEq/L (5-15); Blood Urea Nitrogen 10 mg/dl (7-17); Calcium 9.0 mg/dl (8.4-10.2); Carbon Dioxide 26 mmol/L (22.0-30.0); Chloride 96 mmol/L (98-107); Creatinine,Serum 0.60 mg/dl (0.52-1.04); Estimated Glomerular Filt Rate 98 ml/min (>60); GFR (African American) 118 ML/MIN (>60); Glucose 81 mg/dl (74-100); Phosphorous 4.2 mg/dl (2.5-4.5); Potassium 4.5 mmoL/L (3.5-5.1); Sodium 125 mmol/L (136-145)
[2025-09-12 11:01] LABS: 25-OH Vitamin D, Total 41.4 ng/mL (30-100)
== END 2025-09-12 23:59 | disposition home or self-care (01) ==
LOC: LAB 09:42
PROVIDERS: PCP Family Medicine; Visit Provider Internal Medicine Nephrology
DX: M81.0 Age-related osteoporosis without current pathological fracture (principal)
CPT/HCPCS: 36415; 80069; 82306; 82523; 84080

== ENCOUNTER 2025-09-17 12:50 | Outpatient (CLI) | payer MEDICARE, SELFPAY ==
--- OUTSIDE RECORDS SUMMARY | 2024-09-07 10:00 | XMS_ITS ---
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 The pain persisted, she saw her chlorination operator about 3 weeks ago and had plain x-rays that were apparently normal and she was diagnosed with a soft tissue strain. The pain was briefly better but has now become uncomfortable again to the point that she is limiting her activity. 74 year old female presents with c/o Pain. 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 * Surgical History: H emorrhoidectomy , [place] Teeth Extractions , Bone Biopsy 06/03/2012, C-Scope 2010, Normal C-Scope 2016. * Hospitalization/Major Diagno stic Procedure: D iarrhea- [facility] 11/21/2012, Constipation- [facility] ER 12/07/2012. * Family History: F ather: . M other: , colon cancer. 1 sister(s) . 1 daughter(s) . .? * Social History: C URRENT TOBACCO USE S moking Status: Patient does NOT smoke. C affeine: no, frequency:. Exercise: yes. Home smoke detector use: yes. Marital Status: . New since last visit: none. 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 Past smoking status: no, Smoking status: Does [...] Complex e/m visit add on, J3420 B-12, 60668 ADMINISTRATION OF INJECTION * Follow Up: v ia phone to report test results * Images: Billing Information: * Visit Code: 20228 Office Visit, Est Pt., Level 3. * Procedure Codes: G2211 Complex e/m visit add on. J3420 B-12. 95833 ADMINISTRATION OF INJECTION. * Electronic signature of Meenakshi Le MD on 09/17/2025 at 12:55 PM EST Sign off status: Pending * Provider: Meenakshi Le M.D. Date: 11/08/2023 Generated for Yohan rodriguez/James/Alistair on: 12:55 PM EST History and Physical Notes * HPI (History of Present Illness) Category Sub-Category Detail Notes Category Not es Ankle/Foot Pain She is due for a Prolia injection from her account financial manager but he advised her to rule out [...]
--- OUTSIDE RECORDS SUMMARY | 2025-01-09 08:30 | XMS_ITS ---
[facility] Address [address] [place] [phone] Care Team Providers Care Medicine Aide Name Role Phone Meenakshi Le Primary Care Provider Allergies Allergen (clinical drug ingredient) Drug/Non Drug Allergy documented on EMR Reaction Allergy Type Onset Date Status codeine Codeine Sulfate stomach upset but doesn't know for sure if she is Drug Allergy Active erythromycin Erythromycin stomach pain and diarrhea Drug Allergy Active Mold Unknown Allergy Active Reason For Referral Reason [facility] PT to evaluate g luteal pain/ gluteal tendonitis Diagnosis 1 Gluteal tendinitis, left hip (M76.02) [facility] Referring Provider First Name Meenakshi Virgen Referring Provider Last Name Rey Referring Provider Speciality Family Pra ctice Referred Provider Physical Therapy, . Referred Provider Specialty Physical The rapist General Notes Rosa Hernández 2024 08:57:22 AM > faxed to [facility] PT Referral Priority Routine REASON FOR [...] Encounter Location Date Provider Diagnosis [facility] [address] [phone] 01/09/2025 R Param Le Sacroiliitis M46.1 ; [...] 01/09/2025 Referrals Referral Date Details 01/09/2025 01/09/2025, [facility] PT t o evaluate gluteal pain/ gluteal tendonitis , . Physical Therapy Next Appt Details Follow Up: prn, Reason: Progress Notes * Kristie HAAS KDOB:[birth year] (75 yo F)Acc No.[id number]:01/09/2025 Progress Notes Patient: Kristie URBANO Provider: Meenakshi Le M.D. :1950 A ge:74 Y S ex:Female Date:01/09/2025 Address:[place], [id number] Subjective: * Chief Complaints: * 1 . 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 * Surgical History: H emorrhoidectomy , [place] Teeth Extractions , Bone Biopsy 06/03/2012, C-Scope 2010, Normal C-Scope 2016. * Hospitalization/Major Diagno stic Procedure: D iarrhea- [facility] 11/21/2012, Constipation- [facility] ER 12/07/2012. * Family History: F ather: . M other: , colon cancer. 1 sister(s) . 1 daughter(s) . .? * Social History: C URRENT TOBACCO USE S moking Status: Patient does NOT smoke. C affeine: no, frequency:. Exercise: yes. Home smoke detector use: yes. Marital Status: . New since last visit: none. 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 Past smoking status: no, Smoking status: Does [...] hip Referral To:. Physical Therapy Physical Therapist Reason:[facility] PT to evaluate gluteal pain/ gluteal tendonitis * Procedure Codes: G 2211 Complex e/m visit add on, 3074F SYST BP LT 130 MM HG, 3078F DIAST BP < 80 MM HG * Follow Up: p rn * Images: Billing Information: * Visit Code: 69594 Office Visit, Est Pt., Level 3. * Procedure Codes: G2211 Complex e/m visit add on. 3074F SYST BP LT 130 MM HG. 3078F DIAST BP < 80 MM HG. * Electronic signature of Meenakshi Le MD on 09/17/2025 at 12:55 PM EST Sign off status: Pending * Provider: Meenakshi Le M.D. Date: 0 01/09/2025 Generated for Yohan rodriguez/James/Michaelitting on: 1 12:55 PM EST History and Physical Notes * Examination Category Sub-Category Detail Notes Category Not es General Examination Extremities: She ambulate s with a slight limp. Range of motion of the hip is nearly full. There is tenderness to palpation over the ischium. General Appearance: NAD at rest Consultation Request Notes Referral Date Referring Provider Referred Provider Not es 01/09/2025 Meenakshi Le Physical Therapy, . [facility] PT to evaluate gluteal pain/ gluteal tendonitis
--- OUTSIDE RECORDS SUMMARY | 2025-01-23 09:15 | XMS_ITS ---
Author Organization [facility] Address [address] [facility] [address] [place] [phone] Care Team Providers Care Rotating Equipment Specialist Name Role Phone Meenakshi Le Primary Care Provider Allergies Allergen (clinical drug ingredient) Drug/Non Drug Allergy documented on EMR Reaction Allergy Type Onset Date Status codeine Codeine Sulfate stomach upset but doesn't know for sure if she is Drug Allergy Active erythromycin Erythromycin stomach pain and diarrhea Drug Allergy Active Mold Unknown Allergy Active REASON FOR VISIT check up, Needs labs & mammogram Medications Medication SIG (Take, Route, Frequency, Duration) Notes Start Date End Date Status HYDROcodone-Acetaminophen 5-325 MG 1/2 tablet Orally every 6 hrs prn 01/23/2025 Active MiraLax 17 GM/SCOOP as directed Orally Active Methocarbamol 750 MG 1 tablet Orally Fou r times a day 01/09/2025 Active Lactaid 3000 UNIT 1/2 tablet Orally On ce a day Active methylPREDNISolone 4 MG as directed Orally 025 Active valACYclovir HCl 1 GM 1 tab(s) orally Th ree times a day; Duration: 10 day(s) 01/28/2023 Not-Taking diazePAM 5 MG 1 tab(s) orally once a day as needed 01/12/2025 Active Pregabalin 50 MG 1 cap(s) orally Four times a day; Duration: 30 day(s) 11/10/2024 Active Meclizine HCl 25 MG 1 tab(s) orally 3 times a day prn; Duration: 30 day(s) 10/11/2020 Active Ondansetron 4 MG 1 tab(s) orally 3 times a day, prn; Duration: 30 day(s) Active Cyanocobalamin 1000 MCG/ML 1000 mcg intramuscularly once a month 07/09/2014 Active Calcium 600 + Minerals 600-200 MG-UNIT 10 tab(s) orally once daily Active Prolia 60 MG/ML 60 mg subcutaneously every 6 months Active Magnesium Carbonate 54 (Mag Equiv) MG/5ML 5 mL orally once a day Active Vital Signs Weight 117.6 lbs 01/23/2025 Blood pressure systolic 112 mm Hg 01/24/20 25 Blood pressure diastolic 80 mm Hg 025 Heart Rate 50 /min 01/23/2025 Height 65 in 01/23/2025 BMI 19.57 kg/m2 01/23/2025 Encounters Encounter Location Date Provider Diagnosis [facility] [address] [place] [phone] 01/23/2025 R Param Le Gluteal tendinitis, left hip M76.02 ; Sacroiliitis M46.1 ; Vitamin B12 deficiency E53.8 and Body mass index (BMI) of 19.0 to 19.9 in adult Z68.1 Assessments Encounter Date Diagnosis (ICD Code) Assessment Notes Treatment Notes Treatment Clinical Notes Section Notes 01/23/2025 Gluteal tendinitis, left hip (ICD-10 - M76.02) Continue physical therapy 01/23/2025 Sacroiliitis (ICD-10 - M46.1) 01/23/2025 Vitamin B12 deficiency (ICD-10 - E53.8) 01/23/2025 Body mass index (BMI) of 19.0 to 19.9 in adult (ICD-10 - Z68.1) Plan Of Treatment Medication Medication Name Sig Start Date Stop Date Notes HYDROcodone-Acetaminophen 5-325 MG 1/2 t ablet Orally every 6 hrs prn 01/23/2025 Methocarbamol 750 MG 1 tablet Orally Fou r times a day 01/09/2025 methylPREDNISolone 4 MG as directed Orally 01/23/2025 Treatment Notes Assessment Notes Gluteal tendinitis, left hip Continue ph ysical therapy Next Appt Details Follow Up: prn, Reason: Medications Administered Medication Instructions Date of Administration Dosage Notes B-12 01/23/2025 1 mL Progress Notes * Kristie HAAS KDOB:[birth year] (75 yo F)Acc No.[id number]:01/23/2025 Progress Notes Patient: Kristie URBANO Provider: Meenakshi Le M.D. :1950 A ge:74 Y S ex:Female Date:01/23/2025 Address:[facility] [place], [id number] Subjective: * Chief Complaints: * 1 . Check up. 2. Needs labs & mammogram. * HPI: H ip/Thigh: The pt is here for a follow-up on left hip pain. Pt states she is doing a little better. Pt states she is taking the muscle relaxer and that has helped some. Pt states she is taking the pain medication only as needed. Pt states she is having some pain in the right hip but not as severe as the left. She has been seen in physical therapy and started on some exercises. Since her last visit, she had a follow-up appointment with Dr. Banks and has been released from her care. She advised that it would be safe for her to take a round of steroids for her hip if needed. * ROS: D ERMATOLOGY: no R laura. 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 Soni for COTTON BALER. * Surgical History: H emorrhoidectomy , [place] Teeth Extractions , Bone Biopsy 06/03/2012, C-Scope 2010, Normal C-Scope 2016. * Hospitalization/Major Diagno stic Procedure: D iarrhea- [facility] 11/21/2012, Constipation- [facility] 12/07/2012. * Family History: F ather: . M other: , colon cancer. 1 sister(s) . 1 daughter(s) . .? * Social History: C URRENT TOBACCO USE S moking Status: Patient does NOT smoke. C affeine: no, frequency:. Exercise: yes. Home smoke detector use: yes. Marital Status: . New since last visit: none. 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 Past smoking status: no, Smoking status: Does [...] 10 tab(s) orally once daily , Taking Ondansetron 4 MG Tablet Disintegrating 1 tab(s) orally 3 times a day, prn , Taking Meclizine HCl 25 MG Tablet 1 tab(s) orally 3 times a day prn , Taking Pregabalin 50 MG Capsule 1 cap(s) orally Four times a day , Taking HYDROcodone-Acetaminophen 5-325 MG Tablet 1/2 tablet Orally every 6 hrs prn , Taking diazePAM 5 MG Tablet 1 tab(s) orally once a day as needed , Taking Methocarbamol 750 MG Tablet 1 tablet Orally Four times a day , Not-Taking valACYclovir HCl 1 GM Tablet 1 tab(s) orally Three times a day , Medication List reviewed and reconciled with the patient * Allergies: C odeine Sulfate: stomach upset but doesn't know for sure if she is, Mold, Erythromycin: stomach pain and diarrhea. Objective: * Vitals: W t: 117.6, Temp: 97.9, BP: 112/80, HR: 50, Nurse: KIZZY, Ht: 65, BMI:19.57. * Examination: G eneral Examination: General Appearance: N AD at rest. E xtremities: S he ambulates with a slight limp. Range of motion of the hip is nearly full. There is tenderness to palpation over the gluteus and ischium.. Assessment: * Assessment: 1. G luteal tendinitis, left hip - M76.02 2 . S acroiliitis - M46.1 ? 3 . V itamin B12 deficiency - E53.8 4 . B vitaly mass index (BMI) of 19.0 to 19.9 in adult - Z68.1 Plan: * Treatment: 2. S acroiliitis Refill HYDROcodone-Acetaminophen Tablet, 5-325 MG, 1/2 tablet, Orally, every 6 hrs prn, 15, Refills 0. * Therapeutic Injections: B-12 : 1 mL (Route: Intramuscular) given by Katja Willett on right gluteus (Vitamin B12 deficiency) * Procedure Codes: G 2211 Complex e/m visit add on, J3420 B-12, 98196 ADMINISTRATION OF INJECTION, 3074F SYST BP LT 130 MM HG, 3079F DIAST BP 80-89 MM HG * Follow Up: p rn * Images: Billing Information: * Visit Code: 80108 Office Visit, Est Pt., Level 3. Modifiers: 25 * Procedure Codes: G2211 Complex e/m visit add on. J3420 B-12. 97525 ADMINISTRATION OF INJECTION. 3074F SYST BP LT 130 MM HG. 3079F DIAST BP 80-89 MM HG. * Electronic signature of Meenakshi Le MD on 09/17/2025 at 12:55 PM EST Sign off status: Pending * Provider: Meenakshi Le M.D. Date: 0 01/23/2025 Generated for Yohan rodriguez/James/Michaelitting on: 1 12:55 PM EST History and Physical Notes * HPI (History of Present Illness) Category Sub-Category Detail Notes Category Not es Hip/Thigh Since her last visit, she had a follow-up appointment with Dr. Banks and has been released from her care. She advised that it would be safe for her to take a round of steroids for her hip if needed. Examination Category Sub-Category Detail Notes Category Not es General Examination Extremities: She ambulate s with a slight limp. Range of motion of the hip is nearly full. There is tenderness to palpation over the gluteus and ischium. General Appearance: NAD at rest
--- OUTSIDE RECORDS SUMMARY | 2025-02-08 08:30 | XMS_ITS ---
[facility] [address] [place] [phone] Care Team Providers Care Autobody Technician Name Role Phone Meenakshi Le Primary Care Provider Allergies Allergen (clinical drug ingredient) Drug/Non Drug Allergy documented on EMR Reaction Allergy Type Onset Date Status codeine Codeine Sulfate stomach upset but doesn't know for sure if she is Drug Allergy Active erythromycin Erythromycin stomach pain and diarrhea Drug Allergy Active Mold Unknown Allergy Active REASON FOR VISIT AWV Medications Medication SIG (Take, Route, Frequency, Duration) Notes Start Date End Date Status methylPREDNISolone 4 MG as directed Orally Active Pregabalin 50 MG 1 cap(s) orally Four times a day; Duration: 30 day(s) 11/10/2024 Active Meclizine HCl 25 MG 1 tab(s) orally 3 times a day prn; Duration: 30 day(s) 10/11/2020 Active diazePAM 5 MG 1 tab(s) orally once a day as needed 01/12/2025 Active valACYclovir HCl 1 GM 1 tab(s) orally Th ree times a day; Duration: 10 day(s) 01/28/2023 Not-Taking Ondansetron 4 MG 1 tab(s) orally 3 times a day, prn; Duration: 30 day(s) Active Magnesium Carbonate 54 (Mag Equiv) MG/5ML 5 mL orally once a day Active Cyanocobalamin 1000 MCG/ML 1000 mcg intramuscularly once a month 07/09/2014 Active Calcium 600 + Minerals 600-200 MG-UNIT 10 tab(s) orally once daily Active Prolia 60 MG/ML 60 mg subcutaneously every 6 months Active Methocarbamol 750 MG 1 tablet Orally Fou r times a day Active MiraLax 17 GM/SCOOP as directed Orally Active Lactaid 3000 UNIT 1/2 tablet Orally On ce a day Active HYDROcodone-Acetaminophen 5-325 MG 1/2 tablet Orally every 6 hrs prn 02/08/2025 Active Vital Signs Weight 114.2 lbs 02/08/2025 Blood pressure systolic 110 mm Hg 02/09/20 25 Blood pressure diastolic 76 mm Hg 025 Heart Rate 64 /min 02/08/2025 Height 65 in 02/08/2025 BMI 19 kg/m2 02/08/2025 Encounters Encounter Location Date Provider Diagnosis [facility] [address] [facility] [address] [place] [phone] 02/08/2025 R Param Le Adult general medica l examination Z00.00 ; Gluteal tendinitis, left hip M76.02 ; Sacroiliitis M46.1 ; Vitamin D deficiency E55.9 ; Osteoporosis M81.0 ; Vitamin B12 deficiency E53.8 ; Dyslipidemia E78.5 and Body mass index (BMI) of 19.0 to 19.9 in adult Z68.1 Assessments Encounter Date Diagnosis (ICD Code) Assessment Notes Treatment Notes Treatment Clinical Notes Section Notes 02/08/2025 Adult general medical examination (ICD-10 - Z00.00) Patient instructed to return to office Annually for Annual Wellness Visits to include annual screenings of Pain assessment, Functional Ability assessment, Cognitive Ability assessment, Fall Risk assessment, Depression screening and Bladder control screening. 02/08/2025 Gluteal tendinitis, left hip (ICD-10 - M76.02) Continue physical therapy 02/08/2025 Sacroiliitis (ICD-10 - M46.1) 02/08/2025 Vitamin D deficiency (ICD-10 - E55.9) 02/08/2025 Osteoporosis (ICD-10 - M81.0) 02/08/2025 Vitamin B12 deficiency (ICD-10 - E53.8) 02/08/2025 Dyslipidemia (ICD-10 - E78.5) 02/08/2025 Body mass index (BMI) of 19.0 to 19.9 in adult (ICD-10 - Z68.1) Plan Of Treatment Medication Medication Name Sig Start Date Stop Date Notes methylPREDNISolone 4 MG as directed Orally Methocarbamol 750 MG 1 tablet Orally Fou r times a day HYDROcodone-Acetaminophen 5-325 MG 1/2 t ablet Orally every 6 hrs prn 02/08/2025 Treatment Notes Assessment Notes Adult general medical examination Patien t instructed to return to office Annually for Annual Wellness Visits to include annual screenings of Pain assessment, Functional Ability assessment, Cognitive Ability assessment, Fall Risk assessment, Depression screening and Bladder control screening. Gluteal tendinitis, left hip Continue ph ysical therapy Next Appt Details Follow Up: 4 Weeks, prn, [place] son: Progress Notes * Kristie HAAS KDOB:[birth year] (75 yo F)Acc No.[id number]:02/08/2025 Annual Wellness Visit Patient: Kristie URBANO Provider: Meenakshi Le M.D. :1950 A ge:74 Y S ex:Female Date:02/08/2025 Address:[place] [place] , [place], [id number] Subjective: * Chief Complaints: * 1 . AWV. * HPI: R heumatology: She returns for follow-up on her left hip pain. She did see significant improvement with the steroid pack and has only had 1 visit with physical therapy. However, the day following physical therapy, her hip pain was worse and has steadily worsened since then and is limiting her mobility. P sychology: She is under increased stress due to her 's worsening cognitive decline. * ROS: D ERMATOLOGY: no R laura. n o H daniella. G ASTROENTEROLOGY: no N ausea. n o V omiting. n o D iarrhea.? O PTHALMOLOGY: Negative for d enies vision issues. U ROLOGY: no D ifficulty urinating. n o B lood in urine. * Medical History: I rritable Bowel Syndrome, Vitamin B12 Deficiency, Leukopenia, Osteoporosis, Lumbar Radiculopathy, Dr. Medrano, Annual Mammogram, per Dr. Soni, Lichen planus, Valium Rx intiated by Dr. 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 * Surgical History: H emorrhoidectomy , [place] Teeth Extractions , Bone Biopsy 06/03/2012, C-Scope 2010, Normal C-Scope 2016. * Hospitalization/Major Diagno stic Procedure: D iarrhea- [facility] 11/21/2012, Constipation- [facility] ER 12/07/2012. * Family History: F ather: . M other: , colon cancer. 1 sister(s) . 1 daughter(s) . .? * Social History: C URRENT TOBACCO USE S moking Status: Patient does NOT smoke. C affeine: no, frequency:. Exercise: yes. Home smoke detector use: yes. Marital Status: . New since last visit: none. 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 Past smoking status: no, Smoking status: Does [...] orally Four times a day , Taking diazePAM 5 MG Tablet 1 tab(s) orally once a day as needed , Taking HYDROcodone-Acetaminophen 5-325 MG Tablet 1/2 tablet Orally every 6 hrs prn , Taking methylPREDNISolone 4 MG Tablet Therapy Pack as directed Orally , Taking Methocarbamol 750 MG Tablet 1 tablet Orally Four times a day , Not-Taking valACYclovir HCl 1 GM Tablet 1 tab(s) orally Three times a day , Medication List reviewed and reconciled with the patient * Allergies: C odeine Sulfate: stomach upset but doesn't know for sure if she is, Mold, Erythromycin: stomach pain and diarrhea. Objective: * Vitals: W t: 114.2, Temp: 98.0, BP: 110/76, HR: 64, Nurse: dano, Ht: 65, BMI:19. * Examination: G eneral Examination: General Appearance: S eems more anxious. Tearful at times.. E xtremities: S he ambulates with a slight limp. Range of motion of the hip is nearly full. There is tenderness to palpation over the gluteus and ischium.. ? * Physical Examination: G ENERAL: Pain Assessment: P ain level: 99 (acute), on a scale of 0-10 (with 10 being extreme pain). F unctional Status Assessment: P atient response to question of how often physical health interferes with daily activities: . Almost never Able to perform ADLs-including meal preparation, grocery shopping, housework, laundry, taking medications or handling finances. Cognitive Status: alert and oriented. Ambulation Status: Fully ambulatory . F all Risk Assessment: I ndependant in ambulation, adequate lighting in home. Patient has NOT fallen or had trouble walking within the past 12 months. D epression Screening: D andriy depressed mood or anxiety. Describes emotional health as: positive. B ladder Control Screening: D andriy problems. Assessment: * Assessment: 1. A dult general medical examination - Z00.00 (Primary) 2 . G luteal tendinitis, left hip - M76.02 3 . S acroiliitis - M46.1 4 . V itamin D deficiency - E55.9 5 . O steoporosis - M81.0 6 . V itamin B12 deficiency - E53.8 7 . D yslipidemia - E78.5 8 . B vitaly mass index (BMI) of 19.0 to 19.9 in adult - Z68.1 Plan: * Treatment: 2. G luteal tendinitis, left hip Start methylPREDNISolone Tablet Therapy Pack, 4 MG, as directed, Orally, 1; C ontinue Methocarbamol Tablet, 750 MG, 1 tablet, Orally, Four times a day. Notes: Continue physical therapy 3. S acroiliitis Refill HYDROcodone-Acetaminophen Tablet, 5-325 MG, 1/2 tablet, Orally, every 6 hrs prn, 24, Refills 0. * Procedure Codes: G 0439 ANNUAL WELLNESS VST; PPS SUBSQT VST, G2211 Complex e/m visit add on, 1090F PRES/ABSN URINE INCON ASSESS, 3288F FALL RISK ASSESSMENT DOCD, 1170F FXNL STATUS ASSESSED, 1159F MED LIST DOCD IN RCRD, 1003F LEVEL OF ACTIVITY ASSESS, 1036F TOBACCO NON-USER, 3017F COLORECTAL CA SCREEN DOC REV, 1125F AMNT PAIN NOTED PAIN PRSNT, 3074F SYST BP LT 130 MM HG, 3078F DIAST BP < 80 MM HG, G8783 BP SCR PRFRM RCMDD DEFIND SCR INTVL, M1153 Pt w/ dx osteo perez * Preventive Medicine: Counseling: E motional health: D iscussed ways to improve socialization. B ladder control: M ethods of controlling or managing leakage of urine discussed. E xercise: Patient advised to start, increase or maintain level of exercise/physical activity. I njury prevention: F all prevention discussed. Discussed need for cane/walker. Potential trip hazards discussed. Immunizations: T etanus u p to date. P neumococcal r ecommended. I nfluenza u p to date. C OVID-19 u p to date. Screening / Special Tests: M ammogram R ecent history: 01/21/2022, negative, recommended today. C olonoscopy R ecent history: 11/01/2023, polyps, hemorrhoids. B one mineral Density R ecent history: 08/09/2024, osteoporosis, recommended repeat 1 year. * Follow Up: 4 Weeks, prn * Images: Billing Information: * Visit Code: 57873 Office Visit, Est Pt., Level 3. Modifiers: 25 * Procedure Codes: G0439 ANNUAL WELLNESS VST; PPS SUBSQT VST. G2211 Complex e/m visit add on. 1090F PRES/ABSN URINE INCON ASSESS. 3288F FALL RISK ASSESSMENT DOCD. 1170F FXNL STATUS ASSESSED. 1159F MED LIST DOCD IN RCRD. 1003F LEVEL OF ACTIVITY ASSESS. 1036F TOBACCO NON-USER. 3017F COLORECTAL CA SCREEN DOC REV. 1125F AMNT PAIN NOTED PAIN PRSNT. 3074F SYST BP LT 130 MM HG. 3078F DIAST BP < 80 MM HG. G8783 BP SCR PRFRM RCMDD DEFIND SCR INTVL. M1153 Pt w/ dx osteo perez. * Electronic signature of Meenakshi Le MD on 09/17/2025 at 12:54 PM EST Sign off status: Pending * Provider: Meenakshi Le M.D. Date: 0 02/08/2025 Generated for Tianai jennifer/James/eTransmitting on: 1 12:54 PM EST History and Physical Notes * Physical Examination Category Sub-Category Detail Notes Section Note s GENERAL Pain Assessment: Pain level: 99 (acute), on a scale of 0-10 (with 10 being extreme pain) Functional Status Assessment: Patient response to question of how often physical health interferes with daily activities: . Almost never Able to perform ADLs-including meal preparation, grocery shopping, housework, laundry, taking medications or handling finances. Cognitive Status: alert and oriented. Ambulation Status: Fully ambulatory Fall Risk Assessment: Independant in amb ulation, adequate lighting in home. Patient has NOT fallen or had trouble walking within the past 12 months Depression Screening: Denies depressed m ood or anxiety. Describes emotional health as: positive Bladder Control Screening: Denies proble ms Examination Category Sub-Category Detail Notes Category Not es General Examination Extremities: She ambulate s with a slight limp. Range of motion of the hip is nearly full. There is tenderness to palpation over the gluteus and ischium. General Appearance: Seems more anxious. Tearful at times.
--- OUTSIDE RECORDS SUMMARY | 2025-03-01 10:15 | XMS_ITS ---
[facility] Address [address] [facility] [address] [place] [id number] Care Team Providers Care Health Unit Clerk Name Role Phone Meenakshi Le Primary Care Provider Allergies Allergen (clinical drug ingredient) Drug/Non Drug Allergy documented on EMR Reaction Allergy Type Onset Date Status codeine Codeine Sulfate stomach upset but doesn't know for sure if she is Drug Allergy Active erythromycin Erythromycin stomach pain and diarrhea Drug Allergy Active Mold Unknown Allergy Active REASON FOR VISIT discuss meds, needs mammogram Medications Medication SIG (Take, Route, Frequency, Duration) Notes Start Date End Date Status HYDROcodone-Acetaminophen 5-325 MG 1/2 tablet Orally every 6 hrs prn Active Calcium 600 + Minerals 600-200 MG-UNIT 10 tab(s) orally once daily Active Methocarbamol 750 MG 1 tablet Orally Fou r times a day Active Magnesium Carbonate 54 (Mag Equiv) MG/5ML 5 mL orally once a day Active Prolia 60 MG/ML 60 mg subcutaneously every 6 months Active Pregabalin 50 MG 1 cap(s) orally Four times a day; Duration: 30 days 02/13/2025 Active Cyanocobalamin 1000 MCG/ML 1000 mcg intramuscularly once a month 07/09/2014 Active Lactaid 3000 UNIT 1/2 tablet Orally On ce a day Active MiraLax 17 GM/SCOOP as directed Orally Active valACYclovir HCl 1 GM 1 tab(s) orally Th ree times a day; Duration: 10 day(s) 01/28/2023 Not-Taking Ondansetron 4 MG 1 tab(s) orally 3 times a day, prn; Duration: 30 day(s) Active methylPREDNISolone 4 MG as directed Orally Active Meclizine HCl 25 MG 1 tab(s) orally 3 times a day prn; Duration: 30 day(s) 10/11/2020 Active diazePAM 5 MG 1 tab(s) orally once a day as needed 01/12/2025 Active Vital Signs Weight 110 lbs 03/01/2025 Blood pressure systolic 112 mm Hg 03/01/20 25 Blood pressure diastolic 70 mm Hg 025 Heart Rate 79 /min 03/01/2025 Height 65 in 03/01/2025 BMI 18.3 kg/m2 03/01/2025 Encounters Encounter Location Date Provider Diagnosis [facility] [address] [place] [phone] 03/01/2025 Meenakshi Le Gluteal tendinitis, left hip M76.02 ; Sacroiliitis M46.1 and Body mass index (BMI) of 19.0 to 19.9 in adult Z68.1 Assessments Encounter Date Diagnosis (ICD Code) Assessment Notes Treatment Notes Treatment Clinical Notes Section Notes 03/01/2025 Gluteal tendinitis, left hip (ICD-10 - M76.02) Continue physical therapy 03/01/2025 Sacroiliitis (ICD-10 - M46.1) Continue chiropractic treatments 03/01/2025 Body mass index (BMI) of 19.0 to 19.9 in adult (ICD-10 - Z68.1) Plan Of Treatment Medication Medication Name Sig Start Date Stop Date Notes HYDROcodone-Acetaminophen 5- 325 MG 1/2 tablet Orally every 6 hrs prn Methocarbamol 750 MG 1 tablet Orally Fou r times a day Treatment Notes Assessment Notes Gluteal tendinitis, left hip Continue ph ysical therapy Sacroiliitis Continue chiropracti c treatments Next Appt Details Follow Up: prn, Reason: Progress Notes * Kristie HAAS KDOB:[birth year] (75 yo F)Acc No.[id number]:03/01/2025 Progress Notes Patient: Kristie URBANO Provider: Meenakshi Le M.D. :1950 A ge:74 Y S ex:Female Date:03/01/2025 Address:[place], [id number] Subjective: * Chief Complaints: * 1 . Discuss meds. 2. Needs mammogram. * HPI: H PI: Luz returns for follow-up and is finally beginning to feel better. She did not follow through with her physical therapy appointments but has been seeing a chiropractor and starting to see improvement. She is back to doing some water aerobics and walking about a half a mile a day. She is resting better at night. She is weaning off the muscle relaxers and pain medication. She has lost 4 pounds since her last visit but states her appetite is finally beginning to improve. Bowel movements have normalized. * ROS: D ERMATOLOGY: no R laura. [...] IBS/ 2012, Follows with Dr. Soni for PATROL MAN. * Surgical History: H emorrhoidectomy , [place] Teeth Extractions , Bone Biopsy 06/03/2012, C-Scope 2010, Normal C-Scope 2016. * Hospitalization/Major Diagno stic Procedure: D iarrhea- [facility] 11/21/2012, Constipation- [facility] ER 12/07/2012. * Family History: F ather: [...] once a day as needed , Taking methylPREDNISolone 4 MG Tablet Therapy Pack as directed Orally , Taking Pregabalin 50 MG Capsule 1 cap(s) orally Four times a day , Taking Methocarbamol 750 MG Tablet 1 tablet Orally Four times a day , Taking HYDROcodone-Acetaminophen 5- 325 MG Tablet 1/2 to 1 tablet Orally every 6 hrs prn , Not-Taking valACYclovir HCl 1 GM Tablet 1 tab(s) orally Three times a day , Medication List reviewed and reconciled with the patient * Allergies: C odeine Sulfate: stomach upset but doesn't know for sure if she is, Mold, Erythromycin: stomach pain and diarrhea. Objective: * Vitals: W t: 110, Temp: 97.6, BP: 112/70, HR: 79, Nurse: dano, Ht: 65, BMI:18.3. * Examination: G eneral Examination: A ffect is much better today. She ambulates without a limp. Assessment: * Assessment: 1. S acroiliitis - M46.1 (Primary) 2 . G luteal tendinitis, left hip - M76.02 3 . B vitaly mass index (BMI) of 19.0 to 19.9 in adult - Z68.1 Plan: * Treatment: 2. G luteal tendinitis, left hip Wean Methocarbamol Tablet, 750 MG, 1 tablet, Orally, Four times a day. Notes: Continue physical therapy * Procedure Codes: Popeye 2211 Complex e/m visit add on, 1036F TOBACCO NON-USER, G8783 BP SCR PRFRM RCMDD DEFIND SCR INTVL, G8752 MOST RECENT SYSTOLIC BP < 140MM HG, G8754 MOST RECENT DIASTOLIC BP < 90MM HG * Follow Up: p rn * Images: Billing Information: * Visit Code: 32455 Office Visit, Est Pt., Level 3. * Procedure Codes: G2211 Complex e/m visit add on. 1036F TOBACCO NON-USER. G8783 BP SCR PRFRM RCMDD DEFIND SCR INTVL. G8752 MOST RECENT SYSTOLIC BP < 140MM HG. G8754 MOST RECENT DIASTOLIC BP < 90MM HG. * Electronic signature of Meenakshi Le MD on 09/17/2025 at 12:53 PM EST Sign off status: Pending * Provider: Meenakshi Le M.D. Date: 0 03/01/2025 Generated for Yohan rodriguez/aJmes/Michaelitting on: 1 12:53 PM EST History and Physical Notes * HPI (History of Present Illness) Category Sub-Category Detail Notes Category Not es HPI Luz returns for follow-up and is finally beginning to feel better. She did not follow through with her physical therapy appointments but has been seeing a chiropractor and starting to see improvement. She is back to doing some water aerobics and walking about a half a mile a day. She is resting better at night. She is weaning off the muscle relaxers and pain medication. She has lost 4 pounds since her last visit but states her appetite is finally beginning to improve. Bowel movements have normalized. Examination Category Sub-Category Detail Notes Category Not es General Examination Affect i s much better today. She ambulates without a limp.
--- OUTSIDE RECORDS SUMMARY | 2025-04-17 10:00 | XMS_ITS ---
Author Organization [facility] Address [address] [facility] [address] [place] [phone] Care Team Providers Care Bowling Ball Mold Assembler Name Role Phone Meenakshi Le Primary Care Provider Allergies Allergen (clinical drug ingredient) Drug/Non Drug Allergy documented on EMR Reaction Allergy Type Onset Date Status codeine Codeine Sulfate stomach upset but doesn't know for sure if she is Drug Allergy Active erythromycin Erythromycin stomach pain and diarrhea Drug Allergy Active Mold Unknown Allergy Active REASON FOR VISIT discuss medication Medications Medication SIG (Take, Route, Frequency, Duration) Notes Start Date End Date Status Pregabalin 50 MG 1 cap AM, 2 caps noo n, 1 cap evening, 1 cap hs orally 03/15/2025 Active Magnesium Carbonate 54 (Mag Equiv) MG/5ML 5 mL orally once a day Active Cyanocobalamin 1000 MCG/ML 1000 mcg intramuscularly once a month 07/09/2014 Active MiraLax 17 GM/SCOOP as directed Orally Active Lactaid 3000 UNIT 1/2 tablet Orally On ce a day Active Methocarbamol 750 MG 1 tablet Orally Fou r times a day Active valACYclovir HCl 1 GM 1 tab(s) orally Th ree times a day; Duration: 10 day(s) 01/28/2023 Not-Taking HYDROcodone-Acetaminophe n 5-325 MG 1/2 tablet Orally every 6 hrs prn Active diazePAM 5 MG 1 tablet as needed Orally Once a day; Duration: 30 days 04/12/2025 Active Meclizine HCl 25 MG 1 tab(s) orally 3 ti mes a day prn; Duration: 30 day(s) 10/11/2020 Active Ondansetron 4 MG 1 tab(s) orally 3 ti mes a day, prn; Duration: 30 day(s) Active Calcium 600 + Minerals 600-200 MG-UNIT 10 tab(s) orally once daily Active Prolia 60 MG/ML 60 mg subcutaneously every 6 months Active Vital Signs Weight 106.8 lbs 04/17/2025 Blood pressure systolic 116 mm Hg 04/17/20 25 Blood pressure diastolic 72 mm Hg 025 Heart Rate 57 /min 04/17/2025 Height 65 in 04/17/2025 BMI 17.77 kg/m2 04/17/2025 Encounters Encounter Location Date Provider Diagnosis [facility] [address] [place] [phone] 04/17/2025 Meenakshi Le Peripheral neuropath y G62.9 Assessments Encounter Date Diagnosis (ICD Code) Assessment Notes Treatment Notes Treatment Clinical Notes Section Notes 04/17/2025 Peripheral neuropathy (ICD-10 - G62.9) She currently has medication at home and will try the new dosing schedule and let me know how her symptoms are doing. Plan Of Treatment Medication Medication Name Sig Start Date Stop Date Notes Pregabalin 50 MG 1 cap AM, 2 caps noo n, 1 cap evening, 1 cap hs orally 03/15/2025 Treatment Notes Assessment Notes Peripheral neuropathy She currently has medication at home and will try the new dosing schedule and let me know how her symptoms are doing. Next Appt Details Follow Up: via phone to repo rt progress, Reason: Progress Notes * WALDO Kristie KDOB:[birth year] (75 yo F)Acc No.[id number]:04/17/2025 Progress Notes Patient: Kristie URBANO Provider: Meenakshi Le M.D. :1950 A ge:74 Y S ex:Female Date:04/17/2025 Address:[id number] Subjective: * Chief Complaints: * 1 . Discuss medication. * HPI: N eurology: Overall, her back and hip pain is improved but not completely resolved. She is having some ongoing issues with her neuropathy and would like to try increasing her pregabalin. Symptoms tend to be worse in the early afternoon. * ROS: D ERMATOLOGY: no R laura. 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 * Surgical History: H emorrhoidectomy , [place] Teeth Extractions , Bone Biopsy 06/03/2012, C-Scope 2010, Normal C-Scope 2016. * Hospitalization/Major Diagno stic Procedure: D iarrhea- [facility] 11/21/2012, Constipation- [facility] ER 12/07/2012. * Family History: F ather: . M other: , colon cancer. 1 sister(s) . 1 daughter(s) . .? * Social History: C URRENT TOBACCO USE S moking Status: Patient does NOT smoke. C affeine: no, frequency:. Exercise: yes. Home smoke detector use: yes. Marital Status: . New since last visit: none. 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 Past smoking status: no, Smoking status: Does [...] 3 times a day prn , Taking Methocarbamol 750 MG Tablet 1 tablet Orally Four times a day , Taking HYDROcodone-Acetaminophen 5-325 MG Tablet 1/2 tablet Orally every 6 hrs prn , Taking Pregabalin 50 MG Capsule 1 cap(s) orally Four times a day , Taking diazePAM 5 MG Tablet 1 tablet as needed Orally Once a day , Not-Taking valACYclovir HCl 1 GM Tablet 1 tab(s) orally Three times a day , Discontinued methylPREDNISolone 4 MG Tablet Therapy Pack as directed Orally , Medication List reviewed and reconciled with the patient * Allergies: C odeine Sulfate: stomach upset but doesn't know for sure if she is, Mold, Erythromycin: stomach pain and diarrhea. Objective: * Vitals: W t: 106.8, Temp: 97.5, BP: 116/72, HR: 57, Nurse: river, Ht: 65, BMI:17.77. Assessment: * Assessment: 1. P eripheral neuropathy - G62.9 (Primary) Plan: * Treatment: * Procedure Codes: G 2211 Complex e/m visit add on, 1036F TOBACCO NON-USER, G8783 BP SCR PRFRM RCMDD DEFIND SCR INTVL, G8752 MOST RECENT SYSTOLIC BP < 140MM HG, G8754 MOST RECENT DIASTOLIC BP < 90MM HG * Follow Up: v ia phone to report progress * Images: Billing Information: * Visit Code: 48442 Office Visit, Est Pt., Level 3. * Procedure Codes: G2211 Complex e/m visit add on. 1036F TOBACCO NON-USER. G8783 BP SCR PRFRM RCMDD DEFIND SCR INTVL. G8752 MOST RECENT SYSTOLIC BP < 140MM HG. G8754 MOST RECENT DIASTOLIC BP < 90MM HG. * Electronic signature of Meenakshi eL MD on 09/17/2025 at 12:54 PM EST Sign off status: Pending * Provider: Meenakshi Le M.D. Date: 0 04/17/2025 Generated for Yohan rodriguez/James/Michaelitting on: 1 12:54 PM EST History and Physical Notes * HPI (History of Present Illness) Category Sub-Category Detail Notes Category Not es Neurology Overall, her ba ck and hip pain is improved but not completely resolved. She is having some ongoing issues with her neuropathy and would like to try increasing her pregabalin. Symptoms tend to be worse in the early afternoon
--- OUTSIDE RECORDS SUMMARY | 2025-06-22 03:10 | XMS_ITS ---
Author Organization [facility] Address [address] [facility] [address] [place] [phone] Care Team Providers Care Extension Course Coordinator Name Role Phone Meenakshi Le Primary Care Provider REASON FOR VISIT flu and B12 shot Medications Medication SIG (Take, Route, Frequency, Duration) Notes Start Date End Date Status Lactaid 3000 UNIT 1/2 tablet Orally On ce a day Active diazePAM 5 MG 1 tablet as needed Orally Once a day; Duration: 30 days 05/14/2025 Active MiraLax 17 GM/SCOOP as directed Orally Active valACYclovir HCl 1 GM 1 tab(s) orally Th ree times a day; Duration: 10 day(s) 01/28/2023 Not-Taking Cyanocobalamin 1000 MCG/ML 1000 mcg intramuscularly once a month 07/09/2014 Active Ondansetron 4 MG 1 tab(s) orally 3 ti mes a day, prn; Duration: 30 day(s) Active Meclizine HCl 25 MG 1 tab(s) orally 3 ti mes a day prn; Duration: 30 day(s) 10/11/2020 Active Methocarbamol 750 MG 1 tablet Orally Fou r times a day Active HYDROcodone-Acetaminophe n 5-325 MG 1/2 tablet Orally every 6 hrs prn Active Pregabalin 50 MG 1 cap AM, 2 caps noo n, 1 cap evening, 1 cap hs orally; Duration: 30 days 05/08/2025 Active Calcium 600 + Minerals 600-200 MG-UNIT 10 tab(s) orally once daily Active Magnesium Carbonate 54 (Mag Equiv) MG/5ML 5 mL orally once a day Active Prolia 60 MG/ML 60 mg subcutaneously every 6 months Active Immunizations Vaccine Route Administration Date Status Comme nts Fluzone High Dose (65yr and older) IM Intramuscular 06/22/2025 Administered Encounters Encounter Location Date Provider Diagnosis [facility] [address] [place] [phone] 06/22/2025 Meenakshi Le Encounter for immunization Z23 and Vitamin B 12 deficiency E53.8 Assessments Encounter Date Diagnosis (ICD Code) Assessment Notes Treatment Notes Treatment Clinical Notes Section Notes 06/22/2025 Encounter for immunization (ICD-10 - Z23) 06/22/2025 Vitamin B 12 deficiency (ICD-10 - E53.8) Plan Of Treatment No Information Medications Administered Medication Instructions Date of Administration Dosage Notes B-12 06/22/2025 1 mL Progress Notes * Kristie HAAS KDOB:[birth year] (75 yo F)Acc No.[id number]:06/22/2025 Patient: Kristie URBANO Provider: Meenakshi Le M.D. :1950 A ge:74 Y S ex:Female Date:06/22/2025 Address:[facility] [id number] Subjective: * Chief Complaints: * 1 . flu and B12 shot. * Medical History: * Medications: T aking Lactaid 3000 UNIT [...] , Taking Pregabalin 50 MG Capsule 1 cap AM, 2 caps noon, 1 cap evening, 1 cap hs orally , Taking diazePAM 5 MG Tablet 1 tablet as needed Orally Once a day , Not-Taking valACYclovir HCl 1 GM Tablet 1 tab(s) orally Three times a day , Medication List reviewed and reconciled with the patient Objective: * Vitals: Assessment: * Assessment: 1. E ncounter for immunization - Z23 (Primary) 2 . V itamin B 12 deficiency - E53.8 Plan: * Treatment: * Immunizations: Fluzone High Dose (65yr and older) : 0.5 mL (Route: Intramuscular) given by REBEKAH Brown , Boil Off Worker on Left Deltoid (Encounter for immunization) * Therapeutic Injections: B-12 : 1 mL (Route: Intramuscular) given by REBEKAH Brown on right deltoid (Vitamin B 12 deficiency) * Procedure Codes: J 3420 B-12, 28274 ADMINISTRATION OF INJECTION * Images: Billing Information: * Visit Code: * Procedure Codes: J3420 B-12. 29796 ADMINISTRATION OF INJECTION. * Electronic signature of Meenakshi Le MD on 09/17/2025 at 12:55 PM EST Sign off status: Pending * Provider: Meenakshi Le M.D. Date: Generated for Yohan rodriguez/James/Alistair on: 12:55 PM EST
--- OUTSIDE RECORDS SUMMARY | 2025-08-28 09:15 | XMS_ITS ---
Author Organization [facility] Address [address] [facility] [address] [place] [phone] Care Team Providers Care Metal Fabricator Helper Name Role Phone Meenakshi Le Primary Care Provider [phone] Allergies Allergen (clinical drug ingredient) Drug/Non Drug [...] 08/28/2025 Encounters Encounter Location Date Provider Diagnosis [facility] [address] [place] [phone] 08/28/2025 Meenakshi Le Right knee pain M25.561 [...] * Kristie HAAS KDOB:[birth year] (75 yo F)Acc No.[id number]:08/28/2025 Progress Notes Patient: Kristie URBANO Provider: Meenakshi Le M.D. 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 * Surgical History: H emorrhoidectomy , [place] Teeth Extractions , Bone Biopsy 06/03/2012, C-Scope 2010, Normal C-Scope 2016. * Hospitalization/Major Diagno stic Procedure: D iarrhea- [facility] 11/21/2012, Constipation- [facility] ER 12/07/2012. * Family History: F ather: . M other: , colon cancer. 1 sister(s) . 1 daughter(s) . .? * Social History: C URRENT TOBACCO USE S moking Status: Patient does NOT smoke. C affeine: no, frequency:. Exercise: yes. Home smoke detector use: yes. Marital Status: . New since last visit: none. 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 Past smoking status: no, Smoking status: Does [...] Complex e/m visit add on, J3420 B-12, 82411 ADMINISTRATION OF INJECTION, G8797 BP SCR PRFRM RCMDD DEFIND SCR INTVL, G8752 MOST RECENT SYSTOLIC BP < 140MM HG, G8754 MOST RECENT DIASTOLIC BP < 90MM HG, 3074F SYST BP LT 130 MM HG, 3078F DIAST BP < 80 MM HG * Follow Up: v ia phone to report test results * Images: Billing Information: * Visit Code: 83928 Office Visit, Est Pt., Level 3. Modifiers: 25 * Procedure Codes: G2211 Complex e/m visit add on. J3420 B-12. 17681 ADMINISTRATION OF INJECTION. G8783 BP SCR PRFRM [...] Date: 10/29/2024 Generated for Yohan rodriguez/James/Juanchosmitting on: 12:53 PM EST History and Physical Notes [...]
--- OUTSIDE RECORDS SUMMARY | 2025-08-30 13:42 | XMS_ITS | Encounter Summary ---
[facility] [address] [place] [address] Care Team Providers Care Test Engine Operator Name Role Phone Felix Le MD Primary Care Provider Reason for Referral * Diagnostic Imaging (Routine) - Closed Specialty Diagnoses / Procedures Referred By Zuleyma padilla Referred To Contact Radiology Diagnoses Visit for screening mammogram Procedures Mammo Screening Digital Tomosynthesis Bilateral With CAD Shameka Soni MD [address] [place] [address] Phone: tel: fax: Referral ID Status Reason Start Date Expiration Date Visits Re quested Visits Authorized [id number] Closed 01/17/2025 04/18/2026 1 1 Reason for Visit * Diagnostic Imaging (Routine) - Closed Specialty Diagnoses / Procedures Referred By Zuleyma padilla Referred To Contact Radiology Diagnoses Visit for screening mammogram Procedures Mammo Screening Digital Tomosynthesis Bilateral With CAD Shameka Soni MD [address] [place] [address] Phone: tel: fax: Referral ID Status Reason Start Date Expiration Date Visits Re quested Visits Authorized [id number] Closed 01/17/2025 04/18/2026 1 1 Encounter Details Date Type Department Care Team (Latest Contact Info) Description 08/30/2025 1:42 PM EST - 08/30/2025 11:59 PM EST Hospital Encounter [facility] [address] [address] Shameka Soni MD [address] [facility] [address] [place] [address] Visit for screening mammogram Discharge Disposition: Home [...] mammogram documented in this encounter Care Teams Test Engine Operator Relationship Specialty Start Date End Date Felix Le MD [address] [facility] [address] [facility] [address] [place] [address] PCP - General 06/04/15 documented as of this encounter
--- NOTE | 2025-09-17 12:54 | XR_ITS ---
FINAL REPORT CLINICAL HISTORY: SCREENING COMPARISON: 08/09/2024 FINDINGS: Using L1-4, the bone mineral density of the spine is 0.641 g/cm2, corresponding to T-score of -3.7, and a Z-score of -1.3. This corresponds to osteoporosis. The bone mineral density change versus baseline is -4.8%. Using the left hip, the bone mineral density of the femoral neck is 0.600 g/cm2, corresponding to a T-score of -2.8, and a Z-score of -1.1. This corresponds to osteoporosis. The bone mineral density change versus baseline is -3.4%. Using the right hip, the bone mineral density of the femoral neck is 0.543 g/cm2, corresponding to a T-score of -2.8, and a Z-score of -0.7. This corresponds to osteoporosis. The bone mineral density change versus baseline is -7.4%. NOTE: T-score: Standard deviation compared with peak bone mass of young adult mean. *Following the recommendations of the International Society of Bone densitometry, classification of hip BMD is based on the lower of two T-scores; total hip or femoral neck. IMPRESSION: Diminished bone mineral density of the bilateral hips and lumbar spine consistent with osteoporosis. Reviewed, Interpreted and Dictated by Tangela Wilkinson MD Transcribed by Joy Mackey Authenticated and . [facility]
--- OUTSIDE RECORDS SUMMARY | 2025-09-17 12:55 | XMS_ITS | Clinical Summary ---
Author Organization [facility] Address [address] [place] [address] Care Team Providers Care Sap Integration Architect Name Role Phone Param Le MD Primary Care Provider [phone] Allergies Active Allergy Reactions Criticality Noted Date [...] Metabolism [address] , [address] [place] [address] Chele Gutiérrez MD [address] [place] [address] Health Maintenance Due Date Last [...] (2 of 2 - PCV) 07/18/2020 07/18/2019 [id number] Vaccine ( season) 2025 08/08/2024, 07/02/2023, 06/03/2022, [...] to complete [place] [id number] MEDICARE [facility] Care Teams Sap Integration Architect Relationship Specialty Start Date End Date Param Le MD [facility] [id number] PCP - General 01/31/21
--- OUTSIDE RECORDS SUMMARY | 2025-09-17 12:55 | XMS_ITS | Patient Health Record ---
Author Organization [facility] [place] Address [address] [place] [address] Care Team Providers Care Mosaic Tile Maker Name Role Phone Shameka Soni Unavailable [phone] Allergies Allergen (clinical drug ingredient) Drug/Non Drug [...] Lab: Notes/Report: [facility] Testing performed at: [WB] [address], [address], , Tile Mechanic Helper: Melissa Tierney MD Source.............Cervix No. of containers..01 ThinPrep Vial DIAGNOSIS: Comment N NEGATIVE FOR I NTRAEPITHELIAL LESION OR MALIGNANCY. Specimen adequacy: Comment N cells (endocervical component) are present. Satisfactory for evaluation. Endocervical and/or squamous metaplastic Clinician provided ICD10: Comment N Z01.419 Performed by: Comment N Michael crane, Assembly Department Supervisor (ASCP) . . N Note: Comment N The Pap smear is a screening test designed to aid in the should not be used as the sole means of detecting cervical cancer. Both false-positive and false-negative reports do detection of premalignant and malignant conditions of the occur. uterine cervix. It is not a diagnostic procedure and Test Methodology: Comment N slide imaging system. This liquid based ThinPrep(R) pap test was interpreted using the [employer](R) Genius(TM) Cervical Algorithm whole . Comment N The HPV DNA reflex [...] Status Risk Notes Problem Gynecological examination normal ([id number] ) Cervical smear, as part of routine gynecological examination (Z01.419) 06/02/20 21 Active confirmed Annual without abnormal findings Vital Signs Blood pressure diastolic 70 mm Hg 07/02/2025 Height 66 in 07/02/2025 Blood pressure systolic 120 mm Hg 07/02/2025 Weight 111.0 lbs 07/02/2025 BMI 17.91 kg/m2 07/02/2025 Encounters Encounter Location Date Provider Diagnosis [facility] [address] [place] [address] 07/02/2025 Shameka Soni Pap smear, as part o f routine gynecological examination Z01.419 Assessments Encounter Date Diagnosis (ICD Code) Assessment Notes Treatment Notes Treatment Clinical Notes Section Notes 07/02/2025 Pap smear, as part of routine gynecological examination (ICD-10 - Z01.419) Plan Of Treatment Next Appt Details Provider Name:Shameka Soni, 07/04/2027 01:30:00 PM, [address], [place], [address], Insurance Providers Payer Name Payer Address Payer Phone Subscriber Number Group Number Insured Name Patient Relationship to Insured Coverage Start Date Coverage End Date [place] [address] [place] [address] [id number] Kristie Barry Self - patient is the insured [facility] [address] [place], [place] [id number] [phone] [id number] Kristie Barry Self - patient is the insured Medical (General) History Medical History History ICD Code osteoporosis arthritis Surgical History Surgery Date(Month/Year) hemorrhoidectomy Hospitalization History Reason Date(Month/Year) childbirth
--- OUTSIDE RECORDS SUMMARY | 2025-09-17 12:55 | XMS_ITS | Clinical Summary ---
Author Organization [facility] Address [address] [place] [id number] Care Team Providers Care Border Machine Operator Name Role Phone Felix Le MD Primary Care Provider Encounters Date Type Department Care Team Description 08/30/2025 1:42 PM EST - 08/30/2025 11:59 PM [facility] Hospital Encounter [facility] [address] [address] Shameka Soni MD Visit for [...] Payer (Ef fective 2016-Present) Name:Kristie Barry Member ID:[id number] Relation to Subscriber:Self Name:Kristie Barry Subscriber ID:[id number] Payer ID:[id number] Group ID:Not on file Type:Not on file Address: [address] [employer] C[employer] OPTIONS Advance Directives Documents on File Type Date Recorded Patient Actuarial Director Expl anation LIVING WILL - SCAN 08/30/2025 2:02 PM DARBY ING WILL DIRECTIVE, BHLEX, 08/21/2025 LIVING WILL - SCAN 08/30/2025 1:53 PM fax ed to HIM [phone] 08/30 1353 Care Teams Border Machine Operator Relationship Specialty Start Date End Date Felix Le MD [address] [facility] [address] [place] [address] PCP - General 06/04/15
--- OUTSIDE RECORDS SUMMARY | 2025-09-17 12:55 | XMS_ITS | Encounter Summary ---
[facility] Organization [facility] Address [address] [place] [address] Care Team Providers Care Classroom Instructor Name Role Phone Felix Le MD Primary [...] on filedocumented in this encounter Care Teams Classroom Instructor Relationship Specialty Start Date End Date Felix Le MD [address] [facility] [address] [place] [id number] PCP - General 06/04/15 documented as of this encounter
--- OUTSIDE RECORDS SUMMARY | 2025-09-17 12:55 | XMS_ITS | Patient Health Record ---
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 Name Role Phone Meenakshi Le Primary Care Provider [phone] Avery Akash Unavailable [phone] Allergies Allergen (clinical drug ingredient) Drug/Non Drug [...] Vaccine Route Administration Date Status Comme nts xFluzone Intradermal (18-64yrs)-trivalen t ID Intradermal 06/13/2012 [...] 04/16/2017 Administered ppd TD Transdermal 12/17/2009 Administered PNEUMOVAX 23 VACCINE IM Intramuscular 06/13/2012 Administered PNEUMOVAX 23 VACCINE IM Intramuscular 07/18/2019 Administered Fluzone Intradermal Quad private(18-64yrs) ID Intradermal [...] (65yr and older) IM Intramuscular 06/22/2025 Administered COVID 19 Moderna IM Intramuscular 09/27/2020 Administered COVID 19 Moderna IM Intramuscular 10/28/2020 Administered COVID 19 Moderna Unknown 05/30/2021 Administered Problems Problem Type SNOMED Code ICD Code Onset Dates Problem Status W/U Status Risk Notes Problem 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) Allergic dermatitis (L20.0) Active confirmed Problem Vitamin D deficiency (53605668) Vitamin D deficiency (E55.9) Active confirmed Problem Vitamin B12 deficiency (157242267) Vitamin B12 deficiency (E53.8) Active confirmed Problem Seasonal allergy (631914145) Seasonal allergies (J30.2) Active confirmed Problem Osteoarthritis (912001776) Osteoarthritis (M19.90) Active confirmed Problem Disorder of lumbar disc (643110637) Lumbar disc disease (M51.9) Active confirmed Problem Peripheral neuropathy (840545555) Peripheral neuropathy (G62.9) Active confirmed Problem Osteoporosis (25849364) Osteoporosis (M81.0) Active confirmed Problem Sacroiliitis (60376772) Sacroiliitis (M46.1) Active confirmed Problem Postherpetic neuralgia (4464641) 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) Active confirmed Problem Dyslipidemia (275051173) Dyslipidemia (E78.5) Active confirmed Problem Irritable bowel syndrome characterized by constipation (380184822) Irritable bowel syndrome with constipation (K58.1) Active confirmed Vital Signs Heart Rate 87 /min 08/28/2025 Blood pressure diastolic 70 mm Hg 08/28/2025 Height 65 in 08/28/2025 Blood pressure systolic 120 mm Hg 08/28/2025 Weight 112 lbs 08/28/2025 BMI 18.64 kg/m2 08/28/2025 Encounters Encounter Location Date Provider Diagnosis [facility] [address] [id number] 01/09/2025 Meenakshi Le Sacroiliitis M46.1 ; Gluteal tendinitis, left hip M76.02 ; Dyslipidemia E78.5 and Body mass index (BMI) of 19.0 to 19.9 in adult Z68.1 [facility] [address] [id number] 01/23/2025 R Param Le Gluteal tendinitis, left hip M76.02 ; Sacroiliitis M46.1 ; Vitamin B12 deficiency E53.8 and Body mass index (BMI) of 19.0 to 19.9 in adult Z68.1 [facility] [address] [id number] 02/08/2025 R Param Le Adult general medica l examination Z00.00 ; Gluteal tendinitis, left hip M76.02 ; Sacroiliitis M46.1 ; Vitamin D deficiency E55.9 ; Osteoporosis M81.0 ; Vitamin B12 deficiency E53.8 ; Dyslipidemia E78.5 and Body mass index (BMI) of 19.0 to 19.9 in adult Z68.1 [facility] [address] [place] [id number] 03/01/2025 R Param Rey Gluteal tendinitis, left hip M76.02 ; Sacroiliitis M46.1 and Body mass index (BMI) of 19.0 to 19.9 in adult Z68.1 [facility] [address] [place], [place] [id number] 04/17/2025 R Param Rey Peripheral neuropath y G62.9 [facility] [address] [place], [place] [id number] 06/22/2025 R Param [place] Encounter for immunization Z23 and Vitamin B 12 deficiency E53.8 [facility] [address] [place], [place] [id number] 08/28/2025 R Param Rey Right knee pain M25. 561 and B12 deficiency E53.8 [facility] [address] [place], [place] [id number] 10/02/2024 R Param Rey Closed nondisplaced fracture of fifth metatarsal bone of right foot, initial encounter S92.354A [facility] [address] [place] [id number] 10/12/2024 R Param Rey [facility] [address] [place], [place] [id number] 11/10/2024 R Param Rey Peripheral neuropath y G62.9 [facility] [address] [place], [place] [id number] 01/10/2025 R Param Rey [facility] [address] [place] [id number] 01/12/2025 R Param Rey [facility] [address] [place], [place] [id number] 01/15/2025 R Param Rey Sacroiliitis M46.1 [facility] [address] [place], [place] [id number] 01/15/2025 R Param Rey [facility] [address] [place], [place] [id number] 02/06/2025 R Param Rey Vitamin D deficiency E55.9 ; Vitamin B12 deficiency E53.8 ; Seasonal allergies J30.2 and Dyslipidemia E78.5 [facility] [address] [place], [place] [id number] 02/13/2025 Akash Logan Peripheral neuropath y G62.9 [facility] [address] [place], [place] [id number] 02/13/2025 R Param Rey [facility] [address] [place], [place] [id number] 02/13/2025 R Param [place] Gluteal tendinitis, left hip M76.02 [facility] [address] [place] [id number] 02/19/2025 Akash Logan Sacroiliitis M46.1 [facility] [address] [place] [id number] 03/12/2025 R Param Rey Peripheral neuropath y G62.9 [facility] [address] [place], [place] [id number] 03/13/2025 R Param Rey [facility] [address] [place], [place] [id number] 04/11/2025 Akash Logan [facility] [address] [place] [id number] 04/24/2025 R Param Rey [facility] [address] [place] [id number] 05/04/2025 R Param Rey Peripheral neuropath y G62.9 [facility] [address] [facility] [place], [place] [id number] 05/08/2025 R Param Seet [facility] [address] [facility] [address] [place], [place] [id number] 05/14/2025 R Param [place] [facility] [address] [facility] [address] [place] [id number] 08/30/2025 R Param [place] [facility] [address] [facility] [address] [place], [place] [id number] 09/06/2025 R Param [place] Assessments Encounter Date Diagnosis (ICD Code) Assessment [...] (ICD-10 - M76.02) Continue physical therapy 02/08/2025 Adult general medical examination (ICD-10 - Z00.00) Patient instructed to return to office Annually for Annual Wellness Visits to include annual screenings of Pain assessment, Functional Ability assessment, Cognitive Ability assessment, Fall Risk assessment, Depression screening and Bladder control screening. 03/01/2025 Gluteal tendinitis, left hip (ICD-10 - M76.02) Continue physical therapy 03/01/2025 Sacroiliitis (ICD-10 - M46.1) Continue chiropractic treatments 03/12/2025 Peripheral neuropathy (ICD-10 - G62.9) 05/04/2025 Peripheral neuropathy (ICD-10 - G62.9) 06/22/2025 Vitamin B 12 deficiency (ICD-10 - E53.8) 06/22/2025 Encounter for immunization (ICD-10 - Z23) 08/28/2025 B12 deficiency (ICD-10 - E53.8) 08/28/2025 Right knee pain (ICD-10 - M25.561) 04/17/2025 Peripheral neuropathy (ICD-10 - G62.9) She currently has medication at home and will try the new dosing schedule and let me know how her symptoms are doing. 02/19/2025 Sacroiliitis (ICD-10 - M46.1) 02/13/2025 Gluteal tendinitis, left hip (ICD-10 - M76.02) 02/13/2025 Peripheral neuropathy (ICD-10 - G62.9) 01/15/2025 Sacroiliitis (ICD-10 - M46.1) 01/23/2025 Gluteal [...] Date MEDICARE PART B [address] [address] [place] [address] [id number] Kristie Haas Self - patient is the insured [facility] [facility] [address] [place] [address] [phone] [id number] Kristie Haas Self - patient is the [...] S/ [address] 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
== END 2025-09-17 23:59 ==
LOC: RAD 12:51
PROVIDERS: PCP Family Medicine; Visit Provider Internal Medicine Nephrology
DX: M81.0 Age-related osteoporosis without current pathological fracture (principal)
CPT/HCPCS: 77080